=== PATIENT | female | born 1960 | race Caucasian/White ===

== ENCOUNTER 2023-11-22 09:56 | Emergency (ER) | payer OTHER, SELFPAY ==
--- NOTE | ~2023-11-22 | XR_ITS ---
EXAMINATION: XR FOOT, LEFT CLINICAL INFORMATION: Worsening left foot pain. COMPARISON: None available. TECHNIQUE: AP, lateral, and oblique views of the left foot. FINDINGS: Decreased bone mineralization. Mild diffuse interphalangeal joint space narrowing. No displaced fracture or dislocation. Posterior and plantar calcaneal spurring. There is calcification within the plantar fascia. XR/XR foot LT min 3V IMPRESSION: No acute abnormality.
[2023-11-22 10:15] VITALS: BP 136/99; PULSE 112; RESP 16; TEMP 36; O2SAT 99; BMI 32.9
--- NOTE | 2023-11-22 10:40 | ED_ITS ---
HPI - General Adult General Chief complaint: Back Pain/Injury Stated complaint: l ankle pain Time Seen by Provider: 11/22/23 10:05 Source: patient and RN notes reviewed Mode of arrival: ambulatory Limitations: no limitations History of Present Illness HPI narrative: This is a 63-year-old female, with a history of hypothyroidism, hypertension, and chronic migraines, presenting to the emergency department with complaints of ongoing left foot pain since August 2023. Patient states that in August she tripped over a toy around [place] and caused her to injured her left foot. She states that she was several hours away from hospital and was not seen immediately. She states that several days later she traveled home and was told that she had a foot fracture. She followed up with the senior ecologist several weeks ago and was told that she had a fracture and would be re seen in December after wearing boot. She was seen by her primary care physician last week who prescribed her a topical pain medication which he has been using without any relief. Patient states that over the last 4 days she has had increased pain in his been unable to sleep. She states that she was never seen by an hemodialysis patient care specialist and would like to be referred to 1 today. No other complaints or concerns at this time. MD complaint: foot pain Onset (ago): month(s) Location: lower extremity Radiation: non-radiation Severity: moderate Quality: aching Pain Consistency: constant Relieving factors: immobilization Exacerbating factors: movement Associated symptoms: denies other symptoms Treatments prior to arrival: none Related Data Home Medications Medication Instructions Recorded Confirmed albuterol sulfate 90 mcg/actuation 2 puff inhalation Q6H PRN 05/30/22 aerosol inhaler duloxetine 30 mg capsule,delayed 60 mg PO DAILY 05/30/22 release fluticasone 500 mcg-salmeterol 50 1 inh inhalation BID 05/30/22 mcg/dose blistr powdr for inhalation (Wixela Inhub) fluticasone prop.50 mcg 2 spray intranasal DAILY 05/30/22 spray,suspen-sod.chloride 0.9% nasal spray kit levothyroxine 100 mcg tablet 100 mcg PO DAILY 05/30/22 metoprolol succinate 25 mg 25 mg PO DAILY 05/30/22 tablet,extended release 24 hr umeclidinium 62.5 mcg/actuation 1 inh inhalation DAILY 05/30/22 blister powder for inhalation (Incruse Ellipta) valsartan 160 1 tab PO DAILY 05/30/22 mg-hydrochlorothiazide 25 mg tablet Previous Rx's Medication Instructions Recorded pantoprazole 20 mg tablet,delayed 40 mg (2 x 20 mg) PO DAILY 30 days 05/30/22 release #60 tabs Allergies Allergy/AdvReac Type Severity Reaction Status Date / Time aspirin Allergy Intermediate Rash Verified 05/30/22 13:05 ibuprofen Allergy Intermediate Rash Verified 05/30/22 13:05 IV contrast Allergy Intermediate Swelling Uncoded 05/30/22 13:05 Review of Systems Review of Systems: Yes all other systems are reviewed and are negative Constitutional: Constitutional: Reports as per [facility] Past Medical History Attestation statement: The following information was validated with the patient. Social History Social History Patient Tobacco Use Status: Never used Tobacco Smoked in Last 30 Days: No Use of substances other than those prescribed or required for medical reasons: No Advance Directives: No Patient : No Physical Exam ED Vital Signs: Vital Signs - 24 hr 11/22/23 10:15 Temperature 96.8 F Pulse Rate 112 H Respiratory Rate 16 Blood Pressure 136/99 H Pulse Oximetry 99 Oxygen Delivery Method Room Air BMI result Body Mass Index 32.9 Const General: cooperative, comfortable and no acute distress Orientation/consciousness: patient oriented x3 Limitations: no limitations HENMT Head: Yes normal to inspection, Yes normocephalic and Yes atraumatic Ears: hearing grossly normal bilaterally General nose exam: Normal external nose present Face and sinus: Yes normal facial exam Mouth: Normal oral and palatal mucosa present, oropharynx normal and moist mucous membranes Throat: Yes posterior oropharynx normal Eyes General: appearance normal, both eyes and all related structures Eyelids: Yes eyelids normal Conjunctivae: conjunctivae normal Sclerae: sclerae normal Pupils: Equal, round and reactive pupils present EOM: EOMs intact bilaterally Neck Neck: Yes normal visual inspection, Yes full ROM and Yes no lymphadenopathy Lymphatic: no lymphadenopathy noted Chest Chest palpation & inspection: normal inspection of the chest Resp Effort & Inspection: normal respiratory effort and able to speak in complete sentences Cardio Rate: regular rate Rhythm: regular rhythm GI Inspection: Yes normal to inspection Skin General skin exam: no rashes or lesions noted Trauma: no lacerations or abrasions Wounds: no wounds Neuro General: patient oriented x3 and moves all extremities Cranial nerves: Yes Equal, round and reactive pupils present Extrem Other: Left foot dorsal aspect there is moderate diffuse ecchymosis noted, however what is well perfused, no bony gross deformity or swelling. No tenderness palpation, full range of motion of the ankle joint, able to wiggle toes without difficulty. DP pulse 2 + no tenderness palpation along medial or lateral malleoli. No calf tenderness. General: Yes normal to inspection Right upper extremity: normal to inspection Left upper extremity: normal to inspection Right lower extremity: normal to inspection Left lower extremity: normal to inspection Course Reevaluation(s) Reevaluation #1: X-ray shows no acute abnormality. There is decreased bone mineralization, and diffuse intra pharyngeal joint space narrowing. There is also posterior and plantar calcaneal spurring. There is calcification within the plantar fascia. Discussed this finding with patient. Will refer to Orthopedics, given return precautions. Refuses crutches. She understands agrees with plan. Patient stable for discharge. Time: 12:20 Medical Decision Making Medical Decision Making MDM Narrative: This is a 63-year-old female, with a history of hypothyroidism, hypertension, and chronic migraines, presenting to the emergency department with complaints of acute on chronic left foot pain x4 days. Patient has known foot fracture she was diagnosed in August. She has been wearing boot, followed up with Podiatry as well as primary care. Was advised sustained boot until follow-up with Podiatry next month. She states that her pain has only worsened is concerned as she believes that the bone is not healed. She has not been seen by an hemodialysis patient care specialist as of yet. She has been using [id number] Tylenol and Aleve without any relief. On arrival, patient mildly tachycardic at 112, mildly hypertensive at 136/99, she has no chest pain, shortness of breath, abdominal pain, nausea, vomiting or diarrhea. Foot appears slightly ecchymotic, otherwise no evidence of compartment syndrome, open fracture, or cellulitis. Will repeat x-ray as we do not have record of her fracture. Differential Diagnosis Differential Diagnoses: The differential diagnosis associated with the presentation includes Fracture, sprain, strain, contusion, bony lesion, dislocation, compartment syndrome, cellulitis Admission/Observation Consideration of admission/observation: Escalation of care including admission/observation considered Escalation of care including admission/observation considered however given workup today not warranted at this time. Radiology Impression Discussion of test interpretation with radiology: I have reviewed the radiologist's reading. Radiologist Impression: EXAMINATION: XR FOOT, LEFT CLINICAL INFORMATION: Worsening left foot pain. COMPARISON: None available. TECHNIQUE: AP, lateral, and oblique views of the left foot. FINDINGS: Decreased bone mineralization. Mild diffuse interphalangeal joint space narrowing. No displaced fracture or dislocation. Posterior and plantar calcaneal spurring. There is calcification within the plantar fascia. XR/XR foot LT min 3V IMPRESSION: No acute abnormality. Dictated By: Lilly Davis MD Discharge Plan Discharge Clinical Impression: Chronic pain in left foot Patient Disposition: Home, Self-Care Instructions: Arthralgia (ED), Metatarsalgia (DC) Additional Instructions: You were seen in the emergency department due to ongoing foot pain. Your x-ray does not indicate any fracture. Given that you were instructed to stay in orthopedic boot, I am recommending you do so until you are cleared by the senior ecologist. I am also giving your referral to Orthopedics, call today to make an appointment. Continue taking naproxen and Tylenol as needed for pain. Rest, ice or apply heat, or elevate your foot as needed. If any new or worsening symptoms occur including but not limited to worsening pain, swelling, decreased range of motion foot, please return for re-evaluation. Prescriptions: No Action metoprolol succinate 25 mg tablet extended release 24 hr 25 mg PO DAILY valsartan-hydrochlorothiazide 160-25 mg tablet 1 tab PO DAILY levothyroxine 100 mcg tablet 100 mcg PO DAILY duloxetine 30 mg capsule,delayed release(DR/EC) 60 mg PO DAILY Incruse Ellipta 62.5 mcg/actuation blister with device 1 inh inhalation DAILY fluticasone propion-salmeterol [Wixela Inhub] 500-50 mcg/dose blister with device 1 inh inhalation BID albuterol sulfate 90 mcg/actuation HFA aerosol inhaler 2 puff inhalation Q6H PRN fluticasone prp-sod.chl,bicarb 50 mcg- 0.9 % kit,spray suspension and spray 2 spray intranasal DAILY pantoprazole 20 mg tablet,delayed release (DR/EC) 40 mg PO DAILY 30 Days Qty: 60 0RF Referrals: [facility] [place] Orth[facility] Surgeons [Provider Group]
[2023-11-22 12:33] VITALS: BP 155/90; PULSE 67; RESP 16; TEMP 37.2; O2SAT 99
== END 2023-11-22 12:46 | disposition home or self-care (01) ==
PROVIDERS: Emergency Provider Emergency Medicine; PCP Internal Medicine
DX: M79.672 Pain in left foot (principal); Z79.899 Other long term (current) drug therapy
CPT/HCPCS: 73630; 99283; 99284

== ENCOUNTER 2024-11-10 10:56 | Emergency (ER) | payer OTHER, SELFPAY ==
--- NOTE | ~2024-11-10 | CT_ITS ---
EXAMINATION: CT HEAD WITHOUT CONTRAST CLINICAL INFORMATION: numbness to left face COMPARISON: None available. TECHNIQUE: Contiguous axial imaging was performed from the skull base to vertex without intravenous administration of contrast. This CT examination was performed using dose optimization techniques as appropriate, variously including the following: *Automated exposure control *Adjustment of mA and/or kV according to patient size (this includes techniques or standardized protocols for targeted exams where dose is matched to indication/reason for exam; i.e. extremities or head) *Use of iterative reconstruction technique DLP: 663 mGy-cm FINDINGS: No acute intracranial hemorrhage, mass effect, midline shift, hydrocephalus or herniation. Ornelas-white matter differentiation is normal. Posterior cranial fossa contents demonstrated no acute intracranial hemorrhage. Probable old lacunar infarcts in basal ganglia. Sellar/suprasellar region demonstrated no gross masses or hemorrhage. Craniocervical junction is intact. Calcified plaques in the V4 segments of the right vertebral artery and cavernous supracavernous segments both ICA. Tympanic cavities and mastoid cells are aerated. No air-fluid levels in the included paranasal sinuses.. CT/CT head/brain wo IV con IMPRESSION: No acute intracranial hemorrhage. 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 Electronically signed by: Moise Sinclair MD 11/10/2024 02:45 PM EST
--- NOTE | 2024-11-10 11:53 | ED.GENADULT ---
HPI - General Adult General Chief complaint: Neuro Symptoms/Deficit Stated complaint: l side facial numbness feels funny Time Seen by Provider: 11/10/24 17:09 Source: patient Limitations: no limitations History of Present Illness ED Provider: Jane Pereira PA-C HPI narrative: 64-year-old female with a history of chronic migraine, gastritis, GERD, asthma, hypothyroidism, hypertension presents with migraine headache. Patient states she has frequent headaches, they can occur on a daily basis at times. Overnight she developed a headache. Associated left-sided tingling sensation of the face, phonophobia, photophobia and nausea. Denies weakness of upper or lower extremities, slurred speech, facial droop. No dizziness. No gait instability. Patient states she has pending neurology consult for her chronic migraines. Related Data Home Medications ?Medication ?Instructions ?Recorded ?Confirmed albuterol sulfate 90 mcg/actuation 2 puff inhalation Q6H PRN 05/30/22 aerosol inhaler duloxetine 30 mg capsule,delayed 60 mg PO DAILY 05/30/22 release fluticasone 500 mcg-salmeterol 50 1 inh inhalation BID 05/30/22 mcg/dose blistr powdr for inhalation (Wixela Inhub) fluticasone prop.50 mcg 2 spray intranasal DAILY 05/30/22 spray,suspen-sod.chloride 0.9% nasal spray kit levothyroxine 100 mcg tablet 100 mcg PO DAILY 05/30/22 metoprolol succinate 25 mg 25 mg PO DAILY 05/30/22 tablet,extended release 24 hr umeclidinium 62.5 mcg/actuation 1 inh inhalation DAILY 05/30/22 blister powder for inhalation (Incruse Ellipta) valsartan 160 1 tab PO DAILY 05/30/22 mg-hydrochlorothiazide 25 mg tablet Previous Rx's ?Medication ?Instructions ?Recorded pantoprazole 20 mg tablet,delayed 40 mg (2 x 20 mg) PO DAILY 30 days 05/30/22 release #60 tabs prochlorperazine maleate 10 mg 10 mg PO Q8H PRN headache #10 tabs 11/10/24 tablet (Compazine) Allergies Allergy/AdvReac Type Severity Reaction Status Date / Time aspirin Allergy Intermediate Rash Verified 11/10/24 11:59 ibuprofen Allergy Intermediate Rash Verified 11/10/24 11:59 IV contrast Allergy Intermediate Swelling Uncoded 11/10/24 11:59 Review of Systems Review of Systems: Yes all other systems are reviewed and are negative Constitutional: Constitutional: Denies fatigue, Denies fever(s) and Reports headache(s) Eyes: Eyes: Reports photophobia ENT: Denies dizziness and Reports headache(s) Cardiovascular: Cardiovascular: Denies chest pain and Denies dyspnea Respiratory: Respiratory: Denies cough and Denies dyspnea Gastrointestinal: Gastrointestinal: Denies abdominal pain, Reports nausea and Denies vomiting Musculoskeletal: Musculoskeletal: Denies numbness and Reports tingling Neurologic: Denies dizziness, Reports headache(s), Denies numbness and Reports tingling Endocrine: Endocrine: Denies fatigue [facility] Past Medical History Attestation statement: The following information was validated with the patient. Social History Social History Patient Tobacco Use Status: Never used Tobacco Advance Directives: No Advance Directives Information Provided: Yes Physical Exam ED Vital Signs: Vital Signs - 24 hr 11/10/24 11:54 11/10/24 15:45 11/10/24 19:31 Temperature 97.8 F 96.8 F 98.3 F Pulse Rate 71 72 87 Respiratory Rate 16 16 14 Blood Pressure 135/84 126/84 115/71 Pulse Oximetry 100 99 96 Oxygen Delivery Method Room Air Room Air Room Air 11/10/24 19:32 Temperature 98.3 F Pulse Rate 87 Respiratory Rate 14 Blood Pressure 115/71 Pulse Oximetry 96 Oxygen Delivery Method Room Air BMI result Body Mass Index 36.1 Const Other: Alert, well-appearing Orientation/consciousness: patient oriented x3 Eyes Direct Ophthalmoscopy: photophobia Resp Effort & Inspection: normal respiratory effort Cardio Other: Normal peripheral perfusion Skin Other: Warm dry no rash Neuro General: patient oriented x3, gait normal, no focal motor deficits and CN's II-XI intact bilaterally Psych Other: Cooperative NIH Stroke Scale Internal: Initial- Upon Arrival Time: 11:58 Level of Consciousness: Alert Level of Consciousness Questions: Answers both questions correctly Level of Consciousness Commands: Performs both tasks correctly Best Gaze: Normal Visual: No visual loss Facial Palsy: Normal Motor Arm (Right): No drift Motor Arm (Left): No drift Motor Leg (Right): No drift Motor Leg (Left): No drift Limb Ataxia: Absent Sensory: Normal Best Language: No aphasia Dysarthia: Normal Extinction and Inattention: No abnormality Score: 0 Course Course Course Narrative: This is a Rapid Medical Examination (RME) performed by Antoinette Reyes PA-C in triage. Full HPI, ROS, assessment and treatment plan per primary provider in the Main ED. 64 yo female hx HTN and migraines presents to the ED today for evaluation of left sided facial numbness which began around 2200 last night. assoc mild JARRELL. no dizziness, vision changes. no falls/ trauma. NIH 0, speaking in full sentences, ambulating w/ steady gait Plan: labs, viral swabs, CT head Reevaluation(s) Reevaluation #1: Headache was resolved including the facial paresthesia at the time of discharge Medications Administered Discontinued Medications Generic Name Dose Route Start Last Admin Trade Name Freq PRN Reason Stop Dose Admin Dexamethasone Sodium Phosphate 10 mg 11/10/24 17:44 11/10/24 18:10 Dexamethasone Sod Phosphate 10 Mg/Ml Vial IVPUSH 11/10/24 17:45 10 mg ONCE ONE Administration Diphenhydramine HCl 25 mg 11/10/24 17:44 11/10/24 18:13 Diphenhydramine Hcl 50 Mg/Ml Vial IVPUSH 11/10/24 17:45 Not Given ONCE ONE Sodium Chloride 500 mls @ 500 mls/hr 11/10/24 17:44 11/10/24 18:51 Ns IV 11/10/24 18:43 Infused .Q1H ONE Infusion Acetaminophen 1,000 mg in 100 mls @ 400 mls/hr 11/10/24 17:45 11/10/24 18:51 Ofirmev IV 11/10/24 17:59 Infused ONCE ONE Infusion Prochlorperazine Edisylate 10 mg 11/10/24 17:44 11/10/24 18:10 Prochlorperazine Edisylate 10 Mg/2 Ml Vial IVPUSH 11/10/24 17:45 10 mg ONCE ONE Administration Medical Decision Making Medical Decision Making MDM Narrative: 64-year-old female with a history of chronic migraine, gastritis, GERD, asthma, hypothyroidism, hypertension presents with migraine headache. Patient states she has frequent headaches, they can occur on a daily basis at times. Overnight she developed a headache. Associated left-sided tingling sensation of the face, phonophobia, photophobia and nausea. Denies weakness of upper or lower extremities, slurred speech, facial droop. No dizziness. No gait instability. Patient states she has pending neurology consult for her chronic migraines. Problem: Age, hypertension, chronic migraine History: Per patient I have considered the following differential diagnoses: Stroke, Duran's palsy, complex migraine, intracranial hemorrhage Plan: Screening labs including a CT scan of the brain were obtained from triage. Stroke was considered, however having focal paresthesia is not consistent with a CVA. Thought about Duran's palsy, however there was no facial droop. The patient has no migraines, I am treating her for complex migraine. We will give a migraine cocktail and reassessed. I have independently reviewed the following tests: Labs: No leukocytosis, not anemic, no electrolyte abnormality CT brain: CT/CT head/brain wo IV con IMPRESSION: No acute intracranial hemorrhage. 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 Electronically signed by: Moise Sinclair MD 11/10/2024 02:45 PM [facility] Lab Data 11/10/24 12:29 11/10/24 12:36 Labs: Lab Results 11/10/24 11/10/24 Range/Units 12:29 12:36 WBC 7.7 (4.8-10.8) X10*3/uL RBC 3.84 L (4.20-5.50) X10*6/uL Hgb 12.4 (12.0-16.0) g/dl Hct 36.8 L (37.0-47.0) % MCV 95.8 (80.0-98.0) fL MCH 32.3 (27.0-33.0) pg MCHC 33.7 (31.0-35.0) g/dl RDW 12.3 (11.0-16.0) % Plt Count 274 (160-400) X10*3/uL MPV 9.2 L (9.4-12.3) fL Immature Gran % (Auto) 0.3 (0.0-0.4) % Neut % (Auto) 66.5 (45-73) % Lymph % (Auto) 18.7 L (20-40) % Russell % (Auto) 12.4 H (2-11) % Eos % (Auto) 1.8 (0-4) % Baso % (Auto) 0.3 (0-2) % Lymph # (Auto) 1.4 (1.2-4.9) X10*3/uL Russell # (Auto) 1.0 (0.1-1.2) X10*3/uL Eos # (Auto) 0.1 (0.0-0.4) X10*3/uL Baso # (Auto) 0.0 (0.0-0.2) X10*3/uL Abs Immat Gran (auto) 0.02 (0.00-0.03) X10*3/uL Absolute Neuts (auto) 5.1 (2.0-8.3) x10*3/uL Absolute Nucleated RBC 0.000 (0.0-0.012) X10*3/uL Nucleated RBC % (auto) 0.0 (0.0-0.2) /100WBC PT 11.2 (10.9-12.4) SEC INR 1.0 (0.9-1.1) Sodium 141 (135-145) mmol/L Potassium 4.4 (3.3-5.1) mmol/L Chloride 107 (96-108) mmol/L Carbon Dioxide 28 (22-29) mmol/L Anion Gap 10 L (12-20) BUN 24 H (9-16) mg/dL Creatinine 0.72 (0.5-1.4) mg/dL Estim Creat Clear Calc 92.8 Estimated GFR > 60 Random Glucose 94 (60-115) mg/dL Calcium 9.6 (8.4-10.2) mg/dL Magnesium 2.4 (1.6-2.6) mg/dL Total Bilirubin 0.2 (0.0-1.0) mg/dL AST 25 (5-31) U/L ALT 16 (0-31) U/L Alkaline Phosphatase 79 (39-117) U/L Total Protein 7.3 (6.5-8.0) g/dL Albumin 4.1 (3.5-5.0) g/dL Influenza Type A (PCR) NEGATIVE (Negative) Influenza Type B (PCR) NEGATIVE (Negative) RSV RNA Qual (PCR) NEGATIVE (Negative) SARS-CoV-2 RNA (RT-PCR) NEGATIVE (Negative) Discharge Plan Discharge Clinical Impression: Migraine Patient Disposition: Home, Self-Care Instructions: Migraine Headache (ED) Additional Instructions: You were treated for a migraine type headache. See home care instructions. I am going to write down the medications that you received that resolved your headache. If you develop another migraine, you can use the combination of the medication listed below, together at the same time. Jmka-sfk-kzejwxq Tylenol 1000 mg Arjq-rnx-gethrix Benadryl 25 mg Compazine 10 mg These medications taken together, can be used every 8 hours as needed for migraine pain. Continue to follow up with your neurologist. Prescriptions: New prochlorperazine maleate [Compazine] 10 mg tablet 10 mg PO Q8H PRN (Reason: headache) Qty: 10 0RF No Action metoprolol succinate 25 mg tablet extended release 24 hr 25 mg PO DAILY valsartan-hydrochlorothiazide 160-25 mg tablet 1 tab PO DAILY levothyroxine 100 mcg tablet 100 mcg PO DAILY duloxetine 30 mg capsule,delayed release(DR/EC) 60 mg PO DAILY Incruse Ellipta 62.5 mcg/actuation blister with device 1 inh inhalation DAILY fluticasone propion-salmeterol [Wixela Inhub] 500-50 mcg/dose blister with device 1 inh inhalation BID albuterol sulfate 90 mcg/actuation HFA aerosol inhaler 2 puff inhalation Q6H PRN fluticasone prp-sod.chl,bicarb 50 mcg- 0.9 % kit,spray suspension and spray 2 spray intranasal DAILY pantoprazole 20 mg tablet,delayed release (DR/EC) 40 mg PO DAILY 30 Days Qty: 60 0RF Stand Alone Forms: Work/School Release Interventions: ED Discharge Assessment Last Done: 11/10/24 19:32 Discharge Date/Time: 11/10/24 19:32 Print Language: Egyptian
[2024-11-10 11:54] VITALS: BP 135/84; PULSE 71; RESP 16; TEMP 36.6; O2SAT 100; BMI 36.1
[2024-11-10 12:42] LABS: MANUAL DIFF FLAG NO
[2024-11-10 12:43] LABS: Basophils Percent Auto 0.3 % (0-2); Eosinophils Absolute Auto 0.1 X10*3/uL (0.0-0.4); Eosinophils Percent Auto 1.8 % (0-4); Hematocrit 36.8 % (37.0-47.0); Hemoglobin 12.4 g/dl (12.0-16.0); Imm Gran Abs Auto 0.02 X10*3/uL (0.00-0.03); Imm Gran Pct Auto 0.3 % (0.0-0.4); Lymphocytes Absolute Auto 1.4 X10*3/uL (1.2-4.9); Lymphocytes Percent Auto 18.7 % (20-40); Mean Corpuscular HGB Conc 33.7 g/dl (31.0-35.0); Mean Corpuscular Hemoglobin 32.3 pg (27.0-33.0); Mean Corpuscular Volume 95.8 fL (80.0-98.0); Mean Platelet Volume 9.2 fL (9.4-12.3); Monocytes Percent Auto 12.4 % (2-11); Neutrophils Absolute Auto 5.1 x10*3/uL (2.0-8.3); Neutrophils Percent Auto 66.5 % (45-73); Platelet Count 274 X10*3/uL (160-400); Red Blood Count 3.84 X10*6/uL (4.20-5.50); Red Cell Distribution Width 12.3 % (11.0-16.0); White Blood Count 7.7 X10*3/uL (4.8-10.8)
[2024-11-10 13:01] LABS: Alanine Aminotransferase 16 U/L (0-31); Albumin Level 4.1 g/dL (3.5-5.0); Alkaline Phosphatase 79 U/L (39-117); Anion Gap 10 (12-20); Aspartate Amino Transferase 25 U/L (5-31); Bilirubin Total 0.2 mg/dL (0.0-1.0); Blood Urea Nitrogen 24 mg/dL (9-16); Calcium 9.6 mg/dL (8.4-10.2); Carbon Dioxide 28 mmol/L (22-29); Chloride 107 mmol/L (96-108); Creatinine Clr Calc Pharmacy 92.8; Estimated Glomerular Filt Rate > 60; Glucose Random 94 mg/dL (60-115); Magnesium 2.4 mg/dL (1.6-2.6); Potassium 4.4 mmol/L (3.3-5.1); Sodium 141 mmol/L (135-145); Total Protein 7.3 g/dL (6.5-8.0)
[2024-11-10 13:06] LABS: Prothrombin Time 11.2 SEC (10.9-12.4)
[2024-11-10 13:23] LABS: Influenza A PCR NEGATIVE (Negative); Influenza B PCR NEGATIVE (Negative); Resp Syncy Virus RNA Qual PCR NEGATIVE (Negative); SARS COV2 PCR INHOUSE NEGATIVE (Negative)
[2024-11-10 15:45] VITALS: BP 126/84; PULSE 72; RESP 16; TEMP 36; O2SAT 99
[2024-11-10] MEDS: dexAMETHasone sod phosphate 10 MG/ML VIAL IVPUSH (18:10)
[2024-11-10] MEDS: Prochlorperazine Edisylate 10 MG/2 ML VIAL IVPUSH (18:10)
[2024-11-10] MEDS: 0.9 % Sodium Chloride 500 ML IV (18:10)
[2024-11-10] MEDS: Acetaminophen 1,000 MG/100 ML PIGGYBACK 400 MG IV (18:10)
--- OUTSIDE RECORDS SUMMARY | 2024-11-10 18:33 | XMS_ITS ---
Author Organization [facility] Address [address] [place] [address] Care Team Providers Care Library Attendant Name Role Phone Mattie Conner Primary Care Provide r Naren Jolly Unavailable [phone] REASON FOR VISIT MRV order- needs to be refaxed Encounters Encounter Location Date Provider Diagnosis [facility] [address] [place] [address] 10/09/2024 Naren Dolan Plan Of Treatment No Information Progress Notes * Christine UGALDEDOB:1960 (64 yo F)Acc No.[id number]:10/09/2024 Patient:?Christine UGALDE :1960???Age:64 Y???Sex:Female Address:[facility] [address] [place] [address] * * Date:?
--- OUTSIDE RECORDS SUMMARY | 2024-11-10 18:33 | XMS_ITS | Encounter Summary ---
Author Organization [facility] Address [address] [place] [address] Care Team Providers Care Supervisor [place] Department Name Role Phone Mattie Priest MD Primary Care Prov ider Reason for Visit * Reason Comments Fatigue Hypertension Encounter Details Date Type Department Care Team (Late st Contact Info) Description 10/15/2024 10:30 AM EST Office Visit Adult Medicine [facility] [address] [place] [address] Agustin Hebert PA [address] [place] [address] Migraine without status migrainosus, not intractable, unspecified migraine type (Primary Dx); Primary hypertension; Chronic migraine w/o aura w/o status migrainosus, not intractable; Prediabetes; Hypothyroidism, unspecified type; Other fatigue; Pain of both shoulder joints Social History Tobacco Use Types Packs/Day Years Used Date Smoking Tobacco: Never Smokeless Tobacco: Never Alcohol Use Standard Drinks/Week Comments No 0 (1 standard drink = 0.6 oz pur e alcohol) Comments No Sex and Gender Information Value Date Recorded Sex Assigned at Not on file Legal Sex Female 8:58 AM EST Gender Identity Not on file Sexual Orientation Not on file documented as of this encounter Last Filed Vital Signs Vital Sign Reading Time Taken Comments Blood Pressure 115/75 10/15/2024 10:23 AM EST Pulse 66 10/15/2024 10:23 AM EST Temperature 36.5 ??C (97.7 ??F) 10/15/2024 10:[address] Respiratory Rate - - Oxygen Saturation - - Inhaled Oxygen Concentration - - Weight 98 kg (216 lb) 10/15/2024 10:23 AM EST Height 165.1 cm (5' 5 ) 10/15/2024 10:23 AM EST Body Mass Index 35.94 10/15/2024 10:23 AM EST documented in this encounter Progress Notes * TEDDY De La Paz - 10/15/2024 10:30 AM EST CHIEF COMPLAINT: Fatigue and Hypertension IDENTIFIER: Christine Wray is a 64 y.o. old female. HPI: History of Present Illness The patient presents with fatigue, shoulder pain, migraines, and hypothyroidism. Fatigue - Significant fatigue for 2 weeks despite a regular sleep schedule (10 PM to 3 AM) - No recent illnesses, diet changes, or hydration issues - No snoring, restless sleep, skin rashes, or outdoor pets - No medication refills needed Shoulder Pain - Bilateral shoulder pain for a month, severe enough to prevent lifting upon waking - Pain originates from within the bones - No similar pain in knees, hips, ankles, elbows, or fingers - Soreness in the left wrist - Limited physical activity to walking - No previous shoulder issues - No collarbone pain - Able to raise arms overhead Migraines - Awaiting a special head x-ray for potential blockages - Unable to take additional migraine medication - Under neurology care, referred for x-ray, missed test due to insurance issues - Reports going to bed with a headache and significant pressure, possibly affecting sleep - Continues Ubrelvy for headaches, but it's ineffective Hypothyroidism - On levothyroxine 100 mcg daily for thyroid - Scheduled for blood tests today Hypertension: Blood pressure well-controlled with valsartan and hydrochlorothiazide. No hyper or hypotensive episodes, dizziness, visual changes, headaches, chest pain, peripheral neuropathies, leg swelling. Patient states they are medication adherent. Not checking pressures at home ROS: GENERAL: Negative for malaise, significant weight loss and fever HEENT: No changes in hearing or vision. No nosebleeds or other nasal problems NECK: Negative for lumps, goiter, pain, and significant neck swelling RESPIRATORY: No cough, wheezing or shortness of breath CARDIOVASCULAR: Negative for chest pain, leg swelling and palpitations GI: Negative for abdominal discomfort, changes in bowel habits, blood in stool or black stools ENDOCRINE: Negative for cold or heat intolerance, polyuria, polydipsia and goiter NEURO: No persistent headache, fainting, seizures, strokes, TIAs, weakness, numbness or tingling PAST MEDICAL HISTORY: Patient Active Problem List Diagnosis Date Noted Anxiety 06/24/2024 Back pain 06/24/2024 Class 2 severe obesity due to excess calories with serious comorbidity in adult (CMS/HCC) 06/24/2024 Mild concentric left ventricular hypertrophy (LVH) 06/24/2024 Prediabetes 06/24/2024 Closed fracture of lower end of left radius with routine healing 10/17/2022 Gallbladder polyp 09/22/2022 Left upper quadrant abdominal pain 09/22/2022 Sleep disorder 02/23/2021 Moderate persistent asthma without complication 08/10/2020 Nocturnal hypoxemia 06/08/2020 Primary hypertension 05/31/2019 Chronic bilateral low back pain with left-sided sciatica 08/14/2018 Pily's thyroiditis 10/08/2017 H/O partial thyroidectomy 10/08/2017 Cataracts, bilateral 07/27/2017 Depression 07/27/2017 GERD (gastroesophageal reflux disease) 07/27/2017 Constipation 11/16/2016 Vitamin D deficiency 11/16/2016 Hydronephrosis of right kidney 11/17/2015 Microhematuria 11/17/2015 Hypothyroid 08/12/2013 Irritable bowel disease 08/12/2013 Migraines 08/12/2013 Obstructive sleep apnea 08/12/2013 SOCIAL HISTORY: Social History Tobacco Use Smoking status: Never Smokeless tobacco: Never Substance Use Topics Alcohol use: No FAMILY HISTORY: Family Status Relation Name Status Mother Father Neg Hx (Not Specified) No partnership data on file Family History Problem Relation Name Age of Onset Diabetes Mother Bladder Cancer @ 62 Stroke Father 35 yo Breast cancer Neg Hx Ovarian cancer Neg Hx Colon cancer Neg Hx ACTIVE MEDICATIONS: Outpatient Medications Marked as Taking for the 10/15/24 encounter (Office Visit) with TEDDY De La Paz Medication Sig Dispense Refill acetaminophen (TYLENOL) 325 mg tablet every 6 (six) hours if needed. albuterol 2.5 mg /3 mL (0.083 %) nebulizer solution Inhale 3 mL (2.5 mg total) by mouth every 4 (four) hours if needed for wheezing. for up to 30 days albuterol HFA (PROAIR HFA ; PROVENTIL HFA ; VENTOLIN HFA) 90 mcg/actuation inhaler Inhale 2 puffs by mouth every 4 (four) hours if needed (COUGH OR WHEEZING). cetirizine (ZyrTEC) 10 mg tablet Take 1 tablet (10 mg total) by mouth 1 (one) time each day if needed for allergies. cyanocobalamin (VITAMIN B-12) 100 mcg tablet Take 0.5 tablets (50 mcg total) by mouth 1 (one) time each day. diclofenac (VOLTAREN) 1 % topical gel Apply 4 g topically 2 (two) times a day. ergocalciferol (VITAMIN D-2) 1,250 mcg (50,000 unit) capsule Take 1 capsule (50,000 Units total) bymouth 1 (one) time per week. ferrous gluconate (FERGON) 240 mg (27 mg iron) tablet TAKE ONE TABLET BY MOUTH EVERY DAY 30 tablet 0 FERROUS GLUCONATE ORAL Take 1 tablet by mouth 1 (one) time each day. Ferrous Gluconate 239 (27 Fe) MG Tab fluticasone propion-salmeteroL (ADVAIR DISKUS) 500-50 mcg/dose diskus inhaler Inhale 1 puff by mouth 2 (two) times a day. for 30 days ibuprofen (ADVIL,MOTRIN) 600 mg tablet levothyroxine (SYNTHROID, LEVOTHROID) 100 mcg tablet Take 1 tablet (100 mcg total) by mouth 1 (one)time each day before breakfast. 90 tablet 1 metoprolol succinate (TOPROL-XL) 25 mg 24 hr tablet Take 1 tablet (25 mg total) by mouth 1 (one) time each day. mometasone (ELOCON) 0.1 % ointment 2 (two) times a day. Apply 0.5 FTU to the affected area for 2 weeks naproxen (NAPROSYN) 500 mg tablet Take 1 tablet (500 mg total) by mouth 2 (two) times a day with meals. for 60 days pantoprazole (PROTONIX) 20 mg EC tablet Take 1 tablet (20 mg total) by mouth 2 (two) times a day before meals. pramipexole (MIRAPEX) 0.125 mg tablet Take 1 Tablet by mouth See Admin Instructions for 360 days. One tablet an hour before bed. Increase to two tablets in three days if no improvement. Maximum 3 tablets nightly after a week if no benefits from two tablets. Trulance 3 mg tablet TAKE 1 TABLET BY MOUTH DAILY 30 tablet 3 ubrogepant (UBRELVY) 100 mg tablet Take by mouth. valsartan-hydroCHLOROthiazide (DIOVAN-HCT) 320-25 mg per tablet Take 1 tablet by mouth 1 (one) timeeach day. 30 each 11 venlafaxine (EFFEXOR) 25 mg tablet Take 1 tablet (25 mg total) by mouth 1 (one) time each day. [DISCONTINUED] doxycycline (VIBRAMYCIN) 100 mg capsule ALLERGIES: Diphenhydramine hcl, Aspirin, Bupropion, Codeine, Cyclobenzaprine, Ibuprofen, Iodinated contrast media, Lisinopril, Meloxicam, Penicillins, Tramadol hcl, Valacyclovir hcl, and Verapamil hcl PHYSICAL EXAM: Blood pressure 115/75, pulse 66, temperature 36.5 ??C (97.7 ??F), temperature source Temporal, height 1.651 m (65 ), weight 98 kg (216 lb). Body mass index is 35.94 kg/m??. Plan is deferred until next visit APPEARANCE: Alert and in no acute distress EYES: PERRLA, conjunctiva and sclera normal NECK: Neck supple, no adenopathy, thyroid symmetric and of normal size HEART: RRR with normal S1 and S2, no murmurs, no gallops, no JVD appreciated LUNG: clear to auscultation bilaterally EXTREMITIES: Extremities warm and well perfused without clubbing, cyanosis, or edema NEURO: Awake, alert and oriented x 3 and Cranial nerves II-XII grossly intact SHOULDERS: Bilateral shoulders with diffuse tenderness to palpation with light touch but full active and passive laterally. Neurovascularly grossly intact in the upper extremities. LABS: Appointment on 09/08/2024 Component Date Value Ref Range Status WBC 09/08/2024 6.8 4.8 - 10.8 K/mcL Final RBC 09/08/2024 4.20 3.80 - 4.80 M/mcL Final Hemoglobin 09/08/2024 13.2 11.5 - 16.0 g/dL Final Hematocrit 09/08/2024 41.8 35.0 - 47.0 % Final MCV 09/08/2024 100.2 (H) 79.0 - 98.0 FL Final MCH 09/08/2024 31.7 27.0 - 32.0 pcg Final MCHC 09/08/2024 31.6 (L) 32.0 - 37.0 g/dL Final RDW 09/08/2024 12.7 11.0 - 15.0 % Final Platelets 09/08/2024 274 130 - 400 K/mcL Final MPV 09/08/2024 9.9 7.0 - 11.0 FL Final NRBC 09/08/2024 0.0 <1.0 % Final NRBC Absolute 09/08/2024 0.00 <0.10 K/mcL Final Neutrophils Relative 09/08/2024 64.7 % Final Lymphocytes Relative 09/08/2024 23.1 % Final Monocytes Relative 09/08/2024 10.1 % Final Eosinophils Relative 09/08/2024 1.5 % Final Basophils Relative 09/08/2024 0.3 % Final Immature Granulocytes Relative 09/08/2024 0.3 % Final Neutrophils Absolute 09/08/2024 4.43 1.50 - 7.00 K/mcL Final Lymphocytes Absolute 09/08/2024 1.58 1.00 - 5.00 K/mcL Final Monocytes Absolute 09/08/2024 0.69 0.20 - 1.00 K/mcL Final Eosinophils Absolute 09/08/2024 0.10 0.00 - 0.50 K/mcL Final Basophils Absolute 09/08/2024 0.02 0.00 - 0.20 K/mcL Final Immature Granulocytes Absolute 09/08/2024 0.02 0.00 - 0.03 K/mcL Final Appointment on 08/25/2024 Component Date Value Ref Range Status TSH 08/25/2024 15.31 (H) 0.40 - 4.00 mcIU/mL Final Free T4 08/25/2024 0.95 0.70 - 1.80 ng/dL Final Hemoglobin A1C 08/25/2024 6.2 <6.5 % Final Mean Bld Glu Estim. 08/25/2024 131 mg/dL Final Cholesterol 08/25/2024 218 (H) 0 - 200 mg/dL Final Triglycerides 08/25/2024 104 0 - 150 mg/dL Final HDL 08/25/2024 81 >=40 mg/dL Final LDL Calculated 08/25/2024 116 (H) 0 - 100 mg/dL Final VLDL Cholesterol Marcelo 08/25/2024 20.8 mg/dL Final Non HDL Chol. (LDL+VLDL) 08/25/2024 137 <145 mg/dL Final Chol/HDL Ratio 08/25/2024 2.7 0.0 - 4.4 Final Sodium 08/25/2024 140 133 - 145 mmol/L Final Potassium 08/25/2024 4.2 3.5 - 5.5 mmol/L Final Chloride 08/25/2024 106 96 - 110 mmol/L Final CO2 08/25/2024 28 21 - 32 mmol/L Final Anion Gap 08/25/2024 6 3 - 11 Final Glucose 08/25/2024 138 (H) 70 - 100 mg/dL Final BUN 08/25/2024 22 5 - 25 mg/dL Final Creatinine 08/25/2024 0.83 0.50 - 1.10 mg/dL Final eGFR 08/25/2024 79 >=60 mL/min/1.73m2 Final Calculation based on the Chronic Kidney Disease Epidemiology Collaboration (CKD- EPI) equation refitwithout adjustment for race. BUN/Creatinine Ratio 08/25/2024 26.5 Final Calcium 08/25/2024 9.7 8.5 - 10.5 mg/dL Final AST (SGOT) 08/25/2024 11 10 - 42 unit/L Final ALT (SGPT) 08/25/2024 20 10 - 60 unit/L Final Alkaline Phosphatase 08/25/2024 81 42 - 121 unit/L Final Total Protein 08/25/2024 7.1 6.0 - 8.0 g/dL Final Albumin 08/25/2024 4.1 3.2 - 5.0 g/dL Final Total Bilirubin 08/25/2024 0.3 0.0 - 1.4 mg/dL Final Vitamin D, 1, 25-Dihydroxy 08/25/2024 67 20 - 79 pg/mL Final Vitamin D 1, 25 dihydroxy levels should be primarily used to assess Vitamin D status in patients with renal disease and hypercalcemia. Vitamin D 1,25-dihydroxy levels are generally less than 5 pg/mL in end stage renal disease patients. The preferred initial test for assessing Vitamin D status in the general population is Vitamin D 25-hydroxy (VITD). Test performed at [facility], [address], [place] [address] Patricia Garibay MD, PhD - Adult Care Provider Iron 08/25/2024 66 40 - 150 mcg/dL Final TIBC 08/25/2024 369 250 - 450 mcg/dL Final Iron Saturation 08/25/2024 18 15 - 50 % Final WBC 08/25/2024 11.3 (H) 4.8 - 10.8 K/mcL Final RBC 08/25/2024 4.00 3.80 - 4.80 M/mcL Final Hemoglobin 08/25/2024 12.8 11.5 - 16.0 g/dL Final Hematocrit 08/25/2024 40.2 35.0 - 47.0 % Final MCV 08/25/2024 100.0 (H) 79.0 - 98.0 FL Final MCH 08/25/2024 31.8 27.0 - 32.0 pcg Final MCHC 08/25/2024 31.8 (L) 32.0 - 37.0 g/dL Final RDW 08/25/2024 13.1 11.0 - 15.0 % Final Platelets 08/25/2024 357 130 - 400 K/mcL Final MPV 08/25/2024 9.3 7.0 - 11.0 FL Final NRBC 08/25/2024 0.0 <1.0 % Final NRBC Absolute 08/25/2024 0.00 <0.10 K/mcL Final Neutrophils Relative 08/25/2024 69.1 % Final Lymphocytes Relative 08/25/2024 19.5 % Final Monocytes Relative 08/25/2024 9.6 % Final Eosinophils Relative 08/25/2024 0.4 % Final Basophils Relative 08/25/2024 0.4 % Final Immature Granulocytes Relative 08/25/2024 1.0 % Final Neutrophils Absolute 08/25/2024 7.78 (H) 1.50 - 7.00 K/mcL Final Lymphocytes Absolute 08/25/2024 2.19 1.00 - 5.00 K/mcL Final Monocytes Absolute 08/25/2024 1.08 (H) 0.20 - 1.00 K/mcL Final Eosinophils Absolute 08/25/2024 0.05 0.00 - 0.50 K/mcL Final Basophils Absolute 08/25/2024 0.04 0.00 - 0.20 K/mcL Final Immature Granulocytes Absolute 08/25/2024 0.11 (H) 0.00 - 0.03 K/mcL Final Creatinine, Urine 08/25/2024 104.0 mg/dL Final Microalb, Ur 08/25/2024 9.6 0.0 - 29.0 mg/L Final Microalb/Creat Ratio 08/25/2024 9 <30 mg/g creat Final Abstract on 06/24/2024 Component Date Value Ref Range Status Hepatitis C Screening 04/05/2023 Abstracted Final HIV Screening 04/27/2023 Abstracted Final Annual BMP Blood Test 04/24/2024 Abstracted Final Cervical Cancer Screening: HPV 03/13/2017 Negative, abstracted Final Pap smear 03/13/2017 Negative, abstracted Final Colonoscopy 06/22/2022 No interpretation, abstracted Final Urine Albumin Creatinine Ratio 08/22/2022 Abstracted Final LDL/HDL Ratio 10/11/2021 3 0 - 4 Final Triglycerides 10/11/2021 189 (A) 0 - 150 mg/dL Final Cholesterol 10/11/2021 183 0 - 200 mg/dL Final HDL 10/11/2021 54 40 mg/dL Final LDL Cholesterol 10/11/2021 92 0 - 100 mg/dL Final Hemoglobin A1C 12/11/2023 5.9 6.5 % Final IMPRESSION: 1. Migraine without status migrainosus, not intractable, unspecified migraine type 2. Primary hypertension 3. Chronic migraine w/o aura w/o status migrainosus, not intractable 4. Prediabetes 5. Hypothyroidism, unspecified type 6. Other fatigue 7. Pain of both shoulder joints PLAN: I have obtained verbal consent from Christine Nils prior to the recording. I have advised Christine Wray that she may refuse the recording and require the recording to be turned off at any time during this encounter. Assessment & Plan 1. Fatigue - Etiology uncertain - Reports feeling drained despite normal sleep - No changes in diet or recent illness - Blood work today to evaluate thyroid function and inflammatory conditions 2. Bilateral shoulder pain - Ongoing for a month, described as bone pain in shoulders and left wrist - No history of shoulder problems - No pain in elbows, wrists, or fingers - Possible sleep position or inflammatory condition - Blood work to include inflammatory markers and Lyme disease 3. Migraines - Awaiting special x-ray for blockages-per patient report - Using Ubrelvy as needed, but ineffective 4. Hypothyroidism - On levothyroxine 100 mcg daily - Blood tests today to monitor thyroid levels -Continue following with endocrinology 5. Blood pressure management - Well-controlled with valsartan and hydrochlorothiazide - No changes needed Discussed signs and symptoms warranting reevaluation. Risks, benefits, and side-effects of the medication were discussed and the patient expressed verbalunderstanding and consents to the plan. Followup in 4 months or as needed This note was created using dictation software and may contain syntax and grammar errors. Orders Placed This Encounter Procedures Rheumatoid factor Uric acid Borrelia burgdorferi antibody JENELLE IFA with titer and pattern Sedimentation rate ADDITIONAL ORDERS: None TEDDY De La Paz on 10/15/2024 at 11:53 AM EST documented in this encounter Plan of Treatment Upcoming Encounters Date Type Department Care Team (Late st Contact Info) Description 12/02/2024 8:15 AM EDT Office Visit Pulmonolgy - [place] [address] [phone] Jamel Capone MD [address] [address] 12/30/2024 1:20 PM EDT Office Visit Gastroenterology - [place] [address] [phone] Geri Zayas PA [address] [address] 02/12/2025 9:45 AM EDT Office Visit Adult Medicine - [place] [address] [place] [phone] Agustin Hebert PA [address] [place] [address] documented as of this encounter Results * Sedimentation rate (10/15/2024 11:34 AM EST) [facility] Sed Rate 9 0 - 30 mm/hr LAB HEMETOLOGY METHOD 10/15/2024 2:17 PM EST [facility] Blood Venous blood specimen / Unknown Venipuncture / Unknown 10/15/2024 11:34 AM EST 10/15/2024 11:34 AM EST Agustin ESPINAL LAB BLOOD ORDERABLES Final Res ult Performing Organization Address [facility]/ZIP Co de Phone Number [facility] [address] [place] [address], [place] [phone] * JENELLE IFA with titer and pattern (10/15/2024 11:34 AM EST) [facility] JENELLE Negative Negative 10/16/2024 1:57 PM EST [facility] Blood Venous blood specimen / Unknown Venipuncture / Unknown 10/15/2024 11:34 AM EST 10/15/2024 11:34 AM EST Agustin ESPINAL LAB BLOOD ORDERABLES Final Res ult Performing Organization Address [facility] de Phone Number [facility] [address] [place] [address], [place] [phone] * Borrelia burgdorferi antibody (10/15/2024 11:34 AM EST) [facility] Lyme Ab Negative Negative LAB CHEMISTRY METHOD 10/16/2024 9:03 AM EST [facility] Comment: No laboratory evidence of infection with B. burgdorferi (Lyme disease). Negative results may occur in patients recently infected (<=14 days) with B. burgdorferi. ??If recent infection is suspected, repeat testing on a new sample collected in 7-14 days is recommended. Blood Venous blood specimen / Unknown Venipuncture / Unknown 10/15/2024 11:34 AM EST 10/15/2024 11:34 AM EST Agustin ESPINAL LAB BLOOD ORDERABLES Final Res ult Performing Organization Address [facility] de Phone Number [facility] [address] [place] [address], [place] [phone] * Uric acid (10/15/2024 11:34 AM EST) Uric Acid 5.5 3.1 - 7.8 mg/dL LAB CHEMISTRY METHOD 10/15/2024 2:53 PM EST [facility] Blood Venous blood specimen / Unknown Venipuncture / Unknown 10/15/2024 11:34 AM EST 10/15/2024 11:34 AM EST Agustin ESPINAL LAB BLOOD ORDERABLES Final Res ult Performing Organization Address [facility] de Phone Number [facility] [address] [place] [address], [place] [phone] * Rheumatoid factor (10/15/2024 11:34 AM EST) Pathologist [facility] Rheumatoid Factor 14.0 <15.0 I Unit/mL LAB CHEMISTRY METHOD 10/15/2024 2:53 PM EST [facility] Blood Venous blood specimen / Unknown Venipuncture / Unknown 10/15/2024 11:34 AM EST 10/15/2024 11:34 AM EST Agustin ESPINAL LAB BLOOD ORDERABLES Final Res ult Performing Organization Address [facility] Co de Phone Number [facility] [address] [place] [address], [place] [phone] documented in this encounter Visit Diagnoses Diagnosis Migraine without status migrainosus, not intractable, unspecified migraine type- Primary Primary hypertension Unspecified essential hypertension Chronic migraine w/o aura w/o status migrainosus, not intractable Prediabetes Other abnormal glucose Hypothyroidism, unspecified type Other fatigue Pain of both shoulder joints documented in this encounter Discontinued Medications Medication Sig Discontinue Reason Start Date End Da te doxycycline (Monodox) 100 mg capsule Take 1 capsule (100 mg total) by mouth 2 (two) times a day for 10 days. Take with at least 8 ounces (large glass) of water, do not lie down for 30 minutes after 09/29/2024 10/15/2024 doxycycline (VIBRAMYCIN) 100 mg capsule 10/15/2024 documented as of this encounter Care Teams Supervisor [place] Department Relationship Specialty Start Date End Date Mattie Priest MD [address] [place] [phone] PCP - General Internal Medicine 07/14/24 documented as of this encounter
--- OUTSIDE RECORDS SUMMARY | 2024-11-10 18:33 | XMS_ITS | Encounter Summary ---
Author Organization [facility] Address [address] [place] [address] Care Team Providers Care Paralegal Specialist Name Role Phone Mattie Priest MD Primary Care Prov ider Reason for Visit * Reason Comments Tremors Encounter Details Date Type Department Care Team (Late st Contact Info) Description 10/24/2024 1:00 PM EST Office Visit Adult Medicine [facility] [address] [place] [address] Agustin Hebert PA [address] [place] [address] Coarse tremors (Primary Dx) Social History Tobacco Use Types Packs/Day Years Used Date Smoking Tobacco: Never Smokeless Tobacco: Never Tobacco Cessation:Counseling Given: Not Answered Alcohol Use Standard Drinks/Week Comments No 0 [...] Sign Reading Time Taken Comments Blood Pressure 118/72 10/24/2024 12:58 PM EST Pulse 68 10/24/2024 12:58 PM EST Temperature 36.7 ??C (98 ??F) 10/24/2024 12:58 PM EST Respiratory Rate - - Oxygen Saturation - - Inhaled Oxygen Concentration - - Weight 97.8 kg (215 lb 9.6 oz) 10/24/2024 12:58 PM EST Height 165.1 cm (5' 5 ) 10/24/2024 12:58 PM EST Body Mass Index 35.88 10/24/2024 12:58 PM EST documented in this encounter Progress Notes * TEDDY De La Paz - 10/24/2024 1:00 PM EST CHIEF COMPLAINT: Tremors IDENTIFIER: Christine Wray is a 64 y.o. old female. HPI: History of Present Illness The patient presents for evaluation of tremors. Tremors - She experiences intermittent, whole-body tremors every other day, lasting approximately 30 minutes, leaving her extremely nervous. - The tremors are random, without identifiable triggers, and have been present for over 6 months. - They are not associated with pain but induce fear and mild respiratory involvement. - She also experiences lightheadedness, distinct from her usual migraines. - During a recent episode, she felt her entire body collapsing, with uncontrollable shaking of her neck and head. - Her assisted her until the episode subsided. - She is under the care of a neurologist at [facility] for her migraines and is awaiting approval for some type of head scan. . - She has not discussed the tremors with her neurologist. - No issues with bowel movements or urination. - Last head imaging in January 2023 was normal. - She consumes one cup of coffee in the morning and does not use alcohol or drugs. - She eats before taking her medications. SOCIAL HISTORY - Does not drink alcohol - Does not use drugs ROS: GENERAL: Negative for malaise, significant weight [...] habits, blood in stool or black stools : Negative for dysuria, frequency, and incontinence MUSCULOSKELETAL: Negative for joint pain or swelling, back pain and muscle pain. SKIN: No lesions, rash, or itching HEMATOLOGY/LYMPHOLOGY: No prolonged bleeding, easy bruising, or swollen lymph nodes ENDOCRINE: Negative for cold or heat intolerance, polyuria, polydipsia and goiter PAST MEDICAL HISTORY: Patient Active Problem List [...] Outpatient Medications Marked as Taking for the 10/24/24 encounter (Office Visit) with TEDDY De La [...] by mouth 1 (one) time each day. ALLERGIES: Diphenhydramine hcl, Aspirin, Bupropion, Codeine, Cyclobenzaprine, Ibuprofen, Iodinated contrast media, Lisinopril, Meloxicam, Penicillins, Tramadol hcl, Valacyclovir hcl, and Verapamil hcl PHYSICAL EXAM: Blood pressure 118/72, pulse 68, temperature 36.7 ??C (98 ??F), temperature source Temporal, height1.651 m (65 ), weight 97.8 kg (215 lb 9.6 oz). Body mass index is 35.88 kg/m??. Plan is deferred until next visit [...] 3 and Cranial nerves II-XII grossly intact Physical Exam Neurologic exam performed. LABS: Appointment on 10/15/2024 Component Date Value Ref Range Status TSH 10/15/2024 1.37 0.40 - 4.00 mcIU/mL Final Free T4 10/15/2024 1.41 0.70 - 1.80 ng/dL Final Rheumatoid Factor 10/15/2024 14.0 <15.0 I Unit/mL Final Uric Acid 10/15/2024 5.5 3.1 - 7.8 mg/dL Final Lyme Ab 10/15/2024 Negative Negative Final No laboratory evidence of infection with B. burgdorferi (Lyme disease). Negative results may occur in patients recently infected (<=14 days) with B. burgdorferi. If recent infection is suspected, repeat testing on a new sample collected in 7-14 days is recommended. JENELLE 10/15/2024 Negative Negative Final Sed Rate 10/15/2024 9 0 - 30 mm/hr Final Appointment on 09/08/2024 Component Date Value Ref [...] Vitamin D 25-hydroxy (VITD). Test performed at [facility], [address], [place] [address] Patricia Garibay MD, PhD - [employer] 08/25/2024 66 40 - 150 mcg/dL [...] 12/11/2023 5.9 6.5 % Final IMPRESSION: 1. Coarse tremors PLAN: I have obtained verbal consent from Christine Wray prior to the recording. I have advised Christine Wray that she may refuse the recording and require the recording to be turned off at any time during this encounter. Assessment & Plan 1. Tremors - Symptoms do not align with typical epilepsy - Reviewed lab results from August in September 2023, revealing no significant abnormalities - Last head imaging in January 2023 was unremarkable - Advised to consult neurologist regarding current symptoms and schedule MRI - Encouraged to follow up with neurologist to expedite approval for the upcoming procedure Discussed signs and symptoms warranting reevaluation. Patient expressed verbal understanding and consents to the plan as outlined. Followup as necessary. This note was created using dictation software and may contain syntax and grammar errors. No orders of the defined types were placed in this encounter. ADDITIONAL ORDERS: None TEDDY De La Paz on 10/24/2024 at 6:00 PM EST documented in this encounter Plan of Treatment Upcoming Encounters Date Type Department Care Team (Late st Contact Info) Description 12/02/2024 8:15 AM EDT Office Visit Pulmonolgy - [facility] [address] [phone] Jamel Capone MD [address] [address] 12/30/2024 1:20 PM EDT Office Visit Gastroenterology - [facility] [address] [address] Geri Zayas PA [address] [address] 02/12/2025 9:45 AM EDT Office Visit Adult Medicine - [facility] [address] [place] [address] Agustin Hebert PA [address] [place] [address] documented as of this encounter Visit Diagnoses Diagnosis Coarse tremors- Primary Abnormal involuntary movements documented in this encounter Care Teams Paralegal Specialist Relationship Specialty Start Date End Date Mattie Priest MD [address] [place] [id number] PCP - General Internal Medicine 07/14/24 documented as of this encounter
--- OUTSIDE RECORDS SUMMARY | 2024-11-10 18:34 | XMS_ITS | Continuity of Care Document ---
Author Organization [place] - [facility], [facility] Address [address] [place] [address] Care Team Providers Care Funnel Coater Name Role Phone JAIDEN CAMPBELL Primary Care Provide r Assessment Encounter Date Assessment Date Assessment LastModified by Organization Details LastModified Time 11/05/2024 11/05/2024 64-year-old femmiguelangel paz presents for evaluation of otorrhea and otalgia. She is status post left M&T and direct laryngoscopy with biopsy of the tongue base 07/14/[address] Sorto. On exam, left tube is patent and in good position without otorrhea. Right TM is intact with a well aerated middle ear space. No otorrhea. Patient is significantly tender to palpation of the temporomandibular joint bilaterally and there is crepitus bilaterally. The otalgia is most likely referred pain from temporomandibular joint inflammation. Symptomatic treatment was recommended, including a soft diet, warm compresses, use of a mouth guard, and Tylenol since NSAIDs are contraindicated. Close dental follow up is also advised. If the otalgia does not resolve with these recommendations, the patient was instructed to call the office for reevaluation with repeat flexible laryngoscopy and CT neck with contrast. She will follow up as scheduled with Dr. Sorto in March, or sooner with worsening symptoms. [email or web address] Not available 11/05/2024 10:03:03 Plan of Treatment Reminders Order Date Submit Date Provider Last Modified By Organization Details Last Modified Time Details Appointments Establish ed 15 2024 01:30P Ryan SORTO MD Not available Not available Not available Lab None recorded. Referral None recorded. Procedures None recorded. Surgeries None recorded. Imaging None recorded. Medication Orders None recorded. Patient TargetsNo targets recorded. Patient InstructionsNo instructions recorded. Reason for Referral None Reported. Results Created Date Observation Date Name Description Value Unit Range Abnormal Flag Note LastModifiedBy Organization Detail LastModifiedTime 10/07/19 25 audio gram No observ ation record ed. BARCODE Not Available 2024 14:57:35 Result Notes None recorded. Problems Name Problem SNOMED Code Status Onset Date Resolution Date Notes Provider Name and Address Organization Details Recorded Time Chronic tonsillit is 34897954 Active 2014 Chronic tonsillit is; Note: Date Diagnosed : 02/09/2015 10:14 AM (474.00) Not Available [facility] 4 02:22:45 Postopera tive follow-up visit Active 2014 Post op; Note: Date Diagnosed : 02/09/2015 10:14 AM (V67.00) Not Available [facility] 4 02:23:16 Impacted cerumen of bilateral ears 48765777298 68700 Active 2020 Impacted cerumen, bilateral ; Note: Date Diagnosed : 01/14/2021 3:17 PM (H61.23) Not Available [facility] 4 02:22:35 Candidal otitis externa 65638606 Active 2022 Candidal otitis externa; Note: Date Diagnosed : 04/30/2023 1:52 PM (B37.84) Not Available [facility] 4 02:23:11 Mixed conductiv e and sensorine ural hearing loss, bilateral 151533198 Active 2016 Mixed conductiv e and sensorine ural hearing loss, bilateral ; Note: Date Diagnosed : 7 1:02 PM (H90.6) Not Available [facility] 4 02:22:32 Eczema 05221080 Active 2020 Other specified dermatiti s; Note: Date Diagnosed : 01/14/2021 3:19 PM (L30.8) Not Available [facility] 4 02:22:35 Pain in throat 059455690 Active 2018 Pain in throat; Note: Date Diagnosed : 9 12:13 PM (R07.0) Not Available [facility] 4 02:22:53 Obstructi ve sleep apnea syndrome 42076972 Active 2014 LORI; Note: 12/30/14 Tonsillec gavin [facility] Not Available [facility] 4 02:22:47 Dysphagia 49765363 Active 2018 Dysphagia , unspecifi ed; Note: Date Diagnosed : 05/06/2019 3:56 PM (R13.10) Not Available [facility] 4 02:22:52 Examinati on of ear Active 2021 Encounter for examinati on of ears and hearing without abnormal findings; Note: Date Diagnosed : 11/18/2021 10:53 AM (Z01.10) Not Available [facility] 4 02:22:49 Bilateral disorder of Eustachia n tubes 77378943952 45779 Active 2016 Other specified disorders of Eustachia n tube, bilateral ; Note: Date Diagnosed : 7 11:32 AM (H69.83) Not Available [facility] 4 02:22:40 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; Note: Date Diagnosed : 05/06/2019 3:56 PM (D10.1) Not Available [facility] 4 02:22:48 Dysphonia 00187039 Active 2018 Hoarsenes s; Note: Date Diagnosed : 05/06/2019 3:57 PM (R49.0) Not Available [facility] 4 02:23:11 Mixed conductiv e and sensorine ural hearing loss of left ear with normal hearing on right side 1740328521 Active 2023 ANA CRISTINA BIR[place]INGHAM [place], CCC-A [address] [facility],[place] [address], [place], [address] , [place] - [facility] 4 10:13:14 Allergic rhinitis 56723244 Active 2023 JASS SORTO MD [address], [place], [address] , [place] - [facility] [place] 4 10:32:06 Hypertrop hy of lingual tonsil 135994341 Active 2023 JASS SORTO MD [address], [place], [address] , [place] [facility] [place] 4 10:32:41 Sensorine ural hearing loss in right ear 66232913322 100 Active 2023 ETHAN BOUDREAUX PA-C [address], [place], [address] , [place] - [facility] [place] 4 11:09:33 Dysfuncti on of left eustachia n tube 22440725258 89741 Active 2023 ETHAN BOUDREAXU PA-C [address], [place], [address] , [place] [facility] [place] 4 11:09:40 Dysfuncti on of eustachia n tube 03070440 Active 2023 ETHAN BOUDREAUX PA-C [address] [facility],[address], [place], [address] , [place] [facility] [place] 4 09:05:08 Postopera tive pain 667456908 Active 2023 JASS SORTO MD [address], [place], [address] , [place] [facility] [place] 4 10:50:15 Bilateral earache 013198087 Active 2024 ETHAN BOUDREAUX PA-C [address], [place], [address] , [place] [facility] [place] 5 09:57:01 Arthralgi a of temporoma ndibular joint 37536571 Active 2024 ETHAN BOUDREAUX PA-C [address], [place], [address] , [place] [facility] [place] 5 09:57:10 Temporoma ndibular joint disorder 59785229 Active 2024 ETHAN BOUDREAUX PA-C [address],[place] [address], [place], [address] , [place] [facility] 5 09:57:29 Problem Notes None recorded. Procedures Surgical History Date Name Laterality Status Provider Name and Address Organization Details Recorded Time 10/07/19 25 FOL_DP completed SHAWNEE HARRIS PA-C [address],[place] [address], [place], [address], [place] [facility] 10/07/2024 13:32:35 10/07/19 25 Air & Speech Audio with Tymps (89473, 38938 & 13380) completed JOSEP GEIGER [address] [facility],[place] [address], [place], [address], [place] [facility] 10/07/2024 13:03:35 06/19/20 24 Comp Audio with Tymps (87971 & 27485) completed ANA CRISTINA [place], CCC-A [address] [facility],[place] [address], [place], [address], [place] [facility] 06/19/2024 10:12:44 06/19/20 24 Fiberoptic Laryngoscopy (Comprehensive) completed JASS SORTO MD [address], [address], [facility] - [facility] 06/19/2024 09:44:15 07/23/20 19 excision of lingual tonsil completed JASS SORTO MD [address], [address], [facility] - [facility] 06/19/2024 10:24:40 12/31/19 15 tonsillectomy completed JASS SORTO MD [address], [address], [facility] - [facility] 06/19/2024 10:25:05 Imaging Results None recorded. Procedure Notes None recorded. Medical Equipment None Reported. Allergies Allergen ID Allergen Name Allergen Category Reaction Reaction Severity Criticality Documentation Date Start Date Code Code System Note Provider Name and Address Organization Details Recorded Time 72803 Product containin g penicilli n (product) medicatio n other Not available Not available 01/29/2024 45490 8001 SNOMED React ion: unkno wn, unspe cifie d;; Not Available [facility] 4 00:52:53 00693 verapamil medicatio n other Not available Not available 01/29/2024 56409 RxNorm React ion: unkno wn, unspe cifie d;; Not Available [facility] 4 00:52:56 36030 tramadol hydrochlo ride medicatio n other Not available Not available 01/29/2024 53241 RxNorm React ion: unkno wn, unspe cifie d;; Not Available [facility] 4 00:53:06 60689 ibuprofen , sodium salt medicatio n other Not available Not available 01/29/2024 14968 44 RxNorm React ion: unkno wn, unspe cifie d;; Not Available [facility] 4 00:53:08 Medications Name Sig Start Date Stop Date Status Note LastModified by Organization Details LastModified Time fe gluconate tab 239mg 06/19 completed Not Available Not Available Not Available losartan 50 mg tablet 2020 active Medicati on ID: [id number] B rand Name: losartan Send Method: E-Prescr ibed Sub s Allowed: subs OK Medic ationGen ericName : losartan Not Available Not Available Not Available cyclobenz aprine 10 mg tablet 01/14 completed Medicati on ID: [id number] D uration Value: 10 Brand Name: cycloben zaprine Send Method: E-Prescr ibed Sub s Allowed: subs OK Medic ationGen ericName : cycloben zaprine Not Available Not Available Not Available buspirone 5 mg tablet TAKE 1 TABLET BY MOUTH TWICE DAILY 06/19 completed Not Available Not Available Not Available acetamino phen 325 mg tablet 07/22 completed Not Available Not Available Not Available doxycycli ne hyclate 100 mg capsule 06/19 completed Not Available Not Available Not Available Vitamin B-12 100 mcg tablet TAKE 1/2 TABLET BY MOUTH DAILY active Not Available Not Available No t Available ropinirol e 1 mg tablet TAKE 1 AND 1/2 TABLETS BY MOUTH DAILY IN THE AFTERNOO N 06/19 completed Not Available Not Available Not Available ipratropi um 0.5 mg-albute rol 3 mg (2.5 mg base)/3 mL nebulizat ion soln 01/14 completed Medicati on ID: [id number] B rand Name: ipratrop ium-albu terol Se nd Method: E-Prescr ibed Sub s Allowed: subs OK Medic ationGen ericName : ipratrop ium-albu terol Not Available Not Available Not Available albuterol sulfate 2.5 mg/3 mL (0.083 %) solution for nebulizat ion active Not Available Not Available Not Available cetirizin e 10 mg tablet TAKE 1 TABLET BY MOUTH ONCE DAILY NEEDED FOR ALLERGIE S active Not Available Not Available No t Available azithromy hayden 250 mg tablet active Not Available Not Available No t Available prazosin 1 mg capsule active Not Available Not Available Not Available venlafaxi ne 25 mg tablet TAKE 1 TABLET BY MOUTH DAILY active Not Available Not Available No t Available famotidin e 40 mg tablet TAKE 1 TABLET BY MOUTH AT BEDTIME NEEDED FOR ABDOMINA L PAIN 07/22 completed Not Available Not Available Not Available prednison e 20 mg tablet active Not Available Not Available Not Available valsartan 160 mg-hydroc hlorothia zide 12.5 mg tablet 01/14 completed Medicati on ID: [id number] Du ration Value: 30 Brand Name: valsarta n-hydroc hlorothi azide Se nd Method: E-Prescr ibed Sub s Allowed: subs OK Medic ationGen ericName : valsarta n-hydroc hlorothi azide Not Available Not Available Not Available acetazola mide 250 mg tablet TAKE 1 TABLET BY MOUTH AT BEDTIME 06/19 completed Not Available Not Available Not Available oxycodone 5 mg/5 mL oral solution 5 ml by mouth 06/19 completed Medicati on ID: [id number] D uration Value: 3 Prescri bed By Name: DAMIR Mendoza nd Name: oxycodon e Send Method: E-Prescr ibed Sub s Allowed: subs OK Medic ationGen ericName : oxycodon e Not Available Not Available Not Available topiramat e 25 mg tablet 07/03 completed Medicati on ID: [id number] Du ration Value: 30 Reason: () Brand Name: topirama te Send Method: E-Prescr ibed Sub s Allowed: subs OK Speci al Instruct ion: take 1 tablet by mouth twice a day Medi cationGe nericNam e: topirama te Not Available Not Available Not Available metronida zole 500 mg tablet active Not Available Not Available No t Available chlorthal idone 25 mg tablet 07/22 completed Medicati on ID: [id number] B rand Name: chlortha lidone S end Method: E-Prescr ibed Sub s Allowed: subs OK Medic ationGen ericName : chlortha lidone Not Available Not Available Not Available ciproflox acin 500 mg tablet 07/22 completed Not Available Not Available Not Available doxycycli ne monohydra te 100 mg tablet 01/14 completed Medicati on ID: [id number] D uration Value: 10 Brand Name: doxycycl ine monohydr ate Send Method: E-Prescr ibed Sub s Allowed: subs OK Medic ationGen ericName : doxycycl ine monohydr ate Not Available Not Available Not Available pantopraz ole 20 mg tablet,de layed release TAKE 1 TABLET BY MOUTH TWICE DAILY BEFORE MEALS active Not Available Not Available No t Available levothyro xine 100 mcg tablet TAKE 1 TABLET BY MOUTH DAILY active Not Available Not Available No t Available oxycodone -acetamin ophen 5 mg-325 mg tablet TAKE 1 TABLET BY MOUTH EVERY 6 HOURS FOR UP TO 5 DAYS NEEDED FOR PAIN 06/19 completed Not Available Not Available Not Available levothyro xine 88 mcg tablet 01/14 completed Medicati on ID: [id number] D uration Value: 30 Brand Name: levothyr oxine Se nd Method: E-Prescr ibed Sub s Allowed: subs OK Medic ationGen ericName : levothyr oxine Not Available Not Available Not Available ofloxacin 0.3 % ear drops Instill 5 drops twice a day by otic route for 5 days. active Not Available Not Available No t Available citalopra m 20 mg tablet 07/22 completed Medicati on ID: [id number] D uration Value: 30 Brand Name: citalopr am Send Method: E-Prescr ibed Sub s Allowed: subs OK Medic ationGen ericName : citalopr am Not Available Not Available Not Available amitripty line 25 mg tablet 01/14 completed Medicati on ID: [id number] B rand Name: amitript yline Se nd Method: E-Prescr ibed Sub s Allowed: subs OK Medic ationGen ericName : amitript yline Not Available Not Available Not Available methocarb [place] 750 mg tablet TAKE 1 TO 2 TABLETS BY MOUTH EVERY 6 HOURS NEEDED FOR PAIN 06/19 completed Not Available Not Available Not Available ropinirol e 0.25 mg tablet TAKE 2 TABLETS BY MOUTH 1 TO 3 HOURS BEFORE BEDTIME 06/19 completed Not Available Not Available Not Available dicyclomi ne 20 mg tablet 07/03 completed Medicati on ID: [id number] Du ration Value: 7 Reason: () Brand Name: dicyclom ine Send Method: E-Prescr ibed Sub s Allowed: subs OK Speci al Instruct ion: TAKE 1/2 TABLET BY MOUTH 4 TIMES A DAY Medi cationGe nericNam e: dicyclom ine Not Available Not Available Not Available doxycycli ne monohydra te 100 mg capsule active Not Available Not Available Not Available ropinirol e 2 mg tablet TAKE 2 TABLETS BY MOUTH DAILY IN THE AFTERNOO N 06/19 completed Not Available Not Available Not Available venlafaxi ne 37.5 mg tablet TAKE 1 TABLET BY MOUTH DAILY 06/19 completed Not Available Not Available Not Available ropinirol e 0.5 mg tablet TAKE 2 TABLETS BY MOUTH DAILY IN THE AFTERNOO N 06/19 completed Not Available Not Available Not Available clotrimaz ole-betam ethasone 1 %-0.05 % topical cream Apply 1 a small amount to affected area twice a day 06/19 completed Medicati on ID: [id number] D uration Value: 14 Brand Name: clotrima zole-bet amethaso ne Send Method: E-Prescr ibed Sub s Allowed: subs OK Speci al Instruct ion: Apply with fingerti p to external ear BID X 2 week [facility] Virgen me: daniel caicedoe-bet amethaso ne Not Available Not Available Not Available ferrous gluconate 240 mg (27 mg iron) tablet active Not Available Not Available Not Available fluoxetin e 10 mg capsule 07/22 completed Medicati on ID: [id number] B rand Name: fluoxeti ne Send Method: E-Prescr ibed Sub s Allowed: subs OK Medic ationGen ericName : fluoxeti ne Not Available Not Available Not Available pramipexo le 0.125 mg tablet active Not Available Not Available No t Available gabapenti n 300 mg capsule TAKE 3 CAPSULES BY MOUTH EVERY DAY AT BEDTIME active Not Available Not Available No t Available sertralin e 25 mg tablet 01/14 completed Medicati on ID: [id number] D uration Value: 30 Brand Name: sertrali ne Send Method: E-Prescr ibed Sub s Allowed: subs OK Speci al Instruct ion: TAKE 1 TAB BY MOUTH DAILY. DO NOT START TAKING UNTIL YOU HAVE TAPERED OFF YOUR CELEXA MEDICATI ON. Medi cationGe nericNam e: sertrali ne Not Available Not Available Not Available lidocaine HCl 2 % mucosal solution Take 15 mL every 6 hours by oral route as needed for 7 days, for pain. 07/22 completed Not Available Not Available Not Available mometason e 0.1 % topical ointment APPLY TO THE AFFECTED AREA TWICE DAILY FOR 2 WEEKS 06/19 completed Not Available Not Available Not Available gabapenti n 100 mg capsule TAKE 1 CAPSULE BY MOUTH DAILY 06/19 completed Not Available Not Available Not Available metoprolo l succinate ER 25 mg tablet,ex tended release 24 hr TAKE 1 TABLET BY MOUTH DAILY active Not Available Not Available No t Available ibuprofen 600 mg tablet 07/22 completed Not Available Not Available Not Available estradiol 0.01% (0.1 mg/gram) vaginal cream 06/19 completed Not Available Not Available Not Available methylpre dnisolone 4 mg tablets in a dose pack 06/19 completed Not Available Not Available Not Available albuterol sulfate HFA 90 mcg/actua tion aerosol inhaler INHALE 2 PUFFS INTO THE LUNGS EVERY 4 HOURS NEEDED FOR COUGH OR WHEEZING active Not Available Not Available No t Available Vitamin D2 1,250 mcg (50,000 unit) capsule active Not Available Not Available Not Available ondansetr on 4 mg disintegr ating tablet active Not Available Not Available Not Available fluticaso ne propionat e 50 mcg/actua tion nasal spray,tawnya pension Heph[place]ah 2 sprays every day by intranas al route for 30 days. active Not Available Not Available No t Available naproxen 500 mg tablet TAKE 1 TABLET BY MOUTH TWICE DAILY WITH MEALS 06/19 completed Not Available Not Available Not Available valsartan 160 mg-hydroc hlorothia zide 25 mg tablet TAKE 1 TABLET BY MOUTH DAILY active Not Available Not Available No t Available OraMagic mouthwash 01/14 completed Medicati on ID: [id number] D uration Value: 4 Brand Name: MAGIC MOUTHWAS H Send Method: E-Prescr ibed Sub s Allowed: subs OK Speci al Instruct ion: SWISH AND SPIT 10ML BY MOUTH EVERY 4 HOURS NEEDED FOR SORE MOUTH Me dication GenericN robert: MAGIC MOUTHWAS H Not Available Not Available Not Available cyclobenz aprine 5 mg tablet TAKE 1 TABLET BY MOUTH DAILY FOR 15 DAYS 06/19 completed Not Available Not Available Not Available Allergy Relief (loratadi ne) 10 mg tablet Take 1 tablet every day by oral route for 90 days. active Not Available Not Available No t Available topiramat e 50 mg tablet 01/14 completed Medicati on ID: [id number] D uration Value: 30 Brand Name: topirama te Send Method: E-Prescr ibed Sub s Allowed: subs OK Medic ationGen ericName : topirama te Not Available Not Available Not Available nitrofura ntoin monohydra te/macroc rystals 100 mg capsule TAKE 1 CAPSULE BY MOUTH TWICE DAILY FOR 5 DAYS 06/19 completed Not Available Not Available Not Available duloxetin e 60 mg capsule,d elayed release TAKE 2 CAPSULES BY MOUTH EVERY MORNING active Not Available Not Available No t Available pregabali n 50 mg capsule 06/19 completed Not Available Not Available Not Available chlorhexi dine gluconate 0.12 % mouthwash 01/14 completed Medicati on ID: [id number] D uration Value: 30 Brand Name: chlorhex idine gluconat e Send Method: E-Prescr ibed Sub s Allowed: subs OK Speci al Instruct ion: RINSE WITH 5ML BY MOUTH EVERY 6 TO 8 HOURS Me dication GenericN robert: chlorhex idine gluconat e Not Available Not Available Not Available Ranitidin e Hcl 01/14 completed Medicati on ID: [id number] D uration Value: 30 Brand Name: ranitidi ne hcl Send Method: E-Prescr ibed Sub s Allowed: subs OK Medic ationGen ericName : ranitidi ne hcl Not Available Not Available Not Available valsartan 320 mg-hydroc hlorothia zide 25 mg tablet active Not Available Not Available No t Available diclofena c 1 % topical gel APPLY 4 GRAMS TOPICALL Y TO THE AFFECTED AREA TWICE DAILY 06/19 completed Not Available Not Available Not Available Spiriva Respimat 1.25 mcg/actua tion solution for inhalatio n 06/19 completed Medicati on ID: [id number] B rand Name: Spiriva Respimat Send Method: E-Prescr ibed Sub s Allowed: subs OK Medic ationGen ericName : Spiriva Respimat Not Available Not Available Not Available Trulance 3 mg tablet active Not Available Not Available Not Available Emgality Pen 120 mg/mL subcutane ous pen injector 06/19 completed Not Available Not Available Not Available Wixela Inhub 500 mcg-50 mcg/dose powder for inhalatio n INHALE 1 PUFF INTO THE LUNGS TWICE DAILY active Not Available Not Available No t Available Ubrelvy 100 mg tablet active Not Available Not Available Not Available BinaxNOW COVID-19 Ag Self Test kit TEST DIRECTED TODAY 06/19 completed Not Available Not Available Not Available Qulipta 60 mg tablet TAKE 1 TABLET BY MOUTH DAILY active Not Available Not Available No t Available Vitals Date Recorded Body height Body mass index (BMI) Body weight Provider Name and Address Organization Details Last Updated DateTime 11/05/2024 165.1 cm 34.9 kg/m2 15826.4 g Jessica Motyka [place] - [facility] 11/05/2024 09:16:01 Social History None recorded. Functional Status None recorded. Mental Status None recorded. Family History Nothing Reported. Medical History Condition Response Arthritis Y Anxiety Y Migraines Y Thyroid Problems Y Hypertension Y Depression Y Asthma Y Gynecological HistoryNo gynecological history recorded. Obstetrics History GPAL:G 0 P 0 0 0 0 Past Encounters Encounter ID Performer Location Encounter Start Date Encounter Closed Date Diagnosis/Indication Diagnosis SNOMED-CT Code Diagnosis ICD10 Code Diagnosis Note [id number] MAIKEL SOLIS MD [facility] [address] [address] 10/07/2024 12:39:23 10/07/2024 13:27:36 Dysfunction of left eustachian tube 8860251690 010840 H69.82 Left Ear:Normal hearing through 6K Hz sloping to a mild HL.Patent tube. Benign cayetano plasm of tongue 27708567 D10.1 Bilateral disorder of Eustachian tubes 1020508392 780782 H69.83 [id number] MAIKEL SOLIS MD [facility] [address] [address] 11/05/2024 09:08:29 11/05/2024 12:01:04 Benign neoplasm of tongue 80266066 D10.1 Dysfunctio n of left eustachian tube 3422012208 998302 H69.82 Bilateral earache 335719 003 H92.03 Temporoman dibular joint disorder 52295651 M26.623 Health Concerns Section Related Observation LastModified by Organization Detai ls LastModified Time None Recorded Concern Status LastModified by Organization Details LastModified Time None Recorded Payers Encounter Date Sequence Insurance Name Policy Number Policy Catalan Covered Member ID Catalan Member ID Guarantor Name 11/05/2024 1 [facility] - DOS ON OR AFTER 2022 - INTERMEDIATE OPTIONS AND ONE CARE (MEDICARE REPLACEMENT/ADV ANTAGE - PPO) Christine Wray [id number] Christine Wray Notes Date Note Type Note Provider Name and Address Organization Details Recorded Time 11/05/2024 text/html 64-year-old elder paz presents for evaluation of otorrhea and otalgia. She is status post left M&T and direct laryngoscopy with biopsy of the tongue base 07/14/[address] Sorto. Pathology was negative. CT neck most consistent with hypertrophic lymphoid tissue. She reports bilateral ear pain and intermittent drainage from the ears. Reports blood from the right ear yesterday while cleaning it with a q tip. Denies changes in her hearing and sore throat. MAIKEL FERRARO MD [address] [place] [address], [phone], [facility] - [facility] 11/05/2024 11:43:29 OBGyn Episode No OBEpisode recorded.
--- OUTSIDE RECORDS SUMMARY | 2024-11-10 18:34 | XMS_ITS ---
Author Organization [facility] Address [address] [place] [address] Care Team Providers Care Surgical Services Tech Name Role Phone Mattie Conner Primary Care Provide Naren Rasmussen Unavailable [phone] REASON FOR VISIT Vyepti new PA Medications Medication SIG (Take, Route, Fr equency, Duration) Notes Start Date End Date Status Vyepti 100 MG/ML as directed Intraven ous Once, Dilute in 100mL NS 0.9% infusion. Administer over 30 minutes in clinic for 1 days 11/04/2024 11/05/2024 Active Encounters Encounter Location Date Provider Diagnosis [facility] [address] [place] [address] 09/24/2024 Naren Dolan Plan Of Treatment Medication Medication Name Sig Start Date Stop Date Notes Vyepti 100 MG/ML as directed Intraven ous Once, Dilute in 100mL NS 0.9% infusion. Administer over 30 minutes in clinic for 1 days 11/04/2024 11/05/2024 Progress Notes * Christine UGALDEDOB:1960 (64 yo F)Acc No.[id number]:09/24/2024 Patient:?Christine UGALDE :1960???Age:64 Y???Sex:Female Address:[facility] [address] [place] [address] * Refills? Start Vyepti Solution, 100 MG/ML, Intravenous, 1, as directed, Once, Dilute in 100mL NS 0.9% infusion. Administer over 30 minutes in clinic, 1 days, Refills=0 * * Date:?
--- OUTSIDE RECORDS SUMMARY | 2024-11-10 18:34 | XMS_ITS ---
Author Organization [facility] Address [address] [place] [address] Care Team Providers Care Clinic Supervisor Name Role Phone Mattie Conner Primary Care Provide Naren Rasmussen Unavailable [phone] Encounters Encounter Location Date Provider Diagnosis [facility] [address] [place] [address] 10/07/2024 Naren Dolan Plan Of Treatment No Information Progress Notes * Christine UGALDEDOB:1960 (64 yo F)Acc No.[id number]:10/07/2024 Patient:?Christine UGALDE :1960???Age:64 Y???Sex:Female Address:[facility] [address] [place] [address] * true * Date:? Generated for Yousif phelan/Gauri/eTransmitting on:?11/10/2024 06:33 PM EST
--- OUTSIDE RECORDS SUMMARY | 2024-11-10 18:34 | XMS_ITS | Patient Health Record ---
Author Organization [facility] Address [address] [place] [address] Care Team Providers Care Dental Laboratory Technician Apprentice Name Role Phone Mattie Conner Primary Care Provide r Unavailable Naren Dolan Unavailable [phone] Tricia Banerjee Unavailable [phone] Laura Jimenez Unavailable [phone] Allergies Allergen (clinical drug ingredient) Drug/Non Drug Allergy documented on EMR Reaction Allergy Type Onset Date Status fremanezumab Ajovy rash Drug Allergy Acti ve aspirin Aspirin rash Drug Allergy Active Non-steroidal anti-inflammatory agent (FN) NSAIDs rash Drug Allergy Active Penicillin hives Drug Allergy Active ropinirole Ropinirole Muscle twitching Drug Allergy Active tramadol Tramadol Unknown Drug Allergy Active verapamil Verapamil rash Drug Allergy Active Reason For Referral No Information Medications Medication SIG (Take, Route, Frequency, Duration) Notes Start Date End Date Status Venlafaxine HCl 25 MG 1 tablet with food Orally Twice a day Active Pramipexole Dihydrochloride 0.125 MG 3 tabs Orally Once a day at bedtime for RLS Active Vitamin B12 1000 MCG 1 tablet Orally Once a day 05/28/2024 Active Vitamin D 22950 UNIT 1 capsule Orally 1/week 05/28/2024 Active predniSONE 20 MG As directed, with food. Orally 3 tabs qam x 4 days, 2 tabs qam x 4 days, 1 tab qam x 4 days, 1/2 tab qam x 4 days. for 16 days 05/28/2024 Not-Taking Spiriva Respimat 1.25 MCG/ACT 2 puffs Inhalation Once a day Not-Taking Emgality 120 MG/ML Inject 1 syringe Subcutaneous 27 - 30 days for 30 days Auto-injector on backorder 03/19/2023 Not-Taking Metoprolol Succinate ER 25 MG 1 tablet Orally Once a day Active Valsartan-hydroCHLORO thiazide 160-25 MG 1 tablet Orally Once a day Active Nurtec 75 MG 1 tablet on the tongue and allow to dissolve Orally for 30 days Not-Taking rOPINIRole HCl 0.25 MG 2 tablets one to three hours before bedtime Orally once a day for 30 days 07/02/2023 Not-Taking Ubrelvy 100 MG TAKE 1 TABLET BY MOUTH ALONG WITH 2 IBUPROFEN AT ONSET OF MIGARINE. MAY TAKE 2ND DOSE AFTER 4 HOURS IF HEADACHE RECURS for 30 Active ProAir HFA 108 (90 Base) MCG/ACT 1 puff as needed Inhalation every 4 hrs Active acetaZOLAMIDE 250 MG 1 tablet orally at bedtime for 30 days Not-Taking Iron 240 (27 Fe) MG 1 tablet Orally once daily 05/28/2024 Active Levothyroxine Sodium 100 MCG 1 tablet in the morning on an empty stomach Orally Once a day Active Trulance 3 MG 1 tablet Orally Once a day Not-Taking Wixela Inhub 500-50 MCG/ACT 1 puff Inhalation Twice a day Active Pregabalin 50 MG As directed. Orally 1 capsule at night for 1 week, 2 capsules every night for 1 week, then finally 3 capsules every night after that. for 30 days Please give patient a written schedule of how to ramp up the dose. Thanks. 08/08/2023 Not-Taking Social History Tobacco Use: Social History Observation Description Date Details (start date - stop date) Never Smoker NA - NA Household Question Answer Notes Marital status: single SNM lives alone, kids live near Level of education: finished high school Tobacco Use/Smoking Question Answer Notes Tobacco use: nonsmoker Alcohol Screen (Audit-C) Question Answer Notes Did you have a drink containing alcohol in the p ast year? No Points 0 Interpretation Negative Section Notes: nonsmoker PARK RECREATION MANAGER 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 nonsmoker PARK RECREATION MANAGER 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 nonsmoker PARK RECREATION MANAGER 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 nonsmoker PARK RECREATION MANAGER 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 nonsmoker PARK RECREATION MANAGER 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 nonsmoker PARK RECREATION MANAGER 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 nonsmoker 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 in evening nonsmoker PARK RECREATION MANAGER 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 nonsmoker PARK RECREATION MANAGER 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 nonsmoker PARK RECREATION MANAGER 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 nonsmoker PARK RECREATION MANAGER 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 Problems Problem Type SNOMED Code ICD Code Onset Dates Problem Status W/U Status Risk Notes Problem Restless legs syndrome (51605644) Restless legs syndrome (G25.81) Active confirmed Problem Chronic migraine without aura with status migrainosus (928087031959939 ) Chronic migraine without aura, not intractable, with status migrainosus (G43.701) Active confirmed Problem Chronic migraine without aura, non-intractable (496177460298850 ) Chronic migraine without aura, not intractable, without status migrainosus (G43.709) Active confirmed Problem Chronic intractable migraine without aura (517975197825239 ) Chronic migraine without aura, intractable, with status migrainosus (G43.711) Active confirmed Vital Signs Heart Rate 82 /min 09/23/2024 Blood pressure diastolic 82 mm Hg 09/23/2024 Weight-kg 98.02 kg 09/23/2024 Height 67 in 09/23/2024 Blood pressure systolic 143 mm Hg 09/23/2024 Weight 216.1 lbs 09/23/2024 BMI 33.84 kg/m2 09/23/2024 Encounters Encounter Location Date Provider Diagnosis [facility] [address] [place] [address] 05/28/2024 Naren Dolan Chronic migraine wit hout aura, not intractable, without status migrainosus G43.709 [facility] [address] [place] [phone] 07/30/2024 Naren Dolan Chronic migraine wit hout aura, not intractable, without status migrainosus G43.709 [facility] [address] [place] [phone] 01/03/2024 Tricia [place] Chronic migraine wit hout aura, not intractable, without status migrainosus G43.709 and Restless legs syndrome G25.81 [facility] [address] [place] [address] 09/23/2024 Laura Jimenez Chronic migraine wit hout aura, intractable, with status migrainosus G43.711 [facility] [address] [place] [phone] 05/28/2024 Naren Dolan [facility] [address] [place] [phone] 08/28/2024 Naren Dolan [facility] [address] [place] [phone] 09/24/2024 Naren Dolan [facility] [address] [place] [address] 10/09/2024 Naren Dolan [facility] [address] [place] [phone] 01/15/2024 Naren Dolan [facility] [address] [place] [phone] 01/15/2024 Naren Dolan [facility] [address] [place] [address] 03/10/2024 Naren Dolan [facility] [address] [place] [phone] 04/10/2024 Naren Dolan Restless legs syndro me G25.81 [facility] [address] [place] [address] 04/19/2024 Naren Dolan Restless legs syndro me G25.81 [facility] [address] [place] [address] 05/20/2024 Naren Dolan [facility] [address] [place] [address] 06/02/2024 Naren Dolan [facility] [address] [place] [phone] 06/03/2024 Naren Dolan [facility] [address] [place] [phone] 08/04/2024 Naren Dolan [facility] [address] [place] [phone] 08/06/2024 Naren Dolan [facility] [address] [place] [phone] 09/23/2024 Laura Jimenez [facility] [address] [place] [phone] 09/23/2024 Naren Dolan [facility] [address] [place] [phone] 10/07/2024 Naren Dolan Assessments Encounter Date Diagnosis (ICD Code) Assessment Notes Treatment Notes Treatment Clinical Notes Section Notes 01/03/2024 Chronic migraine without aura, not intractable, without status migrainosus (ICD-10 - G43.709) Continue current medications as prescribed. Patient given Qulipta samples in office to continue treatment, Follow up in 2 months or sooner as needed. Patient agrees with plan. All questions and concerns addressed. Patient instructed to maintain headache logs. Patient advised to contact office for any change in headache pattern, increase in frequency, duration, or severity of headaches. Medication reconciliation completed. Previous office visit note reviewed. 01/03/2024 Restless legs syndrome (ICD-10 - G25.81) 04/10/2024 Restless legs syndrome (ICD-10 - G25.81) 04/19/2024 Restless legs syndrome (ICD-10 - G25.81) 05/28/2024 Chronic migraine without aura, not intractable, without status migrainosus (ICD-10 - G43.709) 07/30/2024 Chronic migraine without aura, not intractable, without status migrainosus (ICD-10 - G43.709) 09/23/2024 Chronic migraine without aura, intractable, with status migrainosus (ICD-10 - G43.711) Plan: -Recommend Nerivio device, pt will look at cost and let us know. -Start Vyepti infusions. -Will discuss with Dr. Dolan if he advises any other prophylactic migraine therapy. Pt has tried and failed many different classes. Pt may benefit from a mood stabilizer, reports feeling hyper up at 430am doing laundry, only sleeping 2 hours per night, also reports crying often, denies SI. She is followed closely by psychiatry has a follow up later this month, she is unsure of their name. -Zavzpret samples provided instructed on use, pt has not tried any nasal sprays -Consider retrial of botox, pt has not tried at our office. She is reluctant to retrial injections concern of worsening pain in past. -?MRV, last MRI 2022 was normal, pt has never had an MRV to r/o thrombosis as cause of pain. F/U: Next available Vyepti infusion. Patient agrees with plan. All questions and concerns addressed. Patient instructed to maintain headache logs. Patient advised to contact office for any change in headache pattern, increase in frequency, duration, or severity of headaches. Medication reconciliation completed. Previous office visit note reviewed. Patient presents for evaluation and management. Pt was seen and evaluated by Laura BERNSTEIN under the direct supervision of Dr. Naren Dolan who was consulted after the visit. He agrees with the assessment and plan. Pt consents to treatment in office. 09/23/2024 Other Patient presents for evaluation and management. Pt was seen and evaluated by Laura BERNSTEIN under the direct supervision of Dr. Naren Dolan who was consulted after the visit. He agrees with the assessment and plan. Pt consents to treatment in office. Plan Of Treatment No Information Insurance Providers Payer Name Payer Address Payer Phone Subscriber Number Group Number Insured Name Patient Relationship to Insured Coverage Start Date Coverage End Date [facility] [address] [address] [place], [place] [id number] Christine Wray Self - patient is the insured 2 Medical (General) History Medical History History ICD Code Chronic migaine HTN asthma depression anxiety chronic back pain hypothyroid Tachycardia Gallbladder polyps RLS Surgical History Surgery Date(Month/Year) R thyroid lobectomy 2019 T&A
--- OUTSIDE RECORDS SUMMARY | 2024-11-10 18:34 | XMS_ITS | Clinical Summary ---
Author Organization 175 [facility] Address [address] [place] [phone] Phone Care Team Providers Care Mold Changer Name Role Phone Mattie Priest MD Primary Care Prov ider Allergies Active Allergy Reactions Criticality Noted Date Comments Aspirin 07/27/2017 Bupropion 08/28/2017 Drenching sweats Codeine Rash 01/31/2016 Cyclobenzaprine Itching 07/29/2021 Diphenhydramine Hcl Anaphylaxis High 06/06/2022 Ibuprofen 08/12/2013 rash Iodinated Contrast Media 08/12/2013 Swelling all over Lisinopril Cough 11/18/2020 Meloxicam Nausea And Vomiting 06/22/2016 Penicillins 08/12/2013 rash Tramadol Hcl 08/12/2013 Stomach issues Valacyclovir Hcl 08/12/2013 Pt was given this medication by mistake. She does not hsv Verapamil Hcl Hives 08/12/2013 Medications albuterol HFA (PROAIR HFA ; PROVENTIL HFA ; VENTOLIN HFA) 90 mcg/actuation inhaler Inhale 2 puffs by mouth every 4 (four) hours if needed (COUGH OR WHEEZING). 07/09/20 23 Active albuterol 2.5 mg /3 mL (0.083 %) nebulizer solution Inhale 3 mL (2.5 mg total) by mouth every 4 (four) hours if needed for wheezing. for up to 30 days 02/14/20 23 Active cetirizine (ZyrTEC) 10 mg tablet Take 1 tablet (10 mg total) by mouth 1 (one) time each day if needed for allergies. 01/22/20 24 Active cyanocobalamin (VITAMIN B-12) 100 mcg tablet Take 0.5 tablets (50 mcg total) by mouth 1 (one) time each day. 11/28/19 24 Active diclofenac (VOLTAREN) 1 % topical gel Apply 4 g topically 2 (two) times a day. 01/28/20 24 Active ergocalciferol (VITAMIN D-2) 1,250 mcg (50,000 unit) capsule Take 1 capsule (50,000 Units total) by mouth 1 (one) time per week. 03/13/20 23 Active fluticasone propion-salmet Hector (ADVAIR DISKUS) 500-50 mcg/dose diskus inhaler Inhale 1 puff by mouth 2 (two) times a day. for 30 days 01/22/20 24 Active metoprolol succinate (TOPROL-XL) 25 mg 24 hr tablet Take 1 tablet (25 mg total) by mouth 1 (one) time each day. 01/02/20 24 Active mometasone (ELOCON) 0.1 % ointment 2 (two) times a day. Apply 0.5 FTU to the affected area for 2 weeks 03/05/20 24 025 Active naproxen (NAPROSYN) 500 mg tablet Take 1 tablet (500 mg total) by mouth 2 (two) times a day with meals. for 60 days 09/25/19 24 Active pantoprazole (PROTONIX) 20 mg EC tablet Take 1 tablet (20 mg total) by mouth 2 (two) times a day before meals. 01/22/20 24 Active acetaminophen (TYLENOL) 325 mg tablet every 6 (six) hours if needed. Active FERROUS GLUCONATE ORAL Take 1 tablet by mouth 1 (one) time each day. Ferrous Gluconate 239 (27 Fe) MG Tab Active ibuprofen (ADVIL,MOTRIN) 600 mg tablet Active pramipexole (MIRAPEX) 0.125 mg tablet Take 1 Tablet by mouth See Admin Instructions for 360 days. One tablet an hour before bed. Increase to two tablets in three days if no improvement. Maximum 3 tablets nightly after a week if no benefits from two tablets. Active ubrogepant (UBRELVY) 100 mg tablet Take by mouth. Activ e venlafaxine (EFFEXOR) 25 mg tablet Take 1 tablet (25 mg total) by mouth 1 (one) time each day. 05/14/20 24 Active Trulance 3 mg tablet TAKE 1 TABLET BY MOUTH DAILY 30 tablet 3 08/27/20 24 Active valsartan-hydr oCHLOROthiazid e (DIOVAN-HCT) 320-25 mg per tablet Take 1 tablet by mouth 1 (one) time each day. 30 each 11 09/08/20 24 025 Active ferrous gluconate (FERGON) 240 mg (27 mg iron) tablet TAKE ONE TABLET BY MOUTH EVERY DAY 30 tablet 09/11/20 24 Active levothyroxine (SYNTHROID, LEVOTHROID) 100 mcg tabletIndicati ons:Hypothyroi dism, unspecified type Take 1 tablet (100 mcg total) by mouth 1 (one) time each day before breakfast. 90 tablet 1 10/13/19 25 Active levothyroxine (SYNTHROID, LEVOTHROID) 100 mcg tablet Take 1 tablet (100 mcg total) by mouth 1 (one) time each day. 12/10/19 24 025 Discontinued doxycycline (VIBRAMYCIN) 100 mg capsule 025 Discontinued doxycycline (Monodox) 100 mg capsule Take 1 capsule (100 mg total) by mouth 2 (two) times a day for 10 days. Take with at least 8 ounces (large glass) of water, do not lie down for 30 minutes after 20 each 09/29/19 25 025 Discontinued Active Problems Problem Noted Date Diagnosed Date Anxiety 06/24/2024 Back pain 06/24/2024 Class 2 severe obesity due t o excess calories with serious comorbidity in adult 06/24/2024 Mild concentric left ventricular hypertrophy (LV H) 06/24/2024 Prediabetes 06/24/2024 Closed fracture of lower [...] 07/27/2017 Depression 07/27/2017 GERD (gastroesophageal reflux disease) 7 Constipation 11/16/2016 Vitamin D deficiency 11/16/2016 Hydronephrosis of right kidney 11/17/2015 Microhematuria 11/17/2015 Hypothyroid 08/12/2013 Irritable bowel disease 08/12/2013 Migraines 08/12/2013 Obstructive sleep apnea 08/12/2013 Overview (06/24/2024): [facility] Home Sleep Apnea Test: Date 05/26/2020; Wt 225#; BMI 35; NATHALIE (AHI) 6, AI 0.4; HI 6 0; Unclassified apneas 0; Obstructive apneas 3; Central apneas 0; Mixed apneas 0; hypopneas 49; average oxygen saturation 87% (lowest 66% with saturations <88% for 5% or more of study) - Obstructive Sleep Apnea - mild; mostly hypopneas; with sleep related hypoventilation by 2019 home sleep apnea test. Encounters Date Type Department Care Team Description 10/24/2024 1:00 PM EST Office Visit Adult Medicine [facility] [address] [place] [address] Agustin Hebert PA Coarse tremors (Primary Dx) 10/15/2024 10:30 AM EST Office Visit Adult Medicine [facility] [address] [place] [address] Agustin Hebert PA Migraine without status migrainosus, not intractable, unspecified migraine type (Primary Dx); Primary hypertension; Chronic migraine w/o aura w/o status migrainosus, not intractable; Prediabetes; Hypothyroidism, unspecified type; Other fatigue; Pain of both shoulder joints 09/30/2024 10:00 AM EST - 09/30/2024 11:59 PM EST Hospital Encounter [facility] Xray [address] [place] [address] Oropharyngeal dysphagia (Primary Dx); Dysphagia Discharge Disposition: Home or Self Care 09/29/2024 1:40 PM EST Office Visit Gastroenterology - [place] 175 [facility] [address] [facility] [address] [place] [address] Marquez, Geri, PA LUQ abdominal pain (Primary Dx); Diverticulosis; Constipation, unspecified constipation type 09/08/2024 9:00 AM EST Office Visit Adult [address] [phone] Agustin Hebert PA Primary hypertension (Primary Dx); Chronic migraine w/o aura w/o status migrainosus, not intractable; Abnormal CBC 09/08/2024 Telephone Adult [address] [phone] Mattie Contreras MD 09/08/2024 Telephone Adult [address] [phone] Agustin Hebert PA Fitting for DME 08/29/2024 Telephone Adult [address] [phone] Mattie Contreras MD Referral 08/25/2024 8:30 AM EST Office Visit Adult [address] [phone] Agustin Hebert PA Adult general medical examination (Primary Dx); Screening, anemia, deficiency, iron; Migraine without status migrainosus, not intractable, unspecified migraine type; Obstructive sleep apnea; Need for vaccination against Streptococcus pneumoniae; Primary hypertension; Prediabetes; Vitamin D deficiency; Hypothyroidism, unspecified type; Iron deficiency anemia, unspecified iron deficiency anemia type 08/25/2024 Telephone Adult [address] [phone] Agustin Hebert PA Fitting for DME 08/15/2024 3:15 PM EST [facility] [address] [phone] Jamel Souza MD Moderate persistent asthma with acute exacerbation (Primary Dx); Lower respiratory infection 08/15/2024 Telephone [facility] [address] [phone] Jamel Souza MD URI from Last 3 Months Immunizations Name Administration Dates Next Due Influenza Quadravalent, MDCK , 0.5ml, preservative free (Flucelvax) 6mo and older 05/26/2021 Influenza Quadravalent, MDCK , 0.5ml, with preservative (Flucelvax) 6mo and older 06/18/2017 Influenza Quadrivalent, 0.5m l, preservative free (Fluarix; FluLaval; Fluzone) ages 6mo and older (Afluria) 3yo and older 06/19/2023,07/03/2022,05/14/2020 Influenza Quadrivalent, with preservative (Fluzone; Afluria) 6mo and older 10/13/2019 Influenza trivalent, 0.5mL, preservative free (Fluarix; FluLaval; Fluzone) ages 6mo and older (Afluria) 3 years and older 08/04/2024 Influenza trivalent, with pr eservative (Fluzone; Afluria) 6mo and older 07/01/2021,05/14/2020,10/13/2019 PPD Test 2018,05/17/2016,05/04/2014 [employer] SARS-CoV-2 COVID-19, mRNA, LNP-S, preservative free 08/01/2021,01/31/2021,01/10/2021 Pneumococcal conjugate 20 va lent (Prevnar 20, PCV 20) 2mo and older 08/25/2024 Pneumococcal polysaccharide 23 valent (Pneumovax 23) 2yo and older 10/17/2011 RSV, bivalent, protein subun it RSVpreF, 0.5mL, Preservative Free (ABRYSVO) 60yo and older or 32 through 36 wks of 08/04/2024 Tdap Tetanus diptheria acell ular pertussis (Boostrix; Adacel) 7yo and older 01/22/2024,05/26/2013 Zoster recombinant (Shingrix ) 19yo and older 08/05/2020,06/06/2020 Surgical History Surgery Date Site/Laterality Comments COLONOSCOPY W/ POLYPECTOMY PROCEDURE: UT COLSC FLX W/RMVL OF TUMOR POLYP LESION SNARE TQ; COMMENT: colonoscopy every five years TONSILLECTOMY 12/30/2014 PROCEDURE: HISTORICAL TONSILLECTOMY OTHER SURGICAL HISTORY 09/26/2017 Right PROCEDURE: UT PRTL THYROID LOBECTOMY UNI W/WO ISTHMUSECTOMY BREAST BIOPSY Right PROCEDURE: BX BREAST; PERC NEEDLE CORE W/IMAG GUID; COMMENT: rt bx neg Medical History Medical History Date Comments Prediabetes DX:Prediabetes Asthma DX:Asthma; COMME NT: dr souza Back pain DX:Back pain HTN (hypertension) DX:HTN (hyper tension) LORI (obstructive sleep apnea) DX :LORI (obstructive sleep apnea) Anxiety DX:Anxiety Depression 07/27/2017 DX:Depression GERD (gastroesophageal reflux disease) 7 DX:GERD (gastroesophageal reflux disease) Cataracts, bilateral 07/27/2017 DX:Cataract s, bilateral Constipation 11/16/2016 DX:Constipation History of obstructive sleep apnea 07/31/2016 DX:History of obstructive sleep apnea; COMMENT: Resolved after tonsillectomy 2014 Hydronephrosis of right kidney 11/17/2015 D X:Hydronephrosis of right kidney Hypothyroid 08/12/2013 DX:Hypothyroid Irritable bowel disease 08/12/2013 DX:Irrit able bowel disease Microhematuria 11/17/2015 DX:Microhematuri a Migraines 08/12/2013 DX:Migraines Vitamin D deficiency 11/16/2016 DX:Vitamin D deficiency Mild concentric left ventric ular hypertrophy (LVH) DX:Mild concentric left vent ricular hypertrophy (LVH) Mass of tongue 05/2019 DX:Mass of tongu e; COMMENT: ent [place] Family History Medical History Relation Name Comments Stroke Father 35 yo Diabetes Mother Bladder Cancer @ 62 Breast cancer Neg Hx Colon cancer Neg Hx Ovarian cancer Neg Hx Relation Name Status Comments Father Mother Social History Tobacco Use Types Packs/Day Years [...] on file Sexual Orientation Not on file Obstetrics History Last Filed Vital Signs Vital Sign Reading Time Taken Comments Blood Pressure 118/72 10/24/2024 12:58 PM EST Pulse 68 10/24/2024 12:58 PM EST Temperature 36.7 ??C (98 ??F) 10/24/2024 12:58 PM EST Respiratory Rate 16 08/15/2024 3:40 PM EST Oxygen Saturation 97% 08/15/2024 3:40 PM EST Inhaled Oxygen Concentration - - Weight 97.8 kg (215 lb 9.6 oz) 10/24/2024 12:58 PM EST Height 165.1 cm (5' 5 ) 10/24/2024 12:58 PM EST Body Mass Index 35.88 10/24/2024 12:58 PM EST Plan of Treatment Upcoming Encounters Date Type Department Care Team (Late st Contact Info) Description 12/02/2024 8:15 AM EDT Office Visit Pulmonolgy - [place] [address] [phone] Jamel Souza MD [address] [address] 12/30/2024 1:20 PM EDT Office Visit Gastroenterology - [place] 175 [facility] [address] [phone] Geri Zayas PA [address] [address] 02/12/2025 9:45 AM EDT Office Visit Adult Medicine [facility] [address] [place] [phone] Agustin Hebert PA [address] [place] [address] Health Maintenance Due Date Last Done Comments Cervical Cancer Screening: Pap Smear 03/13/2020 03/13/2017, 03/13/2017 Breast Cancer Screening 07/16/2025 07/16/20 23, 04/26/2023, 07/12/2022, Additional history exists Hypertension/CHF/CAD Annual BMP Blood Test 08/25/2025 08/25/2024, 04/24/2024, 04/24/2024 Colorectal Cancer Screening: Sigmoidoscopy 06/17/2027 Cholesterol Screening (Lipid Panel) 08/25/2029 08/25/2024, 10/11/2021 DTaP,Tdap,and Td Vaccines (3 - Td or Tdap) 01/21/2034 01/22/2024, 05/26/2013 Zoster Vaccines Completed 08/05/2020, 06/06/2020 Colorectal Cancer Screening: Colonoscopy Discontinued 06/22/2022 Hepatitis C Screening Completed 04/05/2023 HIV Screening Completed 04/27/2023 COVID-19 Vaccine Completed 08/04/2024, 11/2022, 03/22/2022, Additional history exists Influenza Vaccine Completed 08/04/2024, , 07/03/2022, Additional history exists RSV Immunization Patients 60+ Years Old Completed 08/04/2024 Pneumococcal Vaccine: 50+ Years Completed 08/25/2024, 10/17/2011 Pneumococcal Vaccine: Pediatrics (0 to 5 Years) and At-Risk Patients (6 to 64 Years) Completed 08/25/2024, 10/17/2011 Depression Screening Discontinued HIB Vaccines Aged Out No longer eligi ble based on patient's age to complete this topic HPV Vaccines Aged Out No longer eligi ble based on patient's age to complete this topic Hepatitis A Vaccines Aged Out No long er eligible based on patient's age to complete this topic Hepatitis B Vaccines Aged Out No long er eligible based on patient's age to complete this topic IPV Vaccines Aged Out No longer eligi ble based on patient's age to complete this topic MMR Vaccines Aged Out No longer eligi ble based on patient's age to complete this topic Medicare Annual Wellness Visit Discontinued Meningococcal ACWY Vaccine Aged Out N o longer eligible based on patient's age to complete this topic Meningococcal B Vacine Aged Out No lo nger eligible based on patient's age to complete this topic RSV Immunization Patients Under 20 months Aged Out No longer eligible based on patient's age to complete this topic Social Influencers of Health Screening Discontinued Varicella Vaccines Aged Out No longer eligible based on patient's age to complete this topic Procedures Procedure Name Priority Date/Time Associated Diagnosis Comments SEDIMENTATION RATE Routine 10/15/2024 11 :34 AM EST Pain of both shoulder joints JENELLE IFA WITH TITER AND PATTERN Routine 10/15/2024 11:34 AM EST Pain of both shoulder joints BORRELIA BURGDORFERI ANTIBODY Routine 10/15/2024 11:34 AM EST Pain of both shoulder joints URIC ACID Routine 10/15/2024 11:34 AM EST Pain of both shoulder joints RHEUMATOID FACTOR Routine 10/15/2024 11: 34 AM EST Pain of both shoulder joints THYROXINE FREE Routine 10/15/2024 11:34 AM EST Hypothyroidism, unspecified type THYROID STIMULATING HORMONE Routine 10/15/2024 11:34 AM EST Hypothyroidism, unspecified type XR BARIUM SWALLOW WITH VIDEO AND SPEECH Routine 09/30/2024 10:23 AM EST Dysphagia WINDOWS AND DOORS INSTALLER VIDEOFLUOROSCOPIC SWALLOW STUDY WITH BARIUM Routine 09/30/2024 10:15 AM EST Dysphagia CBC WITH AUTO DIFFERENTIAL Routine 09/08/2024 10:10 AM EST Abnormal CBC CBC AND DIFFERENTIAL Routine 09/08/2024 10:10 AM EST Abnormal CBC MICROALBUMIN CREATININE URINE RATIO Routine 08/25/2024 10:34 AM EST Prediabetes CBC WITH AUTO DIFFERENTIAL Routine 08/25/2024 9:42 AM EST Iron deficiency anemia, unspecified iron deficiency anemia type CBC AND DIFFERENTIAL Routine 08/25/2024 9:42 AM EST Iron deficiency anemia, unspecified iron deficiency anemia type IRON AND TIBC Routine 08/25/2024 9:42 AM EST Iron deficiency anemia, unspecified iron deficiency anemia type VITAMIN D 1,25 DIHYDROXY Routine 024 9:42 AM EST Vitamin D deficiency COMPREHENSIVE METABOLIC PANEL Routine 08/25/2024 9:42 AM EST Primary hypertension LIPID PANEL WITH REFLEX TO DIRECT LDL Routine 08/25/2024 9:42 AM EST Primary hypertension Prediabetes HEMOGLOBIN A1C Routine 08/25/2024 9:42 AM EST Prediabetes THYROXINE FREE Routine 08/25/2024 9:42 AM EST Hypothyroidism, unspecified type THYROID STIMULATING HORMONE Routine 08/25/2024 9:42 AM EST Hypothyroidism, unspecified type SCREENING MAMMOGRAPHY BI 2-VIEW BREAST INC CAD Routine 07/16/2023 8:29 AM EDT Encounter for screening mammogram for malignant neoplasm of breast HIV SCREENING Routine 04/27/2023 HEPATITIS C SCREENING Routine 04/05/2023 COLONOSCOPY Routine 06/22/2022 HPV Routine 03/13/2017 from Last 3 Months or Most Recently Relevant to Health Maintenance Results * JENELLE IFA with titer and pattern (10/15/2024 11:34 AM EST) Pathologist [facility] JENELLE Negative Negative 10/16/2024 1:57 PM EST [facility] Blood Venous blood specimen / Unknown Venipuncture / Unknown 10/15/2024 11:34 AM EST 10/15/2024 11:34 AM EST us Agustin ESPINAL LAB BLOOD ORDERABLES Final Res ult [facility] [address] [place] [address], * Borrelia burgdorferi antibody (10/15/2024 11:34 AM EST) Pathologist [facility] Lyme Ab Negative Negative LAB CHEMISTRY METHOD 10/16/2024 9:03 AM EST [facility] Comment: No laboratory evidence of infection [...] ORDERABLES Final Res ult Performing Organization Address City[facility] Co de Phone Number [facility] [address] [place] [address], * Sedimentation rate (10/15/2024 11:34 AM EST) [facility] Sed Rate 9 0 - 30 mm/hr LAB HEMETOLOGY METHOD 10/15/2024 2:17 PM EST [facility] Blood Venous blood specimen / Unknown Venipuncture / Unknown 10/15/2024 11:34 AM EST 10/15/2024 11:34 AM EST Agustin ESPINAL LAB BLOOD ORDERABLES Final Res ult Performing Organization Address [facility] de Phone Number [facility] [address] [place] [address], * Rheumatoid factor (10/15/2024 11:34 AM EST) [facility] Rheumatoid Factor 14.0 <15.0 I Unit/mL LAB CHEMISTRY METHOD 10/15/2024 2:53 PM EST [facility] Blood Venous blood specimen / Unknown Venipuncture / Unknown 10/15/2024 11:34 AM EST 10/15/2024 11:34 AM EST us Agustin ESPINAL LAB BLOOD ORDERABLES Final Res ult Performing Organization Address [facility] de Phone Number [facility] [address] [place] [address], * Uric acid (10/15/2024 11:34 AM EST) Uric Acid 5.5 3.1 - 7.8 mg/dL LAB CHEMISTRY METHOD 10/15/2024 2:53 PM EST [facility] Blood Venous blood specimen / Unknown Venipuncture / Unknown 10/15/2024 11:34 AM EST 10/15/2024 11:34 AM EST Agustin ESPINAL LAB BLOOD ORDERABLES Final Res ult Performing Organization Address City/[facility]/ZIP Co de Phone Number [facility] [address] [place] [address], * Thyroid stimulating hormone (10/15/2024 11:34 AM EST) Only the most recent of2 resultswithin the time period is included. Pathologist [facility] TSH 1.37 0.40 - 4.00 mcIU/mL LAB CHEMISTRY METHOD 10/15/2024 2:44 PM EST [facility] Blood Venous blood specimen / Unknown Venipuncture / Unknown 10/15/2024 11:34 AM EST 10/15/2024 11:34 AM EST Damian Bruce MD LAB BLOOD ORDERABLES Final Resul t [facility] [address] [place] [address], [place] [phone] * Thyroxine free (10/15/2024 11:34 AM EST) Only the most recent of2 resultswithin the time period is included. Free T4 1.41 0.70 - 1.80 ng/dL LAB CHEMISTRY METHOD 10/15/2024 2:44 PM EST [facility] Blood Venous blood specimen / Unknown Venipuncture / Unknown 10/15/2024 11:34 AM EST 10/15/2024 11:34 AM EST us Damian Bruce MD LAB BLOOD ORDERABLES Final Resul t [facility] [address] [place] [address], * XR Barium Swallow with Video and Speech (09/30/2024 10:23 AM EST) Anatomical Region Laterality Modality Head and Neck Radiographic Tita ging 09/30/2024 12:2 6 PM EST Impressions 10/01/2024 2:54 PM EST Normal swallowing function. Please refer to the dedicated speech pathologist report for further details as clinically indicated. -------- FINAL REPORT -------- Dictated By: Rima Dee Dictated Date: 09/30/2024 12:26 ET Assigned Physician: Ac Gunn Reviewed and Electronically Signed By: Ac Gunn Signed Date: 10/01/2024 14:54 ET Workstation ID: [id number] Transcribed By: Self Edit Transcribed Date: 09/30/2024 12:27 ET Resident/PA/COST CONTROLLER: Rima Dee Narrative 10/01/2024 2:54 PM EST CLINICAL HISTORY: dysphagia. 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 TECHNIQUE: ??Multiple sequential fluoroscopic images of the lateral neck were obtained for a swallowing function study. ??Barium enhanced consistencies of pudding, honey, nectar, thin liquid, semi-solid, and a 13 mm barium tablet were utilized for evaluation. ??Examination was performed with the speech therapist present. ?? FINDINGS: There was no evidence for penetration or aspiration of the various consistencies. 13mm barium tablet was swallowed without difficulty with prompt passage of pill from the esophagus into the stomach. DAP: 0.32 Gycm^2 Procedure Note Ac Gunn MD - 10/01/2024 CLINICAL HISTORY: dysphagia. STUDY: Modified barium swallow study COMPARISON: No prior modified barium swallow at this facility HISTORY: Patient is a 64-year-old female with history of benign neoplasmof the head and neck. TECHNIQUE: Multiple sequential fluoroscopic images of the lateral neckwere obtained for a swallowing function study. Barium enhancedconsistencies of pudding, honey, nectar, thin liquid, semi-solid, and a 13mm barium tablet were utilized for evaluation. Examination was performedwith the speech therapist present. FINDINGS: There was no evidence for penetration or aspiration of the variousconsistencies. 13mm barium tablet was swallowed without difficulty withprompt passage of pill from the esophagus into the stomach. DAP: 0.32 Gycm^2 IMPRESSION: Normal swallowing function. Please refer to the dedicated speech pathologist report for furtherdetails as clinically indicated. -------- FINAL REPORT -------- Dictated By: Rima Dee Dictated Date: 09/30/2024 12:26 ET Assigned Physician: Ac Gunn Reviewed and Electronically Signed By: Ac Gunn Signed Date: 10/01/2024 14:54 ET Workstation ID: [id number] Transcribed By: Self Edit Transcribed Date: 09/30/2024 12:27 ET Resident/PA/COST CONTROLLER: Rima Dee Sapna ESPINAL IMG FLUOROSCOPY PROCEDURES F inal Result * WINDOWS AND DOORS INSTALLER videofluoroscopic swallow study with barium (09/30/2024 10:15 AM EST) Phuong Coleman SLP - 09/30/2024 10:15 AM EST CARLY Thorpe ? 09/30/2024 ??3:57 PM Speech/Language Pathology ?? [facility] SPEECH-LANGUAGE PATHOLOGY OUTPATIENT MODIFIED BARIUM SWALLOW STUDY/ VIDEOFLUOROSCOPIC EVALUATION OF THE SWALLOW ?? NAME: Christine Wray ?? DATE OF : 1960 ? DATE: 09/30/2024 ?? CLIENT SPECIALIST REQUIRED: ?? No REASON FOR REFERRAL: Dysphagia SUBJECTIVE SUBJECTIVE: Patient educated on Speech-Language Pathologist role, and goal of the ordered assessment/procedure. Questions addressed and patient agreeable to all consistencies mixed with barium. Patient ambulatory and able to stand for the study. Vocal hoarseness noted. Dysphagia [R13.10] WINDOWS AND DOORS INSTALLER VIDEOFLUOROSCOPIC SWALLOW STUDY WITH BARIUM [[id number]] XR BARIUM SWALLOW WITH VIDEO AND SPEECH [[id number]] ?? ALLERGIES: Allergies Allergen Reactions Diphenhydramine Hcl Anaphylaxis Aspirin ?? Bupropion ?Drenching sweats Codeine Rash Cyclobenzaprine Itching Ibuprofen ?rash Iodinated Contrast Media ?Swelling all over Lisinopril Cough Meloxicam Nausea And Vomiting Penicillins ?rash Tramadol Hcl ?Stomach issues Valacyclovir Hcl ?Pt was given this medication by mistake. She does not hsv Verapamil Hcl Hives OBJECTIVE GENERAL INFORMATION: Ordering Physician: Dr Taylor Radiologist: Rima Dee PA-C Date of Evaluation: 09/30/24 Type of Study: Initial MBS Reason for Study: Dysphagia symptoms since having benign mass on Base of tongue, s/p removal. ALso h/o Partial thyroidectomy. Complains of choking on saliva, food and liquids. Diet Prior to this Study: regular/thin liquids Dysphagia Diagnosis: Within Functional Limits ?? OXYGEN NEEDS: Room air PAIN ASSESSMENT: ??no pain PREVIOUS MBS STUDIES: none DYSPHAGIA SYMPTOMS REPORTED BY PATIENT: ?? Coughing and Choking CURRENT DIET CONSISTENCIES: FOOD: ? IDDSI Level 7 Regular ? LIQUID: IDDSI Level 0 Thin ?? MENTAL STATUS: ?? Alert ?, Responsive, and Cooperative Oral/Motor: Labial ROM:Within Functional Limits Labial Symmetry:Within Functional Limits Labial Strength:Within Functional Limits Labial Sensation:Within Functional Limits Lingual ROM: Within Functional Limits Lingual Symmetry: Within Functional Limits Lingual Strength: Within Functional Limits Secretion Management: No Issue Oral Hygiene:Good Buccal Sensation: Within Functional Limits Vocal Function: vocal hoarseness Oral Motor Comments: WNL CONSISTENCIES TRIALED FOOD: ?? IDDSI Level 7 Regular ? and IDDSI Level 4 Puree ?? LIQUID: IDDSI Level 3 Moderately Thick, IDDSI Level 2 Mildly Thick, and IDDSI Level 0 Thin ?? BARIUM TABLET: x1 VIEW: lateral ORAL PHASE RESULTS Oral Phase: Impaired Oral Phase: Impaired ? Oral Phase - Comment Oral Phase - Comment: premature spillage ?? PHARYNGEAL PHASE RESULTS Pharyngeal Phase: Impaired ?? Pharyngeal Phase: Impaired ? Pharyngeal Phase - Comment Pharyngeal Comment: stiff epiglottic inversion, trace pharyngeal residue cleared indep. no laryngeal penetration, no tracheal aspiration. ?? CRICOPHARYNGEAL/CERVICAL ESOPHAGEAL PHASE AND ESOPHAGEAL SCAN (IF INDICATED) Cricopharyngeal Phase: Within Functional Limits Cricopharyngeal Phase: Within Functional Limits OVERALL IMPRESSIONS/ASSESSMENT Patient presents with mild oropharyngeal dysphagia due to recent removal of benign base of tongue mass. Patient would benefit from short course [employer] tx. Patient would like to talk with ENT prior to making appointment. PROGNOSIS: ?? Prognosis for Safe Diet Advancement: Good CONSULTED WITH: Consulted and Agree with Results and Recommendations: Patient RECOMMENDATIONS Recommendations/Treat Recommendations: Continued dysphagia therapy Recommendations Comment: pt would like to f/u with ENT first and then will pursue outpatient therapy. Solid Consistency: IDDSI Level 7 Regular Liquid Consistency: Thin liquids Liquid Administration Via: Cup Recommended Medication Route: PO Compensations: Slow rate Postural Changes and/or Swallow Maneuvers: Upright TREATMENT RECOMMENDATIONS: Patient would benefit from Outpatient [employer] Services following this Instrumental Assessment EDUCATION Education: Education provided: Diet Recommendations , Aspiration Precautions, and Swallow Strategies Applied Knowledge, Verbal Understanding, and Demonstrated Skills Sapna ESPINAL [employer] ORDERABLES Final Result * (ABNORMAL) CBC auto differential (09/08/2024 10:10 AM EST) Only the most recent of2 resultswithin the time period is included. WBC 6.8 4.8 - 10.8 K/mcL LAB HEMETOLOGY METHOD 09/08/2024 12:07 PM [facility] RBC 4.20 3.80 - 4.80 M/mcL LAB HEMETOLOGY METHOD 09/08/2024 12:07 PM [facility] Hemoglobin 13.2 11.5 - 16.0 g/dL LAB HEMETOLOGY METHOD 09/08/2024 12:07 PM [facility] Hematocrit 41.8 35.0 - 47.0 % LAB HEMETOLOGY METHOD 09/08/2024 12:07 PM [facility] MCV 100.2(H) 79.0 - 98.0 FL LAB HEMETOLOGY METHOD 09/08/2024 12:07 PM [facility] MCH 31.7 27.0 - 32.0 pcg LAB HEMETOLOGY METHOD 09/08/2024 12:07 PM [facility] MCHC 31.6(L) 32.0 - 37.0 g/dL LAB HEMETOLOGY METHOD 09/08/2024 12:07 PM [facility] RDW 12.7 11.0 - 15.0 % LAB HEMETOLOGY METHOD 09/08/2024 12:07 PM [facility] Platelets 274 130 - 400 K/mcL LAB HEMETOLOGY METHOD 09/08/2024 12:07 PM [facility] MPV 9.9 7.0 - 11.0 FL LAB HEMETOLOGY METHOD 09/08/2024 12:07 PM [facility] NRBC 0.0 <1.0 % LAB HEMETOLOGY METHOD 09/08/2024 12:07 PM [facility] NRBC Absolute 0.00 <0.10 K/mcL LAB HEMETOLOGY METHOD 09/08/2024 12:07 PM [facility] Neutrophils Relative 64.7 % LAB HEMETOLOGY METHOD 09/08/2024 12:07 PM [facility] Lymphocytes Relative 23.1 % LAB HEMETOLOGY METHOD 09/08/2024 12:07 PM [facility] Monocytes Relative 10.1 % LAB HEMETOLOGY METHOD 09/08/2024 12:07 PM [facility] Eosinophils Relative 1.5 % LAB HEMETOLOGY METHOD 09/08/2024 12:07 PM [facility] Basophils Relative 0.3 % LAB HEMETOLOGY METHOD 09/08/2024 12:07 PM [facility] Immature Granulocytes Relative 0.3 % LAB HEMETOLOGY METHOD 09/08/2024 12:07 PM [facility] Neutrophils Absolute 4.43 1.50 - 7.00 K/mcL LAB HEMETOLOGY METHOD 09/08/2024 12:07 PM [facility] Lymphocytes Absolute 1.58 1.00 - 5.00 K/mcL LAB HEMETOLOGY METHOD 09/08/2024 12:07 PM [facility] Monocytes Absolute 0.69 0.20 - 1.00 K/mcL LAB HEMETOLOGY METHOD 09/08/2024 12:07 PM [facility] Eosinophils Absolute 0.10 0.00 - 0.50 K/mcL LAB HEMETOLOGY METHOD 09/08/2024 12:07 PM [facility] Basophils Absolute 0.02 0.00 - 0.20 K/mcL LAB HEMETOLOGY METHOD 09/08/2024 12:07 PM [facility] Immature Granulocytes Absolute 0.02 0.00 - 0.03 K/mcL LAB HEMETOLOGY METHOD 09/08/2024 12:07 PM [facility] Blood Venous blood specimen / Unknown Venipuncture / Unknown 09/08/2024 10:10 AM EST 09/08/2024 10:10 AM EST Agustin ESPINAL LAB BLOOD ORDERABLES Final Res ult [facility] [address] [place] [address], * Microalbumin creatinine urine ratio (08/25/2024 10:34 AM EST) Creatinine, Urine 104.0 mg/dL LAB CHEMISTRY METHOD 08/25/2024 1:15 PM EST [facility] Microalb, Ur 9.6 0.0 - 29.0 mg/L LAB CHEMISTRY METHOD 08/25/2024 1:15 PM EST [facility] Microalb/Creat Ratio 9 <30 mg/g creat LAB CHEMISTRY METHOD 08/25/2024 1:15 PM [facility] Urine Urine specimen obtained by clean catch procedure / Unknown Non-blood Collection / Unknown 08/25/2024 10:34 AM EST 08/25/2024 10:34 AM EST us Agustin ESPINAL LAB URINE ORDERABLES Final Res ult [facility] [address] [place] [address], * (ABNORMAL) Lipid panel with reflex to direct LDL (08/25/2024 9:42 AM EST) Cholesterol 218(H) 0 - 200 mg/dL LAB CHEMISTRY METHOD 08/25/2024 1:25 PM [facility] Triglycerides 104 0 - 150 mg/dL LAB CHEMISTRY METHOD 08/25/2024 1:25 PM [facility] HDL 81 >=40 mg/dL LAB CHEMISTRY METHOD 08/25/2024 1:25 PM [facility] LDL Calculated 116(H) 0 - 100 mg/dL LAB CHEMISTRY METHOD 08/25/2024 1:25 PM [facility] VLDL Cholesterol Marcelo 20.8 mg/dL LAB CHEMISTRY METHOD 08/25/2024 1:25 PM [facility] Non HDL Chol. (LDL+VLDL) 137 <145 mg/dL LAB CHEMISTRY METHOD 08/25/2024 1:25 PM [facility] Chol/HDL Ratio 2.7 0.0 - 4.4 LAB CHEMISTRY METHOD 08/25/2024 1:25 PM [facility] Blood Venous blood specimen / Unknown Venipuncture / Unknown 08/25/2024 9:42 AM EST 08/25/2024 9:42 AM EST Agustin ESPINAL LAB BLOOD ORDERABLES Final Res ult Performing Organization Address City/[facility]/ZIP Co de Phone Number [facility] [address] [place] [address], [place] [phone] * Iron and TIBC (08/25/2024 9:42 AM EST) Iron 66 40 - 150 mcg/dL LAB CHEMISTRY METHOD 08/25/2024 1:15 PM EST [facility] TIBC 369 250 - 450 mcg/dL LAB CHEMISTRY METHOD 08/25/2024 1:15 PM EST [facility] Iron Saturation 18 15 - 50 % LAB CHEMISTRY METHOD 08/25/2024 1:15 PM EST [facility] Blood Venous blood specimen / Unknown Venipuncture / Unknown 08/25/2024 9:42 AM EST 08/25/2024 9:42 AM EST Agustin ESPINAL LAB BLOOD ORDERABLES Final Res ult Performing Organization Address City/[facility]/ZIP Co de Phone Number [facility] [address] [place] [address], [place] [phone] * Vitamin D 1,25 dihydroxy (08/25/2024 9:42 AM EST) Vitamin D, 1, 25-Dihydroxy 67 20 - 79 pg/mL 08/27/2024 7:09 PM EST [facility] Comment: Vitamin D 1, 25 dihydroxy levels should be primarily used to assess Vitamin D status in patients with renal disease and hypercalcemia. Vitamin D 1,25-dihydroxy levels are generally less than 5 pg/mL in end stage renal disease patients. The preferred initial test for assessing Vitamin D status in the general population is Vitamin D 25-hydroxy (VITD). Test performed at [facility], [address] [place], [place] ??[address] ? [phone] Patricia Garibay MD, PhD - Cardiovascular Surgical Tech Blood Venous blood specimen / Unknown Venipuncture / Unknown 08/25/2024 9:42 AM EST 08/25/2024 9:42 AM EST Agustin ESPINAL LAB BLOOD ORDERABLES Final Res ult [facility] [address] [place] [address] * Hemoglobin A1c (08/25/2024 9:42 AM EST) Hemoglobin A1C 6.2 <6.5 % LAB CHEMISTRY METHOD 08/25/2024 2:30 PM EST [facility] Mean Bld Glu Estim. 131 mg/dL LAB CHEMISTRY METHOD 08/25/2024 2:30 PM EST [facility] Blood Venous blood specimen / Unknown Venipuncture / Unknown 08/25/2024 9:42 AM EST 08/25/2024 9:42 AM EST Agustin ESPINAL LAB BLOOD ORDERABLES Final Res ult Performing Organization Address City/[facility]/ZIP Co de Phone Number [facility] [address] [place] [address], * (ABNORMAL) Comprehensive metabolic panel (08/25/2024 9:42 AM EST) Sodium 140 133 - 145 mmol/L LAB CHEMISTRY METHOD 08/25/2024 1:15 PM EST [facility] Potassium 4.2 3.5 - 5.5 mmol/L LAB CHEMISTRY METHOD 08/25/2024 1:15 PM EST [facility] Chloride 106 96 - 110 mmol/L LAB CHEMISTRY METHOD 08/25/2024 1:15 PM EST [facility] CO2 28 21 - 32 mmol/L LAB CHEMISTRY METHOD 08/25/2024 1:15 PM EST [facility] Anion Gap 6 3 - 11 LAB CHEMISTRY METHOD 08/25/2024 1:15 PM [facility] Glucose 138(H) 70 - 100 mg/dL LAB CHEMISTRY METHOD 08/25/2024 1:15 PM [facility] BUN 22 5 - 25 mg/dL LAB CHEMISTRY METHOD 08/25/2024 1:15 PM [facility] Creatinine 0.83 0.50 - 1.10 mg/dL LAB CHEMISTRY METHOD 08/25/2024 1:15 PM [facility] eGFR 79 >=60 mL/min/1. 73m2 LAB CHEMISTRY METHOD 08/25/2024 1:15 PM [facility] Comment:Calculation based on the??Chronic Kidney Disease Epidemiology Collaboration (CKD-EPI) equation refit??without adjustment for race. BUN/Creatinine Ratio 26.5 LAB CHEMISTRY METHOD 08/25/2024 1:15 PM [facility] Calcium 9.7 8.5 - 10.5 mg/dL LAB CHEMISTRY METHOD 08/25/2024 1:15 PM [facility] AST (SGOT) 11 10 - 42 unit/L LAB CHEMISTRY METHOD 08/25/2024 1:15 PM [facility] ALT (SGPT) 20 10 - 60 unit/L LAB CHEMISTRY METHOD 08/25/2024 1:15 PM [facility] Alkaline Phosphatase 81 42 - 121 unit/L LAB CHEMISTRY METHOD 08/25/2024 1:15 PM [facility] Total Protein 7.1 6.0 - 8.0 g/dL LAB CHEMISTRY METHOD 08/25/2024 1:15 PM [facility] Albumin 4.1 3.2 - 5.0 g/dL LAB CHEMISTRY METHOD 08/25/2024 1:15 PM [facility] Total Bilirubin 0.3 0.0 - 1.4 mg/dL LAB CHEMISTRY METHOD 08/25/2024 1:15 PM [facility] Blood Venous blood specimen / Unknown Venipuncture / Unknown 08/25/2024 9:42 AM EST 08/25/2024 9:42 AM EST Agustin ESPINAL LAB BLOOD ORDERABLES Final Res ult [facility] [address] [place] [address], * SCREENING MAMMOGRAPHY BI 2-VIEW BREAST INC CAD (07/16/2023 8:29 AM EDT) Anatomical Region Laterality Modality Radiographic Tita ging 07/12/2022 8:29 AM EDT Narrative 07/16/2023 4:56 PM EDT This is a summary report. The complete report is available in the patient's medical record. If you cannot access the medical record, please contact the sending organization for a detailed fax or copy. Exam: Screening mammogram Findings: Digital bilateral full-field screening mammography is performed with tomosynthesis and interpreted with the aid of computer-aided detection. ??Comparison is made with 04/26/2023 and as far back as 06/17/2019. Breast parenchyma is composed of scattered fibroglandular densities. ??No new suspicious mass, architectural distortion, or suspicious calcifications. Impression: No mammographic evidence of malignancy. BI-RADS 1 - negative Procedure Note Fanny Nielson MD - 10/23/2023 This is a summary report. The complete report is available in thepatient's medical record. If you cannot access the medical record, pleasecontact the sending organization for a detailed fax or copy. Exam: Screening mammogram Findings: Digital bilateral full-field screening mammography is performedwith tomosynthesis and interpreted with the aid of computer-aideddetection. Comparison is made with 04/26/2023 and as far back as1. Breast parenchyma is composed of scattered fibroglandular densities. Nonew suspicious mass, architectural distortion, or suspiciouscalcifications. Impression: No mammographic evidence of malignancy. BI-RADS 1 - negative Mattie Priest MD IMG XR PROCEDURES Final Result * Hm HIV Screening (04/27/2023) Pathologist [facility] HIV Screening Abstracted Historical Provider HEALTH MAINTENANCE Final Result * Hepatitis C Screening (04/05/2023) Pathologist [facility] Hepatitis C Screening Abstracted [facility] Provider HEALTH MAINTENANCE Final Result * Colonoscopy (06/22/2022) Pathologist [facility] Colonoscopy No interpretation , abstracted Anatomical Region Laterality Modality Other Historical Provider HEALTH MAINTENANCE Final Result * Cervical Cancer Screening: HPV (03/13/2017) Pathologist [facility] Cervical Cancer Screening: HPV Negative, abstracted Historical Provider HEALTH MAINTENANCE Final Result from Last 3 Months or Most Recently Relevant to Health Maintenance Insurance [facility] MEDICARE Member Subscriber Plan / Payer (Ef fective 2022-Present) Name:Christine Wray Relation to Subscriber:Self Name:Christine Wray Payer ID:[id number] Group ID:[id number] Type:Not on file Address: [place] [address] [place] [id number] Care Teams Mold Changer Relationship Specialty Start Date End Date Mattie Priest MD [address] [place] [id number] PCP - General Internal Medicine 07/14/24
--- OUTSIDE RECORDS SUMMARY | 2024-11-10 18:34 | XMS_ITS | Data Portability ---
Author Organization [place] - [facility], Allergy Address [address] [address] Care Team Providers Care Frankfurter Inspector Name Role Phone JAIDEN CAMPBELL Primary Care Provide r Assessment Encounter Date Assessment Date Assessment LastModified by Organization Details LastModified Time 06/19/2024 06/19/2024 63-year-old female presents today for evaluation of her ear. She was seen in the emergency department with concern for ear infection and she had a CT scan on June 09 which did not show any evidence of infection but there was a incidental finding of some asymmetry at the base of the tongue on the right. Of note she does have a history of lingual tonsillectomy about 5 years ago. On exam, there is base of tongue asymmetry, with the findings noted on CT most consistent with hypertrophic lymphoid tissue. We did discuss proceeding with DL with biopsy under an abundance of caution given asymmetry though my suspicion for any worrisome pathology would be very low. She is also concerned about her ear. There was no infection noted on exam. Review of her CT shows only some minimal mucosal thickening. Her tuning fork exam was consistent with a sensorineural loss we did proceed with formal audiometric testing which was consistent with a mixed loss. I recommended topical decongestants, antihistamines. If symptoms worsen or do not resolve we can reassess the need for any intervention such as myringotomy or tube. [email or web address] Not available 06/22/2024 08:40:05 06/25/2024 06/25/2024 63-year-old fema le with asymmetric base of tongue being followed by Dr. Sorto presents for reevaluation of the left ear. On exam, left TM is thickened and dull, likely an effusion. Right TM is intact with an aerated middle ear space. Audiometric testing performed on 06/19 demonstrated mild high-frequency sensorineural hearing loss on the right and a mixed hearing loss on the left. She has been taking Claritin daily. I also recommended trial of Flonase nasal spray once daily. She is scheduled for direct laryngoscopy with biopsy of base of tongue on 07/14. We may consider myringotomy +/- tube at that time if symptoms persist. I will discuss with Dr. Sorto. Patient agrees with plan all questions were answered. [email or web address] Not available 06/25/2024 11:45:03 07/22/2024 07/22/2024 64-year-old elder paz presents for reevaluation following DL with biopsy and left tube placement. Biopsy results were obtained over the phone and are consistent with normal lingual tonsil tissue. No sign of malignancy. Finalized results will be faxed to office. On examination left tube is in place and patent. Too soon to obtain audiometric testing but will obtain at next visit. Overall, reassurance was provided given results of biopsy. I have recommended a modified barium swallow for further investigation of her dysphagia. She will follow-up after study for review and further planning. Continue use of Protonix. All questions were answered. [email or web address] Not available 07/22/2024 11:36:27 10/07/2024 10/07/2024 64-year-old elder paz presents for reevaluation. On exam left tube is in place and patent. Audiometric testing was obtained today confirming normalization of hearing. Will continue observation. Flexible laryngoscopy was obtained today for surveillance and shows persistent asymmetry of base of tongue, right larger than left without ulceration. Soft to palpation. Would recommend continued monitoring given negative biopsy. Follow-up in 6 months. [email or web address] Not available 10/07/2024 13:33:25 11/05/2024 11/05/2024 64-year-old elder paz presents for evaluation of [...] in March, or sooner with worsening symptoms. [email or web address] Not available 11/05/2024 10:03:03 Plan of Treatment Reminders Order Date Submit Date Provider Last Modified By Organization Details Last Modified Time Details Appointments Estab lishe d 15 2024 01:30P M JASS SORTO MD Not available Not available Not available Lab None recor ded. Referral None recor ded. Procedures None recor ded. Surgeries laryn gosco py, direc t, with biops y (SURG ) 2023 024 [email or web address] Not available 06/19/2024 10:59:47 Imaging [place], modif ied tanya pollard ow study 2023 024 [email or web address] [facility], [address] [place] [address], [address], 08/25/2024 09:14:31 Medication Orders Flona se Aller gy Relie f 50 mcg/a ctuat ion nasal spray ,susp ensio n 2023 024 [email or web address] n [facility], [address] [place], [address], 06/25/2024 12:24:20 Shawna tin 10 mg table t 2023 024 SILVESTRE [facility], [address] [place], [address], 06/19/2024 10:32:36 Patient TargetsNo targets recorded. Patient InstructionsNo instructions recorded. Reason for Referral None Reported. Results Created Date Observation Date Name Description Value Unit Range Abnormal Flag Note LastModifiedBy Organization Detail LastModifiedTime 06/23/20 audio gram No observ ation record ed. [email or web address] Not Available 2023 09:57:56 06/27/20 24 06/19/2024 CT, neck, soft tissu e, w/ contr ast No observ ation record ed. [email or web address] Not Available 06/17 09:18:52 09/30/19 25 09/30/2024 proce dures No observ ation record ed. [email or web address] [address], [address], 09/30/2024 16:13:14 10/01/19 25 09/30/2024 xr tanya shankar with video and speec h See Note [facility] , a [facility] of [facility] Josef brizuela Name: CHRISTINE UGALDE Date of : 1959 Reason for Exam: dyspha nurys Exam Date: 2024 [id number] EST Report Status : Final Orderi ng Provid er: SHAWNEE Hopkins [facility] HISTOR Y: dyspha nurys. 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 TECHNI QUE: Multip le sequen tial fluoro scopic images of the latera l neck were obtain ed for a swallo wing functi on study. Barium enhanc ed consis tencie s of puddin g, honey, nectar , thin liquid , semi-s olid, and a 13 mm barium tablet were utiliz ed for evalua tion. Examin ation was perfor med with the speech therap ist frandy brizuela. FINDIN GS: There was no eviden ce for penetr ation or aspira tion of the variou s consis tencie s. 13mm barium tablet was swallo wed withou t diffic ulty with prompt passag e of pill from the esopha vandana into the stomac h. DAP: 0.32 Gycm^2 IMPRES MAGDY: Normal swallo wing functi on. Please refer to the karla salvador speech pathol ogist report for furthe r detail s as clinic arinaa salvador. ------ -- FINAL REPORT ------ -- Dictat ed By: Rima Dee Dictat ed Date: 2024 12:26 ET Assign ed Physic pankaj: Kong Gunn Review ed and Electr onical ly Signed By: Kong Gunn nt Signed Date: 2024 14:54 ET Workst ation ID: [id number] Transc ribed By: Self Edit Transc ribed Date: 2024 12:27 ET Reside nt/PA/ RENTAL CAR DELIVERER: Rima Deeews[address] [place] [address], [address], 10/01/2024 16:03:07 10/07/19 25 audio gram No observ ation record ed. BARCODE Not Available 2024 14:57:35 Result Notes None recorded. Problems Name Problem SNOMED Code Status Onset Date Resolution Date Notes Provider Name and Address Organization Details Recorded Time Chronic tonsillit is 55001538 Active 2014 Chronic tonsillit is; Note: Date Diagnosed : 02/09/2015 10:14 AM (474.00) Not Available [facility] 4 02:22:45 Postopera tive follow-up visit Active 2014 Post op; Note: Date Diagnosed : 02/09/2015 10:14 AM (V67.00) Not Available [facility] 4 02:23:16 Impacted cerumen of bilateral ears 33817938459 77649 Active 2020 Impacted cerumen, bilateral ; Note: Date Diagnosed : 01/14/2021 3:17 PM (H61.23) Not Available [facility] 4 02:22:35 Candidal otitis externa 13127145 Active 2022 Candidal otitis externa; Note: Date Diagnosed : 04/30/2023 1:52 PM (B37.84) Not Available [facility] 4 02:23:11 Mixed conductiv e and sensorine ural hearing loss, bilateral 912389369 Active 2016 Mixed conductiv e and sensorine ural hearing loss, bilateral ; Note: Date Diagnosed : 7 1:02 PM (H90.6) Not Available [facility] 4 02:22:32 Eczema 37893041 Active 2020 Other specified dermatiti s; Note: Date Diagnosed : 01/14/2021 3:19 PM (L30.8) Not Available [facility] 4 02:22:35 Pain in throat 259671047 Active 2018 Pain in throat; Note: Date Diagnosed : 9 12:13 PM (R07.0) Not Available [facility] 4 02:22:53 Obstructi ve sleep apnea syndrome 26901072 Active 2014 LORI; Note: 12/30/14 Tonsillec gavin PVSC Not Available [facility] 4 02:22:47 Dysphagia 06515159 Active 2018 Dysphagia , unspecifi ed; Note: Date Diagnosed : 05/06/2019 3:56 PM (R13.10) Not Available [facility] 4 02:22:52 Examinati on of ear Active 2021 Encounter for examinati on of ears and hearing without abnormal findings; Note: Date Diagnosed : 11/18/2021 10:53 AM (Z01.10) Not Available [facility] 4 02:22:49 Bilateral disorder of Eustachia n tubes 98248500236 46333 Active 2016 Other specified disorders of Eustachia n tube, bilateral ; Note: Date Diagnosed : 7 11:32 AM (H69.83) Not Available [facility] 4 02:22:40 Benign neoplasm of tongue 55256622 Active 2018 Benign neoplasm of lingual tonsil; Note: Date Diagnosed : 05/06/2019 3:56 PM (D10.1) Not Available [facility] 4 02:22:48 Dysphonia 15314445 Active 2018 Hoarsenes s; Note: Date Diagnosed : 05/06/2019 3:57 PM (R49.0) Not Available [facility] 4 02:23:11 Mixed conductiv e and sensorine ural hearing loss of left ear with normal hearing on right side 0490336499 Active 2023 ANA CRISTINA BIRMINGHAM [place], CCC-A [address], [place], [address] , [place] [facility] 4 10:13:14 Allergic rhinitis 30520058 Active 2023 JASS SORTO MD [address], [place], [address] , [place] [facility] 4 10:32:06 Hypertrop hy of lingual tonsil 139301320 Active 2023 JASS SORTO MD [address], [place], [place], [address] , [place] [facility] 4 10:32:41 Sensorine ural hearing loss in right ear 47066440590 100 Active 2023 ETHAN BOUDREAUX PA-C [address], [place], [place], [address] , [place] [facility] 4 11:09:33 Dysfuncti on of left eustachia n tube 97711230477 64635 Active 2023 ETHAN BOUDREAUX PA-C [address], [place], [place], [address] , [place] [facility] 4 11:09:40 Dysfuncti on of eustachia n tube 53175023 Active 2023 ETHAN BOUDREAUX PA-C [address], [place], [place], [address] , [place] [facility] 4 09:05:08 Postopera tive pain 602496137 Active 2023 JASS SORTO MD [address] [facility],[place] [address], [place], [address] , [place] [facility] 4 10:50:15 Bilateral earache 987069298 Active 2024 ETHAN BOUDREAUX PA-C [address] [facility],[place] [address], [place], [address] , [place] [facility] 5 09:57:01 Arthralgi a of temporoma ndibular joint 45176648 Active 2024 ETHAN BOUDREAUX PA-C [address] [place] [address],[place] [address], [place], [address] , [place] [facility] 5 09:57:10 Temporoma ndibular joint disorder 34497253 Active 2024 ETHAN BOUDREAUX PA-C [address] [place] [address],[place] [address], [place], [address] , [place] [facility] 5 09:57:29 Problem Notes None recorded. Procedures Surgical History Date Name Laterality Status Provider Name and Address Organization Details Recorded Time 10/07/19 25 FOL_DP completed SHAWNEE HARRIS PA-C [address] [facility],[place] [address], [place], [address], [place] [facility] 10/07/2024 13:32:35 10/07/19 25 Air & Speech Audio with Tymps (49543, 40274 & 64720) completed JOSEP GEIGER [address] [facility],[place] [address], [place], [address], [place] [facility] 10/07/2024 13:03:35 06/19/20 24 Comp Audio with Tymps (13514 & 47099) completed ANA CRISTINA BIRMINGHAM [place], CCC-A [address] [facility],[place] [address], [place], [address], [place] [facility] 06/19/2024 10:12:44 06/19/20 24 Fiberoptic Laryngoscopy (Comprehensive) completed JASS SORTO MD [address],[place] [address], [place], [address], [facility] 06/19/2024 09:44:15 07/23/20 19 excision of lingual tonsil completed JASS SORTO MD [address] [facility],[address], [address], [facility] 06/19/2024 10:24:40 12/31/19 15 tonsillectomy completed JASS SORTO MD [address] [facility],[place] [address], [place], [address], [facility] 06/19/2024 10:25:05 Imaging Results Imaging Date Name Status LastModified by Organiz ation Details LastModified Time 06/23/2024 audiogram completed [email or web address] Information no t available 06/23/2024 09:57:56 06/19/2024 CT, neck, soft tissue, w/ contrast completed [email or web address] Information not available 06/27/2024 09:18:52 09/30/2024 procedures completed [address], [address], 09/30/2024 16:13:14 09/30/2024 xr barium swallow with video and speech completed [address], [address], 10/01/2024 16:03:07 10/07/2024 audiogram completed BARCODE Information no t available 10/07/2024 14:57:35 Procedure Notes None recorded. Medical Equipment None Reported. Allergies Allergen ID Allergen Name Allergen Category Reaction Reaction Severity Criticality Documentation Date Start Date Code Code System Note Provider Name and Address Organization Details Recorded Time 48709 Product containin g penicilli n (product) medicatio n other Not available Not available 01/29/2024 06003 8001 SNOMED React ion: unkno wn, unspe cifie d;; Not Available [facility] 00:52:53 87698 verapamil medicatio n other Not available Not available 01/29/2024 08351 RxNorm React ion: unkno wn, unspe cifie d;; Not Available [facility] 4 00:52:56 74261 tramadol hydrochlo ride medicatio n other Not available Not available 01/29/2024 01523 RxNorm React ion: unkno wn, unspe cifie d;; Not Available [facility] 4 00:53:06 94532 ibuprofen , sodium salt medicatio n other Not available Not available 01/29/2024 12149 44 RxNorm React ion: unkno wn, unspe cifie d;; Not Available [facility] 4 00:53:08 Medications Name Sig Start Date Stop Date Status Note LastModified by Organization Details LastModified Time fe gluconate tab 239mg 06/19 completed Not Available Not Available Not Available losartan 50 mg tablet 2020 active Medicati on ID: 216453 B rand Name: losartan Send Method: E-Prescr ibed Sub s Allowed: subs OK Medic ationGen ericName : losartan Not Available Not Available Not Available cyclobenz aprine 10 mg tablet 01/14 completed Medicati on ID: 105357 D uration Value: 10 Brand Name: cycloben [...] ion soln 01/14 completed Medicati on ID: 803356 B rand Name: ipratrop ium-albu terol Se [...] mg tablet 01/14 completed Medicati on ID: 60866 Du ration Value: 30 Brand Name: valsarta [...] by mouth 06/19 completed Medicati on ID: 254915 D uration Value: 3 Prescri bed By Name: DAMIR Mendoza nd Name: oxycodon e Send Method: E-Prescr ibed Sub s Allowed: subs OK Medic ationGen ericName : oxycodon e Not Available Not Available Not Available topiramat e 25 mg tablet 07/03 completed Medicati on ID: 34873 Du ration Value: 30 Reason: () Brand [...] mg tablet 07/22 completed Medicati on ID: 535761 B rand Name: chlortha lidone S end Method: E-Prescr ibed Sub s Allowed: subs OK Medic ationGen ericName : chlortha lidone Not Available Not Available Not Available ciproflox acin 500 mg tablet 07/22 completed Not Available Not Available Not Available doxycycli ne monohydra te 100 mg tablet 01/14 completed Medicati on ID: 161597 D uration Value: 10 Brand Name: doxycycl [...] mcg tablet 01/14 completed Medicati on ID: 426443 D uration Value: 30 Brand Name: levothyr [...] mg tablet 07/22 completed Medicati on ID: 173342 D uration Value: 30 Brand Name: citalopr am Send Method: E-Prescr ibed Sub s Allowed: subs OK Medic ationGen ericName : citalopr am Not Available Not Available Not Available amitripty line 25 mg tablet 01/14 completed Medicati on ID: 551839 B rand Name: amitript yline Se nd [...] mg tablet 07/03 completed Medicati on ID: 00565 Du ration Value: 7 Reason: () Brand [...] a day 06/19 completed Medicati on ID: 325630 D uration Value: 14 Brand Name: clotrima zole-bet amethaso ne Send Method: E-Prescr ibed Sub s Allowed: subs OK Speci al Instruct ion: Apply with fingerti p to external ear BID X 2 week Med icationG enericNa me: clotrima zole-bet amethaso ne Not Available Not Available Not Available ferrous gluconate 240 mg (27 mg iron) tablet active Not Available Not Available Not Available fluoxetin e 10 mg capsule 07/22 completed Medicati on ID: 028016 B rand Name: fluoxeti ne Send Method: [...] mg tablet 01/14 completed Medicati on ID: 879992 D uration Value: 30 Brand Name: sertrali [...] e 50 mcg/actua tion nasal spray,tawnya pension [place] 2 sprays every day by intranas al [...] OraMagic mouthwash 01/14 completed Medicati on ID: 165930 D uration Value: 4 Brand Name: MAGIC [...] mg tablet 01/14 completed Medicati on ID: 249640 D uration Value: 30 Brand Name: topirama [...] % mouthwash 01/14 completed Medicati on ID: 770420 D uration Value: 30 Brand Name: chlorhex idine gluconat e Send Method: E-Prescr ibed Sub s Allowed: subs OK Speci al Instruct ion: RINSE WITH 5ML BY MOUTH EVERY 6 TO 8 HOURS Me dication GenericN robert: chlorhex idine gluconat e Not Available Not Available Not Available Ranitidin e Hcl 01/14 completed Medicati on ID: 166789 D uration Value: 30 Brand Name: ranitidi [...] inhalatio n 06/19 completed Medicati on ID: 276481 B rand Name: Spiriva Respimat Send Method: [...] and Address Organization Details Last Updated DateTime 06/19/2024 170.18 cm 32.4 kg/m2 81647.62 g Virginia Rosario [place] - [facility] 06/19/2024 09:24:03 Date Recorded Body height Body mass index (BMI) Body weight Provider Name and Address Organization Details Last Updated DateTime 07/22/2024 165.74 cm 34.3 kg/m2 46259.21 g Virginia Rosario [place] - [facility] 07/22/2024 10:32:49 Date Recorded Body height Body mass index (BMI) Body weight Provider Name and Address Organization Details Last Updated DateTime 11/05/2024 165.1 cm 34.9 kg/m2 70010.4 g Jessica Joe [place] - [facility] 11/05/2024 09:16:01 Social History None recorded. Functional Status None recorded. Mental Status None recorded. Family History Nothing Reported. Medical History Condition Response Anxiety Y Migraines Y Thyroid Problems Y Depression Y Arthritis Y Asthma Y Hypertension Y Gynecological HistoryNo gynecological history recorded. Obstetrics History GPAL:G 0 P 0 0 0 0 Past Encounters Encounter ID Performer Location Encounter Start Date Encounter Closed Date Diagnosis/Indication Diagnosis SNOMED-CT Code Diagnosis ICD10 Code Diagnosis Note JASS SORTO MD [facility] on [address] [place] [address] 06/19/2024 09:02:56 06/19/2024 10:41:11 Mixed conductive and sensorineural hearing loss of left ear with normal hearing on right side 7181574446 H90.72 Audiologic al evaluation results: Right ear: {{Normal* Normal through 2 kHz Mild M oderate Mo derately-s evere Venecia re Profoun d}} {{hearing* sloping to a mild slopi ng to a moderate s loping to moderately severe slo ping to severe slo ping to profound f lat high frequency low frequency mid frequency cookie bite mota curve}} {{with sen sorineural hearing loss with condu ctive hearing loss with mixed hearing loss with with a mild loss 8kHz#}} {{excellen t* good fa ir poor no measurable }} word recognitio n. Left ear: {{Normal N ormal through 2 kHz Mild M oderate Mo derately-s evere Venecia re Profoun d Mild-mod erate mixed#}} {{hearing sloping to a mild slopi ng to a moderate s loping to moderately severe slo ping to severe slo ping to profound f lat high frequency low frequency mid frequency cookie bite mota curve hear ing loss#}} {{with* se nsorineura l hearing loss with condu ctive hearing loss with mixed hearing loss with}} {{excellen t* good fa ir poor no measurable }} word recognitio n. Tympanomet ry: Right Ear:{{Type A* Type As Type Ad Type C Type C, shallow & rounded Ty pe B Type B with large volume Cou ld not maintain a hermetic seal}} Left Ear:{{Type A Type As Type Ad Type C Type C, shallow & rounded Ty pe B Type B with large volume Cou ld not maintain a hermetic seal Type A (rounded)# }} Allergic rhinitis 616162 04 J30.9 Hypertroph y of lingual tonsil 995878495 J35.3 [id number] MAIKEL SOLIS MD [facility] [address] [address] 06/25/2024 10:26:55 06/25/2024 11:18:27 Mixed conductive and sensorineural hearing loss of left ear with normal hearing on right side 1632280124 H90.72 Sensorineu ral hearing loss in right ear 4263916116 9100 H90.A21 Dysfunctio n of left eustachian tube 6437183856 174206 H69.82 [id number] MIGUEL ANGEL SOLIS MD [facility] [address] [address] 07/22/2024 10:24:23 07/22/2024 11:07:14 Benign neoplasm of tongue 47942663 D10.1 Bilateral disorder of Eustachian tubes 6451964285 098133 H69.83 Dysfunctio n of left eustachian tube 7267965718 922482 H69.82 Dysphagia 58454735 R13.1 0 [id number] MAIKEL SOLIS MD [facility] [address] [address] 10/07/2024 12:39:23 10/07/2024 13:27:36 Dysfunction of left eustachian tube 6952468202 992794 H69.82 Left Ear:Normal hearing through 6K Hz sloping to a mild HL.Patent tube. Benign cayetano plasm of tongue 12150394 D10.1 Bilateral disorder of Eustachian tubes 8498338283 509723 H69.83 [id number] MAIKEL SOLIS MD [facility] [address] [place] [address] 11/05/2024 09:08:29 11/05/2024 12:01:04 Benign neoplasm of tongue 89992358 D10.1 Dysfunctio n of left eustachian tube 9851790016 397504 H69.82 Bilateral earache 887505 003 H92.03 Temporoman dibular joint disorder 29727389 M26.623 Health Concerns Section Related Observation LastModified by Organization Detai ls LastModified Time None Recorded Concern Status LastModified by Organization Details LastModified Time None Recorded Advance Directives Directive None Recorded Payers Encounter Date Sequence Insurance Name Policy Number Policy Catalan Covered Member ID Catalan Member ID Guarantor Name 06/19/2024 1 [id number] - DOS ON OR AFTER 2022 - NURSING HOME OPTIONS AND ONE CARE (MEDICARE REPLACEMENT/ADV ANTAGE - PPO) Christine Ugalde [id number] Christine Ugalde 06/25/2024 1 [employer] CARE [employer]IANCE - DOS ON OR AFTER 2022 - NURSING HOME OPTIONS AND ONE CARE (MEDICARE REPLACEMENT/ADV ANTAGE - PPO) Christine Ugalde [id number] Christine Ugalde 07/22/2024 1 [employer] - DOS ON OR AFTER 2022 - NURSING HOME OPTIONS AND ONE CARE (MEDICARE REPLACEMENT/ADV ANTAGE - PPO) Christine Ugalde [id number] Christine Ugalde 10/07/2024 1 [employer] - DOS ON OR AFTER 2022 - NURSING HOME OPTIONS AND ONE CARE (MEDICARE REPLACEMENT/ADV ANTAGE - PPO) Christine Ugalde [id number] Christine Ugalde 11/05/2024 1 [employer] C[employer] - DOS ON OR AFTER 2022 - NURSING [employer] (MEDICARE REPLACEMENT/ADV ANTAGE - PPO) Christine Ugalde [id number] Christine Ugalde Notes Date Note Type Note Provider Name and Address Organization Details Recorded Time 06/19/2024 text/html 63 yo F presents for ear cleaning and also for base of tongue mass seen incidentally on the CT neck performed for ear infection. Has some dysphagia and scratchy throat. Takes claritin. Had tonsils out a few years ago for LORI, no longer needs CPAP. Feels left ear ear is blocked. Had lingual tonsil removal in 2018. Had negative testing for lymphoma. She had a CT scan soft tissue of the neck in May which showed asymmetry of the base of tongue with lobulated mass measuring up to 2.2 cm in diameter and 0.7 cm in thickness arising from the right tongue base just appeared to the vallecula. There was questionably minimal mucosal thickening in the left mastoid. JASS SORTO MD [address] [facility], [place], [address], [facility] 06/22/2024 08:40:41 06/25/2024 text/html 63-year-old elder apz presents for reevaluation of left ear blockage. She was seen by Dr. Sorto on 06/19 for concern about base of tongue asymmetry. She is scheduled for DL with biopsy on 07/14. Exam was without concern about middle ear infection but CT did show minimal mucosal thickening. Tuning fork was consistent with sensorineural hearing hearing loss. Audiometric testing 06/19 demonstrated sensorineural hearing loss on the right at 8000 Hz and mild to moderate mixed hearing loss on the left. Topical decongestants and antihistamines were recommended. Myringotomy and/or tube may be considered for persistent or worsening symptoms. She continues to have decreased hearing and ear blockage on the left that is unchanged from last week. Symptoms began about 6 weeks ago. Denies prior otologic surgeries. Has been taking Claritin, but no nasal sprays. MAIKEL FERRARO MD [address] [facility],[address], [place], [address], [facility] [facility] 06/25/2024 12:24:22 07/22/2024 text/html 64-year-old elder paz presents following DL with biopsy. This was ordered due to sore throat and lingual tonsil asymmetry on flexible laryngoscopy. Patient has a history of lingual tonsillectomy in 2019. She reports difficulty swallowing is her main concern. She feels as though she is getting food and liquids stuck about mid throat. Often has to cough food up to relieve sensation. She is also feeling as though her medication is getting stuck stating she takes many pills. Has a history of heartburn but takes Protonix daily. Also had unilateral effusion and had a tube placed at the time of DL. Feels hearing has improved. MIGUEL ANGEL SOLIS MD [facility],[address], [address], [facility] - [facility] 07/22/2024 16:39:48 10/07/2024 text/html 64-year-old elder paz presents for reevaluation. She is followed for several issues. First, history of LMT in office with Dr. sorto. She still has some wetness in the ear in the morning but overall no drainage and hearing has normalized. Secondly, she is followed for asymmetric base of tongue. She has had biopsy which was negative for malignancy. Continues to feel as though foods become stuck in that area when she is swallowing. Occasionally feels as though she is choking. Had modified barium swallow which showed no sign of aspiration or penetration. MAIKEL FERRARO MD 100 [facility],[address], [address], [facility] [facility] 10/07/2024 17:14:50 11/05/2024 text/html 64-year-old elder paz presents for [...] hearing and sore throat. MAIKEL FERRARO MD [address],[place] [address], [place], [address], [facility] - [facility] 11/05/2024 11:43:29 OBGyn Episode No OBEpisode recorded.
[2024-11-10 19:31] VITALS: BP 115/71; PULSE 87; RESP 14; TEMP 36.8; O2SAT 96
[2024-11-10 19:32] VITALS: BP 115/71; PULSE 87; RESP 14; TEMP 36.8; O2SAT 96
== END 2024-11-10 19:32 | disposition home or self-care (01) ==
PROVIDERS: Physician Assistant Medical; Emergency Provider Emergency Medicine; PCP Internal Medicine
DX: G43.909 Migraine, unspecified, not intractable, without status migrainosus (principal); R20.0 Anesthesia of skin; Z03.818 Encounter for observation for suspected exposure to other biological agents ruled out; Z79.899 Other long term (current) drug therapy; Z51.81 Encounter for therapeutic drug level monitoring
CPT/HCPCS: 0241U; 70450; 80053; 83735; 85025; 85610; 96361; 96365; 96375; 99284; J0131; J0737; J1100

== ENCOUNTER → 2024-11-10 11:56 | Outpatient (BNV) | payer OTHER, SELFPAY | PROVIDERS: PCP Internal Medicine; Visit Provider Radiology Diagnostic Radiology | DX: R20.2 Paresthesia of skin (principal) | CPT/HCPCS: 70450 ==

== ENCOUNTER 2024-11-15 09:20 | Outpatient (REF) | payer OTHER, SELFPAY ==
--- NOTE | ~2024-11-15 | XR_ITS ---
CLINICAL HISTORY: R05.9 - Cough, unspecified 2 view chest x-ray. Comparison: None Findings: Normal lung volumes. Lungs are clear. No pneumothorax or pleural effusion. Heart size normal. No passive venous congestion. No midline shift or tracheal deviation. No acute fracture. Impression: 1. No acute cardiopulmonary disease. This document has been electronically signed by: Cyrus Perdomo MD on 11/15/2024 11:52:28
--- OUTSIDE RECORDS SUMMARY | 2024-11-15 11:14 | XMS_ITS | Clinical Summary ---
Author Organization [facility] Address [address] [place] [phone] Phone Care Team Providers Care Events Associate Name Role Phone Mattie Priest MD [...] 08/12/2013 Obstructive sleep apnea 08/12/2013 Overview (06/24/2024): [facility] Home Sleep Apnea Test: Date 05/26/2020; [...] Description 11/13/2024 10:00 AM EST Office Visit [address] [phone] Mattie Contreras MD Myasthenia gravis ([facility]) (Primary Dx); Vitamin D deficiency; Iron deficiency anemia, unspecified iron deficiency anemia type; Low vitamin B12 level; Facial numbness; Pily's thyroiditis 10/24/2024 1:00 PM EST Office Visit [facility] [address] [place] [phone] Agustin Hebert PA Coarse tremors (Primary Dx) 10/15/2024 10:30 AM EST Office Visit [address] [phone] Agustin Hebert PA Migraine without status migrainosus, not intractable, unspecified migraine type (Primary Dx); Primary hypertension; Chronic migraine w/o aura w/o status migrainosus, not intractable; Prediabetes; Hypothyroidism, unspecified type; Other fatigue; Pain of both shoulder joints 09/30/2024 10:00 AM EST - 09/30/2024 11:59 PM EST Hospital Encounter [facility] Xray [address] [place] [address] Oropharyngeal dysphagia (Primary Dx); Dysphagia Discharge Disposition: Home or Self Care 09/29/2024 1:40 PM EST Office Visit Gastroenterology - [place] [facility] 175 [facility] [address] [place] [address] Geri Zayas PA LUQ abdominal pain (Primary Dx); Diverticulosis; Constipation, unspecified constipation type 09/08/2024 9:00 AM EST Office Visit Adult [address] [phone] Agustin Hebert PA Primary hypertension (Primary Dx); Chronic migraine w/o aura w/o status migrainosus, not intractable; Abnormal CBC 09/08/2024 Telephone Adult [address] [phone] Mattie Contreras MD 09/08/2024 Telephone Adult [address] [phone] Agustin Hebert PA Fitting for DME 08/29/2024 Telephone Adult [address] [phone] Mattie Contreras MD Referral 08/25/2024 8:30 AM EST Office Visit Adult [address] [phone] Agustin Hebert PA Adult general medical examination (Primary Dx); Screening, anemia, deficiency, iron; Migraine without status migrainosus, not intractable, unspecified migraine type; Obstructive sleep apnea; Need for vaccination against Streptococcus pneumoniae; Primary hypertension; Prediabetes; Vitamin D deficiency; Hypothyroidism, unspecified type; Iron deficiency anemia, unspecified iron deficiency anemia type 08/25/2024 Telephone Adult [address] [phone] Agustin Hebert PA Fitting for DME from [...] Date Site/Laterality Comments COLONOSCOPY W/ POLYPECTOMY PROCEDURE: [place] COLSC FLX W/RMVL OF TUMOR POLYP LESION SNARE TQ; COMMENT: colonoscopy every five years TONSILLECTOMY 12/30/2014 PROCEDURE: HISTORICAL TONSILLECTOMY OTHER SURGICAL HISTORY 09/26/2017 Right PROCEDURE: [place] PRTL THYROID LOBECTOMY UNI W/WO ISTHMUSECTOMY BREAST [...] EST Office Visit Pulmonolgy - [place] [address] [phone] Jamel Souza MD [address] [address] 12/02/2024 8:15 AM EDT Office Visit Pulmonolgy [facility] [address] [phone] Jamel Souza MD [address] [address] 12/30/2024 1:20 PM EDT Office Visit Gastroenterology [facility] [address] [phone] Geri Zayas PA [address] [address] 02/12/2025 9:45 AM EDT Office Visit Adult Medicine [facility] [address] [place] [phone] Agustin Hebert PA [address] [place] [address] Health Maintenance Due Date Last Done Comments [...] SPEECH Routine 09/30/2024 10:23 AM EST Dysphagia AREA INTELLIGENCE TECHNICIAN VIDEOFLUOROSCOPIC SWALLOW STUDY WITH BARIUM Routine 09/30/2024 [...] LAB CHEMISTRY METHOD 11/13/2024 4:16 PM EST [facility] ([facility]) [facility] Blood Venous blood specimen / Unknown Venipuncture / Unknown 11/13/2024 10:40 AM EST 11/13/2024 10:40 AM EST us Mattie Priest MD LAB BLOOD ORDERABL ES Final Result Performing Organization Address City/[facility]/ZIP Co de Phone Number [facility] [address] [place] [address], * Iron and TIBC (11/13/2024 10:40 AM EST) Only the most recent of2 resultswithin the time period is included. [facility] Iron 104 40 - 150 mcg/dL LAB CHEMISTRY METHOD 11/13/2024 2:02 PM EST [facility] TIBC 378 250 - 450 mcg/dL LAB CHEMISTRY METHOD 11/13/2024 2:02 PM EST [facility] Iron Saturation 28 15 - 50 % LAB CHEMISTRY METHOD 11/13/2024 2:02 PM EST [facility] Blood Venous blood specimen / Unknown Venipuncture / Unknown 11/13/2024 10:40 AM EST 11/13/2024 10:40 AM EST Mattie Priest MD LAB BLOOD ORDERABL ES Final Result Performing Organization Address [facility] Co de Phone Number [facility] [address] [place] [address], [place] [phone] * Borrelia burgdorferi antibody (11/13/2024 10:40 AM EST) Only the most recent of2 resultswithin the time period is included. [facility] Lyme Ab Negative Negative LAB CHEMISTRY METHOD 11/13/2024 1:12 PM EST [facility] Comment: No laboratory evidence [...] ORDERABL ES Final Result Performing Organization Address [facility]/ZIP Co de Phone Number [facility] [address] [place] [address], [place] [phone] * (ABNORMAL) Vitamin D 25 hydroxy (11/13/2024 10:40 AM EST) [facility] Vit D, 25-Hydroxy 27.6(L) 30.0 - 80.0 ng/mL LAB CHEMISTRY METHOD 11/13/2024 4:16 PM EST [facility] Blood Venous blood specimen / Unknown Venipuncture / Unknown 11/13/2024 10:40 AM EST 11/13/2024 10:40 AM EST Mattie Priest MD LAB BLOOD ORDERABL ES Final Result Performing Organization Address [facility] Co de Phone Number [facility] [address] [place] [address], [place] [phone] * Vitamin B12 (11/13/2024 10:40 AM EST) [facility] Vitamin B-12 438 250 - 900 pcg/mL LAB CHEMISTRY METHOD 11/13/2024 2:02 PM EST [facility] Blood Venous blood specimen / Unknown Venipuncture / Unknown 11/13/2024 10:40 AM EST 11/13/2024 10:40 AM EST Mattie Priest MD LAB BLOOD ORDERABL ES Final Result Performing Organization Address [facility]/ZIP Co de Phone Number [facility] [address] [place] [address], [place] [phone] * JENELLE IFA with titer and pattern (10/15/2024 11:34 AM EST) [facility] JENELLE Negative Negative 10/16/2024 1:57 PM EST [facility] Blood Venous blood specimen / Unknown Venipuncture / Unknown 10/15/2024 11:34 AM EST 10/15/2024 11:34 AM EST us Agustin ESPINAL LAB BLOOD ORDERABLES Final Res ult Performing Organization Address City/[facility]/ZIP Co de Phone Number [facility] [address] [place] [address], [place] [phone] * Sedimentation rate (10/15/2024 11:34 AM EST) Pathologist [facility] Sed Rate 9 0 - 30 mm/hr LAB HEMETOLOGY METHOD 10/15/2024 2:17 PM EST [facility] Blood Venous blood specimen / Unknown Venipuncture / Unknown 10/15/2024 11:34 AM EST 10/15/2024 11:34 AM EST us Agustin ESPINAL LAB BLOOD ORDERABLES Final Res ult Performing Organization Address [facility]/ZIP Co de Phone Number [facility] [address] [place] [address], [place] [phone] * Rheumatoid factor (10/15/2024 11:34 AM EST) [facility] Rheumatoid Factor 14.0 <15.0 I Unit/mL LAB CHEMISTRY METHOD 10/15/2024 2:53 PM EST [facility] Blood Venous blood specimen / Unknown Venipuncture / Unknown 10/15/2024 11:34 AM EST 10/15/2024 11:34 AM EST us Agustin ESPINAL LAB BLOOD ORDERABLES Final Res ult Performing Organization Address City/[facility]/ZIP Co de Phone Number [facility] [address] [place] [address], [place] [phone] * Uric acid (10/15/2024 11:34 AM EST) Uric Acid 5.5 3.1 - 7.8 mg/dL LAB CHEMISTRY METHOD 10/15/2024 2:53 PM EST [facility] Blood Venous blood specimen / Unknown Venipuncture / Unknown 10/15/2024 11:34 AM EST 10/15/2024 11:34 AM EST Agustin ESPINAL LAB BLOOD ORDERABLES Final Res ult Performing Organization Address [facility] Co de Phone Number [facility] [address] [place] [address], * Thyroid stimulating hormone (10/15/2024 11:34 AM EST) Only the most recent of2 resultswithin the time period is included. TSH 1.37 0.40 - 4.00 mcIU/mL LAB CHEMISTRY METHOD 10/15/2024 2:44 PM EST [facility] Blood Venous blood specimen / Unknown Venipuncture / Unknown 10/15/2024 11:34 AM EST 10/15/2024 11:34 AM EST Damian Bruce MD LAB BLOOD ORDERABLES Final Resul t Performing Organization Address [facility] de Phone Number [facility] [address] [place] [address], * Thyroxine free (10/15/2024 11:34 AM EST) Only the most recent of2 resultswithin the time period is included. Free T4 1.41 0.70 - 1.80 ng/dL LAB CHEMISTRY METHOD 10/15/2024 2:44 PM EST [facility] Blood Venous blood specimen / Unknown Venipuncture / Unknown 10/15/2024 11:34 AM EST 10/15/2024 11:34 AM EST Damian Bruce MD LAB BLOOD ORDERABLES Final Resul t [facility] [address] [place] [address], * XR Barium Swallow with Video and [...] Signed Date: 10/01/2024 14:54 ET Workstation ID: [id number] Transcribed By: Self Edit Transcribed Date: 09/30/2024 12:27 ET Resident/PA/GRAVES REGISTRATION SPECIALIST: Rima Dee Narrative 10/01/2024 2:54 PM EST [...] Signed Date: 10/01/2024 14:54 ET Workstation ID: [id number] Transcribed By: Self Edit Transcribed Date: 09/30/2024 12:27 ET Resident/PA/GRAVES REGISTRATION SPECIALIST: Rima Dee Sapna ESPINAL IMG FLUOROSCOPY PROCEDURES F inal Result * AREA INTELLIGENCE TECHNICIAN videofluoroscopic swallow study with barium (09/30/2024 10:15 AM EST) Phuong Coleman SLP - 09/30/2024 10:15 AM EST CARLY Thorpe ? 09/30/2024 ??3:57 PM Speech/Language Pathology ?? SPEECH-LANGUAGE PATHOLOGY OUTPATIENT MODIFIED BARIUM SWALLOW STUDY/ VIDEOFLUOROSCOPIC EVALUATION OF THE SWALLOW ?? NAME: Christine Wray ?? DATE OF : 1960 ? DATE: 09/30/2024 ?? [employer] REQUIRED: ?? No REASON FOR REFERRAL: Dysphagia SUBJECTIVE SUBJECTIVE: Patient educated on Speech-Language Pathologist role, and goal of the ordered assessment/procedure. Questions addressed and patient agreeable to all consistencies mixed with barium. Patient ambulatory and able to stand for the study. Vocal hoarseness noted. Dysphagia [R13.10] AREA INTELLIGENCE TECHNICIAN VIDEOFLUOROSCOPIC SWALLOW STUDY WITH BARIUM [[id number]] XR BARIUM SWALLOW WITH VIDEO AND SPEECH [[id number]] ?? ALLERGIES: Allergies Allergen Reactions Diphenhydramine Hcl [...] mass. Patient would benefit from short course AREA INTELLIGENCE TECHNICIAN tx. Patient would like to talk with [...] TREATMENT RECOMMENDATIONS: Patient would benefit from Outpatient AREA INTELLIGENCE TECHNICIAN Services following this Instrumental Assessment EDUCATION Education: Education provided: Diet Recommendations , Aspiration Precautions, and Swallow Strategies Applied Knowledge, Verbal Understanding, and Demonstrated Skills Sapna ESPINAL AREA INTELLIGENCE TECHNICIAN ORDERABLES Final Result * (ABNORMAL) CBC auto differential (09/08/2024 10:10 AM EST) Only the most recent of2 resultswithin the time period is included. WBC 6.8 4.8 - 10.8 K/mcL LAB HEMETOLOGY METHOD 09/08/2024 12:07 PM [facility] RBC 4.20 3.80 - 4.80 M/mcL LAB HEMETOLOGY METHOD 09/08/2024 12:07 PM [facility] Hemoglobin 13.2 11.5 - 16.0 g/dL LAB HEMETOLOGY METHOD 09/08/2024 12:07 PM [facility] Hematocrit 41.8 35.0 - 47.0 % LAB HEMETOLOGY METHOD 09/08/2024 12:07 PM [facility] MCV 100.2(H) 79.0 - 98.0 FL LAB HEMETOLOGY METHOD 09/08/2024 12:07 PM [facility] MCH 31.7 27.0 - 32.0 pcg LAB HEMETOLOGY METHOD 09/08/2024 12:07 PM [facility] MCHC 31.6(L) 32.0 - 37.0 g/dL LAB HEMETOLOGY METHOD 09/08/2024 12:07 PM [facility] RDW 12.7 11.0 - 15.0 % LAB HEMETOLOGY METHOD 09/08/2024 12:07 PM [facility] Platelets 274 130 - 400 K/mcL LAB HEMETOLOGY METHOD 09/08/2024 12:07 PM [facility] MPV 9.9 7.0 - 11.0 FL LAB HEMETOLOGY METHOD 09/08/2024 12:07 PM [facility] NRBC 0.0 <1.0 % LAB HEMETOLOGY METHOD 09/08/2024 12:07 PM [facility] NRBC Absolute 0.00 <0.10 K/mcL LAB HEMETOLOGY METHOD 09/08/2024 12:07 PM [facility] Neutrophils Relative 64.7 % LAB HEMETOLOGY METHOD 09/08/2024 12:07 PM [facility] Lymphocytes Relative 23.1 % LAB HEMETOLOGY METHOD 09/08/2024 12:07 PM [facility] Monocytes Relative 10.1 % LAB HEMETOLOGY METHOD 09/08/2024 12:07 PM [facility] Eosinophils Relative 1.5 % LAB HEMETOLOGY METHOD 09/08/2024 12:07 PM [facility] Basophils Relative 0.3 % LAB HEMETOLOGY METHOD 09/08/2024 12:07 PM [facility] Immature Granulocytes Relative 0.3 % LAB HEMETOLOGY METHOD 09/08/2024 12:07 PM [facility] Neutrophils Absolute 4.43 1.50 - 7.00 K/mcL LAB HEMETOLOGY METHOD 09/08/2024 12:07 PM EST [facility] Lymphocytes Absolute 1.58 1.00 - 5.00 K/mcL LAB HEMETOLOGY METHOD 09/08/2024 12:07 PM [facility] Monocytes Absolute 0.69 0.20 - 1.00 K/mcL LAB HEMETOLOGY METHOD 09/08/2024 12:07 PM EST [facility] Eosinophils Absolute 0.10 0.00 - 0.50 K/[facility] HEMETOLOGY METHOD 09/08/2024 12:07 PM [facility] Basophils Absolute 0.02 0.00 - 0.20 K/mcL LAB HEMETOLOGY METHOD 09/08/2024 12:07 PM [facility] Immature Granulocytes Absolute 0.02 0.00 - 0.03 K/[facility] LAB HEMETOLOGY METHOD 09/08/2024 12:07 PM EST [facility] Blood Venous blood specimen / Unknown Venipuncture / Unknown 09/08/2024 10:10 AM EST 09/08/2024 10:10 AM EST us Agustin ESPINAL LAB BLOOD ORDERABLES Final Res ult [facility] [address] [place] [address], * Microalbumin creatinine urine ratio (08/25/2024 10:34 AM EST) Creatinine, Urine 104.0 mg/dL LAB CHEMISTRY METHOD 08/25/2024 1:15 PM EST [facility] Microalb, Ur 9.6 0.0 - 29.0 mg/L LAB CHEMISTRY METHOD 08/25/2024 1:15 PM EST [facility] Microalb/Creat Ratio 9 <30 mg/g creat LAB CHEMISTRY METHOD 08/25/2024 1:15 PM [facility] Urine Urine specimen obtained by clean catch procedure / Unknown Non-blood Collection / Unknown 08/25/2024 10:34 AM EST 08/25/2024 10:34 AM EST us Agustin ESPINAL LAB URINE ORDERABLES Final Res ult Performing Organization Address City/[facility]/ZIP Co de Phone Number [facility] [address] [place] [address], * (ABNORMAL) Lipid panel with reflex to direct LDL (08/25/2024 9:42 AM EST) Cholesterol 218(H) 0 - 200 mg/dL LAB CHEMISTRY METHOD 08/25/2024 1:25 PM [facility] Triglycerides 104 0 - 150 mg/dL LAB CHEMISTRY METHOD 08/25/2024 1:25 PM [facility] HDL 81 >=40 mg/dL LAB CHEMISTRY METHOD 08/25/2024 1:25 PM [facility] LDL Calculated 116(H) 0 - 100 mg/dL LAB CHEMISTRY METHOD 08/25/2024 1:25 PM [facility] VLDL Cholesterol Marcelo 20.8 mg/dL LAB CHEMISTRY METHOD 08/25/2024 1:25 PM [facility] Non HDL Chol. (LDL+VLDL) 137 <145 mg/dL LAB CHEMISTRY METHOD 08/25/2024 1:25 PM [facility] Chol/HDL Ratio 2.7 0.0 - 4.4 LAB CHEMISTRY METHOD 08/25/2024 1:25 PM [facility] Blood Venous blood specimen / Unknown Venipuncture / Unknown 08/25/2024 9:42 AM EST 08/25/2024 9:42 AM EST us Agustin ESPINAL LAB BLOOD ORDERABLES Final Res ult [facility] [address] [place] [address], [place] [phone] * Vitamin D 1,25 dihydroxy (08/25/2024 9:42 AM EST) Vitamin D, 1, 25-Dihydroxy 67 20 - 79 pg/mL 08/27/2024 7:09 PM EST [facility] Comment: Vitamin D 1, 25 dihydroxy levels should be primarily used to assess Vitamin D status in patients with renal disease and hypercalcemia. Vitamin D 1,25-dihydroxy levels are generally less than 5 pg/mL in end stage renal disease patients. The preferred initial test for assessing Vitamin D status in the general population is Vitamin D 25-hydroxy (VITD). Test performed at [facility], [address] [place], [place] ??[address] ? [phone] Patricia Garibay MD, PhD - Financial Director Blood Venous blood specimen / Unknown Venipuncture / Unknown 08/25/2024 9:42 AM EST 08/25/2024 9:42 AM EST Agustin ESPINAL LAB BLOOD ORDERABLES Final Res ult Performing Organization Address [facility] Co de Phone Number [facility] [address] [place] [address] * Hemoglobin A1c (08/25/2024 9:42 AM EST) Hemoglobin A1C 6.2 <6.5 % LAB CHEMISTRY METHOD 08/25/2024 2:30 PM EST [facility] Mean Bld Glu Estim. 131 mg/dL LAB CHEMISTRY METHOD 08/25/2024 2:30 PM EST [facility] Blood Venous blood specimen / Unknown Venipuncture / Unknown 08/25/2024 9:42 AM EST 08/25/2024 9:42 AM EST Agustin ESPINAL LAB BLOOD ORDERABLES Final Res ult Performing Organization Address City/[facility]/ZIP Co de Phone Number [facility] [address] [place] [address], [place] [phone] * (ABNORMAL) Comprehensive metabolic panel (08/25/2024 9:42 AM EST) Sodium 140 133 - 145 mmol/L LAB CHEMISTRY METHOD 08/25/2024 1:15 PM EST [facility] Potassium 4.2 3.5 - 5.5 mmol/L LAB CHEMISTRY METHOD 08/25/2024 1:15 PM EST [facility] Chloride 106 96 - 110 mmol/L LAB CHEMISTRY METHOD 08/25/2024 1:15 PM EST [facility] CO2 28 21 - 32 mmol/L LAB CHEMISTRY METHOD 08/25/2024 1:15 PM [facility] Anion Gap 6 3 - 11 LAB CHEMISTRY METHOD 08/25/2024 1:15 PM [facility] Glucose 138(H) 70 - 100 mg/dL LAB CHEMISTRY METHOD 08/25/2024 1:15 PM [facility] BUN 22 5 - 25 mg/dL LAB CHEMISTRY METHOD 08/25/2024 1:15 PM [facility] Creatinine 0.83 0.50 - 1.10 mg/dL LAB CHEMISTRY METHOD 08/25/2024 1:15 PM [facility] eGFR 79 >=60 mL/min/1. 73m2 LAB CHEMISTRY METHOD 08/25/2024 1:15 PM [facility] Comment:Calculation based on the??Chronic Kidney Disease Epidemiology Collaboration (CKD-EPI) equation refit??without adjustment for race. BUN/Creatinine Ratio 26.5 LAB CHEMISTRY METHOD 08/25/2024 1:15 PM EST [facility] Calcium 9.7 8.5 - 10.5 mg/dL LAB CHEMISTRY METHOD 08/25/2024 1:15 PM [facility] AST (SGOT) 11 10 - 42 unit/L LAB CHEMISTRY METHOD 08/25/2024 1:15 PM [facility] ALT (SGPT) 20 10 - 60 unit/L LAB CHEMISTRY METHOD 08/25/2024 1:15 PM [facility] Alkaline Phosphatase 81 42 - 121 unit/L LAB CHEMISTRY METHOD 08/25/2024 1:15 PM [facility] Total Protein 7.1 6.0 - 8.0 g/dL LAB CHEMISTRY METHOD 08/25/2024 1:15 PM [facility] Albumin 4.1 3.2 - 5.0 g/dL LAB CHEMISTRY METHOD 08/25/2024 1:15 PM [facility] Total Bilirubin 0.3 0.0 - 1.4 mg/dL LAB CHEMISTRY METHOD 08/25/2024 1:15 PM [facility] Blood Venous blood specimen / Unknown Venipuncture / Unknown 08/25/2024 9:42 AM EST 08/25/2024 9:42 AM EST Agustin ESPINAL LAB BLOOD ORDERABLES Final Res ult [facility] [address] [place] [address], * SCREENING MAMMOGRAPHY BI 2-VIEW BREAST INC [...] of malignancy. BI-RADS 1 - negative Result [facility] Mattie Priest MD IMG XR PROCEDURES Final Result * HIV Screening (04/27/2023) [facility] HIV Screening Abstracted [facility] Provider HEALTH MAINTENANCE Final Result * Hepatitis C Screening (04/05/2023) Pathologist [facility] Hepatitis C Screening Abstracted [facility] Provider HEALTH MAINTENANCE Final Result * Colonoscopy (06/22/2022) [facility] Colonoscopy No interpretation , abstracted Anatomical Region Laterality Modality Other Result [facility] Provider HEALTH MAINTENANCE Final Result * Cervical Cancer Screening: HPV (03/13/2017) Pathologist [facility] Cervical Cancer Screening: HPV Negative, abstracted Historical Provider HEALTH MAINTENANCE Final Result from Last 3 Months or Most Recently Relevant to Health Maintenance [place] [address] [address] MEDICARE Member Subscriber Plan / Payer (Ef fective 2022-Present) Name:Christine Wray Relation to Subscriber:Self Name:Christine Wray Payer ID:[id number] Group ID:[id number] Type:Not on file Address: [facility] [address] [place] [address] Care Teams Events Associate Relationship Specialty Start Date End Date Mattie Priest MD [address] [place] [id number] PCP - General Internal Medicine 07/14/24
--- OUTSIDE RECORDS SUMMARY | 2024-11-15 11:15 | XMS_ITS | Encounter Summary ---
Author Organization [facility] Address [address] [place] [address] Care Team Providers Care Rollway Worker Name Role Phone Mattie Priest MD Primary Care Prov ider Reason for Referral * Consultation (Urgent) - Closed Specialty Diagnoses / Procedures Referred By Contac t Referred To Contact Neurology Diagnoses Myasthenia gravis (CMS/HCC) Mattie Priest MD [address] [place] [address] Phone: tel: fax: [facility] [address] [place] [address] Phone: tel: fax: Referral ID Status Reason Start Date Expiration Date V isits Requested Visits Authorized [id number] Closed Specialty Services Required 11/13/2024 11/13/2025 1 1 Reason for Visit * Reason Comments Hospital Follow-up Migraine Left sided facial nu mbess Encounter Details Date Type Department Care Team (Late st Contact Info) Description 11/13/2024 10:00 AM EST Office Visit Adult Medicine - [place] [address] [place] [address] Mattie Priest MD [address] [place], [place] Myasthenia gravis (CMS/HCC) (Primary Dx); Vitamin [...] presents alone. Patient says she presented to [facility] with complaints of left-sided numbness and [...] Description 11/17/2024 2:30 PM EST Office Visit [facility] [address] [phone] Jamel Capone MD [address] [address] 12/02/2024 8:15 AM EDT [facility] [address] [phone] Jamel Capone MD [address] [address] 12/30/2024 1:20 PM EDT Office Visit Gastroenterology [facility] [address] [phone] Geri Zayas PA [address] [address] 02/12/2025 9:45 AM EDT Office Visit Adult Medicine [facility] [address] [place] [address] Agustin Hebert PA [address] [place] [address] Scheduled Referrals Name Type Priority Associated Diagnoses Order Schedule Ambulatory referral to Neurology Outpatient Referral Routine Myasthenia gravis ([facility]/HCC) 1 Occurrences starting 11/13/2024 until 11/13/2025 documented as of this encounter Results * Thyroid stimulating hormone with reflex to free t4 and free t3 (11/13/2024 10:40 AM EST) TSH 1.40 0.40 - 4.00 mcIU/mL LAB CHEMISTRY METHOD 11/13/2024 4:16 PM EST [facility] Blood Venous blood specimen / Unknown Venipuncture / Unknown 11/13/2024 10:40 AM EST 11/13/2024 10:40 AM EST Mattie Priest MD LAB BLOOD ORDERABL ES Final Result Performing Organization Address [facility]/ZIP Co de Phone Number [facility] [address] [place] [address], [place] [phone] * (ABNORMAL) Vitamin D 25 hydroxy (11/13/2024 10:40 AM EST) Pathologist [facility] Vit D, 25-Hydroxy 27.6(L) 30.0 - 80.0 ng/mL LAB CHEMISTRY METHOD 11/13/2024 4:16 PM EST [facility] Blood Venous blood specimen / Unknown Venipuncture / Unknown 11/13/2024 10:40 AM EST 11/13/2024 10:40 AM EST Mattie Priest MD LAB BLOOD ORDERABL ES Final Result Performing Organization Address [facility] de Phone Number [facility] [address] [place] [address], [place] [phone] * Iron and TIBC (11/13/2024 10:40 AM EST) Pathologist [facility] Iron 104 40 - 150 mcg/dL LAB CHEMISTRY METHOD 11/13/2024 2:02 PM EST [facility] TIBC 378 250 - 450 mcg/dL LAB CHEMISTRY METHOD 11/13/2024 2:02 PM [facility] Iron Saturation 28 15 - 50 % LAB CHEMISTRY METHOD 11/13/2024 2:02 PM EST [facility] Blood Venous blood specimen / Unknown Venipuncture / Unknown 11/13/2024 10:40 AM EST 11/13/2024 10:40 AM EST us Mattie Priest MD LAB BLOOD ORDERABL ES Final Result Performing Organization Address City/[facility]/ZIP Co de Phone Number [facility] [address] [place] [address], [place] [phone] * Vitamin B12 (11/13/2024 10:40 AM EST) [facility] Vitamin B-12 438 250 - 900 pcg/mL LAB CHEMISTRY METHOD 11/13/2024 2:02 PM EST [facility] Blood Venous blood specimen / Unknown Venipuncture / Unknown 11/13/2024 10:40 AM EST 11/13/2024 10:40 AM EST us Mattie Priest MD LAB BLOOD ORDERABL ES Final Result Performing Organization Address [facility] Co de Phone Number [facility] [address] [place] [address], [place] [phone] * Borrelia burgdorferi antibody (11/13/2024 10:40 AM EST) [facility] Lyme Ab Negative Negative LAB CHEMISTRY METHOD 11/13/2024 1:12 PM EST [facility] Comment: No [...] ORDERABL ES Final Result Performing Organization Address City/[facility]/ZIP Co de Phone Number [facility] [address] [place] [address], [place] [phone] documented in this encounter Visit Diagnoses Diagnosis Myasthenia gravis ([facility])- Primary Myasthenia gravis without exacerbation Vitamin D deficiency Iron deficiency anemia, unspecified iron deficiency anemia type Low vitamin B12 level Facial numbness Disturbance of skin sensation Pily's thyroiditis Chronic lymphocytic thyroiditis documented in this encounter Care Teams Rollway Worker Relationship Specialty Start Date End Date Mattie Priset MD [address] [place] [id number] PCP - General Internal Medicine 07/14/24 documented as of this encounter
== END 2024-11-15 09:21 | disposition home or self-care (01) ==
LOC: HO.HMGCX 09:20
PROVIDERS: PCP Internal Medicine; Visit Provider Physician Assistant Medical
DX: Z13.89 Encounter for screening for other disorder (principal)
CPT/HCPCS: 71046

== ENCOUNTER 2024-11-15 09:20 | Outpatient (AMB) | payer OTHER, SELFPAY ==
--- OUTSIDE RECORDS SUMMARY | 2024-11-15 09:23 | XMS_ITS ---
Author Organization [facility] Address [address] [place] [address] Care Team Providers Care Alliance Manager Name Role Phone Mattie Conner Primary Care Provide r Naren Jolly Unavailable [phone] REASON FOR VISIT MRV order- needs to be refaxed Encounters Encounter Location Date Provider Diagnosis [facility] [address] [place] [address] 10/09/2024 Naren Dolan Plan Of Treatment No Information Progress Notes * Christine UGALDEDOB:1960 (64 yo F)Acc No.[id number]:10/09/2024 Patient:?Christine UGADLE :1960???Age:64 Y???Sex:Female Address:[facility] [address], [place] [address] * * Date:?
--- OUTSIDE RECORDS SUMMARY | 2024-11-15 09:23 | XMS_ITS | Encounter Summary ---
Author Organization [facility] Address [address] [place] [address] Care Team Providers Care Engineer Technical Staff Name Role Phone Mattie Priest MD Primary Care Prov ider Reason for Visit * Reason Comments Tremors Encounter Details Date Type Department Care Team (Late st Contact Info) Description 10/24/2024 1:00 PM EST Office Visit Adult Medicine [facility] [address] [place] [address] Agustin Hebert PA [address] [place] [address] Coarse tremors (Primary Dx) Social History Tobacco [...] under the care of a neurologist at [place] for her migraines and is awaiting approval [...] Vitamin D 25-hydroxy (VITD). Test performed at [facility], [address] [facility], [place] [address] Patricia Garibay MD, PhD - In House [facility] [place] 08/25/2024 66 40 - 150 mcg/dL [...] Care Team (Late st Contact Info) Description 11/17/2024 2:30 PM EST Office Visit [facility] [address] [address] Jamel Capone MD [address] [address] 12/02/2024 8:15 AM EDT Office Visit Pulmonolgy [facility] [address] [phone] Jamel Capone MD [address] [address] 12/30/2024 1:20 PM EDT Office Visit Gastroenterology - [place] [address] [phone] Geri Zayas PA [address] [address] 02/12/2025 9:45 AM EDT Office Visit Adult Medicine - [place] [address] [place] [address] Agustin Hebert PA [address] [place] [address] documented as of this encounter Visit Diagnoses Diagnosis Coarse tremors- Primary Abnormal involuntary movements documented in this encounter Care Teams Engineer Technical Staff Relationship Specialty Start Date End Date Mattie Priest MD [address] [place] [address] PCP - General Internal Medicine 07/14/24 documented as of this encounter
--- OUTSIDE RECORDS SUMMARY | 2024-11-15 09:24 | XMS_ITS ---
Author Organization [facility] Address [address] [place] [address] Care Team Providers Care Mill Labor Supervisor Name Role Phone Mattie Conner Primary Care Provide Naren Rasmussen Unavailable [phone] Encounters Encounter Location Date Provider Diagnosis [facility]. [address] [place] [address] 10/07/2024 Naren Dolan Plan Of Treatment No Information Progress Notes * Christine UGALDEDOB:1960 (64 yo F)Acc No.[id number]:10/07/2024 Patient:?Christine UGALDE :1960???Age:64 Y???Sex:Female Address:[facility] [address], [place] [address] * true * Date:? Generated for Yousif phelan/Gauri/eTransmitting on:?11/15/2024 09:23 AM EST
--- OUTSIDE RECORDS SUMMARY | 2024-11-15 09:24 | XMS_ITS ---
Author Organization [facility] Address [address] [place] [address] Care Team Providers Care Criminal Research Specialist Name Role Phone Mattie Conner Primary Care Provide Naren Rasmussen Unavailable [phone] REASON FOR VISIT Vyepti new PA Medications Medication SIG (Take, Route, Fr equency, Duration) Notes Start Date End Date Status Vyepti 100 MG/ML as directed Intraven ous Once, Dilute in 100mL NS 0.9% infusion. Administer over 30 minutes in clinic for 1 days 11/04/2024 11/05/2024 Active Encounters Encounter Location Date Provider Diagnosis [facility] [address] [place] [address] 09/24/2024 Naren Dolan Plan Of Treatment Medication Medication Name Sig Start Date Stop Date Notes Vyepti 100 MG/ML as directed Intraven ous Once, Dilute in 100mL NS 0.9% infusion. Administer over 30 minutes in clinic for 1 days 11/04/2024 11/05/2024 Progress Notes * Christine UGALDEDOB:1960 (64 yo F)Acc No.[id number]:09/24/2024 Patient:?Christine UGALDE :1960???Age:64 Y???Sex:Female Address:[facility] [address], [place] [address] * Refills? Start Vyepti Solution, 100 MG/ML, Intravenous, 1, as directed, Once, Dilute in 100mL NS 0.9% infusion. Administer over 30 minutes in clinic, 1 days, Refills=0 * true * Date:? Generated for Yousif phelan/Gauri/Bernieitting on:?11/15/2024 09:23 AM EST
--- OUTSIDE RECORDS SUMMARY | 2024-11-15 09:24 | XMS_ITS | Clinical Summary ---
Author Organization 175 [facility] Address [address] [place] [phone] Phone Care Team Providers Care Senior Marketing Associate Name Role Phone Mattie Priest MD Primary [...] (four) hours if needed (COUGH OR WHEEZING). 3 Active albuterol 2.5 mg /3 mL (0.083 %) nebulizer solution Inhale 3 mL (2.5 mg total) by mouth every 4 (four) hours if needed for wheezing. for up to 30 days 3 Active cetirizine (ZyrTEC) 10 mg tablet Take 1 tablet (10 mg total) by mouth 1 (one) time each day if needed for allergies. 4 Active cyanocobalamin (VITAMIN B-12) 100 mcg tablet Take 0.5 tablets (50 mcg total) by mouth 1 (one) time each day. 4 Active diclofenac (VOLTAREN) 1 % topical gel Apply 4 g topically 2 (two) times a day. 4 Active ergocalciferol (VITAMIN D-2) 1,250 mcg (50,000 unit) capsule Take 1 capsule (50,000 Units total) by mouth 1 (one) time per week. 3 Active fluticasone propion-salmete roL (ADVAIR DISKUS) 500-50 mcg/dose diskus inhaler Inhale 1 puff by mouth 2 (two) times a day. for 30 days 4 Active metoprolol succinate (TOPROL-XL) 25 mg 24 hr tablet Take 1 tablet (25 mg total) by mouth 1 (one) time each day. 4 Active mometasone (ELOCON) 0.1 % ointment 2 (two) times a day. Apply 0.5 FTU to the affected area for 2 weeks 4 02/29/20 25 Active naproxen (NAPROSYN) 500 mg tablet Take 1 tablet (500 mg total) by mouth 2 (two) times a day with meals. for 60 days 4 Active pantoprazole (PROTONIX) 20 mg EC tablet Take 1 tablet (20 mg total) by mouth 2 (two) times a day before meals. 4 Active acetaminophen (TYLENOL) 325 mg tablet every [...] by mouth 1 (one) time each day. 4 Active Trulance 3 mg tablet TAKE 1 TABLET BY MOUTH DAILY 30 tablet 3 4 Active valsartan-hydro CHLOROthiazide (DIOVAN-HCT) 320-25 mg per tablet Take 1 tablet by mouth 1 (one) time each day. 30 each 11 4 09/08/20 25 Active ferrous gluconate (FERGON) 240 mg (27 mg iron) tablet TAKE ONE TABLET BY MOUTH EVERY DAY 30 tablet 4 Active levothyroxine (SYNTHROID, LEVOTHROID) 100 mcg tabletIndicatio ns:Hypothyroidi sm, unspecified type Take 1 tablet (100 mcg total) by mouth 1 (one) time each day before breakfast. 90 tablet 1 5 Active Active Problems Problem Noted Date Diagnosed Date [...] 08/12/2013 Obstructive sleep apnea 08/12/2013 Overview (06/24/2024): [facility] Home Sleep Apnea Test: Date 05/26/2020; Wt [...] Encounters Date Type Department Care Team Description 11/13/2024 10:00 AM EST Office Visit [address] [phone] Mattie Contreras MD Myasthenia gravis ([facility]) (Primary Dx); Vitamin D deficiency; Iron deficiency anemia, unspecified iron deficiency anemia type; Low vitamin B12 level; Facial numbness; Pily's thyroiditis 10/24/2024 1:00 PM EST Office Visit [facility] [address] [place] [phone] Agustin Hebert PA Coarse tremors (Primary Dx) 10/15/2024 10:30 AM EST Office Visit [address] [phone] Agustin Hebert PA Migraine without status migrainosus, not intractable, unspecified migraine type (Primary Dx); Primary hypertension; Chronic migraine w/o aura w/o status migrainosus, not intractable; Prediabetes; Hypothyroidism, unspecified type; Other fatigue; Pain of both shoulder joints 09/30/2024 10:00 AM EST - 09/30/2024 11:59 PM EST Hospital Encounter [facility] X[facility] [address] [place] [address] Oropharyngeal dysphagia (Primary Dx); Dysphagia Discharge Disposition: Home or Self Care 09/29/2024 1:40 PM EST Office Visit Gastroenterology - [place] 175 [facility] 175 [facility] [address] [place] [address] Geri Zayas PA LUQ abdominal pain (Primary Dx); Diverticulosis; Constipation, unspecified constipation type 09/08/2024 9:00 AM EST Office Visit Adult [address] [phone] Agustin Hebert PA Primary hypertension (Primary Dx); Chronic migraine w/o aura w/o status migrainosus, not intractable; Abnormal CBC 09/08/2024 Telephone Adult [address] [phone] Mattie Contreras MD 09/08/2024 Telephone Adult [address] [phone] Agustin Hebert PA Fitting for DME 08/29/2024 Telephone Adult [address] [phone] Mattie Contreras MD Referral 08/25/2024 8:30 AM EST Office Visit Adult [address] [phone] Agustin Hebert PA Adult general medical examination (Primary Dx); Screening, anemia, deficiency, iron; Migraine without status migrainosus, not intractable, unspecified migraine type; Obstructive sleep apnea; Need for vaccination against Streptococcus pneumoniae; Primary hypertension; Prediabetes; Vitamin D deficiency; Hypothyroidism, unspecified type; Iron deficiency anemia, unspecified iron deficiency anemia type 08/25/2024 Telephone Adult [address] [phone] Agustin Hebert PA Fitting for DME from Last 3 Months Immunizations Name Administration [...] 6mo and older 07/01/2021,05/14/2020,10/13/2019 PPD Test 2018,05/17/2016,05/04/2014 Pfizer SARS-CoV-2 COVID-19, mRNA, LNP-S, preservative free 08/01/2021,01/31/2021,01/10/2021 [...] Date Site/Laterality Comments COLONOSCOPY W/ POLYPECTOMY PROCEDURE: OR COLSC FLX W/RMVL OF TUMOR POLYP LESION SNARE TQ; COMMENT: colonoscopy every five years TONSILLECTOMY 12/30/2014 PROCEDURE: HISTORICAL TONSILLECTOMY OTHER SURGICAL HISTORY 09/26/2017 Right PROCEDURE: OR PRTL THYROID LOBECTOMY UNI W/WO ISTHMUSECTOMY BREAST [...] Sign Reading Time Taken Comments Blood Pressure 126/77 11/13/2024 10:04 AM EST Pulse 72 11/13/2024 10:04 AM EST Temperature 36.6 ??C (97.8 ??F) 11/13/2024 10:[address] Respiratory Rate 16 08/15/2024 3:40 PM EST Oxygen Saturation 97% 08/15/2024 3:40 PM EST Inhaled Oxygen Concentration - - Weight 98.2 kg (216 lb 9.6 oz) 11/13/2024 10:04 AM EST Height 165.1 cm (5' 5 ) 10/24/2024 12:58 PM EST Body Mass Index 36.04 10/24/2024 12:58 PM EST Plan of Treatment Upcoming Encounters Date Type Department Care Team (Late st Contact Info) Description 11/17/2024 2:30 PM EST Office Visit Pulmonolgy - [place] [address] [phone] Jamel Souza MD [address] [address] 12/02/2024 8:15 AM EDT Office Visit Pulmonolgy [facility] [address] [phone] Jamel Souza MD [address] [address] 12/30/2024 1:20 PM EDT Office Visit Gastroenterology [facility] [address] [phone] Geri Zayas PA [address] [address] 02/12/2025 9:45 AM EDT Office Visit Adult Medicine [facility] [address] [place] [phone] Agustin Hebert PA [address] [place] [address] Health Maintenance Due Date Last Done Comments [...] Procedure Name Priority Date/Time Associated Diagnosis Comments THYROID STIMULATING HORMONE WITH REFLEX TO FREE T4 AND FREE T3 Routine 11/13/2024 10:40 AM EST Pily's thyroiditis VITAMIN D 25 HYDROXY Routine 11/13/2024 10:40 AM EST Vitamin D deficiency IRON AND TIBC Routine 11/13/2024 10:40 AM EST Iron deficiency anemia, unspecified iron deficiency anemia type VITAMIN B12 Routine 11/13/2024 10:40 AM EST Low vitamin B12 level BORRELIA BURGDORFERI ANTIBODY Routine 11/13/2024 10:40 AM EST Facial numbness SEDIMENTATION RATE Routine 10/15/2024 11 :34 AM [...] SPEECH Routine 09/30/2024 10:23 AM EST Dysphagia ELEVATOR ADJUSTER VIDEOFLUOROSCOPIC SWALLOW STUDY WITH BARIUM Routine 09/30/2024 [...] Recently Relevant to Health Maintenance Results * Thyroid stimulating hormone with reflex to free t4 and free t3 (11/13/2024 10:40 AM EST) TSH 1.40 0.40 - 4.00 mcIU/mL LAB CHEMISTRY METHOD 11/13/2024 4:16 PM EST [facility] ([facility]) [facility] Blood Venous blood specimen / Unknown Venipuncture / Unknown 11/13/2024 10:40 AM EST 11/13/2024 10:40 AM EST us Mattie Priest MD LAB BLOOD ORDERABL ES Final Result Performing Organization Address City/[facility]/ZIP Co de Phone Number [facility] [address] [place] [address], * Iron and TIBC (11/13/2024 10:40 AM EST) Only the most recent of2 resultswithin the time period is included. [facility] Iron 104 40 - 150 mcg/dL LAB CHEMISTRY METHOD 11/13/2024 2:[address] [facility] TIBC 378 250 - 450 mcg/dL LAB CHEMISTRY METHOD 11/13/2024 2:[address] [facility] Iron Saturation 28 15 - 50 % LAB CHEMISTRY METHOD 11/13/2024 2:[address] [facility] Blood Venous blood specimen / Unknown Venipuncture / Unknown 11/13/2024 10:40 AM EST 11/13/2024 10:40 AM EST Mattie Priest MD LAB BLOOD ORDERABL ES Final Result Performing Organization Address [facility] Co de Phone Number [facility] [address] [place] [address], [place] [phone] * Borrelia burgdorferi antibody (11/13/2024 10:40 AM EST) Only the most recent of2 resultswithin the time period is included. [facility] Lyme Ab Negative Negative LAB CHEMISTRY METHOD 11/13/2024 1:[address] [facility] Comment: No laboratory evidence of infection with B. burgdorferi (Lyme disease). Negative results may occur in patients recently infected (<=14 days) with B. burgdorferi. ??If recent infection is suspected, repeat testing on a new sample collected in 7-14 days is recommended. Blood Venous blood specimen / Unknown Venipuncture / Unknown 11/13/2024 10:40 AM EST 11/13/2024 10:40 AM EST Mattie Priest MD LAB BLOOD ORDERABL ES Final Result Performing Organization Address [facility]/ZIP Co de Phone Number [facility] [address] [place] [address], [place] [phone] * (ABNORMAL) Vitamin D 25 hydroxy (11/13/2024 10:40 AM EST) [facility] Vit D, 25-Hydroxy 27.6(L) 30.0 - 80.0 ng/mL LAB CHEMISTRY METHOD 11/13/2024 4:[address] [facility] Blood Venous blood specimen / Unknown Venipuncture / Unknown 11/13/2024 10:40 AM EST 11/13/2024 10:40 AM EST Mattie Priest MD LAB BLOOD ORDERABL ES Final Result Performing Organization Address [facility] Co de Phone Number [facility] [address] [place] [address], [place] [phone] * Vitamin B12 (11/13/2024 10:40 AM EST) [facility] Vitamin B-12 438 250 - 900 pcg/mL LAB CHEMISTRY METHOD 11/13/2024 2:[address] [facility] Blood Venous blood specimen / Unknown Venipuncture / Unknown 11/13/2024 10:40 AM EST 11/13/2024 10:40 AM EST Mattie Priest MD LAB BLOOD ORDERABL ES Final Result Performing Organization Address [facility]/ZIP Co de Phone Number [facility] [address] [place] [address], [place] [phone] * JENELLE IFA with titer and pattern (10/15/2024 11:34 AM EST) [facility] JENELLE Negative Negative 10/16/2024 1:[address] [facility] Blood Venous blood specimen / Unknown Venipuncture / Unknown 10/15/2024 11:34 AM EST 10/15/2024 11:34 AM EST us Agustin ESPINAL LAB BLOOD ORDERABLES Final Res ult Performing Organization Address City/[facility]/ZIP Co de Phone Number [facility] [address] [place] [address], [place] [phone] * Sedimentation rate (10/15/2024 11:34 AM EST) Pathologist [facility] Sed Rate 9 0 - 30 mm/hr LAB HEMETOLOGY METHOD 10/15/2024 2:[address] [facility] Blood Venous blood specimen / Unknown Venipuncture / Unknown 10/15/2024 11:34 AM EST 10/15/2024 11:34 AM EST us Agustin ESPINAL LAB BLOOD ORDERABLES Final Res ult Performing Organization Address [facility]/ZIP Co de Phone Number [facility] [address] [place] [address], [place] [phone] * Rheumatoid factor (10/15/2024 11:34 AM EST) [facility] Rheumatoid Factor 14.0 <15.0 I Unit/mL LAB CHEMISTRY METHOD 10/15/2024 2:[address] [facility] Blood Venous blood specimen / Unknown Venipuncture / Unknown 10/15/2024 11:34 AM EST 10/15/2024 11:34 AM EST us Agustin ESPINAL LAB BLOOD ORDERABLES Final Res ult Performing Organization Address City/[facility]/ZIP Co de Phone Number [facility] [address] [place] [address], [place] [phone] * Uric acid (10/15/2024 11:34 AM EST) Uric Acid 5.5 3.1 - 7.8 mg/dL LAB CHEMISTRY METHOD 10/15/2024 2:[address] [facility] Blood Venous blood specimen / Unknown Venipuncture / Unknown 10/15/2024 11:34 AM EST 10/15/2024 11:34 AM EST Agustin ESPINAL LAB BLOOD ORDERABLES Final Res ult Performing Organization Address [facility] Co de Phone Number [facility] [address] [place] [address], * Thyroid stimulating hormone (10/15/2024 11:34 AM EST) Only the most recent of2 resultswithin the time period is included. TSH 1.37 0.40 - 4.00 mcIU/mL LAB CHEMISTRY METHOD 10/15/2024 2:[address] [facility] Blood Venous blood specimen / Unknown Venipuncture / Unknown 10/15/2024 11:34 AM EST 10/15/2024 11:34 AM EST Damian Bruce MD LAB BLOOD ORDERABLES Final Resul t Performing Organization Address [facility] de Phone Number [facility] [address] [place] [address], * Thyroxine free (10/15/2024 11:34 AM EST) Only the most recent of2 resultswithin the time period is included. Free T4 1.41 0.70 - 1.80 ng/dL LAB CHEMISTRY METHOD 10/15/2024 2:[address] [facility] Blood Venous blood specimen / Unknown Venipuncture / Unknown 10/15/2024 11:34 AM EST 10/15/2024 11:34 AM EST Damian Bruec MD LAB BLOOD ORDERABLES Final Resul t [facility] [address] [place] [address], * XR Barium Swallow with Video and [...] Signed Date: 10/01/2024 14:54 ET Workstation ID: [id number] Transcribed By: Self Edit Transcribed Date: 09/30/2024 12:27 ET Resident/PA/ELECTRIC METER TECHNICIAN: Rima Dee Narrative 10/01/2024 2:54 PM EST [...] Signed Date: 10/01/2024 14:54 ET Workstation ID: [id number] Transcribed By: Self Edit Transcribed Date: 09/30/2024 12:27 ET Resident/PA/ELECTRIC METER TECHNICIAN: Rima Dee Sapna ESPINAL IMG FLUOROSCOPY PROCEDURES F inal Result * ELEVATOR ADJUSTER videofluoroscopic swallow study with barium (09/30/2024 10:15 AM EST) Phuong Coleman SLP - 09/30/2024 10:15 AM EST CARLY Thorpe ? 09/30/2024 ??3:57 PM Speech/Language Pathology ?? [facility] SPEECH-LANGUAGE PATHOLOGY OUTPATIENT MODIFIED BARIUM SWALLOW STUDY/ VIDEOFLUOROSCOPIC EVALUATION OF THE SWALLOW ?? NAME: Christine Wray ?? DATE OF : 1960 ? DATE: 09/30/2024 ?? ASSOCIATE SCIENTIST REQUIRED: ?? No REASON FOR REFERRAL: Dysphagia SUBJECTIVE SUBJECTIVE: Patient educated on Speech-Language Pathologist role, and goal of the ordered assessment/procedure. Questions addressed and patient agreeable to all consistencies mixed with barium. Patient ambulatory and able to stand for the study. Vocal hoarseness noted. Dysphagia [R13.10] ELEVATOR ADJUSTER VIDEOFLUOROSCOPIC SWALLOW STUDY WITH BARIUM [[id number]] XR BARIUM SWALLOW WITH VIDEO AND SPEECH [[id number]] ?? ALLERGIES: Allergies Allergen Reactions Diphenhydramine Hcl [...] mass. Patient would benefit from short course ELEVATOR ADJUSTER tx. Patient would like to talk with [...] TREATMENT RECOMMENDATIONS: Patient would benefit from Outpatient ELEVATOR ADJUSTER Services following this Instrumental Assessment EDUCATION Education: Education provided: Diet Recommendations , Aspiration Precautions, and Swallow Strategies Applied Knowledge, Verbal Understanding, and Demonstrated Skills Sapna ESPINAL ELEVATOR ADJUSTER ORDERABLES Final Result * (ABNORMAL) CBC auto differential (09/08/2024 10:10 AM EST) Only the most recent of2 resultswithin the time period is included. WBC 6.8 4.8 - 10.8 K/mcL LAB HEMETOLOGY METHOD 09/08/2024 12:07 PM [facility] RBC 4.20 3.80 - 4.80 M/mcL LAB HEMETOLOGY METHOD 09/08/2024 12:07 PM [facility] Hemoglobin 13.2 11.5 - 16.0 g/dL LAB HEMETOLOGY METHOD 09/08/2024 12:07 PM [facility] Hematocrit 41.8 35.0 - 47.0 % LAB HEMETOLOGY METHOD 09/08/2024 12:07 PM [facility] MCV 100.2(H) 79.0 - 98.0 FL LAB HEMETOLOGY METHOD 09/08/2024 12:07 PM [facility] MCH 31.7 27.0 - 32.0 pcg LAB HEMETOLOGY METHOD 09/08/2024 12:07 PM [facility] MCHC 31.6(L) 32.0 - 37.0 g/dL LAB HEMETOLOGY METHOD 09/08/2024 12:07 PM [facility] RDW 12.7 11.0 - 15.0 % LAB HEMETOLOGY METHOD 09/08/2024 12:07 PM [facility] Platelets 274 130 - 400 K/mcL LAB HEMETOLOGY METHOD 09/08/2024 12:07 PM [facility] MPV 9.9 7.0 - 11.0 FL LAB HEMETOLOGY METHOD 09/08/2024 12:07 PM [facility] NRBC 0.0 <1.0 % LAB HEMETOLOGY METHOD 09/08/2024 12:07 PM [facility] NRBC Absolute 0.00 <0.10 K/mcL LAB HEMETOLOGY METHOD 09/08/2024 12:07 PM [facility] Neutrophils Relative 64.7 % LAB HEMETOLOGY METHOD 09/08/2024 12:07 PM [facility] Lymphocytes Relative 23.1 % LAB HEMETOLOGY METHOD 09/08/2024 12:07 PM [facility] Monocytes Relative 10.1 % LAB HEMETOLOGY METHOD 09/08/2024 12:07 PM [facility] Eosinophils Relative 1.5 % LAB HEMETOLOGY METHOD 09/08/2024 12:07 PM [facility] Basophils Relative 0.3 % LAB HEMETOLOGY METHOD 09/08/2024 12:07 PM [facility] Immature Granulocytes Relative 0.3 % LAB HEMETOLOGY METHOD 09/08/2024 12:07 PM [facility] Neutrophils Absolute 4.43 1.50 - 7.00 K/mcL LAB HEMETOLOGY METHOD 09/08/2024 12:[address] [facility] Lymphocytes Absolute 1.58 1.00 - 5.00 K/mcL LAB HEMETOLOGY METHOD 09/08/2024 12:07 PM [facility] Monocytes Absolute 0.69 0.20 - 1.00 K/mcL LAB HEMETOLOGY METHOD 09/08/2024 12:[address] [facility] Eosinophils Absolute 0.10 0.00 - 0.50 K/[facility] LAB HEMETOLOGY METHOD 09/08/2024 12:07 PM [facility] Basophils Absolute 0.02 0.00 - 0.20 K/mcL LAB HEMETOLOGY METHOD 09/08/2024 12:07 PM [facility] Immature Granulocytes Absolute 0.02 0.00 - 0.03 K/[facility] LAB HEMETOLOGY METHOD 09/08/2024 12:[address] [facility] Blood Venous blood specimen / Unknown Venipuncture / Unknown 09/08/2024 10:10 AM EST 09/08/2024 10:10 AM EST us Agustin ESPINAL LAB BLOOD ORDERABLES Final Res ult [facility] [address] [place] [address], * Microalbumin creatinine urine ratio (08/25/2024 10:34 AM EST) Creatinine, Urine 104.0 mg/dL LAB CHEMISTRY METHOD 08/25/2024 1:[address] [facility] Microalb, Ur 9.6 0.0 - 29.0 mg/L LAB CHEMISTRY METHOD 08/25/2024 1:[address] [facility] Microalb/Creat Ratio 9 <30 mg/g creat LAB CHEMISTRY METHOD 08/25/2024 1:15 PM [facility] Urine Urine specimen obtained by clean catch procedure / Unknown Non-blood Collection / Unknown 08/25/2024 10:34 AM EST 08/25/2024 10:34 AM EST us Agustin ESPINAL LAB URINE ORDERABLES Final Res ult Performing Organization Address City/[facility]/ZIP Co de Phone Number [facility] [address] [place] [address], * (ABNORMAL) Lipid panel with reflex to direct LDL (08/25/2024 9:42 AM EST) Cholesterol 218(H) 0 - 200 mg/dL LAB CHEMISTRY METHOD 08/25/2024 1:25 PM [facility] Triglycerides 104 0 - 150 mg/dL LAB CHEMISTRY METHOD 08/25/2024 1:25 PM [facility] HDL 81 >=40 mg/dL LAB CHEMISTRY METHOD 08/25/2024 1:25 PM [facility] LDL Calculated 116(H) 0 - 100 mg/dL LAB CHEMISTRY METHOD 08/25/2024 1:25 PM [facility] VLDL Cholesterol Marcelo 20.8 mg/dL LAB CHEMISTRY METHOD 08/25/2024 1:25 PM [facility] Non HDL Chol. (LDL+VLDL) 137 <145 mg/dL LAB CHEMISTRY METHOD 08/25/2024 1:25 PM [facility] Chol/HDL Ratio 2.7 0.0 - 4.4 LAB CHEMISTRY METHOD 08/25/2024 1:25 PM [facility] Blood Venous blood specimen / Unknown Venipuncture / Unknown 08/25/2024 9:42 AM EST 08/25/2024 9:42 AM EST us Agustin ESPINAL LAB BLOOD ORDERABLES Final Res ult [facility] [address] [place] [address], [place] [phone] * Vitamin D 1,25 dihydroxy (08/25/2024 9:42 AM EST) Vitamin D, 1, 25-Dihydroxy 67 20 - 79 pg/mL 08/27/2024 7:09 PM EST [facility] Comment: Vitamin D 1, 25 dihydroxy levels should be primarily used to assess Vitamin D status in patients with renal disease and hypercalcemia. Vitamin D 1,25-dihydroxy levels are generally less than 5 pg/mL in end stage renal disease patients. The preferred initial test for assessing Vitamin D status in the general population is Vitamin D 25-hydroxy (VITD). Test performed at [facility], [address] [place], [place] ??[address] ? [phone] Patricia Garibay MD, PhD - [employer] Blood Venous blood specimen / Unknown Venipuncture / Unknown 08/25/2024 9:42 AM EST 08/25/2024 9:42 AM EST Agustni ESPINAL LAB BLOOD ORDERABLES Final Res ult Performing Organization Address [facility] Co de Phone Number [facility] [address] [place] [address] * Hemoglobin A1c (08/25/2024 9:42 AM EST) Hemoglobin A1C 6.2 <6.5 % LAB CHEMISTRY METHOD 08/25/2024 2:[address] [facility] Mean Bld Glu Estim. 131 mg/dL LAB CHEMISTRY METHOD 08/25/2024 2:[address] [facility] Blood Venous blood specimen / Unknown Venipuncture / Unknown 08/25/2024 9:42 AM EST 08/25/2024 9:42 AM EST Agustin ESPINAL LAB BLOOD ORDERABLES Final Res ult Performing Organization Address City/[facility]/ZIP Co de Phone Number [facility] [address] [place] [address], [place] [phone] * (ABNORMAL) Comprehensive metabolic panel (08/25/2024 9:42 AM EST) Sodium 140 133 - 145 mmol/L LAB CHEMISTRY METHOD 08/25/2024 1:[address] [facility] Potassium 4.2 3.5 - 5.5 mmol/L LAB CHEMISTRY METHOD 08/25/2024 1:[address] [facility] Chloride 106 96 - 110 mmol/L LAB CHEMISTRY METHOD 08/25/2024 1:[address] [facility] CO2 28 21 - 32 mmol/L LAB CHEMISTRY METHOD 08/25/2024 1:15 PM [facility] Anion Gap 6 3 - 11 LAB CHEMISTRY METHOD 08/25/2024 1:15 PM [facility] Glucose 138(H) 70 - 100 mg/dL LAB CHEMISTRY METHOD 08/25/2024 1:15 PM [facility] BUN 22 5 - 25 mg/dL LAB CHEMISTRY METHOD 08/25/2024 1:15 PM [facility] Creatinine 0.83 0.50 - 1.10 mg/dL LAB CHEMISTRY METHOD 08/25/2024 1:15 PM [facility] eGFR 79 >=60 mL/min/1. 73m2 LAB CHEMISTRY METHOD 08/25/2024 1:15 PM [facility] Comment:Calculation based on the??Chronic Kidney Disease Epidemiology Collaboration (CKD-EPI) equation refit??without adjustment for race. BUN/Creatinine Ratio 26.5 LAB CHEMISTRY METHOD 08/25/2024 1:[address] [facility] Calcium 9.7 8.5 - 10.5 mg/dL LAB CHEMISTRY METHOD 08/25/2024 1:15 PM [facility] AST (SGOT) 11 10 - 42 unit/L LAB CHEMISTRY METHOD 08/25/2024 1:15 PM [facility] ALT (SGPT) 20 10 - 60 unit/L LAB CHEMISTRY METHOD 08/25/2024 1:15 PM [facility] Alkaline Phosphatase 81 42 - 121 unit/L LAB CHEMISTRY METHOD 08/25/2024 1:15 PM [facility] Total Protein 7.1 6.0 - 8.0 g/dL LAB CHEMISTRY METHOD 08/25/2024 1:15 PM [facility] Albumin 4.1 3.2 - 5.0 g/dL LAB CHEMISTRY METHOD 08/25/2024 1:15 PM [facility] Total Bilirubin 0.3 0.0 - 1.4 mg/dL LAB CHEMISTRY METHOD 08/25/2024 1:15 PM [facility] Blood Venous blood specimen / Unknown Venipuncture / Unknown 08/25/2024 9:42 AM EST 08/25/2024 9:42 AM EST Agustin ESPINAL LAB BLOOD ORDERABLES Final Res ult [facility] [address] [place] [address], * SCREENING MAMMOGRAPHY BI 2-VIEW BREAST INC [...] evidence of malignancy. BI-RADS 1 - negative Result [facility] Mattie Priest MD IMG XR PROCEDURES Final Result * HIV Screening (04/27/2023) [facility] HIV Screening Abstracted [facility] Provider HEALTH MAINTENANCE Final Result * Hepatitis C Screening (04/05/2023) Pathologist [facility] Hepatitis C Screening Abstracted [facility] Provider HEALTH MAINTENANCE Final Result * Colonoscopy (06/22/2022) [facility] Colonoscopy No interpretation , abstracted Anatomical Region Laterality Modality Other Result [facility] Provider HEALTH MAINTENANCE Final Result * Cervical Cancer Screening: HPV (03/13/2017) Pathologist [facility] Cervical Cancer Screening: HPV Negative, abstracted Historical Provider HEALTH MAINTENANCE Final Result from Last 3 Months or Most Recently Relevant to Health Maintenance [place] [address] MEDICARE Member Subscriber Plan / Payer (Ef fective 2022-Present) Name:Christine Wray Relation to Subscriber:Self Name:Christine Wray Payer ID:[id number] Group ID:[id number] Type:Not on file Address: [facility] [address] [address] Care Teams Senior Marketing Associate Relationship Specialty Start Date End Date Mattie Priest MD [address] [place] [id number] PCP - General Internal Medicine 07/14/24
--- OUTSIDE RECORDS SUMMARY | 2024-11-15 09:24 | XMS_ITS | Continuity of Care Document ---
Author Organization [place] - [facility], [facility] Address [address] [place] [address] Care Team Providers Care It Project Coordinator Name Role Phone JAIDEN CAMPBELL Primary Care [...] in March, or sooner with worsening symptoms. [email or web address] Not available 11/05/2024 10:03:03 Plan of Treatment [...] Organization Details Recorded Time Chronic tonsillit is 84006157 Active 2014 Chronic tonsillit is; Note: Date Diagnosed : 02/09/2015 10:14 AM (474.00) Not Available [facility] 4 02:22:45 Postopera tive follow-up visit Active 2014 Post op; Note: Date Diagnosed : 02/09/2015 10:14 AM (V67.00) Not Available [facility] 4 02:23:16 Impacted cerumen of bilateral ears 38245460398 99228 Active 2020 Impacted cerumen, bilateral ; Note: Date Diagnosed : 01/14/2021 3:17 PM (H61.23) Not Available [facility] 4 02:22:35 Candidal otitis externa 61208346 Active 2022 Candidal otitis externa; Note: Date Diagnosed : 04/30/2023 1:52 PM (B37.84) Not Available [facility] 4 02:23:11 Mixed conductiv e and sensorine ural hearing loss, bilateral 800731068 Active 2016 Mixed conductiv e and sensorine ural hearing loss, bilateral ; Note: Date Diagnosed : 7 1:02 PM (H90.6) Not Available [facility] 4 02:22:32 Eczema 10377634 Active 2020 Other specified dermatiti s; Note: Date Diagnosed : 01/14/2021 3:19 PM (L30.8) Not Available [facility] 4 02:22:35 Pain in throat 004516652 Active 2018 Pain in throat; Note: Date Diagnosed : 9 12:13 PM (R07.0) Not Available [facility] 4 02:22:53 Obstructi ve sleep apnea syndrome 05112102 Active 2014 LORI; Note: 12/30/14 Tonsillec gavin [facility] Not Available [facility] 4 02:22:47 Dysphagia 09103563 Active 2018 Dysphagia , unspecifi ed; Note: Date Diagnosed : 05/06/2019 3:56 PM (R13.10) Not Available [facility] 4 02:22:52 Examinati on of ear Active 2021 Encounter for examinati on of ears and hearing without abnormal findings; Note: Date Diagnosed : 11/18/2021 10:53 AM (Z01.10) Not Available [facility] 4 02:22:49 Bilateral disorder of Eustachia n tubes 16415429556 24946 Active 2016 Other specified disorders of Eustachia n tube, bilateral ; Note: Date Diagnosed : 7 11:32 AM (H69.83) Not Available [facility] 4 02:22:40 Benign neoplasm of tongue 71896945 Active 2018 Benign neoplasm of lingual tonsil; Note: Date Diagnosed : 05/06/2019 3:56 PM (D10.1) Not Available [facility] 4 02:22:48 Dysphonia 25570595 Active 2018 Hoarsenes s; Note: Date Diagnosed : 05/06/2019 3:57 PM (R49.0) Not Available [facility] 4 02:23:11 Mixed conductiv e and sensorine ural hearing loss of left ear with normal hearing on right side 1959139569 Active 2023 ANA CRISTINA [place], CCC-A [address] [facility],[place] [address], [place], [address] , [place] - [facility] 4 10:13:14 Allergic rhinitis 19739939 Active 2023 JASS SORTO MD [address], [place], [address] , [place] - [facility] 4 10:32:06 Hypertrop hy of lingual tonsil 652753068 Active 2023 JASS SORTO MD [address], [place], [address] , [place] [facility] 4 10:32:41 Sensorine ural hearing loss in right ear 08659247365 100 Active 2023 ETHAN BOUDREAUX PA-C [address], [place], [address] , [place] [facility] 4 11:09:33 Dysfuncti on of left eustachia n tube 69135313727 53673 Active 2023 ETHAN BOUDREAUX PA-C [address] [facility], [place], [address] , [place] [facility] 4 11:09:40 Dysfuncti on of eustachia n tube 48870268 Active 2023 ETHAN BOUDREAUX PA-C [address] [facility],[address], [place], [address] , [place] [facility] 4 09:05:08 Postopera tive pain 859752984 Active 2023 JASS SORTO MD [address] [facility], [place], [address] , [place] [facility] 4 10:50:15 Bilateral earache 945208357 Active 2024 ETHAN BOUDREAUX PA-C [address] [facility], [place], [address] , [place] [facility] 5 09:57:01 Arthralgi a of temporoma ndibular joint 96113235 Active 2024 ETHAN BOUDREAUX PA-C [address], [place], [address] , [place] [facility] 5 09:57:10 Temporoma ndibular joint disorder 05815063 Active 2024 ETHAN BOUDREAUX PA-C [address] [facility],[place] [address], [facility] [place], [address] , [place] [facility] 5 09:57:29 Problem Notes None recorded. Procedures Surgical History Date Name Laterality Status Provider Name and Address Organization Details Recorded Time 10/07/19 25 FOL_DP completed SHAWNEE HARRIS PA-C [address] [facility],[place] [address], [place], [address], [place] - [facility] 10/07/2024 13:32:35 10/07/19 25 Air & Speech Audio with Tymps (46465, 02953 & 81878) completed JOSEP GEIGER [address] [facility],[place] [address], [place], [address], [place] [facility] 10/07/2024 13:03:35 06/19/20 24 Comp Audio with Tymps (31528 & 97647) completed ANA CRISTINA [place], CCC-A [address] [facility],[place] [address], [place], [address], [place] [facility] 06/19/2024 10:12:44 06/19/20 24 Fiberoptic Laryngoscopy (Comprehensive) completed JASS SORTO MD [address] [facility], [address], [facility] - [facility] 06/19/2024 09:44:15 07/23/20 19 excision of lingual tonsil completed JASS SORTO MD [address] [facility], [address], [facility] - [facility] 06/19/2024 10:24:40 12/31/19 15 tonsillectomy completed JASS SORTO MD [address] [facility], [address], [facility] - [facility] 06/19/2024 10:25:05 Imaging Results None recorded. Procedure Notes None recorded. Medical Equipment None Reported. Allergies Allergen ID Allergen Name Allergen Category Reaction Reaction Severity Criticality Documentation Date Start Date Code Code System Note Provider Name and Address Organization Details Recorded Time 02915 Product containin g penicilli n (product) medicatio n other Not available Not available 01/29/2024 91984 8001 SNOMED React ion: unkno wn, unspe cifie d;; Not Available [facility] 4 00:52:53 30972 verapamil medicatio n other Not available Not available 01/29/2024 41534 RxNorm React ion: unkno wn, unspe cifie d;; Not Available [facility] 4 00:52:56 78883 tramadol hydrochlo ride medicatio n other Not available Not available 01/29/2024 39448 RxNorm React ion: unkno wn, unspe cifie d;; Not Available [facility] 4 00:53:06 74778 ibuprofen , sodium salt medicatio n other Not available Not available 01/29/2024 45755 44 RxNorm React ion: unkno wn, unspe cifie d;; Not Available [facility] 4 00:53:08 Medications Name Sig Start Date Stop Date Status Note LastModified by Organization Details LastModified Time fe gluconate tab 239mg 06/19 completed Not Available Not Available Not Available losartan 50 mg tablet 2020 active Medicati on ID: 843044 B rand Name: losartan Send Method: E-Prescr ibed Sub s Allowed: subs OK Medic ationGen ericName : losartan Not Available Not Available Not Available cyclobenz aprine 10 mg tablet 01/14 completed Medicati on ID: 843273 D uration Value: 10 Brand Name: cycloben [...] ion soln 01/14 completed Medicati on ID: 066675 B rand Name: ipratrop ium-albu terol Se [...] mg tablet 01/14 completed Medicati on ID: 48334 Du ration Value: 30 Brand Name: valsarta [...] by mouth 06/19 completed Medicati on ID: [id number] D uration Value: 3 Prescri bed By Name: DAMIR Mendoza nd Name: oxycodon e Send Method: E-Prescr ibed Sub s Allowed: subs OK Medic ationGen ericName : oxycodon e Not Available Not Available Not Available topiramat e 25 mg tablet 07/03 completed Medicati on ID: 93575 Du ration Value: 30 Reason: () Brand [...] mg tablet 07/22 completed Medicati on ID: 148532 B rand Name: chlortha lidone S end Method: E-Prescr ibed Sub s Allowed: subs OK Medic ationGen ericName : chlortha lidone Not Available Not Available Not Available ciproflox acin 500 mg tablet 07/22 completed Not Available Not Available Not Available doxycycli ne monohydra te 100 mg tablet 01/14 completed Medicati on ID: [id number] D uration Value: 10 Brand Name: doxycycl [...] mcg tablet 01/14 completed Medicati on ID: 761657 D uration Value: 30 Brand Name: levothyr [...] mg tablet 07/22 completed Medicati on ID: 113252 D uration Value: 30 Brand Name: citalopr am Send Method: E-Prescr ibed Sub s Allowed: subs OK Medic ationGen ericName : citalopr am Not Available Not Available Not Available amitripty line 25 mg tablet 01/14 completed Medicati on ID: 475989 B rand Name: amitript yline Se nd [...] mg tablet 07/03 completed Medicati on ID: 85712 Du ration Value: 7 Reason: () Brand [...] a day 06/19 completed Medicati on ID: 988258 D uration Value: 14 Brand Name: clotrima [...] mg capsule 07/22 completed Medicati on ID: 592879 B rand Name: fluoxeti ne Send Method: [...] mg tablet 01/14 completed Medicati on ID: 374689 D uration Value: 30 Brand Name: sertrali [...] e 50 mcg/actua tion nasal spray,tawnya pension [place] 2 sprays every day by intranas al [...] OraMagic mouthwash 01/14 completed Medicati on ID: 848164 D uration Value: 4 Brand Name: MAGIC [...] mg tablet 01/14 completed Medicati on ID: 265486 D uration Value: 30 Brand Name: topirama [...] % mouthwash 01/14 completed Medicati on ID: 562171 D uration Value: 30 Brand Name: chlorhex idine gluconat e Send Method: E-Prescr ibed Sub s Allowed: subs OK Speci al Instruct ion: RINSE WITH 5ML BY MOUTH EVERY 6 TO 8 HOURS Me dication GenericN robert: chlorhex idine gluconat e Not Available Not Available Not Available Ranitidin e Hcl 01/14 completed Medicati on ID: 958573 D uration Value: 30 Brand Name: ranitidi [...] inhalatio n 06/19 completed Medicati on ID: 851137 B rand Name: Spiriva Respimat Send Method: [...] Updated DateTime 11/05/2024 165.1 cm 34.9 kg/m2 40662.4 g Jessica Motyka [place] - [facility] 11/05/2024 09:16:01 Social History None recorded. [...] SNOMED-CT Code Diagnosis ICD10 Code Diagnosis Note [id number] MAIKEL SOLIS MD [facility] [address] [address] 10/07/2024 12:39:23 10/07/2024 13:27:36 Dysfunction of left eustachian tube 1603526017 063713 H69.82 Left Ear:Normal hearing through 6K Hz sloping to a mild HL.Patent tube. Benign cayetano plasm of tongue 64988391 D10.1 Bilateral disorder of Eustachian tubes 6426593090 697564 H69.83 [id number] MAIKEL SOLIS MD [facility] [address] [address] 11/05/2024 09:08:29 11/05/2024 12:01:04 Benign neoplasm of tongue 52662698 D10.1 Dysfunctio n of left eustachian tube 8157372175 496640 H69.82 Bilateral earache 549094 003 H92.03 Temporoman dibular joint disorder 62749420 M26.623 Health Concerns Section Related Observation LastModified by Organization Detai ls LastModified Time None Recorded Concern Status LastModified by Organization Details LastModified Time None Recorded Payers Encounter Date Sequence Insurance Name Policy Number Policy Catalan Covered Member ID Catalan Member ID Guarantor Name 11/05/2024 1 [facility] - DOS ON OR AFTER 2022 - SENIOR LIVING OPTIONS AND ONE CARE (MEDICARE REPLACEMENT/ADV ANTAGE - PPO) Christine Wray [id number] Christine Wray Notes Date Note Type Note [...] hearing and sore throat. MAIKEL FERRARO MD [address] [place] [address], [address], [facility] - [facility] 11/05/2024 11:43:29 OBGyn Episode No OBEpisode recorded.
--- OUTSIDE RECORDS SUMMARY | 2024-11-15 09:24 | XMS_ITS | Encounter Summary ---
Author Organization [facility] Address [address] [place] [address] Care Team Providers Care Souvenir And Novelty Maker Name Role Phone Mattie Priest MD Primary Care Prov ider Reason for Referral * Consultation (Urgent) - Closed Specialty Diagnoses / Procedures Referred By Contac t Referred To Contact Neurology Diagnoses Myasthenia gravis (CMS/HCC) Mattie Preist MD [address] [place] [address] Phone: tel: fax: [facility] [address] [place] [address] Phone: tel: fax: Referral ID Status Reason Start Date Expiration Date V isits Requested Visits Authorized [id number] Closed Specialty Services Required 11/13/2024 11/13/2025 1 1 Reason for Visit * Reason Comments Hospital Follow-up Migraine Left sided facial nu mbess Encounter Details Date Type Department Care Team (Late st Contact Info) Description 11/13/2024 10:00 AM EST Office Visit Adult Medicine - [place] [address] [place] [address] Mattie Priest MD [address] [place], [place] Myasthenia gravis (CMS/HCC) (Primary Dx); Vitamin D deficiency; Iron deficiency anemia, unspecified iron deficiency anemia type; Low vitamin B12 level; Facial numbness; Pily's thyroiditis Social History Tobacco Use Types Packs/Day Years [...] 11/13/2024 10:[address] Respiratory Rate - - Oxygen Saturation - - Inhaled Oxygen Concentration - - Weight 98.2 kg (216 lb 9.6 oz) 11/13/2024 10:04 AM EST Height - - Body Mass Index 36.04 10/24/2024 12:58 PM EST documented in this encounter Progress Notes * Mattie Priest MD - 11/13/2024 10:00 AM EST CHIEF COMPLAINT: Hospital Follow-up and Migraine (Left sided facial numbess) IDENTIFIER: Christine Wray is a 64 y.o. old female. HPI: 64-year-old with multiple medical problems presents for hospital follow-up .she presents alone. Patient says she presented to [facility] with complaints of left-sided numbness and tingling She had a CAT scan done .she was diagnosed with a migraine variant although she never had a headache. And given medications which she said has not helped. She is very concerned about her symptoms. She says usually when she gets up in the morning she just has numbness and tingling however by evening she is slurring her speech which has become very noticeable by her family. She denies any tooth problems or TMJ problems. She does have migraines but she says that these new symptoms are not associated with headaches No fever chills no difficulty swallowing no vision problems has not noticed any ptosis ROS: See HPI PAST MEDICAL HISTORY: Patient Active Problem List [...] Outpatient Medications Marked as Taking for the 11/13/24 encounter (Office Visit) with Mattie Priest MD Medication Sig Dispense Refill acetaminophen (TYLENOL) 325 [...] and Verapamil hcl PHYSICAL EXAM: Blood pressure 126/77, pulse 72, temperature 36.6 ??C (97.8 ??F), temperature source Temporal, weight 98.2 kg (216 lb 9.6 oz). Body mass index is 36.04 kg/m??. Plan is deferred until next visit APPEARANCE: Alert and in no acute distress EYES: PERRLA, conjunctiva and sclera normal EARS: External ears normal. Canals clear. TMs normal. NOSE/SINUS: Nares normal. Septum midline. Mucosa normal. No drainage or sinus tenderness MOUTH/THROAT: no erythema, lesions, or exudates NECK: Neck supple, no adenopathy, thyroid symmetric and of normal size HEART: RRR with normal S1 and S2, no murmurs, no gallops, no JVD appreciated LUNG: clear to auscultation bilaterally NEURO: Awake, alert and oriented x 3 and decreased sensation left side of face no weakness noted tongue midline no evidence of TMJ problems LABS: Vitamin B12 vitamin D iron TSH IMPRESSION: 1. Myasthenia gravis (CMS/HCC) 2. Vitamin D deficiency 3. Iron deficiency anemia, unspecified iron deficiency anemia type 4. Low vitamin B12 level 5. Facial numbness 6. Pily's thyroiditis PLAN: Question myasthenia gravis Patient says usually her symptoms progressively get worse as the day progresses she has noticed dysarthria There is no evidence of ptosis at this time We will check other causes for numbness and tingling vitamin levels Consider anxiety although patient says she does not feel anxious and is taking all her antianxiety medication She says that her restless leg issues have become worse We will check iron levels Referral to neurology for further evaluation Orders Placed This Encounter Procedures Borrelia burgdorferi antibody Vitamin B12 Iron and TIBC Vitamin D 25 hydroxy Thyroid stimulating hormone with reflex to free t4 and free t3 Ambulatory referral to Neurology ADDITIONAL ORDERS: AMB REFERRAL TO NEUROLOGY Mattie Priest MD on 11/13/2024 at 11:19 AM EST documented in this encounter Plan of Treatment Upcoming Encounters Date Type Department Care Team (Late st Contact Info) Description 11/17/2024 2:30 PM EST Office Visit [facility] [address] [phone] Jamel Capone MD [address] [address] 12/02/2024 8:15 AM EDT [facility] [address] [phone] Jamel Capone MD [address] [address] 12/30/2024 1:20 PM EDT Office Visit Gastroenterology [facility] [address] [phone] Geri Zayas PA [address] [address] 02/12/2025 9:45 AM EDT Office Visit Adult Medicine [facility] [address] [place] [address] Agustin Hebert PA [address] [place] [address] Scheduled Referrals Name Type Priority Associated Diagnoses Order Schedule Ambulatory referral to Neurology Outpatient Referral Routine Myasthenia gravis ([facility]/HCC) 1 Occurrences starting 11/13/2024 until 11/13/2025 documented as of this encounter Results * Thyroid stimulating hormone with reflex to free t4 and free t3 (11/13/2024 10:40 AM EST) TSH 1.40 0.40 - 4.00 mcIU/mL LAB CHEMISTRY METHOD 11/13/2024 4:16 PM EST [facility] Blood Venous blood specimen / Unknown Venipuncture / Unknown 11/13/2024 10:40 AM EST 11/13/2024 10:40 AM EST Mattie Priest MD LAB BLOOD ORDERABL ES Final Result Performing Organization Address [facility] [place]/ZIP Co de Phone Number [facility] [address] [place] [address], [place] [phone] * (ABNORMAL) Vitamin D 25 hydroxy (11/13/2024 10:40 AM EST) Pathologist [facility] Vit D, 25-Hydroxy 27.6(L) 30.0 - 80.0 ng/mL LAB CHEMISTRY METHOD 11/13/2024 4:16 PM EST [facility] Blood Venous blood specimen / Unknown Venipuncture / Unknown 11/13/2024 10:40 AM EST 11/13/2024 10:40 AM EST Mattie Priest MD LAB BLOOD ORDERABL ES Final Result Performing Organization Address [facility] de Phone Number [facility] [address] [place] [address], [place] [phone] * Iron and TIBC (11/13/2024 10:40 AM EST) Pathologist [facility] Iron 104 40 - 150 mcg/dL LAB CHEMISTRY METHOD 11/13/2024 2:02 PM EST [facility] TIBC 378 250 - 450 mcg/dL LAB CHEMISTRY METHOD 11/13/2024 2:02 PM [facility] Iron Saturation 28 15 - 50 % LAB CHEMISTRY METHOD 11/13/2024 2:02 PM EST [facility] Blood Venous blood specimen / Unknown Venipuncture / Unknown 11/13/2024 10:40 AM EST 11/13/2024 10:40 AM EST us Mattie Priest MD LAB BLOOD ORDERABL ES Final Result Performing Organization Address City/[facility]/ZIP Co de Phone Number [facility] [address] [place] [address], [place] [phone] * Vitamin B12 (11/13/2024 10:40 AM EST) [facility] Vitamin B-12 438 250 - 900 pcg/mL LAB CHEMISTRY METHOD 11/13/2024 2:02 PM EST [facility] Blood Venous blood specimen / Unknown Venipuncture / Unknown 11/13/2024 10:40 AM EST 11/13/2024 10:40 AM EST us Mattie Priest MD LAB BLOOD ORDERABL ES Final Result Performing Organization Address [facility] [place] Co de Phone Number [facility] [address] [place] [address], [place] [phone] * Borrelia burgdorferi antibody (11/13/2024 10:40 AM EST) [facility] Lyme Ab Negative Negative LAB CHEMISTRY METHOD 11/13/2024 1:12 PM EST [facility] Comment: No laboratory evidence of [...] ORDERABL ES Final Result Performing Organization Address City/[facility]/ZIP Co de Phone Number [facility] [address] [place] [address], [place] [phone] documented in this encounter Visit Diagnoses Diagnosis Myasthenia gravis ([facility])- Primary Myasthenia gravis without exacerbation Vitamin D deficiency Iron deficiency anemia, unspecified iron deficiency anemia type Low vitamin B12 level Facial numbness Disturbance of skin sensation Pily's thyroiditis Chronic lymphocytic thyroiditis documented in this encounter Care Teams Souvenir And Novelty Maker Relationship Specialty Start Date End Date Mattie Priest MD [address] [place] [address] PCP - General Internal Medicine 07/14/24 documented as of this encounter
--- OUTSIDE RECORDS SUMMARY | 2024-11-15 09:24 | XMS_ITS | Patient Health Record ---
Author Organization [facility] Address [address] [place] [address] Care Team Providers Care Freezing Room Worker Name Role Phone Mattie Conner Primary Care Provide r Unavailable Naren Dolan Unavailable [phone] Tricia Banerjee Unavailable [phone] Laura Jimenez Unavailable [phone] Allergies Allergen (clinical drug ingredient) Drug/Non Drug [...] Once a day 05/28/2024 Active Vitamin D 45429 UNIT 1 capsule Orally 1/week 05/28/2024 Active [...] Points 0 Interpretation Negative Section Notes: nonsmoker TUBER HELPER 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 nonsmoker TUBER HELPER 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 nonsmoker TUBER HELPER 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 nonsmoker TUBER HELPER 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 nonsmoker TUBER HELPER 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 nonsmoker TUBER HELPER 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 nonsmoker TUBER HELPER 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 nonsmoker TUBER HELPER 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 nonsmoker TUBER HELPER 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 nonsmoker 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 in evening nonsmoker TUBER HELPER 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 Problems Problem Type SNOMED Code ICD Code Onset Dates Problem Status W/U Status Risk Notes Problem Restless legs syndrome (93146156) Restless legs syndrome (G25.81) Active confirmed Problem Chronic migraine without aura with status migrainosus (157595228625377 ) Chronic migraine without aura, not intractable, with status migrainosus (G43.701) Active confirmed Problem Chronic migraine without aura, non-intractable (131632339703233 ) Chronic migraine without aura, not intractable, without status migrainosus (G43.709) Active confirmed Problem Chronic intractable migraine without aura (035110419487788 ) Chronic migraine without aura, intractable, with status migrainosus (G43.711) Active confirmed Vital Signs Heart Rate 82 /min 09/23/2024 Blood pressure diastolic 82 mm Hg 09/23/2024 Weight-kg 98.02 kg 09/23/2024 Height 67 in 09/23/2024 Blood pressure systolic 143 mm Hg 09/23/2024 Weight 216.1 lbs 09/23/2024 BMI 33.84 kg/m2 09/23/2024 Encounters Encounter Location Date Provider Diagnosis [facility] [address] [place] [phone] 05/28/2024 Naren Dolan Chronic migraine wit hout aura, not intractable, without status migrainosus G43.709 [facility] [address] [place] [phone] 07/30/2024 Naren Dolan Chronic migraine wit hout aura, not intractable, without status migrainosus G43.709 [facility] [address] [place] [address] 01/03/2024 Tricia Chriss Chronic migraine wit hout aura, not intractable, without status migrainosus G43.709 and Restless legs syndrome G25.81 [facility] [address] [place] [address] 09/23/2024 Laura Jimenez Chronic migraine wit hout aura, intractable, with status migrainosus G43.711 [facility] [address] [place] [phone] 05/28/2024 Naren Dolan [facility] [address] [place] [phone] 08/28/2024 Naren Dolan [facility] [address] [place] [phone] 10/09/2024 Naren Dolan [facility] [address] [place] [address] 01/15/2024 Narencameron Dolan [facility] [address] [place] [phone] 01/15/2024 Naren Dolan [facility] [address] [place] [phone] 03/10/2024 Naren Dloan [facility] [address] [place] [address] 04/10/2024 Naren Ricksley Restless legs syndro me G25.81 [employer] [address] [place] [address] 04/19/2024 Naren Dolan Restless legs syndro me G25.81 [facility] [address] [place] [phone] 05/20/2024 Naren Dolan [facility] [address] [place] [phone] 06/02/2024 Naren Dolan [facility] [address] [place] [phone] 06/03/2024 Naren Dolan [facility] [address] [place] [phone] 08/04/2024 Naren Dolan [facility] [address] [place] [phone] 08/06/2024 Naren Kelsi [facility] [address] [place] [phone] 09/23/2024 Laura Jimenez [facility] [address] [place] [address] 09/23/2024 Naren Dolan [facility] [address] [place] [phone] 09/24/2024 [facility] [address] [place] [phone] 10/07/2024 Naren Dolan Assessments Encounter Date Diagnosis (ICD Code) Assessment Notes Treatment Notes Treatment Clinical Notes Section Notes 01/03/2024 Restless legs syndrome (ICD-10 - G25.81) 01/03/2024 Chronic migraine without aura, not intractable, [...] reconciliation completed. Previous office visit note reviewed. 04/10/2024 Restless legs syndrome (ICD-10 - G25.81) [...] Insured Coverage Start Date Coverage End Date [facility] [address] [address] [place], [place] [id number] Christine Wray Self - patient is the insured 2 Medical (General) History Medical History History ICD Code Chronic migaine HTN asthma depression anxiety chronic back pain hypothyroid Tachycardia Gallbladder polyps RLS Surgical History Surgery Date(Month/Year) R thyroid lobectomy 2019 T&A
--- OUTSIDE RECORDS SUMMARY | 2024-11-15 09:24 | XMS_ITS | Data Portability ---
Author Organization [place] - 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 [email or web address] Not available 06/25/2024 11:45:03 07/22/2024 07/22/2024 64-year-old [...] use of Protonix. All questions were answered. [email or web address] Not available 07/22/2024 11:36:27 10/07/2024 10/07/2024 64-year-old [...] given negative biopsy. Follow-up in 6 months. [email or web address] Not available 10/07/2024 13:33:25 11/05/2024 11/05/2024 64-year-old [...] in March, or sooner with worsening symptoms. Not available 11/05/2024 10:03:03 Plan of Treatment [...] ied tanya pollard ow study 2023 024 [email or web address] [facility], [address] [place] [address], [address], 08/25/2024 09:14:31 Medication Orders Flona se Aller gy Relie f 50 mcg/a ctuat ion nasal spray ,susp ensio n 2023 024 [email or web address] n [facility], [address] [place], [address], 06/25/2024 12:24:20 Shawna tin 10 mg table t 2023 024 SILVESTRE [facility], [address] [place], [address], 06/19/2024 10:32:36 Patient TargetsNo targets recorded. Patient InstructionsNo instructions recorded. Reason for Referral None Reported. Results Created Date Observation Date Name Description Value Unit Range Abnormal Flag Note LastModifiedBy Organization Detail LastModifiedTime 06/23/20 audio gram No observ ation record ed. [email or web address] Not Available 2023 09:57:56 06/27/20 24 06/19/2024 CT, neck, soft tissu e, w/ contr ast No observ ation record ed. [email or web address] Not Available 06/17 09:18:52 09/30/19 25 09/30/2024 proce dures No observ ation record ed. [email or web address] [address], [address], 09/30/2024 16:13:14 10/01/19 25 09/30/2024 xr tanya shankar with video and speec h See Note [facility] , a member of [facility] Josef brizuela Name: CHRISTINE UGALDE Date of : 1959 Reason for Exam: dyspha nurys Exam Date: 2024 [id number] EST Report Status : Final Orderi ng Provid er: SHAWNEE Tong PCP: [facility] HISTOR Y: dyspha nurys. STUDY: [...] for furthe r detail s as clinic ariana salvador. ------ -- FINAL REPORT ------ -- Dictat ed By: Rima Dee Dictat ed Date: 2024 12:26 ET Assign ed Physic pankaj: Kong Gunn Review ed and Electr onical ly Signed By: Kong Gunn nt Signed Date: 2024 14:54 ET Workst ation ID: SFMCRP [id number] Transc ribed By: Self Edit Transc ribed Date: 2024 12:27 ET Reside nt/PA/ TUFT MACHINE OPERATOR: Rima Deeews[address] [place] [address], [address], 10/01/2024 16:03:07 10/07/19 25 audio gram No observ ation record ed. BARCODE Not Available 2024 14:57:35 Result Notes None recorded. Problems Name Problem SNOMED Code Status Onset Date Resolution Date Notes Provider Name and Address Organization Details Recorded Time Chronic tonsillit is 13161004 Active 2014 Chronic tonsillit is; Note: Date Diagnosed : 02/09/2015 10:14 AM (474.00) Not Available [facility] 4 02:22:45 Postopera tive follow-up visit Active 2014 Post op; Note: Date Diagnosed : 02/09/2015 10:14 AM (V67.00) Not Available [facility] 4 02:23:16 Impacted cerumen of bilateral ears 12743969377 51606 Active 2020 Impacted cerumen, bilateral ; Note: Date Diagnosed : 01/14/2021 3:17 PM (H61.23) Not Available [facility] 4 02:22:35 Candidal otitis externa 20465264 Active 2022 Candidal otitis externa; Note: Date Diagnosed : 04/30/2023 1:52 PM (B37.84) Not Available [facility] 4 02:23:11 Mixed conductiv e and sensorine ural hearing loss, bilateral 108399341 Active 2016 Mixed conductiv e and sensorine ural hearing loss, bilateral ; Note: Date Diagnosed : 7 1:02 PM (H90.6) Not Available [facility] 4 02:22:32 Eczema 82046639 Active 2020 Other specified dermatiti s; Note: Date Diagnosed : 01/14/2021 3:19 PM (L30.8) Not Available [facility] 4 02:22:35 Pain in throat 683021932 Active 2018 Pain in throat; Note: Date Diagnosed : 9 12:13 PM (R07.0) Not Available [facility] 4 02:22:53 Obstructi ve sleep apnea syndrome 82713666 Active 2014 LORI; Note: 12/30/14 Tonsillec gavin PVSC Not Available [facility] 4 02:22:47 Dysphagia 27339152 Active 2018 Dysphagia , unspecifi ed; Note: Date Diagnosed : 05/06/2019 3:56 PM (R13.10) Not Available [facility] 4 02:22:52 Examinati on of ear Active 2021 Encounter for examinati on of ears and hearing without abnormal findings; Note: Date Diagnosed : 11/18/2021 10:53 AM (Z01.10) Not Available [facility] 4 02:22:49 Bilateral disorder of Eustachia n tubes 70786791446 48617 Active 2016 Other specified disorders of Eustachia n tube, bilateral ; Note: Date Diagnosed : 7 11:32 AM (H69.83) Not Available [facility] 4 02:22:40 Benign neoplasm of tongue 86930496 Active 2018 Benign neoplasm of lingual tonsil; Note: Date Diagnosed : 05/06/2019 3:56 PM (D10.1) Not Available [facility] 4 02:22:48 Dysphonia 62410773 Active 2018 Hoarsenes s; Note: Date Diagnosed : 05/06/2019 3:57 PM (R49.0) Not Available [facility] 4 02:23:11 Mixed conductiv e and sensorine ural hearing loss of left ear with normal hearing on right side 0370147793 Active 2023 ANA CRISTINA B[place], CCC-A [address], [place], [address] , [place] - [facility] 4 10:13:14 Allergic rhinitis 01639420 Active 2023 JASS SORTO MD [address], [place], [address] , [place] [facility] 4 10:32:06 Hypertrop hy of lingual tonsil 037873829 Active 2023 JASS SORTO MD [address], [place], [place], [address] , [place] - [facility] 4 10:32:41 Sensorine ural hearing loss in right ear 41346372941 100 Active 2023 ETHAN BOUDREAUX PA-C [address], [place], [place], [address] , [place] - [facility] 4 11:09:33 Dysfuncti on of left eustachia n tube 42882554780 19574 Active 2023 ETHAN BOUDREAUX PA-C [address], [place], [place], [address] , [place] [facility] 4 11:09:40 Dysfuncti on of eustachia n tube 95914795 Active 2023 ETHAN BOUDREAUX PA-C [address], [place], [place], [address] , [place] [facility] 4 09:05:08 Postopera tive pain 049178407 Active 2023 JASS SORTO MD [address] [facility],[place] [address], [place], [address] , [place] [facility] 4 10:50:15 Bilateral earache 755631999 Active 2024 ETHAN BOUDREAUX PA-C [address] [facility],[place] [address], [place], [address] , [place] [facility] 5 09:57:01 Arthralgi a of temporoma ndibular joint 34989076 Active 2024 ETHAN BOUDREAUX PA-C [address] [place] [address],[place] [address], [place], [address] , [place] [facility] 5 09:57:10 Temporoma ndibular joint disorder 57006825 Active 2024 ETHAN BOUDREAUX PA-C [address] [place] [address],[place] [address], [place], [address] , [place] [facility] 5 09:57:29 Problem Notes None recorded. Procedures Surgical History Date Name Laterality Status Provider Name and Address Organization Details Recorded Time 10/07/19 25 FOL_DP completed SHAWNEE HARRIS PA-C [address] [facility],[place] [address], [place], [address], [place] [facility] 10/07/2024 13:32:35 10/07/19 25 Air & Speech Audio with Tymps (16267, 62995 & 21838) completed JOSEP GEIGER [address] [facility],[place] [address], [place], [address], [place] [facility] 10/07/2024 13:03:35 06/19/20 24 Comp Audio with Tymps (84185 & 02125) completed ANA CRISTINA [place], CCC-A [address] [facility],[place] [address], [place], [address], [place] [facility] 06/19/2024 10:12:44 06/19/20 24 Fiberoptic Laryngoscopy (Comprehensive) completed JASS SORTO MD [address] [place] [address], [place], [address], [facility] 06/19/2024 09:44:15 07/23/20 19 excision of lingual tonsil completed JASS SORTO MD [address] [facility] [place],[address], [address], [facility] 06/19/2024 10:24:40 12/31/19 15 tonsillectomy completed JASS SORTO MD [address] [facility] [place] [address], [place], [address], [facility] 06/19/2024 10:25:05 Imaging Results Imaging Date Name Status LastModified by Organiz ation Details LastModified Time 06/23/2024 audiogram completed [email or web address] Information no t available 06/23/2024 09:57:56 06/19/2024 CT, neck, soft tissue, w/ contrast completed [email or web address] Information not available 06/27/2024 09:18:52 09/30/2024 procedures completed [address], [address], 09/30/2024 16:13:14 09/30/2024 xr barium swallow with video and speech completed [address], [address], 10/01/2024 16:03:07 10/07/2024 audiogram completed BARCODE Information no t available 10/07/2024 14:57:35 Procedure Notes None recorded. Medical Equipment None Reported. Allergies Allergen ID Allergen Name Allergen Category Reaction Reaction Severity Criticality Documentation Date Start Date Code Code System Note Provider Name and Address Organization Details Recorded Time 97967 Product containin g penicilli n (product) medicatio n other Not available Not available 01/29/2024 43384 8001 SNOMED React ion: unkno wn, unspe cifie d;; Not Available [facility] 00:52:53 19820 verapamil medicatio n other Not available Not available 01/29/2024 27940 RxNorm React ion: unkno wn, unspe cifie d;; Not Available [facility] 4 00:52:56 62911 tramadol hydrochlo ride medicatio n other Not available Not available 01/29/2024 29882 RxNorm React ion: unkno wn, unspe cifie d;; Not Available [facility] 4 00:53:06 90167 ibuprofen , sodium salt medicatio n other Not available Not available 01/29/2024 43333 44 RxNorm React ion: unkno wn, unspe cifie d;; Not Available [facility] 4 00:53:08 Medications Name Sig Start Date Stop Date Status Note LastModified by Organization Details LastModified Time fe gluconate tab 239mg 06/19 completed Not Available Not Available Not Available losartan 50 mg tablet 2020 active Medicati on ID: 979117 B rand Name: losartan Send Method: E-Prescr ibed Sub s Allowed: subs OK Medic ationGen ericName : losartan Not Available Not Available Not Available cyclobenz aprine 10 mg tablet 01/14 completed Medicati on ID: 766098 D uration Value: 10 Brand Name: cycloben [...] ion soln 01/14 completed Medicati on ID: 769508 B rand Name: ipratrop ium-albu terol Se [...] mg tablet 01/14 completed Medicati on ID: 57334 Du ration Value: 30 Brand Name: valsarta [...] by mouth 06/19 completed Medicati on ID: 916522 D uration Value: 3 Prescri bed By Name: DAMIR Mendoza nd Name: oxycodon e Send Method: E-Prescr ibed Sub s Allowed: subs OK Medic ationGen ericName : oxycodon e Not Available Not Available Not Available topiramat e 25 mg tablet 07/03 completed Medicati on ID: 51580 Du ration Value: 30 Reason: () Brand [...] mg tablet 07/22 completed Medicati on ID: 906270 B rand Name: chlortha lidone S end Method: E-Prescr ibed Sub s Allowed: subs OK Medic ationGen ericName : chlortha lidone Not Available Not Available Not Available ciproflox acin 500 mg tablet 07/22 completed Not Available Not Available Not Available doxycycli ne monohydra te 100 mg tablet 01/14 completed Medicati on ID: 815127 D uration Value: 10 Brand Name: doxycycl [...] mcg tablet 01/14 completed Medicati on ID: 487881 D uration Value: 30 Brand Name: levothyr [...] mg tablet 07/22 completed Medicati on ID: 764618 D uration Value: 30 Brand Name: citalopr am Send Method: E-Prescr ibed Sub s Allowed: subs OK Medic ationGen ericName : citalopr am Not Available Not Available Not Available amitripty line 25 mg tablet 01/14 completed Medicati on ID: 661700 B rand Name: amitript yline Se nd [...] mg tablet 07/03 completed Medicati on ID: 68362 Du ration Value: 7 Reason: () Brand [...] a day 06/19 completed Medicati on ID: 059528 D uration Value: 14 Brand Name: clotrima [...] mg capsule 07/22 completed Medicati on ID: 597267 B rand Name: fluoxeti ne Send Method: [...] mg tablet 01/14 completed Medicati on ID: 146402 D uration Value: 30 Brand Name: sertrali [...] e 50 mcg/actua tion nasal spray,[employer] 2 sprays every day by intranas al [...] OraMagic mouthwash 01/14 completed Medicati on ID: 498528 D uration Value: 4 Brand Name: MAGIC [...] mg tablet 01/14 completed Medicati on ID: 145915 D uration Value: 30 Brand Name: topirama [...] % mouthwash 01/14 completed Medicati on ID: 157458 D uration Value: 30 Brand Name: chlorhex idine gluconat e Send Method: E-Prescr ibed Sub s Allowed: subs OK Speci al Instruct ion: RINSE WITH 5ML BY MOUTH EVERY 6 TO 8 HOURS Me dication GenericN robert: chlorhex idine gluconat e Not Available Not Available Not Available Ranitidin e Hcl 01/14 completed Medicati on ID: 615682 D uration Value: 30 Brand Name: ranitidi [...] inhalatio n 06/19 completed Medicati on ID: 871941 B rand Name: Spiriva Respimat Send Method: [...] Updated DateTime 06/19/2024 170.18 cm 32.4 kg/m2 42670.62 g Virginia Rosario [place] - [facility] 06/19/2024 09:24:03 Date Recorded Body height Body mass index (BMI) Body weight Provider Name and Address Organization Details Last Updated DateTime 07/22/2024 165.74 cm 34.3 kg/m2 85209.21 g Virginia Rosario [place] - [facility] 07/22/2024 10:32:49 Date Recorded Body height Body mass index (BMI) Body weight Provider Name and Address Organization Details Last Updated DateTime 11/05/2024 165.1 cm 34.9 kg/m2 04124.4 g Jessica Joe [place] - [facility] 11/05/2024 09:16:01 Social History None recorded. Functional Status None recorded. Mental Status None recorded. Family History Nothing Reported. Medical History Condition Response Depression Y Arthritis Y Anxiety Y Migraines Y Thyroid Problems Y Asthma Y Hypertension Y Gynecological HistoryNo gynecological history recorded. Obstetrics History GPAL:G 0 P 0 0 0 0 Past Encounters Encounter ID Performer Location Encounter Start Date Encounter Closed Date Diagnosis/Indication Diagnosis SNOMED-CT Code Diagnosis ICD10 Code Diagnosis Note JASS SORTO MD [facility] on [address] [place] [address] 06/19/2024 09:02:56 06/19/2024 10:41:11 Mixed conductive and sensorineural hearing loss of left ear with normal hearing on right side 8837176970 H90.72 Audiologic al evaluation results: Right ear: [...] seal Type A (rounded)# }} Allergic rhinitis 063046 04 J30.9 Hypertroph y of lingual tonsil 735900282 J35.3 [id number] MAIKEL SOLIS MD [facility] [address] [address] 06/25/2024 10:26:55 06/25/2024 11:18:27 Mixed conductive and sensorineural hearing loss of left ear with normal hearing on right side 1435031428 H90.72 Sensorineu ral hearing loss in right ear 9983199297 9100 H90.A21 Dysfunctio n of left eustachian tube 2155896544 323337 H69.82 [id number] MIGUEL ANGEL SOLIS MD [facility] [address] [address] 07/22/2024 10:24:23 07/22/2024 11:07:14 Benign neoplasm of tongue 38061676 D10.1 Bilateral disorder of Eustachian tubes 0583424882 744400 H69.83 Dysfunctio n of left eustachian tube 9842429913 128332 H69.82 Dysphagia 72485207 R13.1 0 [id number] MAIKEL SOLIS MD [facility] [address] [address] 10/07/2024 12:39:23 10/07/2024 13:27:36 Dysfunction of left eustachian tube 3869563684 537892 H69.82 Left Ear:Normal hearing through 6K Hz sloping to a mild HL.Patent tube. Benign cayetano plasm of tongue 13136941 D10.1 Bilateral disorder of Eustachian tubes 3863335819 080839 H69.83 [id number] MAIKEL SOLIS MD [facility] [address] [place] [address] 11/05/2024 09:08:29 11/05/2024 12:01:04 Benign neoplasm of tongue 90661597 D10.1 Dysfunctio n of left eustachian tube 7806623672 906777 H69.82 Bilateral earache 277352 003 H92.03 Temporoman dibular joint disorder 19189272 M26.623 Health Concerns Section Related Observation LastModified by Organization Detai ls LastModified Time None Recorded Concern Status LastModified by Organization Details LastModified Time None Recorded Advance Directives Directive None Recorded Payers Encounter Date Sequence Insurance Name Policy Number Policy Catalan Covered Member ID Catalan Member ID Guarantor Name 06/19/2024 1 [facility] - DOS ON OR AFTER 2022 - LONGTERM OPTIONS AND ONE CARE (MEDICARE REPLACEMENT/ADV ANTAGE - PPO) Christine Ugalde [id number] Christine Ugalde 06/25/2024 1 [employer] CARE [employer]IANCE - DOS ON OR AFTER 2022 - LONGTERM OPTIONS AND ONE CARE (MEDICARE REPLACEMENT/ADV ANTAGE - PPO) Christine Ugalde [id number] Christine Ugalde 07/22/2024 1 [employer] CARE [employer]IANCE - DOS ON OR AFTER 2022 - LONGTERM OPTIONS AND ONE CARE (MEDICARE REPLACEMENT/ADV ANTAGE - PPO) Christine Ugalde [id number] Christine Ugalde 10/07/2024 1 [employer] CARE [employer]IANCE - DOS ON OR AFTER 2022 - LONGTERM OPTIONS AND ONE CARE (MEDICARE REPLACEMENT/ADV ANTAGE - PPO) Christine Ugalde [id number] Christine Ugalde 11/05/2024 1 [employer] CARE [employer]IANCE - DOS ON OR AFTER 2022 - LONGTERM OPTIONS AND ONE CARE (MEDICARE REPLACEMENT/ADV ANTAGE - PPO) Christine Ugalde [id number] Christine Ugalde Notes Date Note Type Note [...] the left mastoid. JASS SORTO MD [address] [facility], [place], [address], [facility] 06/22/2024 08:40:41 06/25/2024 text/html 63-year-old elder paz presents for reevaluation of left ear blockage. [...] no nasal sprays. MAIKEL FERRARO MD [address] [facility],[address], [place], [address], [facility] 06/25/2024 12:24:22 07/22/2024 text/html 64-year-old elder paz [...] has improved. MIGUEL ANGEL SOLIS MD [address] [facility] [place],[address], [address], [facility] - [facility] 07/22/2024 16:39:48 10/07/2024 text/html 64-year-old elder paz [...] aspiration or penetration. MAIKEL FERRARO MD [address] [facility],[address], [address], [facility] 10/07/2024 17:14:50 11/05/2024 text/html 64-year-old elder paz [...] sore throat. MAIKEL FERRARO MD [address],[place] [address], [place], [address], [facility] - [facility] 11/05/2024 11:43:29 OBGyn Episode No OBEpisode recorded.
[2024-11-15 10:35] VITALS: BP 110/90; PULSE 106; RESP 18; TEMP 37.6; O2SAT 100; BMI 35.9
--- NOTE | 2024-11-15 10:35 | MHC.OFFWIV ---
Intake Vital Signs 11/15/24 10:35 Height 5 ft 5 in Weight 216 lb BMI 35.9 BP 110/90 H Blood Pressure Location Lt brachial Position Sitting Respiration 18 Pulse 106 H Pulse Source Pulse Oximeter Temp 99.7 F Temp Source Oral Pulse Oximetry (%) 100 Oxygen Delivery Method Room Air Intake Visit Reasons: EP cough, mucus, fever, headache with Intake Note: Pt is here today c/o cough,mucus, fever and h/a x4days nauses and vomiting Patient Tobacco Use Status: Never used Tobacco Allergies aspirin Allergy (Intermediate, Verified 11/15/24 16:54) Rash ibuprofen Allergy (Intermediate, Verified 11/15/24 16:54) Rash amoxicillin Allergy (Severe, Uncoded 11/15/24 16:54) Anaphylaxis IV contrast Allergy (Intermediate, Uncoded 11/15/24 10:36) Swelling HPI EP cough, mucus, fever, headache with HPI Details Patient is a 64-year-old female with underlying asthma (she takes double preventative medications), who comes to the walk-in clinic with her who have both been sick for the last 5 days with cough, congestion, headache, and she has a low-grade fever and nausea and vomiting. She reports that she has not been keeping up with adequate fluid intake, and does feel a little lightheaded when she stands up quickly. She also has myalgias. She has not tested for COVID or flu at home. Apparently a family member was sick with similar symptoms prior to her, but no known underlying cause as they were not tested for viruses. Unknown if flu and COVID vaccines are up-to-date. She comes in with , states that she is sicker than him. She does not report chest pain or shortness of breath however, and no weakness, significant dizziness or vertigo, loss of sense of taste or smell, or other significant associated symptoms. [facility] Social History Patient Tobacco Use Status: Never used Tobacco Review of Systems Const All systems reviewed & are unremarkable except as noted in HPI and below Physical Exam Vital Signs: Last Vital Signs Temp 99.7 F 11/15/24 10:35 Pulse 106 H 11/15/24 10:35 Resp 18 11/15/24 10:35 BP 110/90 H 11/15/24 10:35 Pulse Ox 100 11/15/24 10:35 Oxygen Delivery Method Room Air 11/15/24 10:35 BMI result Body Mass Index 35.9 Const General: cooperative, no acute distress, alert, awake, Physically active and well groomed; No anxious, diaphoretic, intoxicated appearing, poor hygiene or tired appearing Orientation/consciousness: oriented to person HEENT Head: Yes normal to inspection, Yes normocephalic and Yes atraumatic Ears: hearing grossly normal bilaterally, external ears normal, TM's abnormal bilaterally, EAC's normal, mastoids normal, no periauricular adenopathy and TM abnormal (Left TM tube, bilateral TMs with effusions and injected) with fluid behind the TM and with loss of landmarks; not erythematous General nose exam: Normal external nose present, Abnormal mucous membranes and turbinates present and Nasal discharge present Face and sinus: Yes face symmetric Mouth: Normal oral and palatal mucosa present, lip normal and tongue normal Throat: Yes abnormal tonsil (mildly erythematous bilaterally), No peritonsillar mass, No postnasal drainage, No uvular edema and No cobblestoning Eyes General: appearance normal, both eyes and all related structures Neck Neck: Yes normal visual inspection, Yes no lymphadenopathy, Yes trachea midline, Yes supple and No anterior neck swelling Resp Effort & Inspection: normal respiratory effort, able to speak in complete sentences, no audible wheezes, Actively coughing, no grunting, not labored, no nasal flaring, no retractions and symmetric chest movement Auscultation: clear to auscultation bilaterally, no crackles, no rales, no rhonchi, no wheezes, lung sounds not diminished and No rub present Cardio Rate: regular rate and tachycardic Rhythm: regular rhythm Skin Other: Good color, warm and dry Neuro General: oriented to person Psych Appearance: grossly normal Mental Status: mental status grossly normal Speech and movement: Normal speech and movement present Affect: normal affect Attitude: cooperative Thought process: Normal thought process present Insight: Good insight present (Psych) Judgement: Good judgement present (Psych) Assessment & Plan Assessment & Plan (1) Viral syndrome: Code(s): B34.9 - Viral infection, unspecified Plan 64-year-old female, with history of multiple lung infections, as well as asthma. She is tachycardic at 106, with low-grade fever 99.3. She reports she has had the symptoms for the last 5 days, along with her . Apparently family member had similar symptoms and brought him into the house. She reports that she has a productive cough, which she suspects is coming from her lungs. She does not sound rhonchorous, however she has a frequent dry cough in the office. Based on symptoms of her and her family members, I suspect she has influenza or other viral syndrome and possibly developing acute bronchitis at this point, versus atypical pneumonia. Her results are pending, for this as well as for RSV and COVID. We discussed that she is likely dehydrated from her infection, as well as the nausea and vomiting. She can feel that her heart is rapid, and we talked about taking Tylenol or ibuprofen to keep her fever and chills under control, as well as helping with the body aches. I will write her for X to cover community-acquired pneumonia, due to her history of atypical pneumonia and as she is now 5 days into this and it is causing chest tightness and is aggravating her asthma. Her chest x-ray however does not show an acute cardiopulmonary process per my read, pending radiologist read still. It does look hazy and more consistent with chronic changes with nodes and bronchial thickening. However will write her for an antibiotic in case this is atypical pneumonia in the setting of underlying asthma, and a steroid due to her chest tightness and this should help open her airways. She can also trialed benzonatate capsules, which have worked for her in the past. She knows to monitor her symptoms closely, along with her , and she will go to the emergency department if symptoms worsen or become worrisome this weekend. Otherwise, she should follow up with PCP next week. Orders: Orders XR chest 2V 11/15/24 R05.9 - Cough, unspecified SARS-CoV2/FLU/RSV 11/15/24 J06.9 - Acute upper respiratory infection, unspecified [employer] Covid-19 Ag 11/15/24 Z20.822 - Contact with and (suspected) exposure to COVID-19 Medications: New prednisone then take 2 and half tabs daily for 3 days, then take 2 tabs daily for 3 days, then take 1 and half tabs daily for 3 days, and then take 1 tab daily for 3 days 60 mg (3 x 20 mg) PO DAILY 30 tabs 0RF 3 days benzonatate 200 mg PO BID-TID PRN 20 caps 0RF cough amoxicillin-pot clavulanate 875-125 mg 1 tab PO BID 10 tabs 0RF 5 days Coding Level of Care Code Est Pt Level 4 (89605) Diagnoses Viral syndrome B34.9
== END 2024-11-15 12:04 | disposition home or self-care (01) ==
PROVIDERS: PCP Internal Medicine; Visit Provider Physician Assistant Medical
DX: B34.9 Viral infection, unspecified (principal)

== ENCOUNTER 2024-11-15 11:12 | Outpatient (REF) | payer OTHER, SELFPAY ==
--- OUTSIDE RECORDS SUMMARY | 2024-11-15 11:15 | XMS_ITS | Encounter Summary ---
Author Organization [facility] Address [address] [place] [address] Care Team Providers Care Operational Communication Chief Name Role Phone Mattie Priest MD Primary Care Prov ider Reason for Visit * Reason Comments Tremors Encounter Details Date Type Department Care Team (Late st Contact Info) Description 10/24/2024 1:00 PM EST Office Visit Adult Medicine [facility] [address] [place] [address] Agustin Hebert PA [address] [place] [address] Coarse tremors (Primary Dx) Social History Tobacco [...] under the care of a neurologist at [place] for her migraines and is awaiting approval [...] Vitamin D 25-hydroxy (VITD). Test performed at [facility], [address] [facility], [place] [address] Patricia Garibay MD, PhD - Ginning Operator Iron 08/25/2024 66 40 - 150 mcg/dL [...] Description 11/17/2024 2:30 PM EST Office Visit [facility] [address] [phone] Jamel Capone MD [address] [address] 12/02/2024 8:15 AM EDT Office Visit [facility] [address] [phone] Jamel Capone MD [address] [address] 12/30/2024 1:20 PM EDT Office Visit Gastroenterology - [place] [address] [phone] Geri Zayas PA [address] [address] 02/12/2025 9:45 AM EDT Office Visit Adult Medicine - [place] [address] [place] [phone] Agustin Hebert PA [address] [place] [address] documented as of this encounter Visit Diagnoses Diagnosis Coarse tremors- Primary Abnormal involuntary movements documented in this encounter Care Teams Operational Communication Chief Relationship Specialty Start Date End Date Mattie Priest MD [address] [place] [address] PCP - General Internal Medicine 07/14/24 documented as of this encounter
[2024-11-15 15:51] LABS: Influenza A PCR POSITIVE (Negative); Influenza B PCR NEGATIVE (Negative); Resp Syncy Virus RNA Qual PCR NEGATIVE (Negative); SARS COV2 PCR INHOUSE NEGATIVE (Negative)
== END 2024-11-15 11:13 | disposition home or self-care (01) ==
LOC: HO.LNP 11:12
PROVIDERS: Visit Provider Physician Assistant Medical
DX: J06.9 Acute upper respiratory infection, unspecified (principal)
CPT/HCPCS: 0241U; 71046; 99212

== ENCOUNTER → 2024-11-15 11:15 | Outpatient (BNV) | payer OTHER, SELFPAY | PROVIDERS: PCP Internal Medicine; Visit Provider Radiology Diagnostic Radiology | DX: R05.9 Cough, unspecified (principal) | CPT/HCPCS: 71046 ==

== ENCOUNTER 2024-12-02 11:34 | Outpatient (REF) | payer OTHER, SELFPAY ==
[2024-12-02 14:07] LABS: Erythrocyte Sedimentation Rate 14 MM/HR (0-20)
[2024-12-03 18:43] LABS: Lyme Abs Screen <0.90 index
== END 2024-12-02 11:35 | disposition home or self-care (01) ==
LOC: HO.LAB 11:34
PROVIDERS: PCP Internal Medicine; Visit Provider Psychiatry & Neurology Neurology
DX: R51.9 Headache, unspecified (principal)
CPT/HCPCS: 36415; 85652; 86617; 86618

== ENCOUNTER 2025-01-05 05:34 | Emergency (ER) | payer OTHER, SELFPAY ==
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
--- NOTE | ~2025-01-05 | XR_ITS ---
CLINICAL HISTORY: chest wall pain 2 view chest x-ray. Comparison: CR - XR CHEST 2V - 11/15/24 11:23 EST Findings: The lungs are adequately expanded. No focal consolidation. No effusion or pneumothorax. Cardiac and mediastinal contours are within normal limits. No acute osseous abnormality Impression: No acute process. This document has been electronically signed by: Nick Sorensen MD on 01/05/2025 08:42:22
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
[2025-01-05 05:36] VITALS: BP 118/84; PULSE 78; RESP 18; TEMP 36.8; O2SAT 98; BMI 34.9
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
[2025-01-05] MEDS: Cyclobenzaprine HCl 10 MG TABLET PO (07:43)
[2025-01-05 09:16] VITALS: BP 123/72; PULSE 64; RESP 13; TEMP 36.7; O2SAT 100
[2025-01-05 09:36] VITALS: BP 123/72; PULSE 64; RESP 13; TEMP 36.7; O2SAT 100
== END 2025-01-05 09:39 | disposition home or self-care (01) ==
PROVIDERS: Emergency Provider Emergency Medicine; PCP Internal Medicine
DX: S16.1XXA Strain of muscle, fascia and tendon at neck level, initial encounter (principal); M54.50 Low back pain, unspecified; M54.2 Cervicalgia; R07.89 Other chest pain; V43.52XA Car driver injured in collision with other type car in traffic accident, initial encounter; Y93.9 Activity, unspecified; Y92.410 Unspecified street and highway as the place of occurrence of the external cause; Y99.8 Other external cause status; Z79.899 Other long term (current) drug therapy
CPT/HCPCS: 70450; 71046; 72100; 72125; 99284

== ENCOUNTER → 2025-01-05 07:28 | Outpatient (BNV) | payer OTHER, SELFPAY | PROVIDERS: Emergency Provider Emergency Medicine; PCP Internal Medicine; Visit Provider Radiology Vascular & Interventional Radiology | DX: S19.9XXA Unspecified injury of neck, initial encounter (principal); S09.90XA Unspecified injury of head, initial encounter; M54.9 Dorsalgia, unspecified; R07.9 Chest pain, unspecified | CPT/HCPCS: 70450; 71046; 72100; 72125 ==

== ENCOUNTER 2025-02-05 15:52 | Emergency (ER) | payer OTHER, SELFPAY ==
--- NOTE | ~2025-02-05 | CT_ITS ---
CLINICAL HISTORY: CP and elevated D-dimer. CT angiography of the chest with IV contrast. 3D/MIP post processing reconstructions were performed. COMPARISON: XR chest dated 02/05/25 at 16:23 EDT FINDINGS: There are no intraluminal filling defects to suggest pulmonary embolism. No evidence of right heart strain. Status post right thyroid lobectomy. No supraclavicular or axillary lymphadenopathy. Ascending aorta and main pulmonary artery are normal in caliber. No pericardial effusion. Normal esophagus. No mediastinal or hilar lymphadenopathy. No pleural effusion. No consolidation. Trachea and central airways are clear. No significant bronchial wall thickening. No bronchiectasis. Visualized portions of the upper abdomen are unremarkable. No acute fracture or suspicious osseous abnormality. IMPRESSION: 1. No evidence of pulmonary embolism. 2. No acute intrathoracic findings. No evidence of pneumonia. This document has been electronically signed by: Bhargav Cedillo MD on 02/05/2025 19:25:12
--- NOTE | ~2025-02-05 | XR_ITS ---
EXAMINATION: XR CHEST CLINICAL INFORMATION: chest tightness COMPARISON: 01/05/2025, 11/15/2024. TECHNIQUE: 2 views of the chest were obtained. FINDINGS: The cardiac, hilar, and mediastinal contours are normal. The lungs are clear bilaterally. There is no pneumothorax or pleural effusion. There is no focal osseous or soft tissue abnormality. XR/XR chest 2V IMPRESSION: No active pulmonary disease. Electronically signed by: Bradley العراقي MD 02/05/2025 04:32 PM EDT
--- NOTE | 2025-02-05 15:58 | ECG_ITS ---
Test Reason : SOB Blood Pressure : */* mmHG Vent. Rate : 106 BPM Atrial Rate : 106 BPM P-R Int : 160 ms QRS Dur : 88 ms QT Int : 338 ms P-R-T Axes : 45 -7 54 degrees QTcB Int : 448 ms Sinus tachycardia Possible Left atrial enlargement Minimal voltage criteria for LVH, may be normal variant ( R in aVL ) Borderline ECG No previous ECGs available Referred By: Mandi Barraza Electronically Signed By: Phani Paz
[2025-02-05 16:04] VITALS: BP 134/86; PULSE 110; RESP 18; TEMP 36.9; O2SAT 97; BMI 36.2
--- NOTE | 2025-02-05 16:08 | ED_ITS ---
HPI - General Adult General Chief complaint: Dyspnea Stated complaint: CP Time Seen by Provider: 02/05/25 17:05 Source: patient Mode of arrival: ambulatory Limitations: no limitations History of Present Illness ED Provider: DR. Villegas HPI narrative: 64-year-old female history of asthma came in for evaluation of chest tightness and shortness of breath for 3 days. Nonproductive cough, no fever, no chills, no sick contacts, no recent travel, no lower extremity swelling or tenderness, no active smoking. Related Data Home Medications ?Medication ?Instructions ?Recorded ?Confirmed albuterol sulfate 90 mcg/actuation 2 puff inhalation Q6H PRN 05/30/22 aerosol inhaler duloxetine 30 mg capsule,delayed 60 mg PO DAILY 05/30/22 release fluticasone 500 mcg-salmeterol 50 1 inh inhalation BID 05/30/22 mcg/dose blistr powdr for inhalation (Wixela Inhub) fluticasone prop.50 mcg 2 spray intranasal DAILY 05/30/22 spray,suspen-sod.chloride 0.9% nasal spray kit levothyroxine 100 mcg tablet 100 mcg PO DAILY 05/30/22 metoprolol succinate 25 mg 25 mg PO DAILY 05/30/22 tablet,extended release 24 hr umeclidinium 62.5 mcg/actuation 1 inh inhalation DAILY 05/30/22 blister powder for inhalation (Incruse Ellipta) valsartan 160 1 tab PO DAILY 05/30/22 mg-hydrochlorothiazide 25 mg tablet Previous Rx's ?Medication ?Instructions ?Recorded pantoprazole 20 mg tablet,delayed 40 mg (2 x 20 mg) PO DAILY 30 days 05/30/22 release #60 tabs prochlorperazine maleate 10 mg 10 mg PO Q8H PRN headache #10 tabs 11/10/24 tablet (Compazine) amoxicillin 875 mg-potassium 1 tab PO BID 5 days #10 tabs 11/15/24 clavulanate 125 mg tablet benzonatate 200 mg capsule 200 mg PO BID-TID PRN cough #20 11/15/24 caps oseltamivir 75 mg capsule (Tamiflu) 75 mg PO BID 5 days #10 caps 11/15/24 prednisone 20 mg tablet 60 mg (3 x 20 mg) PO DAILY 3 days 11/15/24 #30 tabs cyclobenzaprine 10 mg tablet 10 mg PO TID PRN muscle spasm #12 01/05/25 tabs prednisone 20 mg tablet 20 mg PO BID #10 tabs 02/05/25 Allergies Allergy/AdvReac Type Severity Reaction Status Date / Time aspirin Allergy Intermediate Rash Verified 02/05/25 16:07 ibuprofen Allergy Intermediate Rash Verified 02/05/25 16:07 amoxicillin Allergy Severe Anaphylaxis Uncoded 02/05/25 16:07 IV contrast Allergy Intermediate Swelling Uncoded 02/05/25 16:07 Review of Systems 2 Review of Systems: all other systems are reviewed and are negative Constitutional: Reports as per HPI and Reports no additional constitutional complaints Eyes: Reports as per HPI and Reports no additional eye complaints Reports system reviewed and no additional complaints, except as documented Cardiovascular: Reports as per HPI and Reports no additional cardiovascular complaints Respiratory: Reports as per HPI and Reports no additional respiratory complaints Gastrointestinal: Reports as per HPI and Reports no additional gastrointestinal complaints Genitourinary: Reports no additional female genitourinary complaints Musculoskeletal: Reports no additional musculoskeletal complaints Skin/Breast: Reports system reviewed and no additional complaints, except as docu Psychiatric: Reports no additional psychiatric complaints Endocrine: Reports no additional endocrine complaints Hematologic/Lymphatic: Reports no additional hematologic/lymphatic complaints Allergic/Immunologic: Reports no additional allergic/immunologic complaints Reports system reviewed and no additional complaints, except as documented and Reports Abnormal speech present [facility] Social History Social History Patient Tobacco Use Status: Never used Tobacco Advance Directives: Yes Advance Directives on File: Yes Advance Directives Date on File: 11/11/23 Physical Exam ED Vital Signs: Vital Signs - 24 hr 02/05/25 16:04 02/05/25 17:37 02/05/25 18:06 Temperature 98.4 F 98.1 F Pulse Rate 110 H 82 84 Respiratory Rate 18 22 H 16 Blood Pressure 134/86 129/71 Pulse Oximetry 97 95 Oxygen Delivery Method Room Air Room Air BMI result Body Mass Index 36.2 Vital signs have been reviewed and appear to be correct. Blood pressure elevated. Heart rate elevated. Respiratory rate normal. Temperature normal. Oxygen saturation normal. Appearance: Alert. Oriented X3. No acute distress. Head: Normal external exam. Normocephalic. Atraumatic. No Wright signs noted. No raccoon eyes noted Eyes: PERRLA. EOMI. Conjunctiva and sclera normal. Eyelids normal. ENT: TM's Normal. Pharynx normal. Uvula midline. Moist mucous membranes. No trismus noted. No drooling noted. No muffled voice noted. Neck: Normal inspection. Neck supple. FROM. No adenopathy. Thyroid Normal. No meningeal signs. No neck mass noted. CVS: Normal heart rate and rhythm. Heart sound normal. No murmurs noted. Pulses normal throughout. Respiratory: No respiratory distress. Painless inspiration. Breath sounds normal. Diffuse mild expiratory wheezing with prolonged expiration. No accessory muscle usage noted or decreased air movement noted. Abdomen: Soft and nontender. Bowel sounds normal in all 4 quadrants. No distention noted. No organomegaly noted. No visible injury noted. Back: No CVA tenderness. Full range of motion noted. Skin: Skin warm and dry. Normal skin color. Normal skin turgor. No rashes/lesions/lacerations noted. Extremities: No lower extremity edema. Extremities exhibit normal range of motion. Extremities nontender. Neuro: Oriented X 3. Cranial nerve exam: II-XII are grossly intact No motor deficit. No sensory deficit. Reflexes normal. Course Course Course Narrative: This is a rapid medical exam performed by Diego Barraza NP: Additional HPI, ROS, PE not included below will be deferred to primary provider. Patient is a 64-year-old female with history of asthma presenting with complaint of palpitations, shortness of breath and tightness to chest and back for the past 2 days. Denies cough/fever. Plan: EKG, labs, CXR Reevaluation(s) Reevaluation #1: Acute asthma exacerbation. ACS was ruled out by negative troponin after 3 days of symptoms, no pneumonia or acute pathology on the chest x-ray, CT angio of the chest shows no intrathoracic life-threatening condition including but not limited to pulmonary embolism or dissection. Patient feels better with bronchodilator will start on few days of prednisone. Time: 19:28 Medications Administered Discontinued Medications Generic Name Dose Route Start Last Admin Trade Name Freq PRN Reason Stop Dose Admin Albuterol Sulfate 2.5 mg/ 0 mg 02/05/25 17:28 02/05/25 17:36 Albuterol/Ipratropium 3 ml INHALE 02/05/25 17:29 1 dose ONCE ONE Administration Magnesium Sulfate 2 gm in 50 mls @ 25 mls/hr 02/05/25 17:23 02/05/25 17:40 Magnesium Sulfate/H2o IV 02/05/25 19:22 25 mls/hr ONCE ONE Administration Iohexol 100 ml 02/05/25 18:16 02/05/25 18:17 Iohexol 350 Mg/Ml 100 Ml Infus..Btl IV 02/05/25 18:17 65 ml ONCE ONE Administration Methylprednisolone Sodium Succinate 125 mg 02/05/25 17:23 02/05/25 17:39 Methylprednisolone Sod Succ 125 Mg Vial IVPUSH 02/05/25 17:24 125 mg ONCE ONE Administration Medical Decision Making Differential Diagnosis Differential Diagnoses: The differential diagnosis associated with the presentation includes ( bronchitis, asthma exacerbation, pneumonia, pneumothorax, pleural effusion, pulmonary embolism, ACS.) Admission/Observation Consideration of admission/observation: Escalation of care including admission/observation considered Lab Data MDM Lab Attestation statement: I reviewed the patient's lab results. 02/05/25 16:13 02/05/25 16:13 Labs: Lab Results 02/05/25 Range/Units 16:13 WBC 10.8 (4.8-10.8) X10*3/uL RBC 3.96 L (4.20-5.50) X10*6/uL Hgb 12.8 (12.0-16.0) g/dl Hct 36.1 L (37.0-47.0) % MCV 91.2 (80.0-98.0) fL MCH 32.3 (27.0-33.0) pg MCHC 35.5 H (31.0-35.0) g/dl RDW 12.6 (11.0-16.0) % Plt Count 287 (160-400) X10*3/uL MPV 9.5 (9.4-12.3) fL Immature Gran % (Auto) 0.6 H (0.0-0.4) % Neut % (Auto) 84.2 H (45-73) % Lymph % (Auto) 8.3 L (20-40) % [place] % (Auto) 6.8 (2-11) % Eos % (Auto) 0.0 (0-4) % Baso % (Auto) 0.1 (0-2) % Lymph # (Auto) 0.9 L (1.2-4.9) X10*3/uL [place] # (Auto) 0.7 (0.1-1.2) X10*3/uL Eos # (Auto) 0.0 (0.0-0.4) X10*3/uL Baso # (Auto) 0.0 (0.0-0.2) X10*3/uL Abs Immat Gran (auto) 0.07 H (0.00-0.03) X10*3/uL Absolute Neuts (auto) 9.1 H (2.0-8.3) x10*3/uL Absolute Nucleated RBC 0.000 (0.0-0.012) X10*3/uL Nucleated RBC % (auto) 0.0 (0.0-0.2) /100WBC PT 11.3 (10.9-12.4) SEC INR 1.0 (0.9-1.1) D-Dimer High Sensitivty 407 NG/ML Sodium 141 (135-145) mmol/L Potassium 3.8 (3.3-5.1) mmol/L Chloride 111 H (96-108) mmol/L Carbon Dioxide 21 L (22-29) mmol/L Anion Gap 13 (12-20) BUN 17 H (9-16) mg/dL Creatinine 0.68 (0.5-1.4) mg/dL Estim Creat Clear Calc 98.4 Estimated GFR > 60 Random Glucose 192 H (60-115) mg/dL Calcium 9.6 (8.4-10.2) mg/dL Magnesium 2.1 (1.6-2.6) mg/dL Total Bilirubin 0.1 (0.0-1.0) mg/dL AST 22 (5-31) U/L ALT 19 (0-31) U/L Alkaline Phosphatase 82 (39-117) U/L Troponin I High Sens 5.1 (<3.5-17.0) ng/L Total Protein 7.4 (6.5-8.0) g/dL Albumin 4.6 (3.5-5.0) g/dL TSH 0.39 (0.32-4.0) uIU/mL Influenza Type A (PCR) NEGATIVE (Negative) Influenza Type B (PCR) NEGATIVE (Negative) RSV RNA Qual (PCR) NEGATIVE (Negative) SARS-CoV-2 RNA (RT-PCR) NEGATIVE (Negative) Independent Interpretation I performed an independent interpretation of an: Plain X-Ray ( chest: No acute intrathoracic pathology.) and CT Scan ( CT angio of chest:1. No evidence of pulmonary embolism. 2. No acute intrathoracic findings. No evidence of pneumonia.) Radiology Impression Discussion of test interpretation with radiology: I have reviewed the radiologist's reading. Critical Care Time Critical Care Time Critical Care Time: Yes Total Critical Care Time: 40 Attestation: The patient was critically ill with a high probability of imminent or life- threatening deterioration. I spent greater than 30 minutes of discontinuous time evaluating the patient, delivering critical care at the bedside, discussing evaluating data with consultants. Critical care time does not include time spent performing separately billable procedures or teaching. Time spent performing critical care was 40 minutes. Discharge Plan Discharge Clinical Impression: Asthma with exacerbation Patient Disposition: Home, Self-Care Instructions: Asthma (ED) Prescriptions: New prednisone 20 mg tablet 20 mg PO BID Qty: 10 0RF No Action oseltamivir [Tamiflu] 75 mg capsule 75 mg PO BID 5 Days Qty: 10 0RF cyclobenzaprine 10 mg tablet 10 mg PO TID PRN (Reason: muscle spasm) Qty: 12 0RF prochlorperazine maleate [Compazine] 10 mg tablet 10 mg PO Q8H PRN (Reason: headache) Qty: 10 0RF metoprolol succinate 25 mg tablet extended release 24 hr 25 mg PO DAILY valsartan-hydrochlorothiazide 160-25 mg tablet 1 tab PO DAILY levothyroxine 100 mcg tablet 100 mcg PO DAILY duloxetine 30 mg capsule,delayed release(DR/EC) 60 mg PO DAILY Incruse Ellipta 62.5 mcg/actuation blister with device 1 inh inhalation DAILY fluticasone propion-salmeterol [Wixela Inhub] 500-50 mcg/dose blister with device 1 inh inhalation BID albuterol sulfate 90 mcg/actuation HFA aerosol inhaler 2 puff inhalation Q6H PRN fluticasone prp-sod.chl,bicarb 50 mcg- 0.9 % kit,spray suspension and spray 2 spray intranasal DAILY pantoprazole 20 mg tablet,delayed release (DR/EC) 40 mg PO DAILY 30 Days Qty: 60 0RF prednisone 20 mg tablet 60 mg PO DAILY 3 Days Qty: 30 0RF Rx Instructions: then take 2 and half tabs daily for 3 days, then take 2 tabs daily for 3 days, then take 1 and half tabs daily for 3 days, and then take 1 tab daily for 3 days benzonatate 200 mg capsule 200 mg PO BID-TID PRN (Reason: cough) Qty: 20 0RF amoxicillin-pot clavulanate 875-125 mg tablet 1 tab PO BID 5 Days Qty: 10 0RF Referrals: Mattie Priest MD [Primary Care Provider] - Print Language: Kazakh
[2025-02-05 16:25] LABS: MANUAL DIFF FLAG NO
[2025-02-05 16:30] LABS: Basophils Percent Auto 0.1 % (0-2); Hematocrit 36.1 % (37.0-47.0); Hemoglobin 12.8 g/dl (12.0-16.0); Imm Gran Abs Auto 0.07 X10*3/uL (0.00-0.03); Imm Gran Pct Auto 0.6 % (0.0-0.4); Lymphocytes Absolute Auto 0.9 X10*3/uL (1.2-4.9); Lymphocytes Percent Auto 8.3 % (20-40); Mean Corpuscular HGB Conc 35.5 g/dl (31.0-35.0); Mean Corpuscular Hemoglobin 32.3 pg (27.0-33.0); Mean Corpuscular Volume 91.2 fL (80.0-98.0); Mean Platelet Volume 9.5 fL (9.4-12.3); Monocytes Absolute Auto 0.7 X10*3/uL (0.1-1.2); Monocytes Percent Auto 6.8 % (2-11); Neutrophils Absolute Auto 9.1 x10*3/uL (2.0-8.3); Neutrophils Percent Auto 84.2 % (45-73); Platelet Count 287 X10*3/uL (160-400); Red Blood Count 3.96 X10*6/uL (4.20-5.50); Red Cell Distribution Width 12.6 % (11.0-16.0); White Blood Count 10.8 X10*3/uL (4.8-10.8)
[2025-02-05 16:38] LABS: Prothrombin Time 11.3 SEC (10.9-12.4)
[2025-02-05 16:52] LABS: Alanine Aminotransferase 19 U/L (0-31); Albumin Level 4.6 g/dL (3.5-5.0); Alkaline Phosphatase 82 U/L (39-117); Anion Gap 13 (12-20); Aspartate Amino Transferase 22 U/L (5-31); Bilirubin Total 0.1 mg/dL (0.0-1.0); Blood Urea Nitrogen 17 mg/dL (9-16); Calcium 9.6 mg/dL (8.4-10.2); Carbon Dioxide 21 mmol/L (22-29); Chloride 111 mmol/L (96-108); Creatinine Clr Calc Pharmacy 98.4; Estimated Glomerular Filt Rate > 60; Glucose Random 192 mg/dL (60-115); Magnesium 2.1 mg/dL (1.6-2.6); Potassium 3.8 mmol/L (3.3-5.1); Sodium 141 mmol/L (135-145); Total Protein 7.4 g/dL (6.5-8.0)
[2025-02-05 16:55] LABS: Troponin-I High Sensitivity 5.1 ng/L (<3.5-17.0)
[2025-02-05 17:09] LABS: TSH reflex Free T4 0.39 uIU/mL (0.32-4.0)
[2025-02-05 17:10] LABS: Influenza A PCR NEGATIVE (Negative); Influenza B PCR NEGATIVE (Negative); Resp Syncy Virus RNA Qual PCR NEGATIVE (Negative); SARS COV2 PCR INHOUSE NEGATIVE (Negative)
[2025-02-05 17:36] LABS: D Dimer High Sensitivity 407 NG/ML
[2025-02-05] MEDS: Albuterol Sulfate 2.5 MG, Albuterol/Iprat 2.5/0.5MG 3 ML 3 ML INHALE (17:36)
[2025-02-05 17:37] VITALS: PULSE 82; RESP 22; O2SAT 98
[2025-02-05] MEDS: Magnesium Sulfate/H2O 2 GM/50 ML PIGGYBACK IV (17:40)
[2025-02-05 18:06] VITALS: BP 129/71; PULSE 84; RESP 16; TEMP 36.7; O2SAT 95
[2025-02-05] MEDS: iohexoL 350 MG/ML 100 ML INFUS..BTL IV (18:17)
--- NOTE | 2025-02-05 19:08 | PC.NURSE ---
Report received. Taken over care at this time.
[2025-02-05 19:32] VITALS: BP 145/82; PULSE 86; RESP 16; TEMP 36.6; O2SAT 97
[2025-02-05 19:49] VITALS: BP 145/82; PULSE 86; RESP 16; TEMP 36.6; O2SAT 97
== END 2025-02-05 19:50 | disposition home or self-care (01) ==
PROVIDERS: Registered Nurse Emergency; Emergency Provider Emergency Medicine; PCP Internal Medicine
DX: J45.901 Unspecified asthma with (acute) exacerbation (principal); R06.02 Shortness of breath; R05.9 Cough, unspecified; Z79.899 Other long term (current) drug therapy
CPT/HCPCS: 0241U; 71046; 71275; 80053; 83735; 84443; 84484; 85025; 85379; 85610; 93005; 94640; 96365; 96366; 96375; 99285; J2919; J3475; Q9967

== ENCOUNTER → 2025-02-05 15:58 | Outpatient (BNV) | payer OTHER, SELFPAY | PROVIDERS: Emergency Provider Emergency Medicine; PCP Internal Medicine; Visit Provider Internal Medicine Cardiovascular Disease | DX: R00.0 Tachycardia, unspecified (principal) | CPT/HCPCS: 93010 ==

== ENCOUNTER → 2025-02-05 16:10 | Outpatient (BNV) | payer OTHER, SELFPAY | PROVIDERS: PCP Internal Medicine; Visit Provider Radiology Diagnostic Radiology | DX: R07.9 Chest pain, unspecified (principal); R79.1 Abnormal coagulation profile; R07.89 Other chest pain | CPT/HCPCS: 71046; 71275 ==

== ENCOUNTER 2025-06-20 09:06 | Outpatient (AMB) | payer OTHER, SELFPAY ==
--- OUTSIDE RECORDS SUMMARY | 2025-06-20 09:09 | XMS_ITS | Clinical Summary ---
Author Organization 175 [facility] Address [address] [place] [phone] Phone Care Team Providers Care Flight Radio Officer Name Role Phone Mattie Priest MD Primary [...] (four) hours if needed (COUGH OR WHEEZING). 023 Active albuterol 2.5 mg /3 mL (0.083 %) nebulizer solution Inhale 3 mL (2.5 mg total) by mouth every 4 (four) hours if needed for wheezing. for up to 30 days 023 Active cetirizine (ZyrTEC) 10 mg tablet Take 1 tablet (10 mg total) by mouth 1 (one) time each day if needed for allergies. Active diclofenac (VOLTAREN) 1 % topical gel Apply 4 g topically 2 (two) times a day. Active mometasone (ELOCON) 0.1 % ointment 2 (two) times a day. Apply 0.5 FTU to the affected area for 2 weeks Active pantoprazole (PROTONIX) 20 mg EC tablet Take 1 tablet (20 mg total) by mouth 2 (two) times a day before meals. Active acetaminophen (TYLENOL) 325 mg tablet every 6 (six) hours if needed. Active ubrogepant (UBRELVY) 100 mg tablet Take by mouth. Activ e metoprolol succinate (TOPROL-XL) 25 mg 24 hr tablet TAKE 1 TABLET BY MOUTH DAILY 90 tablet 1 Active pramipexole (MIRAPEX) 0.125 mg tablet TAKE THREE TABLETS BY MOUTH EVERY EVENING AT BEDTIME 270 tablet 1 Active cyclobenzaprine (FLEXERIL) 5 mg tablet TAKE 1 TABLET BY MOUTH DAILY FOR 15 DAYS Active ergocalciferol (VITAMIN D-2) 1,250 mcg (50,000 unit) capsule Take 1 capsule (50,000 Units total) by mouth 1 (one) time per week. 12 each 1 025 2024 Active irbesartan (Avapro) 300 mg tablet Take 1 tablet (300 mg total) by mouth at bedtime. 30 each 025 2025 Active chlorthalidone (HYGROTON) 25 mg tablet Take 1 tablet (25 mg total) by mouth 1 (one) time each day. 30 each 025 2025 Active Trulance 3 mg tablet TAKE 1 TABLET BY MOUTH DAILY 30 tablet 3 Active levothyroxine (SYNTHROID, LEVOTHROID) 100 mcg tabletIndicatio ns:Hypothyroidi sm, unspecified type TAKE ONE TABLET BY MOUTH EVERY DAY BEFORE BREAKFAST 90 tablet 1 Active methylPREDNISol one (MEDROL DOSPAK) 4 mg tablet Follow schedule on package instructions 1 each 025 Active fluticasone propion-salmete roL (ADVAIR DISKUS) 500-50 mcg/dose diskus inhalerIndicati ons:Moderate persistent asthma without complication Inhale 1 puff by mouth 2 (two) times a day. for 30 days 1 each 11 025 2025 Active amLODIPine (NORVASC) 2.5 mg tablet Take 1 tablet (2.5 mg total) by mouth 1 (one) time each day in the morning. 30 each 5 025 2025 Active tirzepatide, weight loss, (Zepbound) 2.5 mg/0.5 mL injection Inject 0.5 mL (2.5 mg total) under the skin every 7 (seven) days. 2 mL 025 Active budesonide-form oteroL (SYMBICORT) 160-4.5 mcg/actuation inhaler Inhale 2 puffs by mouth 2 (two) times a day. Rinse mouth with water after use to reduce aftertaste and incidence of candidiasis. Do not swallow. 10.2 g 025 2025 Active fluticasone propion-salmete roL (ADVAIR DISKUS) 500-50 mcg/dose diskus inhaler Inhale 1 puff by mouth 2 (two) times a day. for 30 days 024 2024 Discontinued(R eorder) levothyroxine (SYNTHROID, LEVOTHROID) 100 mcg tabletIndicatio ns:Hypothyroidi sm, unspecified type Take 1 tablet (100 mcg total) by mouth 1 (one) time each day before breakfast. 90 tablet 1 025 2024 Discontinued tirzepatide 2.5 mg/0.1 mL syringe Inject 2.5 mg under the skin 1 (one) time per week. 2 mL 025 2024 Discontinued(P rescriber Discontinued) tirzepatide, weight loss, (Zepbound) 2.5 mg/0.5 mL injection Inject 0.5 mL (2.5 mg total) under the skin every 7 (seven) days. 2 mL 025 2024 Discontinued(P rescriber Discontinued) doxycycline (VIBRAMYCIN) 100 mg capsule Take 1 capsule (100 mg total) by mouth 2 (two) times a day for 10 days. Take with at least 8 ounces (large glass) of water, do not lie down for 30 minutes after. Administer 2 hours before or after multivitamins, antacids, or other products containing polyvalent cations (i.e., calcium, iron, magnesium, selenium, zinc). 20 each 025 2024 budesonide-form oteroL (SYMBICORT) 160-4.5 mcg/actuation inhaler Inhale 2 puffs by mouth 2 (two) times a day. Rinse mouth with water after use to reduce aftertaste and incidence of candidiasis. Do not swallow. 10.2 g 11 025 2024 Discontinued(R eorder) Active Problems Problem Noted Date Diagnosed Date Benign intracranial hypertension 06/18/2025 Chronic migraine without aura, with status migra inosus 06/18/2025 Class 1 obesity 06/18/2025 Organic anxiety disorder 06/18/2025 Trigeminal neuralgia 06/18/2025 Non-refractory chronic migraine without aura 10/2024 Bacterial conjunctivitis 04/26/2025 Bipolar disorder ([facility] V24, [facility] V28) 05/2025 Restless legs syndrome 01/30/2025 Temporomandibular joint disorder 11/05/2024 Otalgia of both ears 11/05/2024 Postoperative pain 07/14/2024 Sensorineural hearing loss (SNHL) of right ear 1 Anxiety 06/24/2024 Back pain 06/24/2024 Class 2 severe obesity due t o excess calories with serious comorbidity in adult 06/24/2024 Mild concentric left ventricular hypertrophy (LV H) 06/24/2024 Prediabetes 06/24/2024 Allergic rhinitis 06/19/2024 Hypertrophy of lingual tonsil 06/19/2024 Candidal otitis externa 04/30/2023 Overview (06/18/2025): Candidal otitis externa; Note: Date Diagnosed: 04/30/2023 1:52 PM (B37.84) Closed fracture of lower end of left radius with routine healing 10/17/2022 Gallbladder polyp 09/22/2022 Left upper quadrant abdominal pain 09/22/2022 Sleep apnea 02/23/2021 Bilateral impacted cerumen 01/14/2021 Overview (06/18/2025): Impacted cerumen, bilateral; Note: Date Diagnosed: 01/14/2021 3:17 PM (H61.23) Eczema 01/14/2021 Overview (06/18/2025): Other specified dermatitis; Note: Date Diagnosed: 01/14/2021 3:19 PM (L30.8) Moderate persistent asthma without complication 08/10/2020 Nocturnal hypoxemia 06/08/2020 Pain in throat 08/01/2019 Overview (06/18/2025): Pain in throat; Note: Date Diagnosed: 08/01/2019 12:13 PM (R07.0) Primary hypertension 05/31/2019 Benign neoplasm of tongue 05/06/2019 Overview (06/18/2025): Benign neoplasm of lingual tonsil; Note: Date Diagnosed: 05/06/2019 3:56 PM (D10.1) Dysphagia 05/06/2019 Overview (06/18/2025): Dysphagia, unspecified; Note: Date Diagnosed: 05/06/2019 3:56 PM (R13.10) Dysphonia 05/06/2019 Overview (06/18/2025): Hoarseness; Note: Date Diagnosed: 05/06/2019 3:57 PM (R49.0) Chronic bilateral low back pain with left-sided sciatica 08/14/2018 Pily's thyroiditis 10/08/2017 H/O partial thyroidectomy 10/08/2017 Mixed conductive and sensorineural hearing loss, bilateral 07/31/2017 Overview (06/18/2025): Mixed conductive and sensorineural hearing loss, bilateral; Note: Date Diagnosed: 07/31/2017 1:02 PM (H90.6) Cataracts, bilateral 07/27/2017 Depression 07/27/2017 GERD (gastroesophageal reflux disease) 7 Other specified disorders of eustachian tube, bi lateral 07/03/2017 Overview (06/18/2025): Other specified disorders of Eustachian tube, bilateral; Note: Date Diagnosed: 07/03/2017 11:32 AM (H69.83) Constipation 11/16/2016 Vitamin D deficiency 11/16/2016 Hydronephrosis of right kidney 11/17/2015 Microhematuria 11/17/2015 Chronic tonsillitis 02/09/2015 Overview (06/18/2025): Chronic tonsillitis; Note: Date Diagnosed: 02/09/2015 10:14 AM (474.00) Hypothyroid 08/12/2013 Irritable bowel disease 08/12/2013 Migraines 08/12/2013 Obstructive sleep apnea 08/12/2013 Overview (04/13/2025): AHI 2.57 1725 [facility] Home Sleep Apnea Test: Date 05/26/2020; Wt [...] Encounters Date Type Department Care Team Description 06/15/2025 Telephone Adult Medicine - [place] [address] [place] [phone] Mattie Priest MD 06/11/2025 Telephone Pulmonology - [place] 175 [facility] [address] [place] [address] Jamel Capone MD 06/10/2025 8:30 AM EDT Consult Bariatric Surgery - [place] 175 [facility] [address] [place] [address] Keshia Morton PA Class 2 severe obesity due to excess calories with serious comorbidity and body mass index (BMI) of 36.0 to 36.9 in adult (CMS/[facility] V24, [facility] V28) (Primary Dx); Obstructive sleep apnea; Primary hypertension; Prediabetes 06/09/2025 11:15 AM EDT Office Visit [address] [phone] Agustin Hebert PA Left lateral abdominal pain (Primary Dx); Primary hypertension 06/09/2025 Telephone Pulmonology - [place] 175 [facility] [address] [place] [phone] Jamel Capone MD 06/04/2025 1:00 PM EDT Office Visit Orthopedic Surgery - [place] 175 [facility] [address] [place] [phone] Virginia Adams PA Left wrist pain (Primary Dx) 05/26/2025 9:45 AM EDT Office Visit [address] [phone] Agustin Hebert PA Palpitations (Primary Dx); Primary hypertension; Nocturnal hypoxemia; Prediabetes; Precordial pain 05/26/2025 Telephone Adult [address] [phone] Mattie Priest MD 04/20/2025 Telephone Adult [address] [address] Agustin Hebert PA 04/14/2025 9:00 AM EDT Office Visit Adult [address] [phone] Agustin Hebert PA Primary hypertension (Primary Dx); Prediabetes; Mild concentric left ventricular hypertrophy (LVH); Obstructive sleep apnea syndrome; Hypothyroidism, unspecified type; Other fatigue 04/14/2025 Telephone Adult [address] [address] Agustin Hebert PA 03/31/2025 9:00 AM EDT Office Visit Adult [facility] [address] [place] [phone] Agustin Hebert PA Vitamin D deficiency (Primary Dx); Postoperative hypothyroidism; H/O partial thyroidectomy; Primary hypertension; Obstructive sleep apnea; Nocturnal hypoxemia; Moderate persistent asthma without complication; Class 2 severe obesity due to excess calories with serious comorbidity and body mass index (BMI) of 39.0 to 39.9 in adult ([facility] V24, [facility] V28); Prediabetes 03/31/2025 Telephone Adult [facility] [address] [place] [phone] Agustin Hebert PA 03/31/2025 Telephone Adult [facility] [address] [place] [phone] Agustin Hebert PA 03/30/2025 Telephone Adult [facility] [address] [place] [phone] Mattie Priest MD from Last 3 Months Immunizations Immunization Administration Dates Next Due Influenza Quadravalent, MDCK [...] 3 years and older 08/04/2024 Influenza trivalent, MDCK, 0 .5mL, preservative free (Flucelvax) 6mo and older 05/22/2025 Influenza trivalent, with pr eservative (Fluzone; Afluria) 6mo and older 07/01/2021,05/14/2020,10/13/2019 PPD Test 2018,05/17/2016,05/04/2014 Pfizer SARS-CoV-2 COVID-19, mRNA, LNP-S, preservative free 08/04/2021,08/01/2021,01/31/2021,01/22,01/10/2021,01/01/2021 Pneumococcal conjugate 20 va lent (Prevnar 20, PCV 20) 2mo and older 08/25/2024 Pneumococcal polysaccharide 23 valent (Pneumovax 23) 2yo and older 10/17/2011 RSV, bivalent, protein subun it RSVpreF, 0.5mL, Preservative Free (ABRYSVO) 50yo and older or 32 through 36 wks of 08/04/2024 Tdap Tetanus diptheria acell ular pertussis (Boostrix; Adacel) 7yo and older 01/22/2024,05/26/2013 Zoster recombinant (Shingrix ) 19yo and older 08/05/2020,06/06/2020 Surgical History Surgery Date Site/Laterality Comments COLONOSCOPY W/ POLYPECTOMY PROCEDURE: CO COLSC FLX W/RMVL OF TUMOR POLYP LESION SNARE TQ; COMMENT: colonoscopy every five years TONSILLECTOMY 12/30/2014 PROCEDURE: HISTORICAL TONSILLECTOMY OTHER SURGICAL HISTORY 09/26/2017 Right PROCEDURE: CO PRTL THYROID LOBECTOMY UNI W/WO ISTHMUSECTOMY BREAST BIOPSY Right PROCEDURE: BX BREAST; PERC NEEDLE CORE W/IMAG GUID; COMMENT: rt bx neg Medical History Medical History Date Comments Prediabetes DX:Prediabetes Asthma DX:Asthma; COMME NT: dr capone Back pain DX:Back pain HTN (hypertension) DX:HTN [...] DX:Mass of tongu e; COMMENT: ent [place] Obesity Eating disorder Low back pain Family History Medical History Relation Name Comments Hypertension Brother Rajeev Asthma Daughter Maryjane garza Asthma Father Stroke Father 35 yo Arthritis Mother Depression Mother Diabetes Mother Bladder Cancer @ 62 Hypertension Mother Kidney disease Mother Obesity Mother Thyroid disease Mother Breast cancer Neg Hx Colon cancer Neg Hx Ovarian cancer Neg Hx Relation Name Status Comments Brother Rajeev Alive Daughter Maryjane garza Alive Father Mother Social History Tobacco Use Types Packs/Day Years Used Date Smoking Tobacco: Never Smokeless Tobacco: Never Tobacco Cessation:Counseling Given: No Alcohol Use Standard Drinks/Week Comments No 0 (1 standard drink = 0.6 oz pur e alcohol) Housing Instability Answer Date Recorde d Are you worried that in the next 2 months you may not have stable housing? No 01/06/2025 Food Access & Nutrition Answer Date Rec orded Do you have access to a vari ety of food including fruits and vegetables? No 01/06/2025 Access to Healthcare Answer Date Record ed Within the last 3 months, ho w many times did you visit the emergency department for your medical care? 1 01/06/2025 Health Literacy Answer Date Recorded How often do you need to hav e someone help you when you read instructions, pamphlets, or other written material from your doctor or pharmacy? Sometimes 01/06/2025 Caregiver: How often do you need to have someone help you when you read instructions, pamphlets, or other written material from your doctor or pharmacy? Not on file 01/06/2025 Financial Risk Answer Date Recorded How hard is it for you to pa y for the very basics like food, housing, medical care, and air conditioning / heating? Very hard 01/06/2025 Transportation Answer Date Recorded Has the lack of transportati on kept you from meetings, work, or from getting things needed for daily living? No Has the lack of transportati on kept you from medical appointments or from getting medications? No 01/06/2025 Social Isolation Answer Date Recorded How often do you feel lonely or isolated from th ose around you? Never 01/06/2025 Food Risk Answer Date Recorded Within the past 12 months we worried whether our food would run out before we got money to buy more. Patient declined 025 Within the past 12 months th e food we bought just didn't last and we didn't have money to get more. Sometimes true 12/17 Dependent Care Answer Date Recorded Do you need help finding or paying for care for your loved ones. For example, child care group leader or elderly care for an older adult? No 01/06/2025 Education Answer Date Recorded Do you think completing more education or training, like finishing a GED, going to college, or learning a trade, would be helpful for you? No 01/06/2025 Employment and Income Answer Date Recor ded During the last four weeks, have you been actively looking for work? Yes 01/06/2025 Living Situation Answer Date Recorded What is your living situation? Unrecognized valu e 01/06/2025 Comments No Sex and Gender Information Value Date Recorded Sex Assigned at Not on file Legal Sex Female 8:58 AM EST Gender Identity Not on file Sexual Orientation Not on file Obstetrics History Para Term AB IAB SAB Ectopic Multiple Livin g Live Births 3 Last Filed Vital Signs Vital Sign Reading Time Taken Comments Blood Pressure 123/81 06/10/2025 8:29 AM EDT Pulse 79 06/10/2025 8:29 AM EDT Temperature 36.6 C (97.8 F) 06/09/2025 10:58 AM EDT Respiratory Rate 16 12/12/2024 1:42 PM EDT Oxygen Saturation 99% 12/12/2024 1:42 PM EDT Inhaled Oxygen Concentration - - Weight 102 kg (225 lb) 06/10/2025 8:29 AM EDT Height 166.4 cm (5' 5.5 ) 06/10/2025 8:29 AM EDT Body Mass Index 36.87 06/10/2025 8:29 AM EDT Plan of Treatment Upcoming Encounters Date Type Department Care Team (Late st Contact Info) Description 06/25/2025 9:50 AM EDT Office Visit Gastroenterology - [place] [address] [place] [phone] Geri Zayas PA 175 [facility] 200 [place] [address] 07/06/2025 8:45 AM EDT Office Visit Pulmonology - [place] 175 [facility] 200 [place] [phone] Jamel Capone MD [address] [address] 07/07/2025 7:30 AM EDT Ancillary Procedure [facility] [address] [facility] 101 [place] [phone] 07/28/2025 10:30 AM EST Office Visit Adult Medicine - [place] [address] [place] [address] Agustin Hebert PA [address] [place] [address] 09/25/2025 9:30 AM EST Office Visit Adult Medicine - [place] [address] [place] [phone] Agustin Hebert PA [address] [place] [address] 11/11/2025 9:00 AM EST Office Visit Bariatric Surgery - [place] 175 [facility] [address] [place] [phone] Keshia Morton PA [address] [place] [address] 11/12/2025 9:10 AM EST Office Visit Gastroenterology - [place] [address] [place] [phone] Geri Zayas PA 175 [facility] 200 [place] [address] 12/18/2025 1:00 PM EDT [facility]ointment [facility] [address] [place] [address] Health Maintenance Due Date Last Done Comments Cervical Cancer Screening: Pap Smear 03/13/2020 03/13/2017, 03/13/2017 Hypertension/CHF/CAD Annual BMP Blood Test 01/28/2026 01/28/2025, 08/25/2024, 04/24/2024, Additional history exists Breast Cancer Screening 12/17/2026 12/18/19, 07/16/2023, 04/26/2023, Additional history exists Colorectal Cancer Screening: Sigmoidoscopy 06/17/2027 Cholesterol Screening (Lipid Panel) 08/25/2029 08/25/2024, 10/11/2021 DTaP,Tdap,and Td Vaccines (3 - Td or Tdap) 01/21/2034 01/22/2024, 05/26/2013 Zoster Vaccines Completed 08/05/2020, 06/06/2020 Colorectal Cancer Screening: Colonoscopy Discontinued 06/22/2022 Hepatitis C Screening Completed 04/05/2023 HIV Screening Completed 04/27/2023 COVID-19 Vaccine Completed 08/04/2024, 11/2022, 03/22/2022, Additional history exists RSV Immunization Adult Patients Completed 08/04/2024 Pneumococcal Vaccine: 50+ Years Completed 08/25/2024, 10/17/2011 Depression Screening Completed 01/06/2025 Social Influencers of Health Screening Discontinued 01/06/2025 Influenza Vaccine Completed 05/22/2025, , 06/19/2023, Additional history exists HIB Vaccines Aged Out No longer eligi [...] age to complete this topic Meningococcal B Vaccine Aged Out No l onger eligible based on patient's age to complete this topic RSV Immunization Patients Under 20 months Aged Out No longer eligible based on patient's age to complete this topic Varicella Vaccines Aged Out No longer eligible based on patient's age to complete this topic Procedures Procedure Name Priority Date/Time Associated Diagnosis Comments XR WRIST 3+ VIEWS LEFT Routine 5 1:22 PM EDT Pain TRIIODOTHYRONINE FREE Routine 03/31/2025 11:43 AM EDT Postoperative hypothyroidism H/O partial thyroidectomy FREE THYROXINE WITH REFLEX TO FREE TRIIODOTHYRONINE Routine 03/31/2025 11:43 AM EDT Postoperative hypothyroidism H/O partial thyroidectomy THYROID STIMULATING HORMONE WITH REFLEX TO FREE T4 AND FREE T3 Routine 03/31/2025 11:43 AM EDT Postoperative hypothyroidism H/O partial thyroidectomy VITAMIN D 25 HYDROXY Routine 03/31/2025 11:43 AM EDT Vitamin D deficiency HEMOGLOBIN A1C Routine 03/31/2025 11:43 AM EDT Prediabetes COMPREHENSIVE METABOLIC PANEL Routine 01/28/2025 11:32 AM EDT Other fatigue MG MAMMO DIGITAL SCREENING W RUFUS BILAT Routine 12/17/2024 2:49 PM EDT Encounter for screening mammogram for breast cancer LIPID PANEL WITH REFLEX TO DIRECT LDL Routine 08/25/2024 9:42 AM EST Primary hypertension Prediabetes HIV SCREENING Routine 04/27/2023 HEPATITIS C SCREENING Routine 04/05/2023 COLONOSCOPY Routine 06/22/2022 HPV Routine 03/13/2017 from Last 3 Months or Most Recently Relevant to Health Maintenance Results * XR Wrist 3+ Views Left (06/04/2025 1:22 PM EDT) Anatomical Region Laterality Modality Upper Extremities, Wrist Left Compute d Radiography Narrative 06/04/2025 3:02 PM EDT Date of Visit: 12/02/2024 left wrist pain Reason for visit: Views: AP, lateral, oblique left wrist Comparison: January 2024 Findings: Left wrist mild narrowing of radiocarpal joint. She has calcifications adjacent to radial styloid and ulnar styloid. On lateral there is a calcification seen at the dorsal aspect of the proximal carpal row. No significant soft tissue swelling. 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 [place] ESPINAL IMG XR PROCEDURES Final Resul t * (ABNORMAL) Thyroid stimulating hormone with reflex to free t4 and free t3 (03/31/2025 11:43 AM EDT) TSH 7.24(H) 0.40 - 4.00 mcIU/mL LAB CHEMISTRY METHOD 03/31/2025 4:40 PM EDT [facility] Blood Venous blood specimen / Unknown Venipuncture / Unknown 03/31/2025 11:43 AM EDT 03/31/2025 11:43 AM EDT Agustin ESPINAL LAB BLOOD ORDERABLES Final Res ult [facility] [address] [place] [address], [place] [phone] * Free thyroxine with reflex to free triiodothyronine (03/31/2025 11:43 AM EDT) Free T4 1.08 0.70 - 1.80 ng/dL LAB CHEMISTRY METHOD 03/31/2025 7:33 PM EDT [facility] Blood Venous blood specimen / Unknown Venipuncture / Unknown 03/31/2025 11:43 AM EDT 03/31/2025 11:43 AM EDT Agustin ESPINAL LAB BLOOD ORDERABLES Final Res ult Performing Organization Address [facility]/ZIP Co de Phone Number [facility] [address] [place] [address], [place] [phone] * Vitamin D 25 hydroxy (03/31/2025 11:43 AM EDT) [facility] Vit D, 25-Hydroxy 53.1 30.0 - 80.0 ng/mL LAB CHEMISTRY METHOD 03/31/2025 4:40 PM EDT [facility] Blood Venous blood specimen / Unknown Venipuncture / Unknown 03/31/2025 11:43 AM EDT 03/31/2025 11:43 AM EDT Agustin ESPINAL LAB BLOOD ORDERABLES Final Res ult Performing Organization Address [facility] de Phone Number [facility] [address] [place] [address], [place] [phone] * Triiodothyronine free (03/31/2025 11:43 AM EDT) T3, Free 291 230 - 420 pcg/dL LAB CHEMISTRY METHOD 03/31/2025 9:38 PM EDT [facility] Blood Venous blood specimen / Unknown Venipuncture / Unknown 03/31/2025 11:43 AM EDT 03/31/2025 11:43 AM EDT Agustin ESPINAL LAB BLOOD ORDERABLES Final Res ult Performing Organization Address City/[facility]/ZIP Co de Phone Number [facility] [address] [place] [address], [place] [phone] * Hemoglobin A1c (03/31/2025 11:43 AM EDT) [facility] Hemoglobin A1C 6.4 <6.5 % LAB CHEMISTRY METHOD 03/31/2025 10:18 PM EDT [facility] Mean Bld Glu Estim. 137 mg/dL LAB CHEMISTRY METHOD 03/31/2025 10:18 PM EDT [facility] Blood Venous blood specimen / Unknown Venipuncture / Unknown 03/31/2025 11:43 AM EDT 03/31/2025 11:43 AM EDT Agustin ESPINAL LAB BLOOD ORDERABLES Final Res ult [facility] [address] [place] [address], * Comprehensive metabolic panel (01/28/2025 11:32 AM EDT) [facility] Sodium 140 133 - 145 mmol/L LAB CHEMISTRY METHOD 01/28/2025 2:24 PM T [facility] Potassium 4.0 3.5 - 5.5 mmol/L LAB CHEMISTRY METHOD 01/28/2025 2:24 PM [facility] Chloride 110 96 - 110 mmol/L LAB CHEMISTRY METHOD 01/28/2025 2:24 PM T [facility] CO2 25 21 - 32 mmol/L LAB CHEMISTRY METHOD 01/28/2025 2:24 PM T [facility] Anion Gap 5 3 - 11 LAB CHEMISTRY METHOD 01/28/2025 2:24 PM [facility] Glucose 85 70 - 100 mg/dL LAB CHEMISTRY METHOD 01/28/2025 2:24 PM [facility] BUN 21 5 - 25 mg/dL LAB CHEMISTRY METHOD 01/28/2025 2:24 PM T [facility] Creatinine 0.82 0.50 - 1.10 mg/dL LAB CHEMISTRY METHOD 01/28/2025 2:24 PM EDT [facility] eGFR 80 >=60 mL/min/1. 73m2 LAB CHEMISTRY METHOD 01/28/2025 2:24 PM T [facility] Comment:Calculation based on the Chronic Kidney Disease Epidemiology Collaboration (CKD-EPI) equation refit without adjustment for race. BUN/Creatinine Ratio 25.6 LAB CHEMISTRY METHOD 01/28/2025 2:24 PM EDT [facility] Calcium 9.1 8.5 - 10.5 mg/dL LAB CHEMISTRY METHOD 01/28/2025 2:24 PM T [facility] AST (SGOT) 13 10 - 42 unit/L LAB CHEMISTRY METHOD 01/28/2025 2:24 PM [facility] ALT (SGPT) 17 10 - 60 unit/L LAB CHEMISTRY METHOD 01/28/2025 2:24 PM T [facility] Alkaline Phosphatase 96 42 - 121 unit/L LAB CHEMISTRY METHOD 01/28/2025 2:24 PM [facility] Total Protein 7.6 6.0 - 8.0 g/dL LAB CHEMISTRY METHOD 01/28/2025 2:24 PM [facility] Albumin 4.3 3.2 - 5.0 g/dL LAB CHEMISTRY METHOD 01/28/2025 2:24 PM [facility] Total Bilirubin 0.2 0.0 - 1.4 mg/dL LAB CHEMISTRY METHOD 01/28/2025 2:24 PM [facility] Blood Venous blood specimen / Unknown Venipuncture / Unknown 01/28/2025 11:32 AM EDT 01/28/2025 11:36 AM EDT us Daiana ESPINAL LAB BLOOD ORDERABLES Final Result [facility] [address] [place] [address], [place] [phone] * MG Mammo Digital Screening w Rufus bilat (12/17/2024 2:49 PM EDT) Anatomical Region Laterality Modality Breast Bilateral Mammography 12/18/2024 3:11 PM EDT Impressions 12/18/2024 3:14 PM EDT No evidence of breast malignancy. BI-RADS CATEGORY: 1 - NEGATIVE RECOMMENDATION: Screening bilateral mammogram is recommended in 1 year. Mammo Location: [facility], [address] [place], [place], [address], . -------- FINAL REPORT -------- Dictated By: Jessica Fenton Dictated Date: 12/18/2024 15:11 ET Assigned Physician: Jessica Fenton Reviewed and Electronically Signed By: Jessica Fenton Signed Date: 12/18/2024 15:14 ET Workstation ID: [id number] Transcribed By: Self Edit Transcribed Date: 12/18/2024 15:11 ET Narrative 12/18/2024 3:14 PM EDT CLINICAL: 64 years old, Female, routine annual exam. COMPARISON: 07/16/2023, 04/26/2023, 07/12/2022 and 07/06/2021 TECHNIQUE: Bilateral MLO and CC views were obtained digitally with 3-D mammogram (digital breast tomosynthesis). Computer-aided detection was utilized in evaluation of this exam (CAD). FINDINGS: There is no evidence of suspicious mass or architectural distortion. No worrisome calcifications are evident. There has been no significant change from prior exam(s). BREAST DENSITY: A - The breasts are almost entirely fatty. Procedure Note Jessica Fenton MD - 12/18/2024 CLINICAL: 64 years old, Female, routine annual exam. COMPARISON: 07/16/2023, 04/26/2023, 07/12/2022 and 07/06/2021 TECHNIQUE: Bilateral MLO and CC views were obtained digitally with 3-Dmammogram (digital breast tomosynthesis). Computer-aided detection wasutilized in evaluation of this exam (CAD). FINDINGS: There is no evidence of suspicious mass or architectural distortion. Noworrisome calcifications are evident. There has been no significantchange from prior exam(s). BREAST DENSITY: A - The breasts are almost entirely fatty. IMPRESSION: No evidence of breast malignancy. BI-RADS CATEGORY: 1 - NEGATIVE RECOMMENDATION: Screening bilateral mammogram is recommended in 1 year. Mammo Location: [facility], [address] [place] [address], [id number], . -------- FINAL REPORT -------- Dictated By: Jessica Fenton Dictated Date: 12/18/2024 15:11 ET Assigned Physician: Jessica Fenton Reviewed and Electronically Signed By: Jessica Fenton Signed Date: 12/18/2024 15:14 ET Workstation ID: [id number] Transcribed By: Self Edit Transcribed Date: 12/18/2024 15:11 ET us Self Referral Sppl IMG BI PROCEDURES Final Resul t * (ABNORMAL) Lipid panel with reflex to direct LDL (08/25/2024 9:42 AM EST) Cholesterol 218(H) 0 - 200 mg/dL LAB CHEMISTRY METHOD 08/25/2024 1:25 PM EST [facility] Triglycerides 104 0 - 150 mg/dL LAB CHEMISTRY METHOD 08/25/2024 1:25 PM EST [facility] HDL 81 >=40 mg/dL LAB CHEMISTRY METHOD 08/25/2024 1:25 PM EST [facility] LDL Calculated 116(H) 0 - 100 mg/dL LAB CHEMISTRY METHOD 08/25/2024 1:25 PM EST [facility] VLDL Cholesterol Marcelo 20.8 mg/dL LAB CHEMISTRY METHOD 08/25/2024 1:25 PM EST [facility] Non HDL Chol. (LDL+VLDL) 137 <145 mg/dL LAB CHEMISTRY METHOD 08/25/2024 1:25 PM EST [facility] Chol/HDL Ratio 2.7 0.0 - 4.4 LAB CHEMISTRY METHOD 08/25/2024 1:25 PM EST [facility] Blood Venous blood specimen / Unknown Venipuncture / Unknown 08/25/2024 9:42 AM EST 08/25/2024 9:42 AM EST Agustin ESPINAL LAB BLOOD ORDERABLES Final Res ult [facility] [address] [place] [address], * HIV Screening (04/27/2023) [facility] HIV Screening Abstracted Historical Provider HEALTH MAINTENANCE Final Result * Hepatitis C Screening (04/05/2023) [facility] Hepatitis C Screening Abstracted Historical Provider HEALTH MAINTENANCE Final Result * Colonoscopy (06/22/2022) [facility] Colonoscopy No interpretation , abstracted Anatomical Region Laterality Modality Other Historical Provider HEALTH MAINTENANCE Final Result * Cervical Cancer Screening: HPV (03/13/2017) [facility] Cervical Cancer Screening: HPV Negative, abstracted Historical Provider HEALTH MAINTENANCE Final Result from Last 3 Months or Most Recently Relevant to Health Maintenance Insurance [facility] [employer] MEDICARE Member Subscriber Plan / Payer (Ef fective 2022-Present) Name:CHRISTINE GARZA Relation to Subscriber:Self Name:Christine Garza Payer ID:[id number] Group ID:[id number] Type:Not on file Address: [place] [address] [address] [id number] [employer] Care Teams Flight Radio Officer Relationship Specialty Start Date End Date Mattie Priest MD [address] [place] [id number] PCP - General Internal Medicine 07/14/24
--- OUTSIDE RECORDS SUMMARY | 2025-06-20 09:09 | XMS_ITS | Encounter Summary ---
Author Organization [facility] Address [address] [place] [address] Care Team Providers Care Welding Pantograph Operator Name Role Phone Mattie Priest MD Primary Care Prov ider Reason for Visit * Reason Onset Date Comments Abdominal Pain 06/15/2025 Encounter Details Date Type Department Care Team ([facility] st Contact Info) Description 06/15/2025 Telephone Adult Medicine - [place] [address] [place] [phone] Mattie Priest MD [address] [place] [address] Social History Tobacco Use Types Packs/Day Years [...] care for your loved ones. For example, home child care provider or elderly care for an older adult? [...] on file documented as of this encounter Progress Notes * Chai Redmond RN - 06/16/2025 9:23 AM EDT Left message for pt to please return our call * Chai Redmond RN - 06/15/2025 12:23 PM EDT Left message for pt to please return our call * Carlos Calvillo - 06/15/2025 12:13 PM EDT Patient call requires triage: Symptoms patient is presenting: Pt having continued severe abdominal pain. Has appt w/ specialist but is not until October. Pt was told to call back if pain stayed the same. How long has patient had these symptoms?: For ALL patients calling to schedule any appointment (routine, sick visit, follow up, consult, etc.) in the outpatient setting please ask the following questions: Do you have fever of higher than 101, sore throat with difficulty swallowing or severe shortness ofbreath? If YES to any of these above symptoms, send a message to triage and do not book. Red dot. If no, an audio or video visit should be booked. Have you had close contact with someone with Coronavirus in the last 14 days? Have you traveled abroad? Have you traveled recently to another state outside of [place], [place], [place], [place], [place], [place], [place]? o If yes, did you quarantine for 14 days or have a negative covid test? If yes to any of the above, patient is not to be scheduled in office until after 14 day quarantine or negative covid test. If pain or injury related was it due to an accident at work or from a motor vehicle accident? If yes, date of accident/Injury: If yes, gather 3rd democrat insurance information Third Libertarian Information: PCP: Mattie Priest MD Payor: [facility] [employer] MEDICARE / Plan: [employer] ONE CARE / Product Type: *No Product type* / documented in this encounter Plan of Treatment Upcoming Encounters Date Type Department Care Team (Late st Contact Info) Description 06/25/2025 9:50 AM EDT Office Visit Gastroenterology - [place] [address] [place] [phone] Geri Zayas PA [address] [place] [address] 07/06/2025 8:45 AM EDT Office Visit Pulmonology - [place] 175 [facility] [address] [place] [phone] Jamel Capone MD [address] [address] 07/07/2025 7:30 AM EDT Ancillary Procedure [facility] [address] [facility] [address] [place] [phone] 07/28/2025 10:30 AM EST Office Visit Adult Medicine - [place] [address] [place] [phone] Agustin Hebert PA [address] [place] [address] 09/25/2025 9:30 AM EST Office Visit Adult Medicine - [place] [address] [place] [phone] Agustin Hebert PA [address] [place] [address] 11/11/2025 9:00 AM EST Office Visit Bariatric Surgery - [place] 175 [facility] [address] [place] [phone] Keshia Morton PA [address] [place] [phone] 11/12/2025 9:10 AM EST Office Visit Gastroenterology - [place] 175 [facility] [address] [phone] Geri Zayas PA [address] [address] 12/18/2025 1:00 PM EDT Appointment [facility] [address] [place] [phone] documented as of this encounter Visit Diagnoses Not on filedocumented in this encounter Additional Health Concerns Assessment Noted Time PHQ-9 Depression Total Score: 0 01/07/20 25 6:48 PM EDT documented as of this encounter Care Teams Welding Pantograph Operator Relationship Specialty Start Date End Date Mattie Priest MD [address] [place] [id number] PCP - General Internal Medicine 07/14/24 documented as of this encounter
--- OUTSIDE RECORDS SUMMARY | 2025-06-20 09:09 | XMS_ITS | Patient Health Record ---
Author Organization [facility] Address [address] [place] [address] Care Team Providers Care Manager Of Learning Name Role Phone Mattie Conner Primary Care Provide r Naren Jolly Unavailable [phone] Laura Jimenez Unavailable [phone] Allergies Allergen (clinical drug ingredient) Drug/Non Drug [...] Duration) Notes Start Date End Date Status ProAir HFA 108 (90 Base) MCG/ACT 1 puff as needed Inhalation every 4 hrs Active Pregabalin 50 MG As directed. Orally 1 capsule at night for 1 week, 2 capsules every night for 1 week, then finally 3 capsules every night after that.; Duration: 30 days Please give patient a written schedule of how to ramp up the dose. Thanks. 08/08/2023 Not-Taking Wixela Inhub 500-50 MCG/ACT 1 puff Inhalation Twice a day Active Trulance 3 MG 1 tablet Orally Once a day Not-Taking Levothyroxine Sodium 100 MCG 1 tablet in the morning on an empty stomach Orally Once a day Active Nurtec 75 MG 1 tablet on the tongue and allow to dissolve Orally; Duration: 30 days Not-Taking Valsartan-hydroCHLORO thiazide 160-25 MG 1 tablet Orally Once a day and another new BP med Active Metoprolol Succinate ER 25 MG 1 tablet Orally twice a day Active Ubrelvy 100 MG 1 tab along with 2 ibuprofen Orally at onset of migraine. May repeat once after 2 hrs if headache returns.; Duration: 30 days Active acetaZOLAMIDE 250 MG As directed Orally 2 tab in AM and 2.5 tabs at bedtime x4 days, then increase to 2.5 tabs twice a day x4 days, then increase to 2.5 tab in AM and 3 tabs at bedtime x4 days, then increase to 3 tabs twice a day and continue; Duration: 30 days Not-Taking Topiramate 25 MG 2 tablets Orally Once a day at bedtime; Duration: 30 days Active rOPINIRole HCl 0.25 MG 2 tablets one to three hours before bedtime Orally once a day; Duration: 30 days 07/02/2023 Not-Taking Emgality 120 MG/ML Inject 1 syringe Subcutaneous 27 - 30 days; Duration: 30 days Auto-injector on backorder 03/19/2023 Not-Taking Vraylar 3 MG 1 capsule Orally Once a day plans to restart it, was off x1 month Active Spiriva Respimat 1.25 MCG/ACT 2 puffs Inhalation Once a day Not-Taking Pramipexole Dihydrochloride 0.125 MG 3 tabs Orally Once a day at bedtime for RLS works very well Active acetaZOLAMIDE 250 MG 1 tablet orally at bedtime; Duration: 30 days Not-Taking Social History Tobacco Use: Social History [...] Points 0 Interpretation Negative Section Notes: nonsmoker 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 nonsmoker ADOBE DEVELOPER 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 nonsmoker ADOBE DEVELOPER 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 nonsmoker ADOBE DEVELOPER 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 nonsmoker ADOBE DEVELOPER 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 nonsmoker ADOBE DEVELOPER 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 nonsmoker ADOBE DEVELOPER 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 nonsmoker ADOBE DEVELOPER 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 nonsmoker ADOBE DEVELOPER 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 nonsmoker ADOBE DEVELOPER 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 nonsmoker 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 in evening nonsmoker 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 in evening - not working presently since November nonsmoker 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 in evening - not working presently since November nonsmoker 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 in evening - not working presently since November nonsmoker 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 in evening - not working presently since November nonsmoker 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 in evening - not working presently since November nonsmoker 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 in evening - not working presently since November Problems Problem Type SNOMED Code ICD Code Onset Dates Problem Status W/U Status Risk Notes Problem 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) Active confirmed Problem Restless legs syndrome (97616514) Restless legs syndrome (G25.81) Active confirmed Problem Chronic migraine without aura with status migrainosus (199038128428413 ) Chronic migraine without aura, not intractable, with status migrainosus (G43.701) Active confirmed Problem Chronic migraine without aura, non-intractable (442260547770592 ) Chronic migraine without aura, not intractable, without status migrainosus (G43.709) Active confirmed Problem Chronic intractable migraine without aura (966293395642551 ) Chronic migraine without aura, intractable, with status migrainosus (G43.711) Active confirmed Problem Trigeminal neuralgia (08150325) Trigeminal neuralgia (G50.0) Active confirmed Problem Benign intracranial hypertension (27268995) Benign intracranial hypertension (G93.2) Active confirmed Problem Occipital neuralgia (54268810) Occipital neuralgia (M54.81) Active confirmed Problem Myalgia of auxiliary muscles, head and neck (M79.12) Active confirmed Vital Signs Heart Rate 92 /min 05/25/2025 Blood pressure diastolic 79 mm Hg 05/25/2025 Weight-kg 104.87 kg 05/25/2025 Height 67 in 05/25/2025 Blood pressure systolic 134 mm Hg 05/25/2025 Weight 231.2 lbs 05/25/2025 BMI 36.21 kg/m2 05/25/2025 Encounters Encounter Location Date [facility] [address] [place] [id number] 07/30/2024 Naren Dolan Chronic migraine without aura, not intractable, without status migrainosus G43.709 [facility] [address] [place] [phone] 09/23/2024 Laura Jimenez Chronic migraine without aura, intractable, with status migrainosus G43.711 [facility] [address] [place] [address] 12/29/2024 Laura Jimenez Chronic migraine without aura, intractable, with status migrainosus G43.711 and Benign intracranial hypertension G93.2 [facility] [address] [place] [address] 01/20/2025 Laurajohanna Jimenez Chronic migraine without aura, intractable, with status migrainosus G43.711 ; Benign intracranial hypertension G93.2 and Myalgia of auxiliary muscles, head and neck M79.[address] [facility] [place] [address] 02/05/2025 Laura Jimenez Chronic migraine without aura, intractable, with status migrainosus G43.711 ; Benign intracranial hypertension G93.2 and Myalgia of auxiliary muscles, head and neck M79.12 [facility] [address] [place] [address] 02/16/2025 Laura Jimenez Chronic migraine without aura, intractable, with status migrainosus G43.711 ; Benign intracranial hypertension G93.2 and Myalgia of auxiliary muscles, head and neck M79.12 [facility] [address] [place] [address] 03/19/2025 Naren Dolan Myalgia of auxiliary muscles, head and neck M79.12 ; chronic migraine with aura G43.719 ; Benign intracranial hypertension G93.2 ; Restless legs syndrome G25.81 and Anxiety disorder due to known physiological condition F06.4 [facility] [address] [place] [address] 04/20/2025 Laura Jimenez Chronic migraine without aura, intractable, with status migrainosus G43.711 ; Benign intracranial hypertension G93.2 ; Myalgia of auxiliary muscles, head and neck M79.12 ; Occipital neuralgia M54.81 and Trigeminal neuralgia G50.0 [facility] [address] [place] [address] 05/25/2025 Laurajohanna Jimenez Chronic migraine without aura, intractable, with status migrainosus G43.711 ; Benign intracranial hypertension G93.2 ; Myalgia of auxiliary muscles, head and neck M79.12 ; Occipital neuralgia M54.81 and Trigeminal neuralgia G50.0 [facility] [address] [place] [address] 08/28/2024 Narencameron Dolan [facility] [address] [place] [address] 12/14/2024 Narencameron Dolan [facility] [address] [place] [address] 05/27/2025 Narencameron Dolan [facility] [address] [place] [address] 08/04/2024 Narencameron Dolan [facility] [address] [place] [address] 08/06/2024 Narencameron Dolan [facility] [address] [place] [phone] 09/23/2024 Laura Jimenez [facility] [address] [place] [address] 09/23/2024 Narencameron Dolan [facility] [address] [place] [phone] 09/24/2024 [facility] [address] [place] [address] 10/07/2024 [facility] [address] [place] [phone] 10/09/2024 [facility] [address] [place] [phone] 12/04/2024 [facility] [address] [place] [phone] 12/04/2024 Naren Dolan Chronic migraine without aura, not intractable, without status migrainosus G43.709 [facility] [address] [place] [address] 01/12/2025 [facility] [address] [place] [phone] 01/20/2025 Naren Kelsi [facility] [address] [place] [phone] 01/20/2025 [facility] [address] [place] [address] 01/26/2025 Naren Dolan Benign intracranial hypertension G93.2 [facility] [address] [place] [address] 02/05/2025 Naren Kelsi [facility] [address] [place] [address] 02/05/2025 Naren Kelsi [facility] [address] [place] [address] 04/21/2025 Naren Kelsi [facility] [address] [place] [address] 05/26/2025 Naren Dolan Assessments Encounter Date Diagnosis (ICD [...] plan. Pt consents to treatment in office. 12/04/2024 Chronic migraine without aura, not intractable, without status migrainosus (ICD-10 - G43.709) 12/29/2024 Chronic migraine without aura, intractable, with status migrainosus (ICD-10 - G43.711) Pt's primary pain is suspicious for increased CSF likely due to BIH. Will have Dr. Dolan review images as pt had recent MRV which is pending review from radiology. Plan: -Start Acetazolamide 250mg 1/2 tab x1 week, then increase to 1 tab at bedtime x1 week, then increase to 1/2 tab in AM and 1 tab at bedtime x1 week, then increase to 1 tab BID. Will trial Lasix instead if not able to tolerate. -Continue Ubrelvy for rescue, pt states this is the only helpful medication -Start Vyepti infusions, as previously discussed, pending PA -Consider nerve block at next visit. Pt reluctant to schedule, will consider at next visit if no improvement F/U: 6 weeks. Patient agrees with plan. All questions and [...] plan. Pt consents to treatment in office. 01/26/2025 Benign intracranial hypertension (ICD-10 - G93.2) 02/05/2025 Chronic migraine without aura, intractable, with status migrainosus (ICD-10 - G43.711) Patient presents for evaluation and management. Pt was seen and evaluated by Laura BERNSTEIN. Pt consents to virtual visit. 02/16/2025 Chronic migraine without aura, intractable, with status migrainosus (ICD-10 - G43.711) Patient presents for evaluation and management. Pt was seen and evaluated by Laura BERNSTEIN under the supervision of Dr. Naren Dolan who was in the office at the time of the visit and available for consultation as needed. Pt consents to treatment in office. 01/20/2025 Chronic migraine without aura, intractable, with status migrainosus (ICD-10 - G43.711) Patient presents for evaluation and management. Pt was seen and evaluated by Laura BERNSTEIN under the direct supervision of Dr. Naren Dolan who was consulted after the visit. He agrees with the assessment and plan. Pt consents to treatment in office. 01/20/2025 Benign intracranial hypertension (ICD-10 - G93.2) Pt's primary pain is suspicious for increased CSF pressure likely due to BIH. Dr. Dolan reviewed MRV and while there is no active clot, the left transverse and sigmoid sinuses are diffusely small in caliber with tiny arachnoid granulations in the lateral transverse sinus. This narrowing could be contributing to elevated CSF pressure. Plan: -Pt had nerve block today -Continue Acetazolamide 250mg 1 tab in AM and 2 tabs at bedtime. Pt has been taking dose x4 days. Will discuss with Dr. Dolan if we should increase further. Pt with tingling in fingers otherwise denies side effects. Will trial Lasix instead if not able to tolerate. Continue with excellent fluid intake. Recommend drinking at least 8oz of sugar free lemonade per day for citric acid to reduce risk of metabolic acidosis or kidney stones. -Continue Ubrelvy for rescue, pt states this is the only helpful medication. Pt only given 8 tabs per month, samples provided. -Start Vyepti infusions, as previously discussed, pending PA, -Advised pt schedule additional follow up with ophthalmology for blurry vision, she did have a f/u in past 3 months which was normal. I discussed importance of following up due to worsening blurry vision in past week. Pt in agreement with plan. F/U: 1 month. Patient agrees with plan. All questions and [...] plan. Pt consents to treatment in office. 03/19/2025 Myalgia of auxiliary muscles, head and neck (ICD-10 - M79.12) 03/19/2025 chronic migraine with aura (ICD-10 - G43.719) 04/20/2025 Chronic migraine without aura, intractable, with status migrainosus (ICD-10 - G43.711) Patient presents for evaluation and management. Pt was seen and evaluated by Laura BERNSTEIN under the supervision of Dr. Naren Dolan who was in the office at the time of the visit and available for consultation as needed. Pt consents to treatment in office. 05/25/2025 Chronic migraine without aura, intractable, with status migrainosus (ICD-10 - G43.711) Patient presents for evaluation and management. Pt was seen and evaluated by Laura BERNSTEIN under the supervision of Dr. Naren Dolan who was in the office at the time of the visit and available for consultation as needed. Pt consents to treatment in office. 04/20/2025 Benign intracranial hypertension (ICD-10 - G93.2) Pt's primary pain is suspicious for increased CSF pressure likely due to BIH. Dr. Dolan reviewed MRV and while there is no active clot, the left transverse and sigmoid sinuses are diffusely small in caliber with tiny arachnoid granulations in the lateral transverse sinus. This narrowing could be contributing to elevated CSF pressure. Pt had mild improvement in pain with acetazolamide but was not able to tolerate due to side effects of body tingling and confusion. She has not tried Furosemide but is already on HCTZ. She has tried Topiramate in the past and tolerated well without side effects. Will retrial Topiramate 25mg taper by 1 tab weekly to goal of 100mg HS Pt responded well to nerve block last month, will repeat today and schedule repeat nerve block next month if she continues to respond well to procedure. Plan: -Repeat nerve block next month, scheduled. -Continue Ubrelvy for rescue, pt states this is the only helpful medication. Pt only given 8 tabs per month, samples provided at last visit. -Start Vyepti infusions, as previously discussed, PA approved, pending receipt of drug. F/U: 1 month for nerve block and eval response to Topiramate. Patient agrees with plan. All questions and concerns addressed. Patient instructed to maintain headache logs. Patient advised to contact office for any change in headache pattern, increase in frequency, duration, or severity of headaches. Medication reconciliation completed. Previous office visit note reviewed. Patient presents for evaluation and management. Pt was seen and evaluated by Laura BERNSTEIN under the supervision of Dr. Naren Dolan who was in the office at the time of the visit and available for consultation as needed. Pt consents to treatment in office. 05/25/2025 Benign intracranial hypertension (ICD-10 - G93.2) Pt's primary pain is suspicious for increased CSF pressure likely due to BIH. Dr. Dolan reviewed MRV and while there is no active clot, the left transverse and sigmoid sinuses are diffusely small in caliber with tiny arachnoid granulations in the lateral transverse sinus. This narrowing could be contributing to elevated CSF pressure. Pt had mild improvement in pain with acetazolamide but was not able to tolerate due to side effects of body tingling and confusion. She has not tried Furosemide but is already on HCTZ. She seems to be responding somewhat to low dose topiramate. She does endorse fatigue but would like to continue for another month and see if it improves. Continue Topiramate 25mg 2 tabs at bedtime. Do not increase further. Pt responded well to nerve block last month, will repeat today and schedule repeat nerve block next month if she continues to respond well to procedure. Plan: -Repeat nerve block next month, scheduled. -Continue Ubrelvy for rescue, pt states this is the only helpful rescue medication. Pt only given 8 tabs per month, samples provided. -Start Vyepti infusions, as previously discussed, PA approved, pending receipt of drug. Will call pharmacy. F/U: 1 month for nerve block and eval response to Topiramate. Patient agrees with plan. All questions and concerns addressed. Patient instructed to maintain headache logs. Patient advised to contact office for any change in headache pattern, increase in frequency, duration, or severity of headaches. Medication reconciliation completed. Previous office visit note reviewed. Patient presents for evaluation and management. Pt was seen and evaluated by Laura BERNSTEIN under the supervision of Dr. Naren Dolan who was in the office at the time of the visit and available for consultation as needed. Pt consents to treatment in office. 04/20/2025 Myalgia of auxiliary muscles, head and neck (ICD-10 - M79.12) Patient presents for evaluation and management. Pt was seen and evaluated by Laura BERNSTEIN under the supervision of Dr. Naren Dolan who was in the office at the time of the visit and available for consultation as needed. Pt consents to treatment in office. 01/20/2025 Myalgia of auxiliary muscles, head and neck (ICD-10 - M79.12) Patient presents for evaluation and management. Pt was seen and evaluated by Laura BERNSTEIN under the direct supervision of Dr. Naren Dolan who was consulted after the visit. He agrees with the assessment and plan. Pt consents to treatment in office. 03/19/2025 Benign intracranial hypertension (ICD-10 - G93.2) 02/16/2025 Benign intracranial hypertension (ICD-10 - G93.2) Pt's primary pain is suspicious for increased CSF pressure likely due to BIH. Dr. Dolan reviewed MRV and while there is no active clot, the left transverse and sigmoid sinuses are diffusely small in caliber with tiny arachnoid granulations in the lateral transverse sinus. This narrowing could be contributing to elevated CSF pressure. Pt had mild improvement in pain with acetazolamide but was not able to tolerate due to side effects of body tingling and confusion. Pt responded well to nerve block last month, will repeat today and schedule repeat nerve block next month if she continues to respond well to procedure. Plan: -Repeat nerve block next month, scheduled. -Continue Ubrelvy for rescue, pt states this is the only helpful medication. Pt only given 8 tabs per month, samples provided at last visit. -Start Vyepti infusions, as previously discussed, pending PA, -Advised pt schedule additional follow up with ophthalmology for blurry vision, she did have an f/u in past 3 months which was normal. Pt reports blurry vision has since resolved. Pt in agreement with plan. -Continue following with PCP regarding elevated BP, she has a f/u 02/23, BP okay today. F/U: 1 month for nerve block. Patient agrees with plan. All questions and concerns addressed. Patient instructed to maintain headache logs. Patient advised to contact office for any change in headache pattern, increase in frequency, duration, or severity of headaches. Medication reconciliation completed. Previous office visit note reviewed. Patient presents for evaluation and management. Pt was seen and evaluated by Laura BERNSTEIN under the supervision of Dr. Naren Dolan who was in the office at the time of the visit and available for consultation as needed. Pt consents to treatment in office. 02/05/2025 Benign intracranial hypertension (ICD-10 - G93.2) Pt's primary pain is suspicious for increased CSF pressure likely due to BIH. Dr. Dolan reviewed MRV and while there is no active clot, the left transverse and sigmoid sinuses are diffusely small in caliber with tiny arachnoid granulations in the lateral transverse sinus. This narrowing could be contributing to elevated CSF pressure. Pt had mild improvement in pain with acetazolamide but was not able to tolerate due to side effects of body tingling and confusion. She stopped medication abruptly 4 days ago. She states 2 days ago she started feeling her heart racing and when she checked her BP it was elevated 150s-160s/80s-90s . HR in 90s. She denies chest pain or palpitations but can feel heart racing. I recommended that the patient go to the Emergency Room today for evaluation. I discussed it is possible these symptoms are due to withdrawal from stopping medication suddenly, but that this is a telehealth visit, and I am not able to examine her. Pt is taking metoprolol 25mg XL 1 tab this morning. I instructed her to take a second tab and then go to the emergency room. She said she has someone to drive her. She has an f/u with her PCP on 02/12, but I discussed the importance of letting them know today about her symptoms. She verbalized understanding. Plan: -Repeat nerve block next month, scheduled. -Continue Ubrelvy for rescue, pt states this is the only helpful medication. Pt only given 8 tabs per month, samples provided. -Start Vyepti infusions, as previously discussed, pending PA, -Advised pt schedule additional follow up with ophthalmology for blurry vision, she did have an f/u in past 3 months which was normal. I discussed importance of following up due to worsening blurry vision in past week. Pt in agreement with plan. -Pt advised going to ER for cardiac symptoms of HTN and feeling her heart racing for past 2 days. Advised pt also let her PCP know about symptoms. I will give their office a call as well. F/U: 1 month. Patient agrees with plan. All questions and concerns addressed. Patient instructed to maintain headache logs. Patient advised to contact office for any change in headache pattern, increase in frequency, duration, or severity of headaches. Medication reconciliation completed. Previous office visit note reviewed. Patient presents for evaluation and management. Pt was seen and evaluated by Laura BERNSTEIN. Pt consents to virtual visit. 12/29/2024 Benign intracranial hypertension (ICD-10 - G93.2) Patient presents for evaluation and management. Pt was seen and evaluated by Laura BERNSTEIN under the direct supervision of Dr. Naren Dolan who was consulted after the visit. He agrees with the assessment and plan. Pt consents to treatment in office. 02/05/2025 Myalgia of auxiliary muscles, head and neck (ICD-10 - M79.12) Patient presents for evaluation and management. Pt was seen and evaluated by Laura BERNSTEIN. Pt consents to virtual visit. 02/16/2025 Myalgia of auxiliary muscles, head and neck (ICD-10 - M79.12) Patient presents for evaluation and management. Pt was seen and evaluated by Laura BERNSTEIN under the supervision of Dr. Naren Dolan who was in the office at the time of the visit and available for consultation as needed. Pt consents to treatment in office. 03/19/2025 Restless legs syndrome (ICD-10 - G25.81) 05/25/2025 Myalgia of auxiliary muscles, head and neck (ICD-10 - M79.12) Patient presents for evaluation and management. Pt was seen and evaluated by Laura BERNSTEIN under the supervision of Dr. Naren Dolan who was in the office at the time of the visit and available for consultation as needed. Pt consents to treatment in office. 04/20/2025 Occipital neuralgia (ICD-10 - M54.81) Patient presents for evaluation and management. Pt was seen and evaluated by Laura BERNSTEIN under the supervision of Dr. Naren Dolan who was in the office at the time of the visit and available for consultation as needed. Pt consents to treatment in office. 05/25/2025 Occipital neuralgia (ICD-10 - M54.81) Patient presents for evaluation and management. Pt was seen and evaluated by Laura BERNSTEIN under the supervision of Dr. Naren Dolan who was in the office at the time of the visit and available for consultation as needed. Pt consents to treatment in office. 04/20/2025 Trigeminal neuralgia (ICD-10 - G50.0) Patient presents for evaluation and management. Pt was seen and evaluated by Laura BERNSTEIN under the supervision of Dr. Naren Dolan who was in the office at the time of the visit and available for consultation as needed. Pt consents to treatment in office. 03/19/2025 Anxiety disorder due to known physiological condition (ICD-10 - F06.4) 05/25/2025 Trigeminal neuralgia (ICD-10 - G50.0) Patient presents for evaluation and management. Pt was seen and evaluated by Laura BERNSTEIN under the supervision of Dr. Naren Dolan who was in the office at the time of the visit and available for consultation as needed. Pt consents to treatment in office. 09/23/2024 Other Patient presents for evaluation and management. Pt was seen and evaluated by Laura BERNSTEIN under the direct supervision of Dr. Naren Dolan who was consulted after the visit. He agrees with the assessment and plan. Pt consents to treatment in office. Plan Of Treatment Next Appt Details Provider Name:Naren zuniga, 07/07/2025 01:00:00 PM, [address] [place], [address], Insurance Providers Payer Name Payer Address Payer Phone Subscriber Number Group Number Insured Name Patient Relationship to Insured Coverage Start Date Coverage End Date [facility] [address] [address] [place], [place] [id number] Christine Wray Self - patient is the insured 2 Medical (General) History Medical History History ICD Code Chronic migaine HTN asthma depression anxiety chronic back pain hypothyroid Tachycardia Gallbladder polyps RLS Surgical History Surgery Date(Month/Year) R thyroid lobectomy 2019 T&A
--- OUTSIDE RECORDS SUMMARY | 2025-06-20 09:09 | XMS_ITS | Data Portability ---
Author Organization [place] - [facility], Allergy Address [address] [address] Care Team Providers Care Operations Research Analyst Name Role Phone JAIDEN CAMPBELL Primary Care [...] agrees with plan all questions were answered. [email or web address] Not available 06/25/2024 11:45:03 07/22/2024 07/22/2024 64-year-old [...] use of Protonix. All questions were answered. [email or web address] Not available 07/22/2024 11:36:27 10/07/2024 10/07/2024 64-year-old [...] given negative biopsy. Follow-up in 6 months. [email or web address] Not available 10/07/2024 13:33:25 11/05/2024 11/05/2024 64-year-old [...] in March, or sooner with worsening symptoms. [email or web address] Not available 11/05/2024 10:03:03 Plan of Treatment Reminders Order Date Submit Date Provider Last Modified By Organization Details Last Modified Time Details Appointments None recor ded. Lab None recor ded. Referral None recor ded. Procedures None recor ded. Surgeries laryn gosco py, direc t, with biops y (SURG ) 2023 [email or web address] Not available 10:59:47 Imaging [place], modif ied tanya pollard ow study 2023 [email or web address] [facility], [address] [place] [address], [address], 09:14:31 Medication Orders Flona se Aller gy Relie f 50 mcg/a ctuat ion nasal spray ,susp ensio n 2023 gene [facility], [address] [place], [address], 12:24:20 Shawna tin 10 mg table t 2023 SIL[facility], [address] [place], [address], 10:32:36 Patient TargetsNo targets recorded. Patient InstructionsNo instructions recorded. Reason for Referral None Reported. Results Created Date Observation Date Name Description Value Unit Range Abnormal Flag Note LastModifiedBy Organization Detail LastModifiedTime 06/23/20 audio gram No observ ation record ed. [email or web address] Not Available 2023 09:57:56 06/27/20 24 06/19/2024 CT, neck, soft tissu e, w/ contr ast No observ ation record ed. [email or web address] Not Available 06/17 09:18:52 09/30/19 25 09/30/2024 proce dures No observ ation record ed. [email or web address] [facility] [address] [facility], [place], [address], 09/30/2024 16:13:14 10/01/1909/30/2024 xr tanya pollard ow with video and speec h See Note [facility] , a member of Related Content Database (RCDb)[facility] Josef brizuela Name: CHRISTINE UGALDE Date of : 1959 Reason for Exam: dyspha nurys Exam Date: 2024 [id number] EST Report Status : Final Orderi ng Provid er: SHAWNEE Tong PCP: [facility] Y: dyspha nurys. 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 BARCODE Not Available 2024 14:57:35 Result Notes None recorded. Problems Name Problem SNOMED Code Status Onset Date Resolution Date Notes Provider Name and Address Organization Details Recorded Time Obstructi ve sleep apnea syndrome 18538599 Active 2014 LORI; Note: 12/30/14 [facility] Available [facility] 4 02:22:47 Chronic tonsillit is 99750231 Active 2014 Chronic tonsillit is; Note: Date Diagnosed : 02/09/2015 10:14 AM (474.00) Not Available [facility] 4 02:22:45 Postopera tive follow-up visit Active 2014 Post op; Note: Date Diagnosed : 02/09/2015 10:14 AM (V67.00) Not Available [facility] 4 02:23:16 Bilateral disorder of Eustachia n tubes 55427452903 39526 Active 2016 Other specified disorders of Eustachia n tube, bilateral ; Note: Date Diagnosed : 7 11:32 AM (H69.83) Not Available [facility] 4 02:22:40 Mixed conductiv e and sensorine ural hearing loss, bilateral 862892925 Active 2016 Mixed conductiv e and sensorine ural hearing loss, bilateral ; Note: Date Diagnosed : 7 1:02 PM (H90.6) Not Available [facility] 4 02:22:32 Dysphagia 52182286 Active 2018 Dysphagia , unspecifi ed; Note: Date Diagnosed : 05/06/2019 3:56 PM (R13.10) Not Available [facility] 4 02:22:52 Benign neoplasm of tongue 08199443 Active 2018 Benign neoplasm of lingual tonsil; Note: Date Diagnosed : 05/06/2019 3:56 PM (D10.1) Not Available [facility] 4 02:22:48 Dysphonia 63248182 Active 2018 Hoarsenes s; Note: Date Diagnosed : 05/06/2019 3:57 PM (R49.0) Not Available [facility] 4 02:23:11 Pain in throat 311611917 Active 2018 Pain in throat; Note: Date Diagnosed : 9 12:13 PM (R07.0) Not Available [facility] 4 02:22:53 Impacted cerumen of bilateral ears 71155979154 10746 Active 2020 Impacted cerumen, bilateral ; Note: Date Diagnosed : 01/14/2021 3:17 PM (H61.23) Not Available [facility] 4 02:22:35 Eczema 03962087 Active 2020 Other specified dermatiti s; Note: Date Diagnosed : 01/14/2021 3:19 PM (L30.8) Not Available [facility] 4 02:22:35 Examinati on of ear Active 2021 Encounter for examinati on of ears and hearing without abnormal findings; Note: Date Diagnosed : 11/18/2021 10:53 AM (Z01.10) Not Available [facility] 4 02:22:49 Candidal otitis externa 29675133 Active 2022 Candidal otitis externa; Note: Date Diagnosed : 04/30/2023 1:52 PM (B37.84) Not Available [facility] 4 02:23:11 Mixed conductiv e and sensorine ural hearing loss of left ear with normal hearing on right side 4166955427 Active 2023 ANA CRISTINA BIR[place]AM [place], CCC-A [address], [place], [place], [address] , [place] - [facility] 4 10:13:14 Allergic rhinitis 50931963 Active 2023 JASS SORTO MD [address], [place], [place], [address] , [place] - [facility] 4 10:32:06 Hypertrop hy of lingual tonsil 848015934 Active 2023 JASS SORTO MD [address], [place], [place], [address] , [place] - [facility] 4 10:32:41 Sensorine ural hearing loss in right ear 68521323633 100 Active 2023 ETHAN BOUDREAUX PA-C [address], [place], [place], [address] , [place] - [facility] 4 11:09:33 Dysfuncti on of left eustachia n tube 14106733882 66806 Active 2023 ETHAN BOUDREAUX PA-C [address], [place], [place], [address] , [place] - [facility] 4 11:09:40 Dysfuncti on of eustachia n tube 93286540 Active 2023 ETHAN BOUDREAUX PA-C [address], [place], [place], [address] , [place] - [facility] 4 09:05:08 Postopera tive pain 575380651 Active 2023 JASS SORTO MD [address] [facility],[place] [address], [place], [address] , [place] - [facility] 4 10:50:15 Bilateral earache 513831049 Active 2024 ETHAN BOUDREAUX PA-C [address] [facility],[place] [address], [place], [address] , [place] - [facility] 5 09:57:01 Pain of temporoma ndibular joint 37384584 Active 2024 ETHAN BOUDREAUX PA-C [address] [place] [address],[place] [address], [place], [address] , [place] - [facility] 5 09:57:10 Temporoma ndibular joint disorder 39910002 Active 2024 ETHAN BOUDREAUX PA-C [address] [place] [address],[place] [address], [place], [address] , [place] - [facility] 5 09:57:29 Problem Notes None recorded. Procedures Surgical History Date Name Laterality Status Provider Name and Address Organization Details Recorded Time 10/07/19 25 FOL_DP completed SHAWNEE [place]IS PA-C [address] [place] [address],[place] [address], [place], [address], [place] - [facility] 10/07/2024 13:32:35 10/07/19 25 Air & Speech Audio with Tymps - 28574, 07683 & 70690 completed JOSEP GEIGER [address] [facility],[address], [address], [place] - [facility] 10/07/2024 13:03:35 06/19/20 24 Comp Audio with Tymps - 94906 & 10564 completed ANA CRISTINA [place], CCC-A [address] [facility],[address], [address], [place] [facility] 06/19/2024 10:12:44 06/19/20 24 Fiberoptic Laryngoscopy (Comprehensive) completed JASS SORTO MD [address] [facility] [address], [address], [facility] - [facility] 06/19/2024 09:44:15 07/23/20 19 excision of lingual tonsil completed JASS SORTO MD [address], [place], [address], [facility] - [facility] 06/19/2024 10:24:40 12/31/19 15 tonsillectomy completed JASS SORTO MD [address],[facility] [address], [place], [address], [facility] 06/19/2024 10:25:05 Imaging Results None recorded. Procedure Notes None recorded. Medical Equipment None Reported. Allergies Allergen ID Allergen Name Allergen Category Reaction Reaction Severity Criticality Documentation Date Start Date Code Code System Note Provider Name and Address Organization Details Recorded Time 41017 Product containin g penicilli n (product) medicatio n other Not available Not available 01/29/2024 10291 8001 SNOMED React ion: unkno wn, unspe cifie d;; Not Available [facility] 4 00:52:53 68492 verapamil medicatio n other Not available Not available 01/29/2024 42211 RxNorm React ion: unkno wn, unspe cifie d;; Not Available [facility] 4 00:52:56 75185 tramadol hydrochlo ride medicatio n other Not available Not available 01/29/2024 37954 RxNorm React ion: unkno wn, unspe cifie d;; Not Available [facility] 4 00:53:06 91800 ibuprofen , sodium salt medicatio n other Not available Not available 01/29/2024 19157 44 RxNorm React ion: unkno wn, unspe cifie d;; Not Available [facility] 4 00:53:08 Medications Name Sig Start Date Stop Date Status Note LastModified by Organization Details LastModified Time fe gluconate tab 239mg 06/19 completed Not Available Not Available Not Available losartan 50 mg tablet 2020 active Medicati on ID: 422936 B rand Name: losartan Send Method: E-Prescr ibed Sub s Allowed: subs OK Medic ationGen ericName : losartan Not Available Not Available Not Available cyclobenz aprine 10 mg tablet 01/14 completed Medicati on ID: 799513 D uration Value: 10 Brand Name: adan bryant Send Method: E-Prescr ibed Sub s Allowed: subs OK Medic ationGen ericName : adan mirzarine Not Available Not Available Not Available buspirone [...] ion soln 01/14 completed Medicati on ID: 488396 B rand Name: ipratrop ium-albu terol Se [...] mg tablet 01/14 completed Medicati on ID: 30426 Du ration Value: 30 Brand Name: valsarta [...] by mouth 06/19 completed Medicati on ID: 180956 D uration Value: 3 Prescri bed By Name: DAMIR Mendoza nd Name: oxycodon e Send Method: E-Prescr ibed Sub s Allowed: subs OK Medic ationGen ericName : oxycodon e Not Available Not Available Not Available topiramat e 25 mg tablet 07/03 completed Medicati on ID: 01304 Du ration Value: 30 Reason: () Brand [...] mg tablet 07/22 completed Medicati on ID: 174087 B rand Name: chlortha lidone S end Method: E-Prescr ibed Sub s Allowed: subs OK Medic ationGen ericName : chlortha lidone Not Available Not Available Not Available ciproflox acin 500 mg tablet 07/22 completed Not Available Not Available Not Available doxycycli ne monohydra te 100 mg tablet 01/14 completed Medicati on ID: [id number] D uration Value: 10 Brand Name: doxycycl [...] mcg tablet 01/14 completed Medicati on ID: 173064 D uration Value: 30 Brand Name: levothyr [...] mg tablet 07/22 completed Medicati on ID: 657989 D uration Value: 30 Brand Name: citalopr am Send Method: E-Prescr ibed Sub s Allowed: subs OK Medic ationGen ericName : citalopr am Not Available Not Available Not Available amitripty line 25 mg tablet 01/14 completed Medicati on ID: 437317 B rand Name: amitript yline Se nd [...] mg tablet 07/03 completed Medicati on ID: 04903 Du ration Value: 7 Reason: () Brand [...] 2 [facility] 06[facility]19 completed Not Available Not Available Not Available clotrimaz ole-betam ethasone 1 %-0.05 % topical cream Apply 1 a small amount to affected area twice a day 06/19 completed Medicati on ID: 509009 D uration Value: 14 Brand Name: iliariharry gonzalez-cash amethaso ne Send Method: E-Prescr ibed Sub s Allowed: subs OK Speci al Instruct ion: Apply with fingerti p to external ear BID X 2 week Med icationG enericNa me: clotriharry gonzalez-bet amethaso ne Not Available Not Available Not Available ferrous gluconate 240 mg (27 mg iron) tablet active Not Available Not Available Not Available fluoxetin e 10 mg capsule 07/22 completed Medicati on ID: 986718 B rand Name: fluoxeti ne Send Method: [...] mg tablet 01/14 completed Medicati on ID: 316411 D uration Value: 30 Brand Name: sertrali [...] e 50 mcg/actua tion nasal spray,tawnya pension Hollister 2 sprays every day by intranas al [...] OraMagic mouthwash 01/14 completed Medicati on ID: 716941 D uration Value: 4 Brand Name: MAGIC [...] mg tablet 01/14 completed Medicati on ID: 165871 D uration Value: 30 Brand Name: topirama [...] % mouthwash 01/14 completed Medicati on ID: 588834 D uration Value: 30 Brand Name: chlorhex idine gluconat e Send Method: E-Prescr ibed Sub s Allowed: subs OK Speci al Instruct ion: RINSE WITH 5ML BY MOUTH EVERY 6 TO 8 HOURS Me dication GenericN robert: chlorhex idine gluconat e Not Available Not Available Not Available Ranitidin e Hcl 01/14 completed Medicati on ID: 714547 D uration Value: 30 Brand Name: ranitidi [...] inhalatio n 06/19 completed Medicati on ID: 598797 B rand Name: Spiriva Respimat Send Method: [...] Ag Self Test kit TEST DIRECTED TODAY active Not Available Not Available No t Available Qulipta 60 mg tablet TAKE 1 TABLET BY MOUTH DAILY active Not Available Not Available No t Available Vitals Date Recorded Body height Body mass index (BMI) Body weight Provider Name and Address Organization Details Last Updated DateTime 11/05/2024 165.1 cm 34.9 kg/m2 42775.4 g Jessica Joe [place] - [facility] 11/05/2024 09:16:01 Date Recorded Body height Body mass index (BMI) Body weight Provider Name and Address Organization Details Last Updated DateTime 06/19/2024 170.18 cm 32.4 kg/m2 10194.62 g Virginia Rosario [facility] 06/19/2024 09:24:03 Date Recorded Body height Body mass index (BMI) Body weight Provider Name and Address Organization Details Last Updated DateTime 07/22/2024 165.74 cm 34.3 kg/m2 84694.21 g Virginia Rosario [facility] 07/22/2024 10:32:49 Social History None recorded. Functional Status None [...] Diagnosis SNOMED-CT Code Diagnosis ICD10 Code Diagnosis IMO Codes Diagnosis Note JASS SORTO MD [facility] [address] [place] [address] 06/19/2024 09:02:56 06/19/2024 10:41:11 Mixed conductive and sensorineural hearing loss of left ear with normal hearing on right side 8643848026 H90.72 Audiologic al evaluation results: Right ear: Normal hearing with a mild loss 8kHz excellent word recognitio n. Left ear: Mild-moder ate mixed hearing loss with excellent word recognitio n. Tympanomet ry: Right Ear:Type A Left Ear:Type A (rounded) Allergic rhinitis 748174 04 J30.9 Hypertroph y of lingual tonsil 833718539 J35.3 58575 ETHAN BOUDREAUX PA-C [facility] [address] [address] 06/25/2024 10:26:55 06/25/2024 11:18:27 Mixed conductive and sensorineural hearing loss of left ear with normal hearing on right side 4889731151 H90.72 Sensorineu ral hearing loss in right ear 5169843149 9100 H90.A21 Dysfunctio n of left eustachian tube 3193333556 901369 H69.82 40547 SHAWNEE [place]IS PA-C [facility] [address] [address] 07/22/2024 10:24:23 07/22/2024 11:07:14 Benign neoplasm of tongue 47062396 D10.1 Bilateral disorder of Eustachian tubes 9955448338 270479 H69.83 Dysfunctio n of left eustachian tube 8895120531 037201 H69.82 Dysphagia 94735223 R13.1 0 28000 SHAWNEE HARRIS PA-C [facility] [address] [address] 10/07/2024 12:39:23 10/07/2024 13:27:36 Dysfunction of left eustachian tube 7512316357 753057 H69.82 Left Ear:Normal hearing through 6K Hz sloping to a mild HL.Patent tube. Benign cayetano plasm of tongue 94902426 D10.1 Bilateral disorder of Eustachian tubes 4634745376 977516 H69.83 16485 ETHAN BOUDREAUX PA-C [facility] [address] [address] 11/05/2024 09:08:29 11/05/2024 12:01:04 Benign neoplasm of tongue 16018581 D10.1 Dysfunctio n of left eustachian tube 4836655560 622088 H69.82 Bilateral earache 827295 003 H92.03 Temporoman dibular joint disorder 84187771 M26.623 Health Concerns Section Related Observation LastModified by Organization Detai ls LastModified Time None Recorded Concern Status LastModified by Organization Details LastModified Time None Recorded Advance Directives Directive None Recorded Payers Insurance Date Sequence Insurance Name Policy Number Policy Catalan Covered Member ID Catalan Member ID Guarantor Name 03/30/2025 1 [facility] - DOS ON OR AFTER 2022 - [facility] [employer] AND ONE [employer] (MEDICARE REPLACEMENT/ADV ANTAGE - PPO) Christine Ugalde [id number] Christine Ugalde 06/19/2024 1 [facility] - DOS ON OR AFTER 2022 - MEDICARE [place]AGE [place] RE[place]ACEMENT/ADV ANTAGE - PPO) Christine Ugalde [id number] Christine Ugalde Notes Date Note Type Note Provider Name and Address Organization Details Recorded Time 06/19/2024 text/html ROS as noted in the HPI 63 yo F presents for ear cleaning [...] in the left mastoid. JASS SORTO MD [address] [place] [address], [address], [place] - [facility] 06/22/2024 08:40:41 06/25/2024 text/html ROS as noted in the HPI 63-year-old female presents for reevaluation of left ear blockage. [...] but no nasal sprays. MAIKEL FERRARO MD [address] [place] [address], [address], [facility] - [facility] 06/25/2024 12:24:22 07/22/2024 text/html ROS as noted in the [facility] 64-year-old female presents following DL with biopsy. This was [...] hearing has improved. MIGUEL ANGEL SOLIS MD [address] [place] [address], [address], [facility] - [facility] 07/22/2024 16:39:48 10/07/2024 text/html ROS as noted in the [facility] 64-year-old female presents for reevaluation. She is followed for [...] aspiration or penetration. MAIKEL FERRARO MD [address] [facility],[place] [address], [place], [address], [place] [facility] 10/07/2024 17:14:50 11/05/2024 text/html ROS as noted in the HPI 64-year-old female presents for evaluation of otorrhea and otalgia. [...] and sore throat. MAIKEL FERRARO MD [address] [facility] [address], [place], [address], [facility] - [facility] 11/05/2024 11:43:29 OBGyn Episode No OBEpisode recorded.
--- OUTSIDE RECORDS SUMMARY | 2025-06-20 09:09 | XMS_ITS | Encounter Summary ---
Author Organization [facility] Address [address] [place] [address] Care Team Providers Care Infant Childcare Provider Name Role Phone Mattie Priest MD Primary Care Prov ider Reason for Visit * Reason Onset Date Comments prior auth 06/11/2025 Encounter Details Date Type Department Care Team ([facility] Contact Info) Description 06/11/2025 Telephone Pulmonology - [place] [address] [place] [phone] Jamel Capone MD [address] [place] [address] Social History Tobacco Use Types Packs/Day Years [...] for your loved ones. For example, child psychiatrist or elderly care for an older adult? [...] as of this encounter Progress Notes * Ck Castillo MA - 06/17/2025 4:57 PM EDT Pt informed * Jamel Capone MD - 06/17/2025 4:53 PM EDT Symbicort is the prefer medication. Please let her know that I send * Blossom Clemons MA - 06/12/2025 8:19 AM EDT PA for advair diskus denied is not covered un patient insurance. Covered alternative Breo ellipta limit 60 blister per 30 days Dulera qty limit 3 inhaler per 30 days Symbicort qty limit 3 inhaler per 30 days Fluticasone salmeterol qty limit 1 inhaler per 30 days Trelegy ellipta qty limit 60 blisters per 30 days Trelegy ellipta qty 60 blisters per 30 days Busesonide -formoterol fumarate inhale qty limit 3 inhalers per 30 days Breztri qty limit 1 inhaler per 30 days Fluticasone -salmeterol diskus qty limit 60 inhalations per 30 days. .Please [facility] Name Blossom Deonte [facility] Prior Ext: [phone] * Blossom Clemons MA - 06/11/2025 4:21 PM EDT PA for advair diskus initiated on cmm Dx G47.33 * Adrianna Willis - 06/11/2025 4:13 PM EDT Prior auth needed for Advair Diskus 500-50 mcg /act aerosol powder Blake: [id number] documented in this encounter Plan of Treatment Upcoming Encounters Date Type Department Care Team (Late st Contact Info) Description 06/25/2025 9:50 AM EDT Office Visit Gastroenterology - [place] [address] [place] [phone] Geri Zayas PA [address] [address] 07/06/2025 8:45 AM EDT Office Visit Pulmonology - [place] 175 [facility] [address] [place] [phone] Jamel Capone MD [address] [address] 07/07/2025 7:30 AM EDT Ancillary Procedure [facility] [address] [address] 07/28/2025 10:30 AM EST Office Visit Adult Medicine [facility] [address] [place] [address] Agustin Hebert PA [address] [place] [address] 09/25/2025 9:30 AM EST Office Visit Adult Medicine [facility] [address] [place] [address] Agustin Hebert PA [address] [place] [address] 11/11/2025 9:00 AM EST Office Visit Bariatric Surgery - [place] 175 [facility] [address] [place] [phone] Keshia Morton PA [address] [place] [address] 11/12/2025 9:10 AM EST Office Visit Gastroenterology - [place] [address] [phone] Geri Zayas PA [address] [address] 12/18/2025 1:00 PM EDT [facility] [address] [address] documented as of this encounter Visit Diagnoses Not on filedocumented in this encounter Additional Health Concerns Assessment Noted Time PHQ-9 Depression Total Score: 0 01/07/20 25 6:48 PM EDT documented as of this encounter Care Teams Infant Childcare Provider Relationship Specialty Start Date End Date Mattie Priest MD [address] [place] [id number] PCP - General Internal Medicine 07/14/24 documented as of this encounter
--- NOTE | 2025-06-20 09:10 | MHC.OFFWIV ---
Intake Vital Signs 06/20/25 09:11 Height 5 ft 5 in Weight 229 lb BMI 38.1 BP 100/62 Blood Pressure Location Lt brachial Position Sitting Respiration 16 Pulse 85 Pulse Source Pulse Oximeter Temp 98.5 F Temp Source Oral Pulse Oximetry (%) 98 Oxygen Delivery Method Room Air Intake Visit Reasons: ep left leg pain radiating to hip Intake Note: Pt is here today c/o Left leg pain radiating to Lt pain: Pt denies any falls x5days Patient Tobacco Use Status: Never used Tobacco Allergies aspirin Allergy (Intermediate, Verified 06/20/25 09:14) Rash ibuprofen Allergy (Intermediate, Verified 06/20/25 09:14) Rash gabapentin Adverse Reaction (Verified 06/20/25 09:14) rash amoxicillin Allergy (Severe, Uncoded 06/20/25 09:14) Anaphylaxis IV contrast Allergy (Intermediate, Uncoded 06/20/25 09:14) Swelling HPI HPI Comments History of Present Illness Details This is a 64-year-old female with a past medical history of hypertension, hypothyroidism and asthma presenting for evaluation of a shooting pain that radiates from her left posterior hip to her left foot. Patient states the pain extends down the side of her leg. Patient has used a heating pad only in his not taken any [id number] medication for treatment of this discomfort. She denies any injury or trauma preceding the onset of her pain 1 week ago. [facility] Social History Patient Tobacco Use Status: Never used Tobacco Advance Directives Date on File: 11/11/23 Review of Systems Const All systems reviewed & are unremarkable except as noted in HPI and below Denies body aches, Denies chills, Denies fatigue, Denies fever(s), Denies frequent falls and Denies weakness Eyes Reports no additional complaints ENT Reports no additional complaints, Denies vertigo and Denies dizziness Card Reports no additional complaints Resp Reports no additional complaints GI Reports no additional complaints Reports no additional complaints Musc Reports as per HPI, Reports back pain, Denies numbness, Reports radiating pain into limb and Denies tingling Skin/Breast Reports system reviewed and no additional complaints, except as documented Neuro Reports no additional complaints, Denies vertigo, Denies dizziness, Denies frequent falls, Denies numbness, Reports radicular pain, Denies restless legs, Denies tingling and Denies weakness Psych Reports no additional complaints Endo Denies fatigue Physical Exam Vital Signs: Last Vital Signs Temp 98.5 F 06/20/25 09:11 Pulse 85 06/20/25 09:11 Resp 16 06/20/25 09:11 BP 100/62 06/20/25 09:11 Pulse Ox 98 06/20/25 09:11 Oxygen Delivery Method Room Air 06/20/25 09:11 BMI result Body Mass Index 38.1 Const General: cooperative, comfortable, no acute distress, well developed, alert, awake and Physically active; No ill appearing or lethargic Nutritional Appearance: overweight Orientation/consciousness: patient oriented x3 and No lethargic Limitations: no limitations Back/Spine/Pelvis Thoracic/Lumbar Spine: thoracic and lumbar spine normal to inspection, thoraco-lumbar ROM normal, straight leg raise negative bilaterally, No pain with thoraco-lumbar ROM, No paraspinal muscle tenderness, No thoracic spinal tenderness and No lumbar spinal tenderness Sacroiliac joints: on the right nontender and on the left tender to palpation Sacrum: no ecchymosis, no erythema, no swelling and no tenderness Coccyx: no tenderness Skin General skin exam: no rashes or lesions noted Neuro General: patient oriented x3, tone normal, moves all extremities and Normal light touch and pain sensation Cognition (Neuro): normal cognition Gait exam (Neuro): Normal gait present Motor exam (neuro): 5/5 motor strength present throughout Extrem Left lower extremity: normal to inspection, full ROM, no joint enlargement, hip/thigh Details: no tenderness and no swelling and lower leg Details: no edema; no tenderness, no localized swelling and no palpable cords; no edema Psych Appearance: grossly normal Mental Status: mental status grossly normal Insight: Good insight present (Psych) Judgement: Good judgement present (Psych) Assessment & Plan Assessment & Plan (1) Left sciatic nerve pain: Comment: Patient's history coupled with her examination is most consistent with left sciatic pain. Given this patient's allergies to aspirin and ibuprofen, patient will be discharged home with a course of prednisone and methocarbamol. Patient is encouraged to follow up with her primary care physician to obtain a referral for physical therapy consultation. Code(s): M54.32 - Sciatica, left side Plan: Prednisone 40 mg times 5 days, methocarbamol 750 mg q.8 hours and physical therapy consultation through her primary care physician. Patient is advised that the methocarbamol may make her feel sedated. Medications: New methocarbamol 750 mg PO Q8H 20 tabs 0RF prednisone 40 mg (2 x 20 mg) PO DAILY 10 tabs 0RF Coding Level of Care Code Est Pt Level 3 (89303) Diagnoses Left sciatic nerve pain M54.32 Time Spent (min) 20
[2025-06-20 09:11] VITALS: BP 100/62; PULSE 85; RESP 16; TEMP 36.9; O2SAT 98; BMI 38.1
== END 2025-06-20 09:56 | disposition home or self-care (01) ==
PROVIDERS: PCP Internal Medicine; Visit Provider Physician Assistant
DX: M54.32 Sciatica, left side (principal)

== ENCOUNTER → 2025-06-20 09:06 | Outpatient (BNVA) | payer OTHER, SELFPAY | PROVIDERS: PCP Internal Medicine; Visit Provider Physician Assistant | DX: M54.32 Sciatica, left side (principal); I10 Essential (primary) hypertension; E03.9 Hypothyroidism, unspecified; J45.909 Unspecified asthma, uncomplicated | CPT/HCPCS: 99212 ==

== ENCOUNTER 2025-07-12 07:17 | Emergency (ER) | payer OTHER, SELFPAY ==
--- OUTSIDE RECORDS SUMMARY | 2024-07-30 06:30 | XMS_ITS ---
Author Organization [facility] Address [address] [place] [address] Care Team Providers Care Molding Line Operator Name Role Phone Mattie Conner Primary Care Provide Naren Rasmussen Unavailable [phone] Medications Medication SIG (Take, Route, Frequency, Duration) Notes Start Date End Date Status Wixela Inhub 500-50 MCG/ACT 1 puff Inhalation Twice a day Active Vitamin B12 1000 MCG 1 tablet Orally Once a day 05/28/2024 Active Iron 240 (27 Fe) MG 1 tablet Orally once daily 05/28/2024 Active Ubrelvy 100 MG TAKE 1 TABLET BY MOUTH ALONG WITH 2 IBUPROFEN AT ONSET OF MIGARINE. MAY TAKE 2ND DOSE AFTER 4 HOURS IF HEADACHE RECURS; Duration: 30 Active ProAir HFA 108 (90 Base) MCG/ACT 1 puff as needed Inhalation every 4 hrs Active Vitamin D 57219 UNIT 1 capsule Orally 1/week 05/28/2024 Active Pregabalin 50 MG As directed. Orally 1 capsule at night for 1 week, 2 capsules every night for 1 week, then finally 3 capsules every night after that.; Duration: 30 days Please give patient a written schedule of how to ramp up the dose. Thanks. 08/08/2023 Not-Taking Trulance 3 MG 1 tablet Orally Once a day Not-Taking Nurtec 75 MG 1 tablet on the tongue and allow to dissolve Orally; Duration: 30 days Not-Taking acetaZOLAMIDE 250 MG 1 tablet orally at bedtime; Duration: 30 days Not-Taking predniSONE 20 MG As directed, with food. Orally 3 tabs qam x 4 days, 2 tabs qam x 4 days, 1 tab qam x 4 days, 1/2 tab qam x 4 days.; Duration: 16 days 05/28/2024 Active rOPINIRole HCl 0.25 MG 2 tablets one to three hours before bedtime Orally once a day; Duration: 30 days 07/02/2023 Active DULoxetine HCl 60 MG 2 capsule Orally Once a day in the morning.; Duration: 90 days Active Emgality 120 MG/ML Inject 1 syringe Subcutaneous 27 - 30 days; Duration: 30 days Auto-injector on backorder 03/19/2023 Not-Taking Spiriva Respimat 1.25 MCG/ACT 2 puffs Inhalation Once a day Not-Taking Levothyroxine Sodium 100 MCG 1 tablet in the morning on an empty stomach Orally Once a day Active Valsartan-hydroCHLOR Othiazide 160-25 MG 1 tablet Orally Once a day Active Metoprolol Succinate ER 25 MG 1 tablet Orally Once a day Active Vital Signs Blood pressure systolic 136 mm Hg 07/30/20 24 Blood pressure diastolic 83 mm Hg 024 Heart Rate 82 /min 07/30/2024 Height 67 in 07/30/2024 Weight 203.9 lbs 07/30/2024 BMI 31.93 kg/m2 07/30/2024 Weight-kg 92.49 kg 07/30/2024 Encounters Encounter Location Date Provider Diagnosis [facility] [address] [place] [id number] 07/30/2024 Naren Dolan Chronic migraine wit hout aura, not intractable, without status migrainosus G43.709 Assessments Encounter Date Diagnosis (ICD Code) Assessment Notes Treatment Notes Treatment Clinical Notes Section Notes 07/30/2024 Chronic migraine without aura, not intractable, without status migrainosus (ICD-10 - G43.709) Plan Of Treatment Next Appt Details Follow Up: 2 Months, Reason: Progress Notes * Christine UGALDEDOB:1960 (65 yo F)Acc No.[id number]:07/30/2024 Progress Notes Patient: Christine WILSON Provider: Jase Dolan MD :1960 A ge:64 Y S ex:Female Date:07/30/2024 Address:[address] [place], [place] [id number] Pcp:Mattie Weston in Subjective: * Chief Complaints: * * Medical History: * Medications: T aking Vitamin D 22721 UNIT Capsule 1 capsule Orally 1/week , Taking Vitamin B12 1000 MCG Tablet Extended Release 1 tablet Orally Once a day , Taking Iron 240 (27 Fe) MG Tablet 1 tablet Orally once daily , Taking Ubrelvy 100 MG Tablet TAKE 1 TABLET BY MOUTH ALONG WITH 2 IBUPROFEN AT ONSET OF MIGARINE. MAY TAKE 2ND DOSE AFTER 4 HOURS IF HEADACHE RECURS , Taking ProAir HFA 108 (90 Base) MCG/ACT Aerosol Solution 1 puff as needed Inhalation every 4 hrs , Taking Wixela Inhub 500-50 MCG/ACT Aerosol Powder Breath Activated 1 puff Inhalation Twice a day , Taking Levothyroxine Sodium 100 MCG Tablet 1 tablet in the morning on an empty stomach Orally Once a day , Taking Valsartan-hydroCHLOROthiazide 160-25 MG Tablet 1 tablet Orally Once a day , Taking Metoprolol Succinate ER 25 MG Tablet Extended Release 24 Hour 1 tablet Orally Once a day , Taking rOPINIRole HCl 0.25 MG Tablet 2 tablets one to three hours before bedtime Orally once a day , Taking predniSONE 20 MG Tablet As directed, with food. Orally 3 tabs qam x 4 days, 2 tabs qam x 4 days, 1 tab qam x 4 days, 1/2 tab qam x 4 days. , Taking DULoxetine HCl 60 MG Capsule Delayed Release Particles 2 capsule Orally Once a day in the morning. , Not-Taking Emgality 120 MG/ML Solution Prefilled Syringe Inject 1 syringe Subcutaneous 27 - 30 days , Notes to Pharmacist: Auto-injector on backorder, Not-Taking Spiriva Respimat 1.25 MCG/ACT Aerosol Solution 2 puffs Inhalation Once a day , Not-Taking acetaZOLAMIDE 250 MG Tablet 1 tablet orally at bedtime , Not-Taking Pregabalin 50 MG Capsule As directed. Orally 1 capsule at night for 1 week, 2 capsules every night for 1 week, then finally 3 capsules every night after that. , Notes to Pharmacist: Please give patient a written schedule of how to ramp up the dose. Thanks., Not-Taking Trulance 3 MG Tablet 1 tablet Orally Once a day , Not-Taking Nurtec 75 MG Tablet Disintegrating 1 tablet on the tongue and allow to dissolve Orally , Discontinued Qulipta 60 MG Tablet 1 tablet Orally Once a day , stop date 07/30/2024, Notes to Pharmacist: ineff Objective: * Vitals: B P:136/83mm Hg, HR:82/min, Wt:203.9lbs, Wt-k.49 kg, Ht: 67 in, BMI:31.93Index, Body Surface Area: 2.09. Assessment: * Assessment: 1. C hronic migraine without aura, not intractable, without status migrainosus - G43.709 (Primary) Plan: * Treatment: * Follow Up: 2 Months * Billing Information: * Visit Code: 22422 OFFICE VISIT,EST PT,LEVEL 4. * Procedure Codes: * [place], [id number] on 07/12/2025 at 07:33 AM EDT Sign off status: Pending * Provider: Jase Dolan MD Date: 09/29/2023 Generated for Yousif phelan/Gauri/eTransmitting on: 1 07:33 AM EDT
--- OUTSIDE RECORDS SUMMARY | 2025-07-07 07:30 | XMS_ITS | Encounter Summary ---
Author Organization [facility] Address [address] [place] [address] Care Team Providers Care Equalizer Operator Name Role Phone Mattie Priest MD Primary Care Prov ider Reason for Visit * Cardiac Stress Testing (Routine) - Closed Specialty Diagnoses / Procedures Referred By Contac t Referred To Contact Cardiology Diagnoses Palpitations Primary hypertension Precordial pain Procedures Exercise stress test Agustin Hebert PA [address] [place] [address] Phone: tel: fax: [facility] Referral ID Status Reason Start Date Expiration Date Visits Re quested Visits Authorized [id number] Closed 05/26/2025 05/26/2026 1 1 Encounter Details Date Type Department Care Team (Latest Contact Info) Description 07/07/2025 7:30 AM EDT Ancillary Procedure [facility] [address] [place] [address] Palpitations; Primary hypertension; Precordial pain Social History Tobacco Use Types Packs/Day Years [...] for your loved ones. For example, child welfare assistant or elderly care for an older adult? [...] Sign Reading Time Taken Comments Blood Pressure 135/84 07/07/2025 7:25 AM EDT Pulse - - Temperature - - Respiratory Rate - - Oxygen Saturation - - Inhaled Oxygen Concentration - - Weight 106 kg (234 lb) 07/07/2025 7:25 AM EDT Height 165.1 cm (5' 5 ) 07/07/2025 7:25 AM EDT Body Mass Index 38.94 07/07/2025 7:25 AM EDT documented in this encounter Plan of Treatment Upcoming Encounters Date Type Department Care Team (Late st Contact Info) Description 07/17/2025 1:30 PM EDT Office Visit Adult Medicine [facility] [address] [place] [address] Daiana Benedict PA [address] [place] [address] 07/28/2025 10:30 AM EST Office Visit Adult Medicine [facility] [address] [place] [address] Agustin Hebert PA [address] [place] [address] 08/18/2025 1:15 PM EST Office Visit Pulmonology - [place] 175 [facility] [address] [place] [phone] Jamel Capone MD 175 [facility] 200 [place] [address] 09/25/2025 9:30 AM EST Office Visit Adult Medicine [facility] [address] [place] [address] Agustin Hebert PA [address] [place] [address] 11/11/2025 9:00 AM EST Office Visit Bariatric Surgery - [place] 175 [facility] [address] [place] [phone] Keshia Morton PA [address] [place] [address] 11/12/2025 9:10 AM EST Office Visit Gastroenterology - [place] [address] [facility] [address] [place] [address] Geri Zayas PA [address] [place] [address] 12/18/2025 1:00 PM EDT [facility]ointment [facility] [address] [place] [address] documented as of this encounter Procedures Procedure Name Priority Date/Time Associated Diagnosis Comments STRESS TEST ONLY EXERCISE Routine 07/07/2025 7:47 AM EDT Palpitations Primary hypertension Precordial pain documented in this encounter Results * Exercise stress test (07/07/2025 7:47 AM EDT) Target HR 133 bpm CV STRESS ONLY Estimated workload 4.6 METS CV STRESS ONLY Exercise/injec tion duration (min) 3 min CV STRESS ONLY Exercise/injec tion duration (sec) 19 sec CV STRESS ONLY Baseline HR 83 bpm CV STRES S ONLY Baseline SBP 135 mmHg CV STRE SS ONLY Baseline DBP 84 mmHg CV STRE SS ONLY O2 sat rest 99 % CV STRES S ONLY Peak HR 131 bpm CV STRESS ONLY Peak SBP 164 mmHg CV STRESS ONLY Peak DBP 82 mmHg CV STRESS ONLY O2 sat peak 98 % CV STRES S ONLY Rate Pressure Product 21,484.0 mmHg*bpm CV STRESS ONLY Percent HR 83 % CV STRESS ONLY Anatomical Region Laterality Modality Cardiac Diagnost ic Narrative 07/07/2025 3:47 PM EDT No evidence of ischemia by ECG at this borderline adequate level of stress. Exercise stress test was performed. Exercise capacity was poor. Normal blood pressure response. Nonspecific ST changes with exercise. Given poor exercise capacity with non-specific ST changes consider pharmacologic stress testing if clinical suspicion for CAD remains high. Stress Findings A Agustín protocol stress test was performed. Overall, the patient's exercise capacity was poor. The patient reached stage 1. Total stress time was 3 min and 19 sec. The test was stopped because the patient experienced shortness of breath. Blood pressure demonstrated a normal response. Heart rate demonstrated a normal response. Onset of symptoms occurred at Stage 0.5 of the protocol. The patient reported shortness of breath during the stress test. ECG 64-year-old female with history of hypertension, palpitations, chest pain and prediabetes presents today for exercise stress test. The ECG shows normal sinus rhythm. There were no arrhythmias during stress. 1 mm J-point depression with upsloping ST segments noted with exercise. Not meeting strict criteria for ischemia. There were no arrhythmias during recovery. ST changes returned to normal during recovery. The result of the stress ECG was abnormal but not diagnostic with slow, upsloping ST depression. Patient did have significant shortness of breath with minimal activity and had poor exercise capacity. Would recommend repeat testing with a pharmacological nuclear stress test. Agustin ESPINAL CV STRESS PROCEDURES Final Res ult documented in this encounter Visit Diagnoses Diagnosis Palpitations Primary hypertension Unspecified essential hypertension Precordial pain Encounter for screening mammogram for breast cancer documented in this encounter Additional Health Concerns Assessment Noted Time PHQ-9 Depression Total Score: 0 01/07/20 25 6:48 PM EDT documented as of this encounter Care Teams Equalizer Operator Relationship Specialty Start Date End Date Mattie Priest MD [address] [place] [address] PCP - General Internal Medicine 07/14/24 documented as of this encounter
--- OUTSIDE RECORDS SUMMARY | 2025-07-07 09:00 | XMS_ITS ---
Author Organization [facility] Address [address] [place] [address] Care Team Providers Care Skate Shop Attendant Name Role Phone Mattie Conner Primary Care Provide Naren Rasmussen Unavailable [phone] REASON FOR VISIT Sick wants to R/S has to be a Sunday or Sunday in the morning Encounters Encounter Location Date Provider Diagnosis [facility] [address] [place] [address] 07/07/2025 Naren Dolan Plan Of Treatment No Information Progress Notes * Christine UGALDEDOB:1960 (65 yo F)Acc No.[id number]:07/07/2025 Patient: Christine WILSON Provider: Jase Dolan MD Resource:Geneva Pearson :1960 A ge:64 Y S ex:Female Date:07/07/2025 Address:[address] [place], [place] [address]ANAST[place]IA Holder , [place], [phone] Pcp:Mattie Weston in Subjective: * Chief Complaints: * 1 . Sick wants to R/S has to be a Sunday or Sunday in the morning. * Medical History: Objective: * Vitals: Assessment: Plan: * Treatment: * Billing Information: * Visit Code: * Procedure Codes: * [place], [id number] on 07/12/2025 at 07:33 AM EDT Sign off status: Pending * Provider: Jase Dolan MD Date: 1 Generated for Yousif phelan/Gauri/Shaquille on: 1 07:33 AM EDT
--- NOTE | ~2025-07-12 | US_ITS ---
CLINICAL HISTORY: calf pain Venous duplex ultrasound bilateral lower extremity Comparison: None provided Findings: The visualized deep veins are fully compressible with normal Doppler color flow and spectral tracings. Small right-sided popliteal cyst measuring 0.9 x 1.2 x 2.7 cm.. IMPRESSION: 1. Negative for bilateral lower extremity deep vein thrombosis. 2. Small incidental right-sided popliteal cyst. This document has been electronically signed by: Nick Sorensen MD on 07/12/2025 10:52:03
[2025-07-12 07:27] VITALS: BP 126/60; PULSE 80; RESP 16; TEMP 36.6; O2SAT 99; BMI 38.5
--- OUTSIDE RECORDS SUMMARY | 2025-07-12 07:33 | XMS_ITS | Clinical Summary ---
Author Organization 175 [facility] Address [address] [place] [phone] Phone Care Team Providers Care Telephone Cleaner Name Role Phone Mattie Priest MD Primary [...] mg tablet Take by mouth. Activ e cyclobenzaprine (FLEXERIL) 5 mg tablet TAKE 1 TABLET BY MOUTH DAILY FOR 15 DAYS Active ergocalciferol (VITAMIN D-2) 1,250 mcg (50,000 unit) capsule Take 1 capsule (50,000 Units total) by mouth 1 (one) time per week. 12 each 025 2024 Active irbesartan (Avapro) 300 mg tablet Take 1 tablet (300 mg total) by mouth at bedtime. 30 each 025 2025 Active chlorthalidone (HYGROTON) 25 mg tablet Take 1 tablet (25 mg total) by mouth 1 (one) time each day. 30 each 5 025 2025 Active Trulance 3 mg tablet TAKE 1 TABLET BY MOUTH DAILY 30 tablet 3 Active levothyroxine (SYNTHROID, LEVOTHROID) 100 mcg tabletIndicatio ns:Hypothyroidi sm, unspecified type TAKE ONE TABLET BY MOUTH EVERY DAY BEFORE BREAKFAST 90 tablet 1 Active methylPREDNISol one (MEDROL DOSPAK) 4 mg tablet Follow schedule on package instructions 1 each Active fluticasone propion-salmete roL (ADVAIR DISKUS) 500-50 mcg/dose diskus inhalerIndicati ons:Moderate persistent asthma without complication Inhale 1 puff by mouth 2 (two) times a day. for 30 days 1 each 025 2025 Active amLODIPine (NORVASC) 2.5 mg tablet Take 1 tablet (2.5 mg total) by mouth 1 (one) time each day in the morning. 30 each 5 025 2025 Active tirzepatide, weight loss, (Zepbound) 2.5 mg/0.5 mL injection Inject 0.5 mL (2.5 mg total) under the skin every 7 (seven) days. 2 mL Active budesonide-form oteroL (SYMBICORT) 160-4.5 mcg/actuation inhaler Inhale 2 puffs by mouth 2 (two) times a day. Rinse mouth with water after use to reduce aftertaste and incidence of candidiasis. Do not swallow. 10.2 g 11 025 2025 Active pramipexole (MIRAPEX) 0.125 mg tablet TAKE THREE TABLETS BY MOUTH EVERY EVENING AT BEDTIME 270 tablet Active metoprolol succinate (TOPROL-XL) 25 mg 24 hr tablet TAKE 1 TABLET BY MOUTH DAILY 90 tablet Active metoprolol succinate (TOPROL-XL) 25 mg 24 hr tablet TAKE 1 TABLET BY MOUTH DAILY 90 tablet 1 025 2024 Discontinued pramipexole (MIRAPEX) 0.125 mg tablet TAKE THREE TABLETS BY MOUTH EVERY EVENING AT BEDTIME 270 tablet 1 025 2024 Discontinued doxycycline (VIBRAMYCIN) 100 mg capsule Take 1 [...] candidiasis. Do not swallow. 10.2 g 11 06/12/ 025 2024 Discontinued(R eorder) Active Problems Problem Noted Date Diagnosed Date Benign intracranial hypertension 06/18/2025 Chronic migraine without aura, with status migra inosus 06/18/2025 Class 1 obesity 06/18/2025 Organic anxiety disorder 06/18/2025 Trigeminal neuralgia 06/18/2025 Non-refractory chronic migraine without aura 10/2024 Bacterial conjunctivitis 04/26/2025 Bipolar disorder ([facility] V24, [facility] V28) 06/05/2025 Restless legs syndrome 01/30/2025 Temporomandibular joint disorder [...] apnea 08/12/2013 Overview (04/13/2025): AHI 2.57 1725 SMS Home Sleep Apnea Test: Date 05/26/2020; Wt [...] Encounters Date Type Department Care Team Description 07/08/2025 Results Follow-Up Adult [facility] [address] [place] [phone] Chai Redmond RN 07/07/2025 7:30 AM EDT Ancillary Procedure [facility] 101 300 [facility] 101 [place] [phone] Palpitations; Primary hypertension; Precordial pain 07/03/2025 Telephone Bariatric Surgery - [address] 120 [place] [phone] Keshia Morton PA 06/27/2025 Results Follow-Up Gastroenterology - [place] [address] 200 [place] [phone] Geri Zayas PA 06/25/2025 9:50 AM EDT Office Visit Gastroenterology [address] 200 [place] [phone] Geri Zayas PA LUQ abdominal pain (Primary Dx); Diverticulosis; Constipation, unspecified constipation type 06/15/2025 Telephone Adult [facility] 230 [place] [phone] Mattie Galeano MD 06/11/2025 Telephone Pulmonology [facility] 175 [facility] 200 [place] [phone] Jamel Souza MD 06/10/2025 8:30 AM EDT Consult Bariatric Surgery [address] 120 [place] [phone] Keshia Morton PA Class 2 severe obesity due to excess calories with serious comorbidity and body mass index (BMI) of 36.0 to 36.9 in adult (CMS/HCC V24, CMS/HCC V28) (Primary Dx); Obstructive sleep apnea; Primary hypertension; Prediabetes 06/09/2025 11:15 AM EDT Office Visit [address] [phone] Agustin Hebert PA Left lateral abdominal pain (Primary Dx); Primary hypertension 06/09/2025 Telephone Pulmonology [facility] 175 [facility] 200 [place] [phone] Jamel Souza MD 06/04/2025 1:00 PM EDT Office Visit Orthopedic Surgery [address] 140 [place] [phone] Virginia Adams PA Left wrist pain (Primary Dx) 05/26/2025 9:45 AM EDT Office Visit Adult [address] [phone] Agustin Hebert PA Palpitations (Primary Dx); Primary hypertension; Nocturnal hypoxemia; Prediabetes; Precordial pain 05/26/2025 Telephone Adult [address] [phone] Mattie Galeano MD 04/20/2025 Telephone Adult [address] [phone] Agustin Hebert PA 04/14/2025 9:00 AM EDT Office Visit Adult [address] [phone] Agustin Hebert PA Primary hypertension (Primary Dx); Prediabetes; Mild concentric left ventricular hypertrophy (LVH); Obstructive sleep apnea syndrome; Hypothyroidism, unspecified type; Other fatigue 04/14/2025 Telephone Adult Medicine - [place] [address] [phone] Agustin Hebert PA from Last 3 Months Immunizations Immunization Administration [...] Date Site/Laterality Comments COLONOSCOPY W/ POLYPECTOMY PROCEDURE: ID COLSC FLX W/RMVL OF TUMOR POLYP LESION SNARE TQ; COMMENT: colonoscopy every five years TONSILLECTOMY 12/30/2014 PROCEDURE: HISTORICAL TONSILLECTOMY OTHER SURGICAL HISTORY 09/26/2017 Right PROCEDURE: ID PRTL THYROID LOBECTOMY UNI W/WO ISTHMUSECTOMY BREAST [...] Medical History Relation Name Comments Hypertension Brother Gumercindovargas Asthma Daughter Maryjane garza Asthma Father Stroke [...] for your loved ones. For example, child adolescent care or elderly care for an older adult? [...] Pressure 135/84 07/07/2025 7:25 AM EDT Pulse 76 06/25/2025 10:02 AM EDT Temperature 36.6 C (97.8 F) 06/09/2025 10:58 AM EDT Respiratory Rate 16 12/12/2024 1:42 PM EDT Oxygen Saturation 98% 06/25/2025 10:02 AM EDT Inhaled Oxygen Concentration - - Weight 106 kg (234 lb) 07/07/2025 7:25 AM EDT Height 165.1 cm (5' 5 ) 07/07/2025 7:25 AM EDT Body Mass Index 38.94 07/07/2025 7:25 AM EDT Plan of Treatment Upcoming Encounters Date Type Department Care Team (Late st Contact Info) Description 07/17/2025 1:30 PM EDT Office Visit Adult Medicine [facility] 230 [place] [phone] Daiana Benedict PA 230 [place], [place] 07/28/2025 10:30 AM EST Office Visit [facility] 230 [place] [phone] Agustin Hebert PA [address] [place], [place] 08/18/2025 1:15 PM EST Office Visit Pulmonology - [place] 175 [facility] 200 [place] [phone] Jamel Souza MD 175 [facility] 200 [place] [address] 09/25/2025 9:30 AM EST Office Visit Adult Medicine - [place] 230 [place] [phone] Agustin Hebert PA 230 [place] [address] 11/11/2025 9:00 AM EST Office Visit Bariatric Surgery - [place] 175 [facility] 120 [place] [phone] Keshia Morton PA 230 [place] [phone] 11/12/2025 9:10 AM EST Office Visit Gastroenterology - 299 [facility] 299 [facility] 419 [place] [phone] Geri Zayas PA 175 [facility] 200 [place] [address] 12/18/2025 1:00 PM EDT Appointment [facility] 271 [place] [phone] Health Maintenance Due Date Last Done Comments Cervical Cancer Screening: Pap Smear 03/13/2020 03/13/2017, 03/13/2017 Hypertension/CHF/CAD Annual BMP Blood Test 06/25/2026 06/25/2025, 01/28/2025, 08/25/2024, Additional history exists Breast Cancer Screening 12/17/2026 [...] AM EDT Palpitations Primary hypertension Precordial pain CBC WITH AUTO DIFFERENTIAL Routine 06/25/2025 10:28 AM EDT LUQ abdominal pain Diverticulosis Constipation, unspecified constipation type CBC AND DIFFERENTIAL Routine 06/25/2025 10:28 AM EDT LUQ abdominal pain Diverticulosis Constipation, unspecified constipation type RENAL FUNCTION PANEL Routine 06/25/2025 10:28 AM EDT LUQ abdominal pain Diverticulosis Constipation, unspecified constipation type C-REACTIVE PROTEIN Routine 06/25/2025 10 :28 AM EDT LUQ abdominal pain Diverticulosis Constipation, unspecified constipation type XR WRIST 3+ VIEWS LEFT Routine 06/04/2025 1:22 PM EDT Pain MG MAMMO DIGITAL SCREENING W RUFUS BILAT Routine 12/17/2024 2:49 PM EDT Encounter for screening mammogram for breast cancer LIPID PANEL WITH REFLEX TO DIRECT LDL Routine 08/25/2024 9:42 AM EST Primary hypertension Prediabetes HIV SCREENING Routine 04/27/2023 HEPATITIS C SCREENING Routine 04/05/2023 COLONOSCOPY Routine 06/22/2022 HPV Routine 03/13/2017 from Last 3 Months or Most Recently Relevant to Health Maintenance Results * Exercise stress test (07/07/2025 7:47 [...] testing with a pharmacological nuclear stress test. us Agustin ESPINAL CV STRESS PROCEDURES Final Res ult * (ABNORMAL) CBC auto differential (06/25/2025 10:28 AM EDT) WBC 12.1(H) 4.8 - 10.8 K/mcL LAB HEMETOLOGY METHOD 06/25/2025 1:54 PM EDT [facility] RBC 3.90 3.80 - 4.80 M/mcL LAB HEMETOLOGY METHOD 06/25/2025 1:54 PM EDT [facility] Hemoglobin 12.4 11.5 - 16.0 g/dL LAB HEMETOLOGY METHOD 06/25/2025 1:54 PM EDT [facility] Hematocrit 38.7 35.0 - 47.0 % LAB HEMETOLOGY METHOD 06/25/2025 1:54 PM EDT [facility] MCV 98.2(H) 79.0 - 98.0 FL LAB HEMETOLOGY METHOD 06/25/2025 1:54 PM EDT [facility] MCH 31.5 27.0 - 32.0 pcg LAB HEMETOLOGY METHOD 06/25/2025 1:54 PM EDT [facility] MCHC 32.0 32.0 - 37.0 g/dL LAB HEMETOLOGY [facility]25[facility]25 [facility] RDW 12.2 11.0 - 15.0 % LAB HEMETOLOGY METHOD 06/25/2025 1:54 [facility] Platelets 301 130 - 400 K/mcL LAB HEMETOLOGY METHOD 06/25/2025 1:54 [facility] MPV 9.7 7.0 - 11.0 FL LAB HEMETOLOGY METHOD 06/25/2025 1:54 [facility] NRBC 0.0 <1.0 % LAB HEMETOLOGY METHOD 06/25/2025 1:54 [facility] NRBC Absolute 0.00 <0.10 K/mcL LAB HEMETOLOGY METHOD 06/25/2025 1:54 PM EDT [facility] Neutrophils Relative 56.3 % LAB HEMETOLOGY METHOD 06/25/2025 1:54 PM EDT [facility] Lymphocytes Relative 33.4 % LAB HEMETOLOGY METHOD 06/25/2025 1:54 PM EDT [facility] Monocytes Relative 8.4 % LAB HEMETOLOGY METHOD 06/25/2025 1:54 PM EDT [facility] Eosinophils Relative 1.0 % LAB HEMETOLOGY METHOD 06/25/2025 1:54 PM EDT [facility] Basophils Relative 0.2 % LAB HEMETOLOGY METHOD 06/25/2025 1:54 PM EDT [facility] Immature Granulocytes Relative 0.7 % LAB HEMETOLOGY METHOD 06/25/2025 1:54 PM EDT [facility] Neutrophils Absolute 6.80 1.50 - 7.00 K/mcL LAB HEMETOLOGY METHOD 06/25/2025 1:54 PM EDT [facility] Lymphocytes Absolute 4.03 1.00 - 5.00 K/mcL LAB HEMETOLOGY METHOD 06/25/2025 1:54 PM EDT [facility] Monocytes Absolute 1.02(H) 0.20 - 1.00 K/mcL LAB HEMETOLOGY METHOD 06/25/2025 1:54 PM EDT [facility] Eosinophils Absolute 0.12 0.00 - 0.50 K/mcL LAB HEMETOLOGY METHOD 06/25/2025 1:54 PM EDT [facility] Basophils Absolute 0.03 0.00 - 0.20 K/mcL LAB HEMETOLOGY METHOD 06/25/2025 1:54 PM EDT [facility] Immature Granulocytes Absolute 0.08(H) 0.00 - 0.03 K/mcL LAB HEMETOLOGY METHOD 06/25/2025 1:54 [facility] Blood Venous blood specimen / Unknown Venipuncture / Unknown 06/25/2025 10:28 AM EDT 06/25/2025 10:28 AM EDT us Geri ESPINAL LAB BLOOD ORDERABLES Final Re sult [facility] [address] [place] [address], * C-reactive protein (06/25/2025 10:28 AM EDT) C-Reactive Protein <0.29 <=0.50 mg/dL LAB CHEMISTRY METHOD 06/25/2025 2:53 PM EDT [facility] Blood Venous blood specimen / Unknown Venipuncture / Unknown 06/25/2025 10:28 AM EDT 06/25/2025 10:28 AM EDT Geri ESPINAL LAB BLOOD ORDERABLES Final Re sult [facility] [address] [place] [address], [place] [phone] * (ABNORMAL) Renal function panel (06/25/2025 10:28 AM EDT) [facility] Sodium 137 133 - 145 mmol/L LAB CHEMISTRY METHOD 06/25/2025 2:53 PM [facility] Potassium 3.4(L) 3.5 - 5.5 mmol/L LAB CHEMISTRY METHOD 06/25/2025 2:53 PM [facility] Chloride 101 96 - 110 mmol/L LAB CHEMISTRY METHOD 06/25/2025 2:53 PM [facility] CO2 29 21 - 32 mmol/L LAB CHEMISTRY METHOD 06/25/2025 2:53 PM [facility] Anion Gap 7 3 - 11 LAB CHEMISTRY METHOD 06/25/2025 2:53 PM [facility] Glucose 122(H) 70 - 100 mg/dL LAB CHEMISTRY METHOD 06/25/2025 2:53 PM [facility] BUN 16 5 - 25 mg/dL LAB CHEMISTRY METHOD 06/25/2025 2:53 PM [facility] Creatinine 0.87 0.50 - 1.10 mg/dL LAB CHEMISTRY METHOD 06/25/2025 2:53 PM [facility] eGFR 75 >=60 mL/min/1. 73m2 LAB CHEMISTRY METHOD 06/25/2025 2:53 PM EDT [facility] Comment:Calculation based on the Chronic Kidney Disease Epidemiology Collaboration (CKD-EPI) equation refit without adjustment for race. BUN/Creatinine Ratio 18.4 LAB CHEMISTRY METHOD 06/25/2025 2:53 PM EDT [facility] Albumin 4.4 3.2 - 5.0 g/dL LAB CHEMISTRY METHOD 06/25/2025 2:53 PM EDT [facility] Calcium 9.5 8.5 - 10.5 mg/dL LAB CHEMISTRY METHOD 06/25/2025 2:53 PM EDT [facility] Phosphorus 3.2 2.5 - 4.5 mg/dL LAB CHEMISTRY METHOD 06/25/2025 2:53 PM EDT [facility] Blood Venous blood specimen / Unknown Venipuncture / Unknown 06/25/2025 10:28 AM EDT 06/25/2025 10:28 AM EDT Geri ESPINAL LAB BLOOD ORDERABLES Final Re sult [facility] [address] [place] [address], [place] [phone] * XR Wrist 3+ Views Left (06/04/2025 [...] left thumb basal joint and left wrist. us [place] ESPINAL IMG XR PROCEDURES Final Resul t * MG Mammo Digital Screening w Rufus bilat (12/17/2024 2:49 PM EDT) Anatomical Region Laterality Modality Breast Bilateral Mammography 12/18/2024 3:11 PM EDT Impressions 12/18/2024 3:14 PM EDT No evidence of breast malignancy. BI-RADS CATEGORY: 1 - NEGATIVE RECOMMENDATION: Screening bilateral mammogram is recommended in 1 year. Mammo Location: [facility], [address] [place] [address], [phone], . -------- FINAL REPORT -------- Dictated By: Jessica Fenton Dictated Date: 12/18/2024 15:11 ET Assigned Physician: Jessica Fenton Reviewed and Electronically Signed By: Jessica Fenton Signed Date: 12/18/2024 15:14 ET Workstation ID: [id number] Transcribed By: Self Edit Transcribed Date: 12/18/2024 [...] year. Mammo Location: [facility], [address] [place] [address], [phone], . -------- FINAL REPORT -------- Dictated By: Jessica Fenton Dictated Date: 12/18/2024 15:11 ET Assigned Physician: Jessica Fenton Reviewed and Electronically Signed By: Jessica Fenton Signed Date: 12/18/2024 15:14 ET Workstation ID: [id number] Transcribed By: Self Edit Transcribed Date: 12/18/2024 15:11 ET us Self Referral Sppl IMG BI PROCEDURES Final Resul t * (ABNORMAL) Lipid panel with reflex to direct LDL (08/25/2024 9:42 AM EST) Cholesterol 218(H) 0 - 200 mg/dL LAB CHEMISTRY METHOD 08/25/2024 1:25 PM EST [facility] Triglycerides 104 0 - 150 mg/dL LAB CHEMISTRY METHOD 08/25/2024 1:25 PM [facility] HDL 81 >=40 mg/dL LAB CHEMISTRY METHOD 08/25/2024 1:25 PM EST [facility] LDL Calculated 116(H) 0 - 100 mg/dL LAB CHEMISTRY METHOD 08/25/2024 1:25 PM [facility] VLDL Cholesterol Marcelo 20.8 mg/dL LAB CHEMISTRY METHOD 08/25/2024 1:25 PM EST [facility] Non HDL Chol. (LDL+VLDL) 137 <145 mg/dL LAB CHEMISTRY METHOD 08/25/2024 1:25 PM [facility] Chol/HDL Ratio 2.7 0.0 - 4.4 LAB CHEMISTRY METHOD 08/25/2024 1:25 PM [facility] Blood Venous blood specimen / Unknown Venipuncture / Unknown 08/25/2024 9:42 AM EST 08/25/2024 9:42 AM EST Agustin ESPINAL LAB BLOOD ORDERABLES Final Res ult [facility] [address] [place] [address], [place] [phone] * HIV Screening (04/27/2023) [facility] HIV Screening Abstracted Historical Provider HEALTH MAINTENANCE Final Result * Hepatitis C Screening (04/05/2023) [facility] Hepatitis C Screening Abstracted [facility] Provider HEALTH MAINTENANCE Final Result * Colonoscopy (06/22/2022) [facility] Colonoscopy No interpretation , abstracted Anatomical Region Laterality Modality Other Historical Provider HEALTH MAINTENANCE Final Result * Cervical Cancer Screening: HPV (03/13/2017) [facility] Cervical Cancer Screening: HPV Negative, abstracted Historical Provider HEALTH MAINTENANCE Final Result from Last 3 Months or Most Recently Relevant to Health Maintenance Insurance [facility] MEDICARE Member Subscriber Plan / Payer (Ef fective 2022-Present) Name:CHRISTINE GARZA Relation to Subscriber:Self Name:Christine Garza Payer ID:[id number] Group ID:[id number] Type:Not on file Address: [place] [address] [address] [place] [phone] [employer] Care Teams Telephone Cleaner Relationship Specialty Start Date End Date Mattie Priest MD [address] [place] [phone] PCP - General Internal Medicine 07/14/24
--- OUTSIDE RECORDS SUMMARY | 2025-07-12 07:34 | XMS_ITS | Encounter Summary ---
Author Organization [facility] Address [address] [place] [address] Care Team Providers Care Automotive Manager Name Role Phone Mattie Priest MD Primary Care Prov ider Encounter Details Date Type Department Care Team (Late st Contact Info) Description 06/27/2025 Results Follow-Up Gastroenterology - [place] [address] [place] [phone] Geri Zayas PA [address] [place] [address] Social History Tobacco Use Types Packs/Day Years [...] your loved ones. For example, child care provider or elderly care for [...] as of this encounter Progress Notes * TEDDY Whalen - 06/27/2025 7:49 PM EDT I will notify patient about the results via [employer]. documented in this encounter Plan of Treatment Upcoming Encounters Date Type Department Care Team ([facility] st Contact Info) Description 07/17/2025 1:30 PM EDT Office Visit Adult Medicine - [place] [address] [place] [address] Daiana Benedict PA 230 [place] [address] 07/28/2025 10:30 AM EST Office Visit Adult Medicine [facility] [address] [place] [phone] Agustin Hebert PA [address] [place] [address] 08/18/2025 1:15 PM EST Office Visit Pulmonology - [place] 175 [facility] 200 [place] [address] Jamel Capone MD [address] [address] 09/25/2025 9:30 AM EST Office Visit Adult Medicine - [place] 230 [place] [address] Agustin Hebert PA [address] [place] [address] 11/11/2025 9:00 AM EST Office Visit Bariatric Surgery - [place] 175 [facility] 120 [place] [phone] Keshia Morton PA 230 [place] [address] 11/12/2025 9:10 AM EST Office Visit Gastroenterology - 299 [facility] 299 [facility] [address] [place] [phone] Geri Zayas PA 175 [facility] 200 [place] [address] 12/18/2025 1:00 PM EDT Appointment [facility] [address] [place] [phone] documented as of this encounter Visit Diagnoses Not on filedocumented in this encounter Additional Health Concerns Assessment Noted Time PHQ-9 Depression Total Score: 0 01/07/20 25 6:48 PM EDT documented as of this encounter Care Teams Automotive Manager Relationship Specialty Start Date End Date Mattie Priest MD [address] [place] [phone] PCP - General Internal Medicine 07/14/24 documented as of this encounter
--- OUTSIDE RECORDS SUMMARY | 2025-07-12 07:34 | XMS_ITS | Encounter Summary ---
Author Organization [facility] Address [address] [place] [address] Care Team Providers Care Rural Electrification Engineer Name Role Phone Mattie Priest MD Primary Care Prov ider Reason for Visit * Reason Onset Date Comments appeal 07/03/2025 Zepbound Encounter Details Date Type Department Care Team ([facility] st Contact Info) Description 07/03/2025 Telephone Bariatric Surgery - [address] [place] [address] Keshia Morton, TEDDY [address] [place] [phone] Social History Tobacco Use Types Packs/Day Years [...] care for your loved ones. For example, director maternal child or elderly care for an older adult? [...] as of this encounter Progress Notes * Phuong Taveras - 07/09/2025 2:42 PM EDT Patient is calling again in reference to her prior auth - she's asking if the appeal was sent. Please advise. * Phuong Taveras - 07/07/2025 2:55 PM EDT Patient is calling for an update on her PA for Zepbound * Marybel Kim - 07/03/2025 11:18 AM EDT Zepbound was denied 06/10/25 please submit an appeal documented in this encounter Plan of Treatment Upcoming Encounters Date Type Department Care Team (Late st Contact Info) Description 07/17/2025 1:30 PM EDT Office Visit Adult Medicine [facility] [address] [place] [address] Daiana Benedict PA [address] [place], [place] 07/28/2025 10:30 AM EST Office Visit Adult Medicine [facility] [address] [place] [address] Agustin Hebert PA [address] [place], [place] 08/18/2025 1:15 PM EST Office Visit Pulmonology - [place] 175 [facility] 200 [place] [phone] Jamel Capone MD 175 [facility] 200 [place] [address] 09/25/2025 9:30 AM EST Office Visit Adult Medicine [facility] [address] [place] [address] Agustin Hebert PA [address] [place], [place] 11/11/2025 9:00 AM EST Office Visit Bariatric Surgery - [place] 175 [facility] 120 [place] [phone] Keshia Morton PA 230 [place] [address] 11/12/2025 9:10 AM EST Office Visit Gastroenterology - 299 [facility] 299 [facility] [address] [place] [phone] Geri Zayas PA 175 [facility] [address] [place] [address] 12/18/2025 1:00 PM EDT Appointment [facility] [address] [place] [phone] documented as of this encounter Visit Diagnoses Not on filedocumented in this encounter Additional Health Concerns Assessment Noted Time PHQ-9 Depression Total Score: 0 01/07/20 25 6:48 PM EDT documented as of this encounter Care Teams Rural Electrification Engineer Relationship Specialty Start Date End Date Mattie Priest MD 230 [place] [address] PCP - General Internal Medicine 07/14/24 documented as of this encounter
--- OUTSIDE RECORDS SUMMARY | 2025-07-12 07:34 | XMS_ITS | Encounter Summary ---
Author Organization [facility] Address [address] [place] [address] Care Team Providers Care Custom Dressmaker Name Role Phone Mattie Priest MD Primary Care Prov ider Encounter Details Date Type Department Care Team ([facility] st Contact Info) Description 07/08/2025 Results Follow-Up Adult [facility] [address] [place] [phone] Chai Redmond, RN Social History Tobacco Use Types Packs/Day Years [...] for your loved ones. For example, child and youth program assistant or elderly care for an older [...] on file documented as of this encounter Plan of Treatment Upcoming Encounters Date Type Department Care Team (Late st Contact Info) Description 07/17/2025 1:30 PM EDT Office Visit Adult [facility] [address] [place] [address] Daiana Benedict PA [address] [place], [place] 07/28/2025 10:30 AM EST Office Visit [facility] [place] [address] [place] [address] Agustin Hebert PA [address] [place], [place] 08/18/2025 1:15 PM EST Office Visit Pulmonology - [place] 175 [facility] [address] [place] [address] Jamel Capone MD 175 [facility] [address] [place] [address] 09/25/2025 9:30 AM EST Office Visit Adult Medicine - [place] [address] [place] [address] Agustin Hebert PA [address] [place] [address] 11/11/2025 9:00 AM EST Office Visit Bariatric Surgery - [place] 175 [facility] [address] [place] [phone] Keshia Morton PA [address] [place] [address] 11/12/2025 9:10 AM EST Office Visit Gastroenterology - [address] [facility] 299 [facility] [address] [place] [phone] Geri Zayas PA 175 [facility] [address] [place] [address] 12/18/2025 1:00 PM EDT Appointment [facility] [address] [place] [phone] documented as of this encounter Visit Diagnoses Not on filedocumented in this encounter Additional Health Concerns Assessment Noted Time PHQ-9 Depression Total Score: 0 01/07/20 25 6:48 PM EDT documented as of this encounter Care Teams Custom Dressmaker Relationship Specialty Start Date End Date Mattie Priest MD [address] [place] [address] PCP - General Internal Medicine 07/14/24 documented as of this encounter
--- OUTSIDE RECORDS SUMMARY | 2025-07-12 07:34 | XMS_ITS | Patient Health Record ---
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 CHIEF EXECUTIVE 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 nonsmoker DEPUTY CHIEF EXECUTIVE 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 nonsmoker DEPUTY CHIEF EXECUTIVE 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 nonsmoker DEPUTY CHIEF EXECUTIVE 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 nonsmoker DEPUTY CHIEF EXECUTIVE 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 nonsmoker DEPUTY CHIEF EXECUTIVE 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 nonsmoker DEPUTY CHIEF EXECUTIVE 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 nonsmoker DEPUTY CHIEF EXECUTIVE 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 nonsmoker DEPUTY CHIEF EXECUTIVE 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 nonsmoker DEPUTY CHIEF EXECUTIVE 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 nonsmoker security for parking [...] Status Risk Notes Problem 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) Active confirmed Problem Restless legs syndrome (48862153) Restless legs syndrome (G25.81) Active confirmed Problem Chronic migraine without aura with status migrainosus (916185880407762 ) Chronic migraine without aura, not intractable, with status migrainosus (G43.701) Active confirmed Problem Chronic migraine without aura, non-intractable (213490001073459 ) Chronic migraine without aura, not intractable, without status migrainosus (G43.709) Active confirmed Problem Chronic intractable migraine without aura (110375766440961 ) Chronic migraine without aura, intractable, with status migrainosus (G43.711) Active confirmed Problem Trigeminal neuralgia (91907389) Trigeminal neuralgia (G50.0) Active confirmed Problem Benign intracranial hypertension (97631152) Benign intracranial hypertension (G93.2) Active confirmed Problem Occipital neuralgia (90493256) Occipital neuralgia (M54.81) Active confirmed Problem Myalgia of auxiliary muscles, head and neck (M79.12) Active confirmed Vital Signs Heart Rate 92 /min 05/25/2025 Blood pressure diastolic 79 mm Hg 05/25/2025 Weight-kg 104.87 kg 05/25/2025 Height 67 in 05/25/2025 Blood pressure systolic 134 mm Hg 05/25/2025 Weight 231.2 lbs 05/25/2025 BMI 36.21 kg/m2 05/25/2025 Encounters Encounter Location Date Provider Diagnosis [facility] [address] [place] [phone] 07/30/2024 Naren Dolan Chronic migraine without aura, not intractable, without status migrainosus G43.709 [facility] [address] [place] [address] 09/23/2024 Laura Jimenez Chronic migraine without aura, intractable, with status migrainosus G43.711 [facility] [address] [place] [address] 12/29/2024 Laura Jimenez Chronic migraine without aura, intractable, with status migrainosus G43.711 and Benign intracranial hypertension G93.2 [facility] [address] [place] [address] 01/20/2025 Laurajohanna Jimenez Chronic migraine without aura, intractable, with status migrainosus G43.711 ; Benign intracranial hypertension G93.2 and Myalgia of auxiliary muscles, head and neck M79.12 [facility] [place] [address] 02/05/2025 Laura Jimenez Chronic migraine without aura, intractable, with status migrainosus G43.711 ; Benign intracranial hypertension G93.2 and Myalgia of auxiliary muscles, head and neck M79.12 [facility] [address] [place] [address] 02/16/2025 Laura Jimenez Chronic migraine without aura, intractable, with status migrainosus G43.711 ; Benign intracranial hypertension G93.2 and Myalgia of auxiliary muscles, head and neck M79.12 [facility] [address] [place] [address] 03/19/2025 Naren Dolan Myalgia of auxiliary muscles, head and neck M79.12 ; chronic migraine with aura G43.719 ; Benign intracranial hypertension G93.2 ; Restless legs syndrome G25.81 and Anxiety disorder due to known physiological condition F06.4 [facility] [address] [place] [address] 04/20/2025 Laura Jimenez Chronic migraine without aura, intractable, with status migrainosus G43.711 ; Benign intracranial hypertension G93.2 ; Myalgia of auxiliary muscles, head and neck M79.12 ; Occipital neuralgia M54.81 and Trigeminal neuralgia G50.0 [facility] [address] [place] [address] 05/25/2025 Laurajohanna Jimenez Chronic migraine without aura, intractable, with status migrainosus G43.711 ; Benign intracranial hypertension G93.2 ; Myalgia of auxiliary muscles, head and neck M79.12 ; Occipital neuralgia M54.81 and Trigeminal neuralgia G50.0 [facility] [address] [place] [address] 08/28/2024 Naren Dolan [facility] [address] [place] [address] 08/04/2024 Narencameron Dolan [facility] [address] [place] [address] 08/06/2024 Narencameron Dolan [facility] [address] [place] [address] 09/23/2024 Laura Jimenez [facility] [address] [place] [address] 09/23/2024 Naren Dolan [facility] [address] [place] [address] 09/24/2024 Naren Dolan [facility] [address] [place] [address] 10/07/20[facility] [address] [place] [address] 10/09/2024 [facility] [address] [place] [address] 12/04/2024 [facility] [address] [place] [address] 12/04/2024 Naren Dolan Chronic migraine without aura, not intractable, without status migrainosus G43.709 [facility] [address] [place] [address] 12/14/2024 Naren Dolan [facility] [address] [place] [address] 01/12/2025 Naren Dolan [facility] [address] [place] [address] 01/20/2025 Narencameron Dolan [facility] [address] [place] [address] 01/20/2025 Naren Dolan [facility] [address] [place] [address] 01/26/2025 Naren Dolan Benign intracranial hypertension G93.2 [facility] [address] [place] [address] 02/05/2025 Naren Dolan [facility] [address] [place] [address] 02/05/2025 Naren Kelsi [facility] [address] [place] [address] 04/21/2025 Naren Kelsi [facility] [address] [place] [address] 05/26/2025 Naren Kelsi [facility] [address] [place] [address] 05/27/2025 Naren Dolan Assessments Encounter Date Diagnosis (ICD [...] management. Pt was seen and evaluated by aLura BERNSTEIN. Pt consents to virtual visit. 02/16/2025 [...] Coverage Start Date Coverage End Date [facility] [address] [address] [place], [place] [id number] Christine Wray Self - patient is the insured 2 Medical (General) History Medical History History ICD Code Chronic migaine HTN asthma depression anxiety chronic back pain hypothyroid Tachycardia Gallbladder polyps RLS Surgical History Surgery Date(Month/Year) R thyroid lobectomy 2019 T&A
--- OUTSIDE RECORDS SUMMARY | 2025-07-12 07:34 | XMS_ITS | Encounter Summary ---
Author Organization [facility] Address [address] [place] [address] Care Team Providers Care Inside Finisher Name Role Phone Mattie Priest MD Primary Care Prov ider Reason for Visit * Reason Onset Date Comments Abdominal Pain 06/15/2025 Encounter Details Date Type Department Care Team ([facility] st Contact Info) Description 06/15/2025 Telephone Adult Medicine - [place] [address] [place] [phone] Mattie Priest MD [address] [place] [address] Social History Tobacco Use Types Packs/Day Years [...] for your loved ones. For example, child protection specialist or elderly care for an older adult? [...] to please return our call * Carlos Gutiérrezmirellamickey - 06/15/2025 12:13 PM EDT Patient call [...] traveled recently to another state outside of [place], [place], [place], [place], [place], [place], [place]? o If yes, did you quarantine for [...] date of accident/Injury: If yes, gather 3rd constitution party insurance information Third Democrat Information: PCP: Mattie Priest MD Payor: PENDING SALE TO [employer] MEDICARE / Plan: [employer] ONE CARE / Product Type: *No Product type* / documented in this encounter Plan of Treatment Upcoming Encounters Date Type Department Care Team (Late st Contact Info) Description 07/17/2025 1:30 PM EDT Office Visit Adult Medicine [facility] [address] [place] [address] Daiana Benedict PA [address] [place] [address] 07/28/2025 10:30 AM EST Office Visit Adult Medicine - [place] [address] [place] [address] Agustin Hebert PA [address] [place] [address] 08/18/2025 1:15 PM EST Office Visit Pulmonology - [place] 175 [facility] [address] [place] [address] Jamel Capone MD 175 [facility] [address] [place] [address] 09/25/2025 9:30 AM EST Office Visit Adult Medicine - [place] [address] [place] [address] Agustin Hebert PA [address] [place] [address] 11/11/2025 9:00 AM EST Office Visit Bariatric Surgery - [place] 175 [facility] [address] [place] [phone] Keshia Morton PA [address] [place] [address] 11/12/2025 9:10 AM EST Office Visit Gastroenterology - 299 [facility] 299 [facility] [address] [place] [phone] Geri Zayas PA 175 [facility] [address] [place] [address] 12/18/2025 1:00 PM EDT Appointment [facility] [address] [place] [address] documented as of this encounter Visit Diagnoses Not on filedocumented in this encounter Additional Health Concerns Assessment Noted Time PHQ-9 Depression Total Score: 0 01/07/20 25 6:48 PM EDT documented as of this encounter Care Teams Inside Finisher Relationship Specialty Start Date End Date Mattie Priest MD [address] [place] [address] PCP - General Internal Medicine 07/14/24 documented as of this encounter
--- OUTSIDE RECORDS SUMMARY | 2025-07-12 07:34 | XMS_ITS | Data Portability ---
Author Organization [place] - [facility], Allergy Address [address] [address] Care Team Providers Care Thermal Spray Operator Name Role Phone AJIDEN CAMPBELL Primary Care Provide r Assessment Encounter [...] agrees with plan all questions were answered. [email or web address] Not available 06/25/2024 11:45:03 07/22/2024 07/22/2024 64-year-old [...] use of Protonix. All questions were answered. [email or web address] Not available 07/22/2024 11:36:27 10/07/2024 10/07/2024 64-year-old [...] given negative biopsy. Follow-up in 6 months. [email or web address] Not available 10/07/2024 13:33:25 11/05/2024 11/05/2024 64-year-old [...] in March, or sooner with worsening symptoms. [email or web address] Not available 11/05/2024 10:03:03 Plan of Treatment Reminders Order Date Submit Date Provider Last Modified By Organization Details Last Modified Time Details Appointments None recor ded. Lab None recor ded. Referral None recor ded. Procedures None recor ded. Surgeries laryn gosco py, direc t, with biops y (SURG ) 2023 [email or web address] Not available 10:59:47 Imaging [place], modif ied tanya pollard ow study 2023 [email or web address] [facility], [address] [place] [address], [address], 09:14:31 Medication Orders Flona se Aller gy Relie f 50 mcg/a ctuat ion nasal spray ,susp ensio n 2023 gene [facility], [address] [place], [address], 12:24:20 Shawna tin 10 mg table t 2023 [facility] [employer] [facility], [address] [place], [address], 10:32:36 Patient TargetsNo targets recorded. Patient InstructionsNo instructions recorded. Reason for Referral None Reported. Results Created Date Observation Date Name Description Value Unit Range Abnormal Flag Note LastModifiedBy Organization Detail LastModifiedTime 06/23/20 audio gram No observ ation record ed. [email or web address] Not Available 2023 09:57:56 06/27/20 24 06/19/2024 CT, neck, soft tissu e, w/ contr ast No observ ation record ed. [email or web address] Not Available 06/17 09:18:52 09/30/19 25 09/30/2024 proce dures No observ ation record ed. [email or web address] [facility] [address] [facility], [place], [address], 09/30/2024 16:13:14 10/01/1909/30/2024 xr tanya pollard ow with video and speec h See Note [facility] , a member of [facility] Josef brizuela Name: CHRISTINE UGALDE Date of : 1959 Reason for Exam: dyspha nurys Exam Date: 2024 200052 EST Report Status : Final Orderi ng [...] Date: 2024 14:54 ET Workst [facility] Transc ribed By: Self Edit Transc ribed Date: 2024 12:27 ET Reside nt/PA/ DRUM SANDER: Rima Dee [email or web address], [address], 10/01/2024 16:03:07 10/07/19 25 audio gram No observ ation record ed. BARCODE Not Available 2024 14:57:35 Result Notes None recorded. Problems Name Problem SNOMED Code Status Onset Date Resolution Date Notes Provider Name and Address Organization Details Recorded Time Obstructi ve sleep apnea syndrome 08737109 Active 2014 LORI; Note: 12/30/14 [facility] Available [facility] 4 02:22:47 Chronic tonsillit is 68404752 Active 2014 Chronic tonsillit is; Note: Date Diagnosed : 02/09/2015 10:14 AM (474.00) Not Available [facility] 4 02:22:45 Postopera tive follow-up visit Active 2014 Post op; Note: Date Diagnosed : 02/09/2015 10:14 AM (V67.00) Not Available [facility] 4 02:23:16 Bilateral disorder of Eustachia n tubes 19690691671 93886 Active 2016 Other specified disorders of Eustachia n tube, bilateral ; Note: Date Diagnosed : 7 11:32 AM (H69.83) Not Available [facility] 4 02:22:40 Mixed conductiv e and sensorine ural hearing loss, bilateral 544044365 Active 2016 Mixed conductiv e and sensorine ural hearing loss, bilateral ; Note: Date Diagnosed : 7 1:02 PM (H90.6) Not Available [facility] 4 02:22:32 Dysphagia 97409588 Active 2018 Dysphagia , unspecifi ed; Note: Date Diagnosed : 05/06/2019 3:56 PM (R13.10) Not Available [facility] 4 02:22:52 Benign neoplasm of tongue 02738389 Active 2018 Benign neoplasm of lingual tonsil; Note: Date Diagnosed : 05/06/2019 3:56 PM (D10.1) Not Available [facility] 4 02:22:48 Dysphonia 34652552 Active 2018 Hoarsenes s; Note: Date Diagnosed : 05/06/2019 3:57 PM (R49.0) Not Available [facility] 4 02:23:11 Pain in throat 457272651 Active 2018 Pain in throat; Note: Date Diagnosed : 9 12:13 PM (R07.0) Not Available [facility] 4 02:22:53 Impacted cerumen of bilateral ears 17835759103 32230 Active 2020 Impacted cerumen, bilateral ; Note: Date Diagnosed : 01/14/2021 3:17 PM (H61.23) Not Available [facility] 4 02:22:35 Eczema 93331659 Active 2020 Other specified dermatiti s; Note: Date Diagnosed : 01/14/2021 3:19 PM (L30.8) Not Available [facility] 4 02:22:35 Examinati on of ear Active 2021 Encounter for examinati on of ears and hearing without abnormal findings; Note: Date Diagnosed : 11/18/2021 10:53 AM (Z01.10) Not Available [facility] 4 02:22:49 Candidal otitis externa 40581962 Active 2022 Candidal otitis externa; Note: Date Diagnosed : 04/30/2023 1:52 PM (B37.84) Not Available [facility] 4 02:23:11 Mixed conductiv e and sensorine ural hearing loss of left ear with normal hearing on right side 2511014682 Active 2023 ANA CRISTINA [place], CCC-A [address], [place], [place], [address] , [place] - [facility] 4 10:13:14 Allergic rhinitis 69460943 Active 2023 JASS SORTO MD [address], [place], [place], [address] , [place] - [facility] 4 10:32:06 Hypertrop hy of lingual tonsil 612829684 Active 2023 JASS SORTO MD [address], [place], [place], [address] , [place] - [facility] 4 10:32:41 Sensorine ural hearing loss in right ear 02283707096 100 Active 2023 ETHAN BOUDREAUX PA-C [address], [place], [place], [address] , [place] - [facility] 4 11:09:33 Dysfuncti on of left eustachia n tube 62725708609 26161 Active 2023 ETHAN BOUDREAUX PA-C [address], [place], [place], [address] , [place] - [facility] 4 11:09:40 Dysfuncti on of eustachia n tube 08268391 Active 2023 ETHAN BOUDREAUX PA-C [address], [place], [place], [address] , [place] - [facility] 4 09:05:08 Postopera tive pain 565777284 Active 2023 JASS SORTO MD [address] [facility],[place] [address], [place], [address] , [place] - [facility] 4 10:50:15 Bilateral earache 974138095 Active 2024 ETHAN BOUDREAUX PA-C [address] [facility],[place] [address], [place], [address] , [place] - [facility] 5 09:57:01 Pain of temporoma ndibular joint 38949065 Active 2024 ETHAN BOUDREAUX PA-C [address] [place] [address],[place] [address], [place], [address] , [place] - [facility] 5 09:57:10 Temporoma ndibular joint disorder 15713989 Active 2024 ETHAN BOUDREAUX PA-C [address] [place] [address],[place] [address], [place], [address] , [place] - [facility] 5 09:57:29 Problem Notes None recorded. Procedures Surgical History Date Name Laterality Status Provider Name and Address Organization Details Recorded Time 10/07/19 25 FOL_DP completed SHAWNEE H[place]IS PA-C [address] [place] [address],[place] [address], [place], [address], [place] - [facility] 10/07/2024 13:32:35 10/07/19 25 Air & Speech Audio with Tymps - 65915, 33723 & 56702 completed JOSEP GEIGER [address] [facility],[address], [address], [place] - [facility] 10/07/2024 13:03:35 06/19/20 24 Comp Audio with Tymps - 35958 & 51260 completed ANA CRISTINA [place], CCC-A [address] [facility],[address], [address], [place] - [facility] 06/19/2024 10:12:44 06/19/20 24 Fiberoptic Laryngoscopy (Comprehensive) completed JASS SORTO MD [address] [facility] [address], [place], [address], [facility] - [facility] 06/19/2024 09:44:15 07/23/20 19 excision of lingual tonsil completed JASS SORTO MD [address], [place], [address], [facility] - [facility] 06/19/2024 10:24:40 12/31/19 15 tonsillectomy completed JASS SORTO MD [address],[facility] [address], [place], [address], [facility] 06/19/2024 10:25:05 Imaging Results None recorded. Procedure Notes None recorded. Medical Equipment None Reported. Allergies Allergen ID Allergen Name Allergen Category Reaction Reaction Severity Criticality Documentation Date Start Date Code Code System Note Provider Name and Address Organization Details Recorded Time 04915 Product containin g penicilli n (product) medicatio n other Not available Not available 01/29/2024 90258 8001 SNOMED React ion: unkno wn, unspe cifie d;; Not Available [facility] 4 00:52:53 61365 verapamil medicatio n other Not available Not available 01/29/2024 53817 RxNorm React ion: unkno wn, unspe cifie d;; Not Available [facility] 4 00:52:56 98966 tramadol hydrochlo ride medicatio n other Not available Not available 01/29/2024 71836 RxNorm React ion: unkno wn, unspe cifie d;; Not Available [facility] 4 00:53:06 51136 ibuprofen , sodium salt medicatio n other Not available Not available 01/29/2024 32440 44 RxNorm React ion: unkno wn, unspe cifie d;; Not Available [facility] 4 00:53:08 Medications Name Sig Start Date Stop Date Status Note LastModified by Organization Details LastModified Time fe gluconate tab 239mg 06/19 completed Not Available Not Available Not Available losartan 50 mg tablet 2020 active Medicati on ID: 044516 B rand Name: losartan Send Method: E-Prescr ibed Sub s Allowed: subs OK Medic ationGen ericName : losartan Not Available Not Available Not Available cyclobenz aprine 10 mg tablet 01/14 completed Medicati on ID: 854223 D uration Value: 10 Brand Name: adan [...] ion soln 01/14 completed Medicati on ID: 662112 B rand Name: ipratrop ium-albu terol Se [...] mg tablet 01/14 completed Medicati on ID: 72592 Du ration Value: 30 Brand Name: valsarta [...] by mouth 06/19 completed Medicati on ID: 127918 D uration Value: 3 Prescri bed By Name: DAMIR Mendoza nd Name: oxycodon e Send Method: E-Prescr ibed Sub s Allowed: subs OK Medic ationGen ericName : oxycodon e Not Available Not Available Not Available topiramat e 25 mg tablet 07/03 completed Medicati on ID: 55749 Du ration Value: 30 Reason: () Brand [...] mg tablet 07/22 completed Medicati on ID: 973307 B rand Name: chlortha lidone S end Method: E-Prescr ibed Sub s Allowed: subs OK Medic ationGen ericName : chlortha lidone Not Available Not Available Not Available ciproflox acin 500 mg tablet 07/22 completed Not Available Not Available Not Available doxycycli ne monohydra te 100 mg tablet 01/14 completed Medicati on ID: 462987 D uration Value: 10 Brand Name: doxycycl [...] mcg tablet 01/14 completed Medicati on ID: 419099 D uration Value: 30 Brand Name: levothyr [...] mg tablet 07/22 completed Medicati on ID: 666155 D uration Value: 30 Brand Name: citalopr am Send Method: E-Prescr ibed Sub s Allowed: subs OK Medic ationGen ericName : citalopr am Not Available Not Available Not Available amitripty line 25 mg tablet 01/14 completed Medicati on ID: 528849 B rand Name: amitript yline Se nd [...] mg tablet 07/03 completed Medicati on ID: 42963 Du ration Value: 7 Reason: () Brand [...] 2 TABLE[facility] 06/19 completed Not Available Not Available Not Available clotrimaz ole-betam ethasone 1 %-0.05 % topical cream Apply 1 a small amount to affected area twice a day 06/19 completed Medicati on ID: 539429 D uration Value: 14 Brand Name: iliariharry [...] mg capsule 07/22 completed Medicati on ID: 390622 B rand Name: fluoxeti ne Send Method: [...] mg tablet 01/14 completed Medicati on ID: 369365 D uration Value: 30 Brand Name: sertrali [...] e 50 mcg/actua tion nasal spray,tawnya pension Rincon 2 sprays every day by intranas al [...] OraMagic mouthwash 01/14 completed Medicati on ID: 025739 D uration Value: 4 Brand Name: MAGIC [...] mg tablet 01/14 completed Medicati on ID: 620074 D uration Value: 30 Brand Name: topirama [...] % mouthwash 01/14 completed Medicati on ID: 641243 D uration Value: 30 Brand Name: chlorhex idine gluconat e Send Method: E-Prescr ibed Sub s Allowed: subs OK Speci al Instruct ion: RINSE WITH 5ML BY MOUTH EVERY 6 TO 8 HOURS Me dication GenericN robert: chlorhex idine gluconat e Not Available Not Available Not Available Ranitidin e Hcl 01/14 completed Medicati on ID: 650754 D uration Value: 30 Brand Name: ranitidi [...] inhalatio n 06/19 completed Medicati on ID: 756234 B rand Name: Spiriva Respimat Send Method: [...] Updated DateTime 11/05/2024 165.1 cm 34.9 kg/m2 42791.4 g Jessica Joe [place] - [facility] 11/05/2024 09:16:01 Date Recorded Body height Body mass index (BMI) Body weight Provider Name and Address Organization Details Last Updated DateTime 06/19/2024 170.18 cm 32.4 kg/m2 59437.62 g Virginia Rosario [facility] 06/19/2024 09:24:03 Date Recorded Body height Body mass index (BMI) Body weight Provider Name and Address Organization Details Last Updated DateTime 07/22/2024 165.74 cm 34.3 kg/m2 21512.21 g Virginia Rosario [facility] 07/22/2024 10:32:49 Social History None recorded. Functional [...] Diagnosis Note JASS SORTO MD [facility] on [address] [place] [address] 06/19/2024 09:02:56 06/19/2024 10:41:11 Mixed conductive and sensorineural hearing loss of left ear with normal hearing on right side 3738779484 H90.72 Audiologic al evaluation results: Right ear: Normal hearing with a mild loss 8kHz excellent word recognitio n. Left ear: Mild-moder ate mixed hearing loss with excellent word recognitio n. Tympanomet ry: Right Ear:Type A Left Ear:Type A (rounded) Allergic rhinitis 627118 04 J30.9 Hypertroph y of lingual tonsil 884959506 J35.3 59824 ETHAN BOUDREAUX PA-C [facility] [address] [address] 06/25/2024 10:26:55 06/25/2024 11:18:27 Mixed conductive and sensorineural hearing loss of left ear with normal hearing on right side 6237553553 H90.72 Sensorineu ral hearing loss in right ear 9185407164 9100 H90.A21 Dysfunctio n of left eustachian tube 4858107508 723559 H69.82 99492 SHAWNEE [place]IS PA-C [facility] [address] [address] 07/22/2024 10:24:23 07/22/2024 11:07:14 Benign neoplasm of tongue 87694916 D10.1 Bilateral disorder of Eustachian tubes 7481772158 236490 H69.83 Dysfunctio n of left eustachian tube 9657197987 459586 H69.82 Dysphagia 38801647 R13.1 0 26028 SHAWNEE HARRIS PA-C [facility] [address] [address] 10/07/2024 12:39:23 10/07/2024 13:27:36 Dysfunction of left eustachian tube 2829935385 487988 H69.82 Left Ear:Normal hearing through 6K Hz sloping to a mild HL.Patent tube. Benign cayetano plasm of tongue 33429150 D10.1 Bilateral disorder of Eustachian tubes 8915531057 153504 H69.83 [id number] ETHAN BOUDREAUX PA-C [facility] [address] [address] 11/05/2024 09:08:29 11/05/2024 12:01:04 Benign neoplasm of tongue 90707138 D10.1 Dysfunctio n of left eustachian tube 8635610007 576526 H69.82 Bilateral earache 113491 003 H92.03 Temporoman dibular joint disorder 24422174 M26.623 Health Concerns Section Related Observation LastModified by Organization Detai ls LastModified Time None Recorded Concern Status LastModified by Organization Details LastModified Time None Recorded Advance Directives Directive None Recorded Payers Insurance Date Sequence Insurance Name Policy Number Policy Catalan Covered Member ID Catalan Member ID Guarantor Name 03/30/2025 1 [facility] - DOS ON OR AFTER 2022 - HALF-WAY OPTIONS AND ONE CARE (MEDICARE REPLACEMENT/ADV ANTAGE - PPO) Christine Ugalde [id number] Christine Ugalde 06/19/2024 1 [facility] - DOS ON OR AFTER 2022 - MEDICARE [place]VANTAGE [place] (MEDICARE RE[place]ACEMENT/ADV ANTAGE - PPO) Christine Ugalde [id number] Christine Ugalde Notes Date Note Type Note [...] in the left mastoid. JASS SORTO MD [address] [place] [address], [address], [place] - [facility] 06/22/2024 08:40:41 06/25/2024 text/html ROS as noted [...] but no nasal sprays. MAIKEL FERRARO MD [address] [place] [address], [address], [facility] - [facility] 06/25/2024 12:24:22 07/22/2024 text/html ROS as noted in the [facility] 64-year-old female presents following DL with [...] hearing has improved. MIGUEL ANGEL SOLIS MD [address] [place] [address], [address], [facility] - [facility] 07/22/2024 16:39:48 10/07/2024 text/html ROS as noted in the [facility] 64-year-old female presents for reevaluation. She [...] aspiration or penetration. MAIKEL FERRARO MD [address] [facility],[place] [address], [place], [address], [place] [facility] 10/07/2024 17:14:50 11/05/2024 text/html ROS as noted [...] and sore throat. MAIKEL FERRARO MD [address] [facility] 100, [place], [address], [facility] - [facility] 11/05/2024 11:43:29 OBGyn Episode No OBEpisode recorded.
[2025-07-12 07:45] LABS: MANUAL DIFF FLAG NO
[2025-07-12 07:46] LABS: Hematocrit 39.5 % (37.0-47.0); Hemoglobin 12.8 g/dl (12.0-16.0); Imm Gran Abs Auto 0.27 X10*3/uL (0.00-0.03); Imm Gran Pct Auto 2.4 % (0.0-0.4); Lymphocytes Absolute Auto 3.1 X10*3/uL (1.2-4.9); Mean Corpuscular HGB Conc 32.4 g/dl (31.0-35.0); Mean Corpuscular Hemoglobin 31.8 pg (27.0-33.0); Mean Corpuscular Volume 98.0 fL (80.0-98.0); NRBC Abs Auto 0.000 X10*3/uL (0.0-0.012); NRBC Pct Auto 0.0 /100WBC (0.0-0.2); Platelet Count 289 X10*3/uL (160-400); Red Blood Count 4.03 X10*6/uL (4.20-5.50); White Blood Count 11.1 X10*3/uL (4.8-10.8)
[2025-07-12 07:47] LABS: Appearance Urine Clear; Glucose Urine UA Negative (Negative); PH 5.5 (5.0-9.0); Specific Gravity - Urine 1.015 (1.005-1.025); UMIC TRIGGER UACC YES
[2025-07-12 08:02] LABS: Alanine Aminotransferase 30 U/L (0-31); Albumin Level 4.6 g/dL (3.5-5.0); Alkaline Phosphatase 89 U/L (39-117); Anion Gap 15 (12-20); Aspartate Amino Transferase 30 U/L (5-31); Blood Urea Nitrogen 22 mg/dL (9-16); Calcium 9.6 mg/dL (8.4-10.2); Carbon Dioxide 26 mmol/L (22-29); Chloride 103 mmol/L (96-108); Creatinine Clr Calc Pharmacy 75.9; Estimated Glomerular Filt Rate > 60; Potassium 3.7 mmol/L (3.3-5.1); Sodium 140 mmol/L (135-145); Total Protein 7.4 g/dL (6.5-8.0)
--- NOTE | 2025-07-12 08:18 | ED.FEMALEGU ---
HPI - Female Genitourinary General Chief complaint: Urogenital-Female Stated complaint: High Blood Sugar Time Seen by Provider: 07/12/25 07:57 Source: patient and RN notes reviewed Mode of arrival: ambulatory Limitations: no limitations History of Present Illness ED Provider: Miguelina Savage PA-C HPI Narrative: This is a 65-year-old female, with a past medical history of hypertension, migraines, gastritis, GERD, asthma, hypothyroidism, who presents emergency department with concerns of hyperglycemia. Patient states that over the last several days she has felt as though her blood sugar has been elevated. She states that she went to an urgent care last week as she was experiencing bilateral calf pain. She states that the bilateral calf pain started about 3 weeks ago. She reports that she had labs performed at that time and states that she was called as her sugar was 335. She states that yesterday she used her sister's glucometer and had elevated readings, and was 294 yesterday. She states that she has no history of diabetes. She also reports that over the last 3 days she has had urinary urgency, denies dysuria, or hematuria. She does report a warmth like sensation down in her genitalia which occurs at all times. She does endorse slight increased vaginal discharge. Denies any bleeding. She states that she is not sexually active, denies any concerns for any sexually transmitted infections. She is postmenopausal. She otherwise denies any fevers, chills, chest pain, shortness of breath, abdominal pain, nausea, vomiting, constipation or diarrhea. No other complaints or concerns at this time. MD elicited complaint: vaginal discharge Consistency: constant Vaginal discharge: other (Clear) Vaginal bleeding: scant Urinary symptoms: Urgency and Frequency Exacerbating factors: urination Relieving factors: none Associated symptoms: denies other symptoms Treatment prior to arrival: none Sexual activity: No Patient : No Related Data Home Medications ?Medication ?Instructions ?Recorded ?Confirmed albuterol sulfate 90 mcg/actuation 2 puff inhalation Q6H PRN 05/30/22 aerosol inhaler duloxetine 30 mg capsule,delayed 60 mg PO DAILY 05/30/22 release fluticasone 500 mcg-salmeterol 50 1 inh inhalation BID 05/30/22 mcg/dose blistr powdr for inhalation (Wixela Inhub) fluticasone prop.50 mcg 2 spray intranasal DAILY 05/30/22 spray,suspen-sod.chloride 0.9% nasal spray kit levothyroxine 100 mcg tablet 100 mcg PO DAILY 05/30/22 metoprolol succinate 25 mg 25 mg PO DAILY 05/30/22 tablet,extended release 24 hr umeclidinium 62.5 mcg/actuation 1 inh inhalation DAILY 05/30/22 blister powder for inhalation (Incruse Ellipta) valsartan 160 1 tab PO DAILY 05/30/22 mg-hydrochlorothiazide 25 mg tablet Previous Rx's ?Medication ?Instructions ?Recorded prochlorperazine maleate 10 mg 10 mg PO Q8H PRN headache #10 tabs 11/10/24 tablet (Compazine) methocarbamol 750 mg tablet 750 mg PO Q8H #20 tabs 06/20/25 prednisone 20 mg tablet 40 mg (2 x 20 mg) PO DAILY #10 tabs 06/20/25 fluconazole 150 mg tablet 150 mg PO Q3D 2 doses #2 tabs 07/12/25 Allergies Allergy/AdvReac Type Severity Reaction Status Date / Time aspirin Allergy Intermediate Rash Verified 07/12/25 07:30 ibuprofen Allergy Intermediate Rash Verified 07/12/25 07:30 gabapentin AdvReac rash Verified 07/12/25 07:30 amoxicillin Allergy Severe Anaphylaxis Uncoded 06/20/25 09:14 IV contrast Allergy Intermediate Swelling Uncoded 06/20/25 09:14 Review of Systems Review of Systems: Constitutional : No Fever, No Chills ENT/Mouth : No sore throat, No Rhinorrhea Eyes: No Eye Pain, No Swelling, No Redness Cardiovascular : No Chest Pain, No SOB Respiratory : No Cough, No Sputum Gastrointestinal : No Nausea, No Vomiting, No Diarrhea, No abdominal Pain Genitourinary : No Dysuria, No Hematuria Musculoskeletal : No joint pain, No Myalgias, No Joint Swelling Skin : No Skin Lesions Neuro : No Weakness, No Numbness, No Headache All other systems reviewed and are negative Yes all other systems are reviewed and are negative Constitutional: Constitutional: Reports as per [facility] [place] Past Medical History Attestation statement: The following information was validated with the patient. Social History Social History Patient Tobacco Use Status: Never used Tobacco Advance Directives Date on File: 11/11/23 Physical Exam Vital Signs: Vital Signs: Last Vital Signs Temp 98.2 F 07/12/25 11:33 Pulse 63 07/12/25 11:33 Resp 14 07/12/25 11:33 BP 0/0 L 07/12/25 11:33 Pulse Ox 98 07/12/25 11:33 O2 Del Method Room Air 07/12/25 11:33 BMI result Body Mass Index 38.5 Const: General: cooperative, comfortable and no acute distress Orientation/consciousness: patient oriented x3 Limitations: no limitations HEENT: Head: Yes normal to inspection, Yes normocephalic and Yes atraumatic Ears: hearing grossly normal bilaterally General nose exam: Normal external nose present Face and sinus: Yes normal facial exam Mouth: Normal oral and palatal mucosa present, oropharynx normal and moist mucous membranes Throat: Yes posterior oropharynx normal Eyes: General: appearance normal, both eyes and all related structures Eyelids: Yes eyelids normal Conjunctivae: conjunctivae normal Sclerae: sclerae normal Pupils: Equal, round and reactive pupils present EOM: EOMs intact bilaterally Neck: Neck: Yes normal visual inspection, Yes full ROM and Yes no lymphadenopathy Lymphatic: no lymphadenopathy noted Chest: Chest palpation & inspection: normal inspection of the chest Resp: Effort & Inspection: normal respiratory effort and able to speak in complete sentences Auscultation: clear to auscultation bilaterally, no crackles, no rales, no rhonchi and no wheezes Cardio: Rate: regular rate Rhythm: regular rhythm Heart sounds: S1 normal heart sound present and S2 normal heart sound present GI: Other: Abdomen is soft, nontender, nondistended Inspection: Yes normal to inspection : Other: [facility] present at all times. Thick, white discharge noted within the vaginal vault. There is scans white discharge noted on the external labia minora and majora. External Female Exam: normal external appearance, normal appearance of the urethra, No erythema, No externally tender and No external swelling Speculum Exam - Vagina: normal appearance of the vagina, normal palpation and normal vaginal discharge Speculum Exam - Cervix: normal appearance of the cervix and normal palpation Bimanual exam- vagina & uterus: normal palpation and normal palpation Skin: General skin exam: no rashes or lesions noted Trauma: no lacerations or abrasions Wounds: no wounds Neuro: General: patient oriented x3 and moves all extremities Cranial nerves: Yes Equal, round and reactive pupils present Extrem: Other: Bilateral calf tender, no peripheral edema noted. Strong DP pulse General: Yes normal to inspection Right upper extremity: normal to inspection Left upper extremity: normal to inspection Right lower extremity: normal to inspection Left lower extremity: normal to inspection Medical Decision Making Medical Decision Making [facility] Narrative: This is a 65-year-old female, with a past medical history of hypertension, migraines, gastritis, GERD, asthma, hypothyroidism, who presents emergency department with concerns of hyperglycemia. On arrival, vital signs within normal limits. She is speaking full sentences under no acute distress. Patient expresses concerns of hyperglycemia. Prior to my evaluation labs were obtained, she does have a slight leukocytosis at 11.1, likely reactive, no left shift. Random glucose 166 urine with trace leuk esterases, otherwise does not appear to be profoundly infected. Chemistry with no significant electrolyte derangement. Differential diagnoses include hyperglycemia, electrolyte derangement, dehydration, UTI, bacterial vaginosis. 8:44 AM 07/12/2025 (Miguelina Savage PA-C): Given symptoms, will obtain ultrasound to rule out any DVT although she has no risk factor she continues to have bilateral calf pain. Will ensure that she has no DVTs present. We will also perform pelvic examination to rule out any pelvic etiologies. 10:28 AM 07/12/2025 (Miguelina Savage PA-C): Awaiting ultrasound report to returned. Pelvic examination was performed. She does have some slight vaginal discharge, may be an early vaginitis, no profound concern for any pelvic process. No cervical motion tenderness. We will continue to closely monitor. 10:59 AM 07/12/2025 (Miguelina Savage PA-C): Ultrasound revealing small popliteal cyst on the right, otherwise no evidence of DVT. Patient's overall workup today reassuring. Discussed overall workup with patient. She has follow-up with her primary care physician on July 17. Given strict return precautions, she understands and agrees with plan. Patient stable for discharge. Differential Diagnosis Differential Diagnoses: The differential diagnosis associated with the presentation includes See above Lab Data [facility] Lab Attestation statement: I reviewed the patient's lab results. See [facility] 07/12/25 07:39 07/12/25 07:39 Labs: Lab Results 07/12/25 07/12/25 Range/Units 07:39 10:30 WBC 11.1 H (4.8-10.8) X10*3/uL RBC 4.03 L (4.20-5.50) X10*6/uL Hgb 12.8 (12.0-16.0) g/dl Hct 39.5 (37.0-47.0) % MCV 98.0 (80.0-98.0) fL MCH 31.8 (27.0-33.0) pg MCHC 32.4 (31.0-35.0) g/dl RDW 12.6 (11.0-16.0) % Plt Count 289 (160-400) X10*3/uL MPV 9.1 L (9.4-12.3) fL Immature Gran % (Auto) 2.4 H (0.0-0.4) % Neut % (Auto) 59.7 (45-73) % Lymph % (Auto) 27.7 (20-40) % Garvin % (Auto) 9.0 (2-11) % Eos % (Auto) 0.8 (0-4) % Baso % (Auto) 0.4 (0-2) % Lymph # (Auto) 3.1 (1.2-4.9) X10*3/uL [place]vin # (Auto) 1.0 (0.1-1.2) X10*3/uL Eos # (Auto) 0.1 (0.0-0.4) X10*3/uL Baso # (Auto) 0.0 (0.0-0.2) X10*3/uL Abs Immat Gran (auto) 0.27 H (0.00-0.03) X10*3/uL Absolute Neuts (auto) 6.7 (2.0-8.3) x10*3/uL Absolute Nucleated RBC 0.000 (0.0-0.012) X10*3/uL Nucleated RBC % (auto) 0.0 (0.0-0.2) /100WBC Sodium 140 (135-145) mmol/L Potassium 3.7 (3.3-5.1) mmol/L Chloride 103 (96-108) mmol/L Carbon Dioxide 26 (22-29) mmol/L Anion Gap 15 (12-20) BUN 22 H (9-16) mg/dL Creatinine 0.90 (0.5-1.4) mg/dL Estim Creat Clear Calc 75.9 Estimated GFR > 60 Random Glucose 166 H (60-115) mg/dL Calcium 9.6 (8.4-10.2) mg/dL Total Bilirubin 0.3 (0.0-1.0) mg/dL AST 30 (5-31) U/L ALT 30 (0-31) U/L Alkaline Phosphatase 89 (39-117) U/L Total Protein 7.4 (6.5-8.0) g/dL Albumin 4.6 (3.5-5.0) g/dL Urine Color Yellow Urine Appearance Clear Urine pH 5.5 (5.0-9.0) Ur Specific [place] 1.015 (1.005-1.025) Urine Protein Negative (Neg-Trace) mg/dL Urine Glucose (UA) Negative (Negative) mg/dL Urine Ketones Negative (Negative) mg/dL Urine Blood Negative (Negative) Urine Nitrite Negative (Negative) Ur Leukocyte Esterase Trace H (Negative) Urine RBC 0-2 (0-2) /HPF Urine WBC 0-5 (0-5) /HPF Ur Squamous Epith Cells 0-2 (0-2) /HPF Urine Bacteria None Seen (None Seen) Hyaline Casts 3-5 (0-2) /LPF T. vaginalis (PCR) NOT DETECTED (Not Detect) Bact vaginosis (PCR) NEGATIVE (Negative) C. krusei/glabrata (PCR) NOT DETECTED (Not Detect) Nayla group (PCR) DETECTED A (Not Detect) Radiology Impression Discussion of test interpretation with radiology: I have reviewed the radiologist's reading. Radiologist Impression: CLINICAL HISTORY: calf pain Venous duplex ultrasound bilateral lower extremity Comparison: None provided Findings: The visualized deep veins are fully compressible with normal Doppler color flow and spectral tracings. Small right-sided popliteal cyst measuring 0.9 x 1.2 x 2.7 cm.. IMPRESSION: 1. Negative for bilateral lower extremity deep vein thrombosis. 2. Small incidental right-sided popliteal cyst. This document has been electronically signed by: Nick Sorensen MD on 07/12/2025 10:52:03 Dictated By: Nick Sorensen MD Discharge Plan Discharge Clinical Impression: Bilateral leg cramps, Vaginitis, Popliteal cyst Patient Disposition: Home, Self-Care Instructions: Yeast Infection (ED), Muscle Cramp (ED) Additional Instructions: You were seen in the emergency department due to concerns for elevated glucose. Your glucose today was 166. Please follow-up with your primary care physician regarding this visit. You did have an ultrasound of your legs, you do have a right-sided popliteal cyst, this will either resolve on its own. These can increased in size and rupture which can cause you to have this pain. Please drink plenty of fluids and get plenty of rest. You do have some concerning signs of a yeast infection therefore we are medicating you with a medication that can help your symptoms. Take 1 dose today, if you are still symptomatic we can take a 2nd dose. We did send out your swabs for further testing, we will call you if any of these are positive. If any new or worsening symptoms occur including but not limited to severe chest pain, shortness of breath, please seek emergent care. Prescriptions: New fluconazole 150 mg tablet 150 mg PO Q3D Qty: 2 0RF No Action prochlorperazine maleate [Compazine] 10 mg tablet 10 mg PO Q8H PRN (Reason: headache) Qty: 10 0RF metoprolol succinate 25 mg tablet extended release 24 hr 25 mg PO DAILY valsartan-hydrochlorothiazide 160-25 mg tablet 1 tab PO DAILY levothyroxine 100 mcg tablet 100 mcg PO DAILY duloxetine 30 mg capsule,delayed release(DR/EC) 60 mg PO DAILY Incruse Ellipta 62.5 mcg/actuation blister with device 1 inh inhalation DAILY fluticasone propion-salmeterol [Wixela Inhub] 500-50 mcg/dose blister with device 1 inh inhalation BID albuterol sulfate 90 mcg/actuation HFA aerosol inhaler 2 puff inhalation Q6H PRN fluticasone prp-sod.chl,bicarb 50 mcg- 0.9 % kit,spray suspension and spray 2 spray intranasal DAILY prednisone 20 mg tablet 40 mg PO DAILY Qty: 10 0RF methocarbamol 750 mg tablet 750 mg PO Q8H Qty: 20 0RF Interventions: ED Discharge Assessment Last Done: 07/12/25 11:33 Discharge Date/Time: 07/12/25 11:34 Print Language: Kiswahili
[2025-07-12 08:27] VITALS: BP 127/51; PULSE 82; RESP 14; TEMP 36.6; O2SAT 99
--- NOTE | 2025-07-12 08:31 | PC.NURSE ---
Patient presents to ED with urinary frequency and warmth in vaginal area Patient was recently seen at urgent care where she was told she was prediabetic Patient reports having clear discharge from vagina, not sexually active Patient denies pain at rest but does c/o of pain in calf muscles on palpation VSS and up to date. Provider in to see patient Plan of care on going
[2025-07-12 10:47] VITALS: RESP 14; O2SAT 98
[2025-07-12 11:33] VITALS: BP 0/0; PULSE 63; RESP 14; TEMP 36.8; O2SAT 98
[2025-07-12 11:40] LABS: Bacterial Vaginosis PCR NEGATIVE (Negative); Candida Group PCR DETECTED (Not Detect); Candida glab krusei PCR NOT DETECTED (Not Detect); Trichomonas vaginalis PCR NOT DETECTED (Not Detect)
[2025-07-12 12:11] LABS: CT PCR NOT DETECTED (Not Detect.); NG PCR NOT DETECTED (Not Detect.)
== END 2025-07-12 11:34 | disposition home or self-care (01) ==
PROVIDERS: Physician Assistant Medical; Emergency Provider Emergency Medicine Emergency Medical Services; PCP Internal Medicine
DX: B37.31 Acute candidiasis of vulva and vagina (principal); R73.9 Hyperglycemia, unspecified; R25.2 Cramp and spasm; M79.605 Pain in left leg; M79.604 Pain in right leg; N76.0 Acute vaginitis; R60.0 Localized edema; M71.21 Synovial cyst of popliteal space [Baker], right knee; Z79.899 Other long term (current) drug therapy
CPT/HCPCS: 36415; 80053; 81001; 81515; 85025; 87491; 87591; 93970; 99284

== ENCOUNTER → 2025-07-12 08:32 | Outpatient (BNV) | payer OTHER, SELFPAY | PROVIDERS: Emergency Provider Emergency Medicine Emergency Medical Services; PCP Internal Medicine; Visit Provider Radiology Vascular & Interventional Radiology | DX: M79.661 Pain in right lower leg (principal); M79.662 Pain in left lower leg | CPT/HCPCS: 93970 ==